=== PATIENT | female | born 1935 | race Caucasian/White ===

== ENCOUNTER 2016-09-01 12:46 | Emergency (ER) | payer MEDICARE, OTHER ==
[2016-09-01 12:54] VITALS: BP 133/75; PULSE 92; RESP 20; TEMP 97
[2016-09-01] MEDS ORDERED: SULFAMETHOX-TMP 800-160MG 1 EACH TAB PO STA (13:30)
[2016-09-01] MEDS ORDERED: DIPH,PERTUS(ACELL)TETVAC-LF 0.5 ML VIAL IM ONE (13:30)
--- NOTE | 2016-09-01 13:37 | ED ---
Skin/Abscess/FB HPI - General Chief complaint: Skin/Abscess/Foreign Body Stated complaint: Abscess Time Seen by Provider: 09/01/16 12:57 Source: patient Mode of arrival: ambulatory Limitations: no limitations - History of Present Illness MD complaint: abscess/boil Onset/Timin -: week(s) Tetanus Up to Date: no Location: R hand (Dorsal aspect of right wrist) Severity: moderate Severity scale (1-10): 4 Quality: aching Consistency: constant Improves with: none Worsens with: palpation Context: none Associated symptoms: denies other symptoms Treatments Prior to Arrival: attempted to drain pus at home, other (Topical antibiotics) - Related Data Previous Rx's Medication Instructions Recorded Sulfamethox-Tmp 800-160Mg [Bactrim 1 tab PO Q12HR #20 tab 09/01/16 DS 800-160 mg] Allergies Allergy/AdvReac Type Severity Reaction Status Date / Time morphine Allergy Unknown Verified 09/01/16 12:55 oxycodone [From OxyContin] Allergy Unknown Verified 09/01/16 12:55 Review of Systems ROS Statement: Those systems with pertinent positive or pertinent negative responses have been documented in the HPI. ROS Other: All systems not noted in ROS Statement are negative. Past Medical History Past Medical History: Hyperlipidemia, Hypertension, Rheumatoid Arthritis (RA) Additional Past Medical History / Comment(s): back pain History of Any Multi-Drug Resistant Organisms: None Reported Past Psychological History: No Psychological Hx Reported Smoking Status: Former smoker Past Alcohol Use History: None Reported Past Drug Use History: None Reported General Exam Limitations: no limitations General appearance: alert, in no apparent distress Head exam: Present: atraumatic, normocephalic, normal inspection Eye exam: Present: normal appearance. Absent: scleral icterus, conjunctival injection, periorbital swelling, periorbital tenderness ENT exam: Present: normal exam, mucous membranes moist, normal external ear exam Neck exam: Present: normal inspection Respiratory exam: Present: normal lung sounds bilaterally. Absent: respiratory distress, wheezes, rales, rhonchi Cardiovascular Exam: Present: regular rate, normal rhythm, normal heart sounds GI/Abdominal exam: Present: soft, normal bowel sounds. Absent: tenderness Right Elbow exam: Present: normal inspection, full ROM, tenderness Forearm Wrist exam: Present: normal inspection, full ROM. Absent: tenderness, swelling Hand Wrist exam: Present: full ROM, tenderness (Tenderness and erythema to radial aspect of right dorsal wrist), erythema Neuro motor exam: Present: wrist extension intact, thumb opposition intact, thumb IP flexion intact, thumb adduction intact, fingers 2-5 abduction intact Neurosensory exam: Present: radial nerve intact, ulnar nerve intact, median nerve intact Vascular: Present: normal capillary refill, radial pulse, brachial pulse, ulnar pulse. Absent: vascular compromise Back exam: Present: normal inspection Neurological exam: Present: alert, oriented X3, normal gait, other (No focal deficits noted). Absent: motor sensory deficit Psychiatric exam: Present: normal affect, normal mood Skin exam: Present: other Expanded Type of lesion: Present: other (1 cm subcutaneous cyst with small central core to radial aspect of dorsal side of right wrist, tender to palpation, erythematous.) Course Vital Signs 09/01/16 12:52 Temperature 97.0 F L Pulse Rate 92 Respiratory 20 Rate Blood Pressure 133/75 O2 Sat by Pulse 98 Oximetry Procedures - Incision & Drainage Consent Obtained: verbal consent Time Out Performed?: No Site: hand (Right wrist) Size (cm): 1 Anesthetic Used: lidocaine 1% I&D Cleaning Method: Chloroprep, Iodine Sterile Field Used?: Yes Scalpel Used: #11 Needle Aspiration Performed?: No Irrigation Performed?: Yes I&D Drainage Obtained: Other (Cream-colored drainage with a cottage cheese-like consistency and foul odor. ) Culture Obtained?: Yes Patient Tolerated Procedure: well, no complications Medical Decision Making - Medical Decision Making Sebaceous cyst to right wrist. Incision and drainage performed at bedside. Patient tolerated well. Patient started on Bactrim. Wound care instructions reviewed with patient. Patient instructed to return with new or worsening symptoms. Disposition Clinical Impression: Sebaceous cyst Disposition: HOME SELF-CARE Condition: Good Instructions: Abscess Incision and Drainage (ED), Cyst (ED) Additional Instructions: Finish antibiotics as prescribed. Monitor for signs and symptoms of infection such as fevers, increased swelling, redness, or increased pain. Please return to the emergency department if he has no symptoms. Change dressing daily. Apply warm compresses to promote drainage 3-4 times daily. Prescriptions: Sulfamethox-Tmp 800-160Mg [Bactrim DS 800-160 mg] 1 tab PO Q12HR #20 tab Referrals: Nonstaff,Physician [Primary Care Provider] - 1-2 days Time of Disposition: 13:36
== END 2016-09-01 13:55 | disposition home or self-care (01) ==
LOC: EC 12:46
DX: L72.3 Sebaceous cyst (principal); Z88.5 Allergy status to narcotic agent; Z23 Encounter for immunization; Z87.891 Personal history of nicotine dependence
CPT/HCPCS: 10060; 87070; 87205; 90471; 90715; 99283

== ENCOUNTER → 2016-09-12 | Outpatient (CLI) | payer MEDICARE, OTHER ==
[2016-09-12 14:22] LABS: CHCM 33.4; HDW 2.62; HGB 12.7 gm/dL (11.4-16.0); MCH 32.1 pg (25.0-35.0); MCHC 33.3 g/dL (31.0-37.0); MCV 96.2 fL (80.0-100.0); Mean Platelet Volume 7.4; RBC 3.95 m/uL (3.80-5.40); RDW 14.9 % (11.5-15.5)
[2016-09-12 14:48] LABS: ALT 30 U/L (9-52); AST 21 U/L (14-36); Alkaline Phosphatase 60 U/L (38-126); Anion Gap 11 mmol/L; Blood Urea Nitrogen 18 mg/dL (7-17); Carbon Dioxide 23 mmol/L (22-30); Chloride 101 mmol/L (98-107); Glucose 103 mg/dL (74-99); Non-African American GFR(MDRD) >60 (>60 ml/min/1.73 sqM); Potassium 4.5 mmol/L (3.5-5.1); Sodium 135 mmol/L (137-145); Total Bilirubin 0.5 mg/dL (0.2-1.3); Total Protein 6.6 g/dL (6.3-8.2)
== END | disposition home or self-care (01) ==
LOC: LABWHC1 13:29
PROVIDERS: ATTEND Internal Medicine Rheumatology
DX: M25.50 Pain in unspecified joint (principal); Z79.899 Other long term (current) drug therapy
CPT/HCPCS: 36415; 80053; 85027

== ENCOUNTER 2016-10-24 12:01 | Emergency (ER) | payer MEDICARE, OTHER ==
[2016-10-24 12:21] VITALS: BP 158/81; PULSE 51; RESP 17; TEMP 97.8
--- NOTE | 2016-10-24 12:54 | ED ---
Lower Extremity Injury HPI - General Chief Complaint: Extremity Injury, Lower Stated Complaint: left knee pain Time Seen by Provider: 10/24/16 12:21 Source: patient, RN notes reviewed Mode of arrival: wheelchair Limitations: no limitations - History of Present Illness Initial Comments: 81-year-old female presents emergency Department with chief complaint of left knee pain. Patient's had nothing pain over the last 2 weeks. Patient states she murmurs twisting and states that she has some discomfort but states that the pain is usually worse the morning better throughout the day. She states that she can barely walk on it when she gets up in the morning. Patient states that she's had no prior knee injuries. Patient states she been taking over-the- counter Tylenol 5 mg states it helped somewhat. Patient states that she is here visiting from [place] and is leaving in 2 weeks. Patient denies any swelling no ecchymosis. - Related Data Home Medications Medication Instructions Recorded Confirmed Calcium Carbonate [Calcium] 1,200 mg PO BID 10/24/16 10/24/16 Cholecalciferol [Vitamin D3] 1,000 unit PO BID 10/24/16 10/24/16 Cyanocobalamin (Vitamin B-12) 1,000 mcg PO DAILY 10/24/16 10/24/16 [Vitamin B-12] Estradiol 0.5 mg PO DAILY 10/24/16 10/24/16 Folic Acid 0.4 mg PO DAILY 10/24/16 10/24/16 Hydrocodone/Acetaminophen [[place] 1 tab PO Q6HR PRN 10/24/16 10/24/16 5-325] Lisinopril [Prinivil] 10 mg PO DAILY 10/24/16 10/24/16 Methotrexate Sodium [Methotrexate] 20 mg PO FR 10/24/16 10/24/16 Oxybutynin Chloride 5 mg PO BID 10/24/16 10/24/16 predniSONE 5 mg PO DAILY 10/24/16 10/24/16 predniSONE 10 mg PO HS 10/24/16 10/24/16 Previous Rx's Medication Instructions Recorded Meloxicam [Mobic] 7.5 mg PO DAILY #30 tab 10/24/16 Allergies Allergy/AdvReac Type Severity Reaction Status Date / Time morphine Allergy Unknown Verified 10/24/16 12:25 oxycodone [From OxyContin] Allergy Unknown Verified 10/24/16 12:25 Review of Systems ROS Statement: Those systems with pertinent positive or pertinent negative responses have been documented in the HPI. ROS Other: All systems not noted in ROS Statement are negative. Past Medical History Past Medical History: Hyperlipidemia, Hypertension, Rheumatoid Arthritis (RA) Additional Past Medical History / Comment(s): back pain History of Any Multi-Drug Resistant Organisms: None Reported Past Surgical History: No Surgical Hx Reported Past Psychological History: No Psychological Hx Reported Smoking Status: Former smoker Past Alcohol Use History: None Reported Past Drug Use History: None Reported General Exam Limitations: no limitations General appearance: alert, in no apparent distress Respiratory exam: Present: normal lung sounds bilaterally. Absent: respiratory distress, wheezes, rales, rhonchi, stridor Cardiovascular Exam: Present: regular rate, normal rhythm, normal heart sounds. Absent: systolic murmur, diastolic murmur, rubs, gallop, clicks Extremities exam: Present: other (Left knee there is no obvious swelling and ecchymosis patient has full range of motion passive and active patient is pain with weightbearing only. Patient's neurovascular intact with pedal pulses equal bilaterally there is equal: Equal warmth of bilateral lower extremities.) Course Vital Signs 10/24/16 12:18 Temperature 97.8 F Pulse Rate 51 L Respiratory 17 Rate Blood Pressure 158/81 O2 Sat by Pulse 98 Oximetry Medical Decision Making - Medical Decision Making 81-year-old female presented emergency from for left knee pain. Patient most likely has this brain of her left knee no we did discuss possible meniscus injury. Patient does have some symptoms are of osteoarthritis. Patient will be follow-up with orthopedics return parameters discussed. Disposition Clinical Impression: Left knee pain, Left knee sprain Disposition: HOME SELF-CARE Condition: Stable Instructions: Knee Pain (ED) Additional Instructions: Please return to the Emergency Department if symptoms worsen or any other concerns. Prescriptions: Meloxicam [Mobic] 7.5 mg PO DAILY #30 tab Referrals: None,Stated [Primary Care Provider] - 1-2 days Time of Disposition: 13:23
--- NOTE | 2016-10-24 13:51 | XR ---
EXAMINATION TYPE: XR knee complete LT DATE OF EXAM: 10/24/2016 COMPARISON: NONE HISTORY: Twisting injury 2 weeks prior, pain TECHNIQUE: Three-view left knee FINDINGS: Joint spaces are preserved. Vascular calcification is noted. No joint effusion is evident. IMPRESSION: 1. No acute osseous abnormality. MRI is available if additional evaluation would be of benefit.
== END 2016-10-24 13:30 | disposition home or self-care (01) ==
LOC: EC 12:01
DX: S83.92XA Sprain of unspecified site of left knee, initial encounter (principal); E78.5 Hyperlipidemia, unspecified; I10 Essential (primary) hypertension; M06.9 Rheumatoid arthritis, unspecified; Z87.891 Personal history of nicotine dependence; Z79.52 Long term (current) use of systemic steroids; Z79.899 Other long term (current) drug therapy; Z88.5 Allergy status to narcotic agent; Z88.8 Allergy status to other drugs, medicaments and biological substances; X50.1XXA Overexertion from prolonged static or awkward postures, initial encounter
CPT/HCPCS: 99283

== ENCOUNTER 2017-08-15 14:02 | Emergency (ER) | payer MEDICARE ==
--- NOTE | 2017-08-15 15:27 | ED ---
General Adult HPI - General Chief complaint: Back Pain/Injury Stated complaint: rt rib pain Time Seen by Provider: 08/15/17 14:54 Source: patient, RN notes reviewed Mode of arrival: wheelchair Limitations: no limitations - History of Present Illness Initial comments: 82-year-old female presents to the emergency department for a chief complaint of right-sided rib pain. Patient states that one week ago she was trying to pull her suitcase when he got stuck on a corner. Patient states she gave it a good pull and felt pain in her right side ribs. Patient denies any new pain in her neck or back. Patient denies any other injuries or head trauma. Patient states it is somewhat painful to take a deep breath down on the right lower side of her ribs. Patient denies cough or difficulty breathing. Patient has had a rib injury before about 6 months ago and it was fractured. Patient states it did heal on its own. Patient has no other complaints at this time including shortness of breath, chest pain, abdominal pain, nausea or vomiting, headache, or visual changes. - Related Data Home Medications Medication Instructions Recorded Confirmed Calcium Carbonate [Calcium] 1,200 mg PO BID 10/24/16 10/24/16 Cholecalciferol [Vitamin D3] 1,000 unit PO BID 10/24/16 10/24/16 Cyanocobalamin (Vitamin B-12) 1,000 mcg PO DAILY 10/24/16 10/24/16 [Vitamin B-12] Estradiol 0.5 mg PO DAILY 10/24/16 10/24/16 Folic Acid 0.4 mg PO DAILY 10/24/16 10/24/16 Lisinopril [Prinivil] 10 mg PO DAILY 10/24/16 10/24/16 Methotrexate Sodium [Methotrexate] 20 mg PO FR 10/24/16 10/24/16 Oxybutynin Chloride 5 mg PO BID 10/24/16 10/24/16 predniSONE 5 mg PO DAILY 10/24/16 10/24/16 predniSONE 10 mg PO HS 10/24/16 10/24/16 Previous Rx's Medication Instructions Recorded Hydrocodone/Acetaminophen [[place] 1 tab PO Q6HR PRN #20 10/24/16 5-325] Meloxicam [Mobic] 7.5 mg PO DAILY #30 tab 10/24/16 predniSONE 15 mg PO DAILY #30 tab 10/24/16 Acetaminophen-Codeine 300-30mg 1 tab PO Q6HR PRN #10 tablet 08/15/17 [Tylenol #3] Allergies Allergy/AdvReac Type Severity Reaction Status Date / Time morphine Allergy Unknown Verified 08/15/17 14:34 oxycodone [From OxyContin] Allergy Unknown Verified 08/15/17 14:34 Review of Systems ROS Statement: Those systems with pertinent positive or pertinent negative responses have been documented in the HPI. ROS Other: All systems not noted in ROS Statement are negative. Past Medical History Past Medical History: GERD/Reflux, Hyperlipidemia, Hypertension, Osteoarthritis (OA), Rheumatoid Arthritis (RA) Additional Past Medical History / Comment(s): neuropathy, back pain History of Any Multi-Drug Resistant Organisms: None Reported Past Surgical History: Appendectomy, Back Surgery, Joint Replacement Additional Past Surgical History / Comment(s): right shoulder, right and left hip replacement, ulcer, L4/L5 fusion Past Psychological History: No Psychological Hx Reported Smoking Status: Former smoker Past Alcohol Use History: None Reported Past Drug Use History: None Reported General Exam - General Exam Comments Initial Comments: Rib exam: Tenderness around lateral right ribs 9 and 10. No contusions or hematomas noted. No step off palpated. No signs of redness or infection. Limitations: no limitations General appearance: alert, in no apparent distress Head exam: Present: atraumatic, normocephalic, normal inspection Eye exam: Present: normal appearance ENT exam: Present: normal exam, mucous membranes moist Neck exam: Present: normal inspection, full ROM. Absent: tenderness, meningismus, lymphadenopathy Respiratory exam: Present: normal lung sounds bilaterally. Absent: respiratory distress, wheezes, rales, rhonchi, stridor Cardiovascular Exam: Present: regular rate, normal rhythm, normal heart sounds. Absent: systolic murmur, diastolic murmur, rubs, gallop, clicks Back exam: Present: normal inspection, full ROM. Absent: tenderness, CVA tenderness (R), CVA tenderness (L) Course Vital Signs 08/15/17 08/15/17 14:30 16:13 Temperature 98.4 F 97.9 F Pulse Rate 95 79 Respiratory 18 17 Rate Blood Pressure 134/69 157/78 O2 Sat by Pulse 97 98 Oximetry Medical Decision Making - Medical Decision Making 82-year-old female presents to the emergency department for a chief complaint of rib injury one week ago. Patient was dislodging her suitcase when he got stuck on a corner. Patient pulled the suitcase hard and felt pain in her right ribs. Patient has had a rib fracture before about 8 months ago. On exam patient does have mild tenderness around ribs 9 and 10 on the right lateral aspect. No contusions or hematomas noted. No step-off palpated. Patient would like an x-ray at this time. X-ray shows a minimally displaced rib fracture at the ninth rib anterolaterally with some associated minimal atelectasis. No pneumothorax or pleural effusion. Patient will be treated for rib fracture. She was given an incentive spirometer. Patient cannot take Motrin or Aleve so pain will be controlled with Tylenol 3. Patient was educated to do deep breathing with incentive spirometer about a few times every hour. She was also educated on pillow splinting. She was educated to return to the emergency Department if she has any worsening symptoms including fever or cough which could be related to developing pneumonia. She was given the number to primary care provider and will follow up with them in 1-2 days. Disposition Clinical Impression: Right rib fracture Disposition: HOME SELF-CARE Condition: Good Instructions: How to Use an Incentive Spirometer (ED), Rib Fracture (ED) Additional Instructions: Please take Tylenol [address] or operate machinery while taking Tylenol 3. Please use pillow to splint against your ribs as discussed. Use incentive spirometer once per hour. If you notice any signs of coughing, fever , or worsening symptoms return to the emergency department. Follow up with primary care in 1-2 days. Prescriptions: Acetaminophen-Codeine 300-30mg [Tylenol #3] 1 tab PO Q6HR PRN #10 tablet PRN Reason: Pain Is patient prescribed a controlled substance at d/c from ED?: Yes When asked, does pt state using other controlled substances?: No If prescribed controlled substance>3 days was MAPS reviewed?: Prescribed <3 Days If opioid is for acute pain is fill amount 7 days or less?: Yes If Rx opioid, was Start Talking consent form obtained?: Yes Referrals: Samson Landers DO [STAFF PHYSICIAN] - 1-2 days Time of Disposition: 16:05
--- NOTE | 2017-08-15 15:40 | XR ---
Right RIBS with chest x-ray HISTORY: Trauma and pain Frontal view of the chest and 4 views of the right ribs submitted. No comparisons Postop changes are noted at the gastroesophageal junction. There is a spinal curvature present. Posto p changes are noted to the lumbar spine and right shoulder. No pneumothorax or pleural effusion. Hear t size is within normal limits. There is a minimally displaced rib fracture at the ninth rib anterolaterally with some associated min imal atelectasis. IMPRESSION: Ninth rib fracture on the right. Additional findings above.
[2017-08-15 16:14] VITALS: BP 157/78; PULSE 79; RESP 17; TEMP 97.9
== END 2017-08-15 16:25 | disposition home or self-care (01) ==
LOC: EC 14:02
DX: S22.31XA Fracture of one rib, right side, initial encounter for closed fracture (principal); I10 Essential (primary) hypertension; M06.9 Rheumatoid arthritis, unspecified; Z96.643 Presence of artificial hip joint, bilateral; Z87.81 Personal history of (healed) traumatic fracture; Z87.891 Personal history of nicotine dependence; Z79.890 Hormone replacement therapy; Z79.52 Long term (current) use of systemic steroids; Z79.899 Other long term (current) drug therapy; Z88.5 Allergy status to narcotic agent; X50.9XXA Other and unspecified overexertion or strenuous movements or postures, initial encounter; Y93.89 Activity, other specified; Y92.009 Unspecified place in unspecified non-institutional (private) residence as the place of occurrence of the external cause
CPT/HCPCS: 99283

== ENCOUNTER 2017-08-22 09:02 | Emergency (ER) | payer MEDICARE ==
[2017-08-22 09:39] VITALS: TEMP 98.7
[2017-08-22] MEDS ORDERED: KETOROLAC 60 MG/2 ML VIAL IM STA (10:23)
[2017-08-22] MEDS ORDERED: traMADol 50 MG TAB PO STA (10:24)
--- NOTE | 2017-08-22 10:26 | ED ---
General Adult HPI - General Chief complaint: Fall Stated complaint: BACK PAIN, FALL Time Seen by Provider: 08/22/17 10:00 Source: patient, RN notes reviewed Mode of arrival: wheelchair Limitations: no limitations - History of Present Illness Initial comments: This is an 82-year-old male who presents emergency Department complaining of back pain. Patient states she fell because her left leg keeps giving out and that is been an ongoing problem. Patient states she hurt her lower back and is all across both sides. Patient denies any numbness or weakness. Patient denies any upper back pain. Patient denies any rib pain patient states she did break a rib recently but there is no more increased pain now than it was. Patient denies any difficulty breathing shortness of breath. Patient denies any leg pain bilaterally. Patient denies any hip pain. Patient denies any injury to the head or neck. - Related Data Home Medications Medication Instructions Recorded Confirmed Calcium Carbonate [Calcium] 1,200 mg PO BID 10/24/16 10/24/16 Cholecalciferol [Vitamin D3] 1,000 unit PO BID 10/24/16 10/24/16 Cyanocobalamin (Vitamin B-12) 1,000 mcg PO DAILY 10/24/16 10/24/16 [Vitamin B-12] Estradiol 0.5 mg PO DAILY 10/24/16 10/24/16 Folic Acid 0.4 mg PO DAILY 10/24/16 10/24/16 Lisinopril [Prinivil] 10 mg PO DAILY 10/24/16 10/24/16 Methotrexate Sodium [Methotrexate] 20 mg PO FR 10/24/16 10/24/16 Oxybutynin Chloride 5 mg PO BID 10/24/16 10/24/16 predniSONE 5 mg PO DAILY 10/24/16 10/24/16 predniSONE 10 mg PO HS 10/24/16 10/24/16 Previous Rx's Medication Instructions Recorded Hydrocodone/Acetaminophen [[place] 1 tab PO Q6HR PRN #20 10/24/16 5-325] Meloxicam [Mobic] 7.5 mg PO DAILY #30 tab 10/24/16 predniSONE 15 mg PO DAILY #30 tab 10/24/16 Acetaminophen-Codeine 300-30mg 1 tab PO Q6HR PRN #10 tablet 08/15/17 [Tylenol #3] traMADol HCL [Ultram] 50 mg PO Q6HR PRN 3 Days #10 tab 08/22/17 Allergies Allergy/AdvReac Type Severity Reaction Status Date / Time morphine Allergy Unknown Verified 08/22/17 09:39 oxycodone [From OxyContin] Allergy Unknown Verified 08/22/17 09:39 Review of Systems ROS Statement: Those systems with pertinent positive or pertinent negative responses have been documented in the HPI. ROS Other: All systems not noted in ROS Statement are negative. Past Medical History Past Medical History: GERD/Reflux, Hyperlipidemia, Hypertension, Osteoarthritis (OA), Rheumatoid Arthritis (RA) Additional Past Medical History / Comment(s): neuropathy, back pain History of Any Multi-Drug Resistant Organisms: None Reported Past Surgical History: Appendectomy, Back Surgery, Joint Replacement Additional Past Surgical History / Comment(s): right shoulder, right and left hip replacement, ulcer, L4/L5 fusion Past Psychological History: No Psychological Hx Reported Smoking Status: Former smoker Past Alcohol Use History: None Reported Past Drug Use History: None Reported General Exam - General Exam Comments Initial Comments: GENERAL: Patient is well-developed and well-nourished. Patient is nontoxic and well- hydrated and is in mild distress. ENT: Neck is soft and supple. No significant lymphadenopathy is noted. Oropharynx is clear. Moist mucous membranes. Neck has full range of motion without eliciting any pain. EYES: The sclera were anicteric and conjunctiva were pink and moist. Extraocular movements were intact and pupils were equal round and reactive to light. Eyelids were unremarkable. PULMONARY: Unlabored respirations. Good breath sounds bilaterally. No audible rales rhonchi or wheezing was noted. CARDIOVASCULAR: There is a regular rate and rhythm without any murmurs gallops or rubs. ABDOMEN: Soft and nontender with normal bowel sounds. No palpable organomegaly was noted. There is no palpable pulsatile mass. SKIN: Skin is clear with no lesions or rashes and otherwise unremarkable. NEUROLOGIC: Patient is alert and oriented x3. Cranial nerves II through XII are grossly intact. Motor and sensory are also intact. Normal speech, volume and content. Symmetrical smile. Patient has a negative straight leg test MUSCULOSKELETAL: Normal extremities with adequate strength and full range of motion. Patient's lower back is tender to palpation in the sacroiliac joint bilaterally LYMPHATICS: No significant lymphadenopathy is noted PSYCHIATRIC: Normal psychiatric evaluation. Normal interpersonal interactions appears functionally intact in deals appropriately with others. No signs of depression. No signs of anxiety. Limitations: no limitations Course Vital Signs 08/22/17 09:35 Temperature 98.7 F Pulse Rate 58 L Respiratory 16 Rate Blood Pressure 141/72 O2 Sat by Pulse 96 Oximetry Medical Decision Making - Medical Decision Making Lumbar spine shows no acute abnormality. There is a L1 compression fracture but she brought paperwork that indicated it was there before. He has no numbness or weakness or neurologic deficit Disposition Clinical Impression: Lumbosacral strain Disposition: HOME SELF-CARE Condition: Good Instructions: Fall Prevention for Older Adults (ED), Low Back Strain (ED) Prescriptions: traMADol HCL [Ultram] 50 mg PO Q6HR PRN 3 Days #10 tab PRN Reason: Pain Is patient prescribed a controlled substance at d/c from ED?: Yes When asked, does pt state using other controlled substances?: No If opioid is for acute pain is fill amount 7 days or less?: Yes Referrals: Nonstaff,Physician [Primary Care Provider] - 1-2 days Time of Disposition: 11:55
--- NOTE | 2017-08-22 11:43 | XR ---
EXAM TYPE: LUMBAR SPINE X RAY SERIES COMPARISON: NONE HISTORY: Pain TECHNIQUE: 4 views are submitted. FINDINGS: Alignment is anatomic. The pedicles are intact. The transverse processes are intact. There is no s pondylolysis or spondylolisthesis. Scoliosis and extensive postsurgical changes are seen. Multilevel degenerative disc disease noted there is a moderate to severe superior endplate compression fracture of L1. No prior exams available. Postsurgical change involving the left hip. Diffuse osteopenia. Vascular calcifications noted. IMPRESSION: 1. Moderate superior endplate compression fracture L1 indeterminate age with no prior exams to compar e. Correlate with point tenderness. 2. Postsurgical change with diffuse osteopenia, scoliosis and multilevel degenerative disc disease.
[2017-08-22 12:31] VITALS: BP 172/74; PULSE 97; RESP 18
== END 2017-08-22 12:31 | disposition home or self-care (01) ==
LOC: EC 09:02
DX: S39.012A Strain of muscle, fascia and tendon of lower back, initial encounter (principal); M48.56XA Collapsed vertebra, not elsewhere classified, lumbar region, initial encounter for fracture; I10 Essential (primary) hypertension; M06.9 Rheumatoid arthritis, unspecified; M19.90 Unspecified osteoarthritis, unspecified site; Z87.891 Personal history of nicotine dependence; Z79.52 Long term (current) use of systemic steroids; Z79.899 Other long term (current) drug therapy; Z88.5 Allergy status to narcotic agent; Z98.1 Arthrodesis status; W01.0XXA Fall on same level from slipping, tripping and stumbling without subsequent striking against object, initial encounter; Y92.009 Unspecified place in unspecified non-institutional (private) residence as the place of occurrence of the external cause
CPT/HCPCS: 72110; 99283; 96372; J1885

== ENCOUNTER 2017-09-29 19:51 | Inpatient (IN) | payer MEDICARE ==
--- NOTE | 2017-09-29 20:24 | ED ---
Weakness HPI - General Source: patient, family, EMS, RN notes reviewed Mode of arrival: EMS Limitations: no limitations - History of Present Illness MD Complaint: generalized weakness <Nikolas Oneal - Last Filed: 09/29/17 21:08> <Steffen Washington - Last Filed: 09/29/17 23:16> - General Chief complaint: Weakness Stated complaint: Possible Sepsis Time Seen by Provider: 09/29/17 19:51 - History of Present Illness Initial comments: This is a 82-year-old female was brought in by EMS with complaints of generalized weakness and started about 8 PM last evening with fever some mild confusion she was acting better today and could not even get out of bed she is found have a temperature 101.5 H2 percent sat on room air up to 92% after 2 L of oxygen per EMS. She has a cough no definite phlegm production no dysuria she has had decreased oral intake she does have a history of COPD but at this time no other modifying factors (Nikolas Oneal) - Related Data Home Medications Medication Instructions Recorded Confirmed Calcium Carbonate [Calcium] 1,200 mg PO BID 10/24/16 10/24/16 Cholecalciferol [Vitamin D3] 1,000 unit PO BID 10/24/16 10/24/16 Cyanocobalamin (Vitamin B-12) 1,000 mcg PO DAILY 10/24/16 10/24/16 [Vitamin B-12] Estradiol 0.5 mg PO DAILY 10/24/16 10/24/16 Folic Acid 0.4 mg PO DAILY 10/24/16 10/24/16 Lisinopril [Prinivil] 10 mg PO DAILY 10/24/16 10/24/16 Methotrexate Sodium [Methotrexate] 20 mg PO FR 10/24/16 10/24/16 Oxybutynin Chloride 5 mg PO BID 10/24/16 10/24/16 predniSONE 5 mg PO DAILY 10/24/16 10/24/16 predniSONE 10 mg PO HS 10/24/16 10/24/16 Previous Rx's Medication Instructions Recorded Hydrocodone/Acetaminophen [[place] 1 tab PO Q6HR PRN #20 10/24/16 5-325] Meloxicam [Mobic] 7.5 mg PO DAILY #30 tab 10/24/16 predniSONE 15 mg PO DAILY #30 tab 10/24/16 Acetaminophen-Codeine 300-30mg 1 tab PO Q6HR PRN #10 tablet 08/15/17 [Tylenol #3] traMADol HCL [Ultram] 50 mg PO Q6HR PRN 3 Days #10 tab 08/22/17 Allergies Allergy/AdvReac Type Severity Reaction Status Date / Time morphine Allergy Unknown Verified 08/22/17 09:39 oxycodone [From OxyContin] Allergy Unknown Verified 08/22/17 09:39 Review of Systems ROS Other: All systems not noted in ROS Statement are negative. <Nikolas Oneal - Last Filed: 09/29/17 21:08> ROS Other: All systems not noted in ROS Statement are negative. <Steffen Washington - Last Filed: 09/29/17 23:16> ROS Statement: Those systems with pertinent positive or pertinent negative responses have been documented in the HPI. Past Medical History Past Medical History: GERD/Reflux, Hyperlipidemia, Hypertension, Osteoarthritis (OA), Rheumatoid Arthritis (RA) Additional Past Medical History / Comment(s): neuropathy, back pain History of Any Multi-Drug Resistant Organisms: None Reported Past Surgical History: Appendectomy, Back Surgery, Joint Replacement Additional Past Surgical History / Comment(s): right shoulder, right and left hip replacement, ulcer, L4/L5 fusion Past Psychological History: No Psychological Hx Reported Smoking Status: Former smoker Past Alcohol Use History: None Reported Past Drug Use History: None Reported <Nikolas Oneal - Last Filed: 09/29/17 21:08> General Exam Limitations: no limitations General appearance: alert Head exam: Present: atraumatic, normocephalic, normal inspection Eye exam: Present: normal appearance, PERRL, EOMI. Absent: scleral icterus, conjunctival injection, periorbital swelling ENT exam: Present: mucous membranes dry Neck exam: Present: normal inspection. Absent: tenderness, meningismus, lymphadenopathy Respiratory exam: Present: rhonchi, decreased breath sounds Cardiovascular Exam: Present: tachycardia, irregular rhythm GI/Abdominal exam: Present: soft, normal bowel sounds. Absent: distended, tenderness, guarding, rebound, rigid Extremities exam: Present: normal inspection, full ROM, normal capillary refill. Absent: tenderness, pedal edema, joint swelling, calf tenderness Back exam: Present: normal inspection Neurological exam: Present: alert, oriented X3, CN II-XII intact Psychiatric exam: Present: normal affect, normal mood Skin exam: Present: warm, dry, intact, normal color. Absent: rash <Nikolas Oneal - Last Filed: 09/29/17 21:08> <PadminiSteffen - Last Filed: 09/29/17 23:16> - General Exam Comments Initial Comments: This is a well-developed asthenic appearing female who is awake alert smiling lethargic (Nikolas Oneal) Course <Nikolas Oneal - Last Filed: 09/29/17 21:08> <Steffen Washington - Last Filed: 09/29/17 23:16> Vital Signs 09/29/17 09/29/17 09/29/17 19:53 21:00 22:00 Temperature 99.4 F Pulse Rate 118 H 133 H 123 H Respiratory 27 H 28 H 28 H Rate Blood Pressure 153/74 168/59 168/74 O2 Sat by Pulse 83 L 93 L 96 Oximetry 09/29/17 09/29/17 22:25 22:55 Temperature Pulse Rate 133 H 144 H Respiratory 28 H 32 H Rate Blood Pressure 106/58 102/56 O2 Sat by Pulse 92 L 90 L Oximetry - Reevaluation(s) Reevaluation #1: 09/29/17 21:08 The case is endorsed to Dr. 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 - EKG Results: EKG: interpreted by ERMD EKG shows: atrial fibrillation (Rate approximately 136 bpm) - Blocks, [place], Hypertrophy, ST Abn: QRS axis and voltage: left axis deviation (-30 to -90) - NV, Pacemaker, Normal: Myocardial infarction: septal NV (old age or indeterminate), anterior NV (old age or indeterminate) <Steffen Washington - Last Filed: 09/29/17 23:16> Medical Decision Making - Lab Data Result diagrams: 09/29/17 20:32 <Nikolas Oneal - Last Filed: 09/29/17 21:08> - Lab Data Result diagrams: 09/29/17 20:32 09/29/17 20:32 <Steffen Washington - Last Filed: 09/29/17 23:16> - Medical Decision Making I receive this patient has a sign out, pending the return of the patient's computed tomography scan to rule out pulmonary embolus. Clinically and by the x -ray and labs the patient does appear to have a degree of congestive heart failure/pulmonary edema. The EKG also does show atrial fibrillation with a rapid ventricular rate. Therapy is started. As the patient does not have a local physician, case is discussed with Dr. Song, medical on-call and will be admitted to the [facility]. (Steffen Washington) - Lab Data Lab Results 09/29/17 09/29/17 09/29/17 Range/Units 20:32 20:32 20:32 WBC 12.7 H (3.8-10.6) k/uL RBC 3.46 L (3.80-5.40) m/uL Hgb 10.7 L (11.4-16.0) gm/dL Hct 34.0 (34.0-46.0) % MCV 98.1 (80.0-100.0) fL MCH 30.8 (25.0-35.0) pg MCHC 31.4 (31.0-37.0) g/dL RDW 18.9 H (11.5-15.5) % Plt Count 289 (150-450) k/uL Neutrophils % 76 % Lymphocytes % 13 % Monocytes % 5 % Eosinophils % 1 % Basophils % 1 % Neutrophils # 9.7 H (1.3-7.7) k/uL Lymphocytes # 1.7 (1.0-4.8) k/uL Monocytes # 0.7 (0-1.0) k/uL Eosinophils # 0.1 (0-0.7) k/uL Basophils # 0.1 (0-0.2) k/uL Hypochromasia Slight Anisocytosis Slight Macrocytosis Slight PT (9.0-12.0) sec INR (<1.2) APTT (22.0-30.0) sec D-Dimer (<0.60) mg/L FEU Sodium 140 (137-145) mmol/L Potassium 3.8 (3.5-5.1) mmol/L Chloride 108 H (98-107) mmol/L Carbon Dioxide 25 (22-30) mmol/L Anion Gap 7 mmol/L BUN 23 H (7-17) mg/dL Creatinine 0.70 (0.52-1.04) mg/dL Est GFR (CKD-EPI)AfAm >90 (>60 ml/min/1.73 sqM) Est GFR (CKD-EPI)NonAf 81 (>60 ml/min/1.73 sqM) Glucose 71 L (74-99) mg/dL Plasma Lactic Acid Alex (0.7-2.0) mmol/L Calcium 8.9 (8.4-10.2) mg/dL Magnesium 1.7 (1.6-2.3) mg/dL Total Bilirubin 0.7 (0.2-1.3) mg/dL AST 30 (14-36) U/L ALT 37 (9-52) U/L Alkaline Phosphatase 62 (38-126) U/L Total Creatine Kinase 117 (30-135) U/L CK-MB (CK-2) 1.5 (0.0-2.4) ng/mL CK-MB (CK-2) Rel Index 1.3 Troponin I 0.459 H* (0.000-0.034) ng/mL NT-Pro-B Natriuret Pep pg/mL Total Protein 4.5 L (6.3-8.2) g/dL Albumin 2.4 L (3.5-5.0) g/dL 09/29/17 09/29/17 09/29/17 Range/Units 20:32 20:32 20:32 WBC (3.8-10.6) k/uL RBC (3.80-5.40) m/uL Hgb (11.4-16.0) gm/dL Hct (34.0-46.0) % MCV (80.0-100.0) fL MCH (25.0-35.0) pg MCHC (31.0-37.0) g/dL RDW (11.5-15.5) % Plt Count (150-450) k/uL Neutrophils % % Lymphocytes % % Monocytes % % Eosinophils % % Basophils % % Neutrophils # (1.3-7.7) k/uL Lymphocytes # (1.0-4.8) k/uL Monocytes # (0-1.0) k/uL Eosinophils # (0-0.7) k/uL Basophils # (0-0.2) k/uL Hypochromasia Anisocytosis Macrocytosis PT 12.2 H (9.0-12.0) sec INR 1.3 H (<1.2) APTT 28.6 (22.0-30.0) sec D-Dimer 1.18 H (<0.60) mg/L FEU Sodium (137-145) mmol/L Potassium (3.5-5.1) mmol/L Chloride (98-107) mmol/L Carbon Dioxide (22-30) mmol/L Anion Gap mmol/L BUN (7-17) mg/dL Creatinine (0.52-1.04) mg/dL Est GFR (CKD-EPI)AfAm (>60 ml/min/1.73 sqM) Est GFR (CKD-EPI)NonAf (>60 ml/min/1.73 sqM) Glucose (74-99) mg/dL Plasma Lactic Acid Alex 1.6 (0.7-2.0) mmol/L Calcium (8.4-10.2) mg/dL Magnesium (1.6-2.3) mg/dL Total Bilirubin (0.2-1.3) mg/dL AST (14-36) U/L ALT (9-52) U/L Alkaline Phosphatase (38-126) U/L Total Creatine Kinase (30-135) U/L CK-MB (CK-2) (0.0-2.4) ng/mL CK-MB (CK-2) Rel Index Troponin I (0.000-0.034) ng/mL NT-Pro-B Natriuret Pep 9870 pg/mL Total Protein (6.3-8.2) g/dL Albumin (3.5-5.0) g/dL Disposition <Nikolas Oneal - Last Filed: 09/29/17 21:08> Is patient prescribed a controlled substance at d/c from ED?: No <Steffen Washington - Last Filed: 09/29/17 23:16> Clinical Impression: Atrial fibrillation with rapid ventricular response, Congestive heart failure, Non-STEMI (non-ST elevated myocardial infarction) Disposition: ADMITTED IP TO THIS HOSP Condition: Serious Referrals: Nonstaff,Physician [Primary Care Provider] - 1-2 days
[2017-09-29 20:52] LABS: Anisocytosis Slight; Basophils # (A) 0.1 k/uL (0-0.2); Basophils % (A) 1 %; Eosinophils # (A) 0.1 k/uL (0-0.7); Eosinophils % (A) 1 %; HGB 10.7 gm/dL (11.4-16.0); Hypochromasia Slight; Lymphocytes # (A) 1.7 k/uL (1.0-4.8); Lymphocytes % (A) 13 %; MCH 30.8 pg (25.0-35.0); MCHC 31.4 g/dL (31.0-37.0); MCV 98.1 fL (80.0-100.0); Macrocytosis Slight; Mean Platelet Volume 7.4; Monocytes # (A) 0.7 k/uL (0-1.0); Monocytes % (A) 5 %; Neutrophils # (A) 9.7 k/uL (1.3-7.7); Neutrophils % (A) 76 %; Platelet Count 289 k/uL (150-450); RBC 3.46 m/uL (3.80-5.40); RDW 18.9 % (11.5-15.5); WBC 12.7 k/uL (3.8-10.6)
[2017-09-29 21:07] LABS: ALT 37 U/L (9-52); AST 30 U/L (14-36); Albumin 2.4 g/dL (3.5-5.0); Alkaline Phosphatase 62 U/L (38-126); Blood Urea Nitrogen 23 mg/dL (7-17); Calcium 8.9 mg/dL (8.4-10.2); Carbon Dioxide 25 mmol/L (22-30); Chloride 108 mmol/L (98-107); Glucose 71 mg/dL (74-99); Magnesium 1.7 mg/dL (1.6-2.3); Total Bilirubin 0.7 mg/dL (0.2-1.3); Total Protein 4.5 g/dL (6.3-8.2)
[2017-09-29 21:14] LABS: INR 1.3 (<1.2); Partial Thromboplastin Time 28.6 sec (22.0-30.0); Prothrombin Time 12.2 sec (9.0-12.0)
[2017-09-29 21:17] LABS: D-Dimer 1.18 mg/L FEU (<0.60)
[2017-09-29 21:20] LABS: Anion Gap 7 mmol/L; Potassium 3.8 mmol/L (3.5-5.1); Sodium 140 mmol/L (137-145)
[2017-09-29 21:35] LABS: Creatine Kinase MB 1.5 ng/mL (0.0-2.4)
[2017-09-29 21:37] LABS: Troponin I 0.459 ng/mL (0.000-0.034)
[2017-09-29] MEDS ORDERED: FUROSEMIDE 10 MG/ML 4 ML VIAL IV STA (21:39)
[2017-09-29] MEDS ORDERED: NITROGLYCERIN SL TABS 0.4 MG TAB SUBLINGUAL STA (21:40)
[2017-09-29] MEDS ORDERED: DILTIAZEM DRIP BOLUS FROM BAG 1 MG SOLN IV ONE ×2 (21:40→23:57)
--- NOTE | 2017-09-29 21:48 | XR ---
EXAMINATION TYPE: XR chest 2V DATE OF EXAM: 09/29/2017 COMPARISON: 08/15/2017 HISTORY: Shortness of breath TECHNIQUE: Frontal and lateral views of the chest are obtained. FINDINGS: There is new interstitial coarsening and prominence throughout the entirety of the lungs, right slightly greater than left, in comparison to the prior. Postsurgical changes of the shoulders, posttraumatic change of the left shoulder, and diffuse osseous demineralization is seen. Surgical cli ps are noted of the gastroesophageal junction. Cardiac silhouette is enlarged as seen on the prior.. IMPRESSION: Marked interstitial prominence new from the prior exam. Findings are most commonly on the basis of interstitial pulmonary edema or atypical pneumonitis. No sizable pleural effusion or pneumo thorax.
[2017-09-29] MEDS ORDERED: NITROGLYCERIN OINT 1 INCH/GM PACKET TOPICAL STA (21:49)
[2017-09-29] MEDS: DILTIAZEM 50 MG in SODIUM CHLORIDE 0.9% 40 ML IV SCH (22:09)
--- NOTE | 2017-09-29 22:34 | CT ---
EXAMINATION TYPE: CT chest angio for PE DATE OF EXAM: 09/29/2017 COMPARISON: None HISTORY: Weakness and shortness of breath. CT DLP: 216.3 mGycm Automated exposure control for dose reduction was used. CONTRAST: CT Chest for pulmonary embolism performed with with IV Contrast, patient injected with 60 mL of Isovu e 370. FINDINGS: There are 3-D post processed images. There is extensive airspace patchy consolidation in both lungs and more severe in the upper lung fiel ds. There are bilateral pleural effusions and larger on the right side. There is no pericardial effus ion. Heart is enlarged. There are paratracheal and bronchial lymph nodes measure up to 1 cm. Thoracic aorta is atheromatous. There is no evidence of aneurysm or dissection. I see no filling defe cts in the pulmonary arteries. There are multiple compression fractures involving T12-L1 T8 T7. IMPRESSION: No evidence of pulmonary embolism. Extensive pulmonary infiltrates could relate to RDS. Heart failure is possible. Mild bilateral pleural effusions.
[2017-09-29] MEDS ORDERED: HEPARIN SODIUM,PORCINE 5,000 UNIT/ML 1 ML VIAL IV ONE (23:11)
[2017-09-29] MEDS ORDERED: HEPARIN SODIUM,PORCINE 5,000 UNIT/ML 1 ML VIAL IV PRN (23:11)
[2017-09-29] MEDS ORDERED: HEPARIN SOD,PORK IN 0.45% NACL 25,000 UNIT in 0.45% NACL 1 500ML.BAG IV SCH (23:15)
[2017-09-30] MEDS ORDERED: ALPRAZolam 0.5 MG TAB PO STA (00:55)
[2017-09-30] MEDS ORDERED: ACETAMINOPHEN TAB 325 MG TAB PO PRN (01:18)
[2017-09-30] MEDS ORDERED: NALOXONE 0.4 MG/ML 1 ML VIAL IV PRN (01:18)
[2017-09-30 02:40] LABS: Glucose,Whole Blood 81 mg/dL (75-99)
[2017-09-30] MEDS: DILTIAZEM 50 MG in SODIUM CHLORIDE 0.9% 40 ML IV SCH ×4 (03:01→22:45)
--- NOTE | 2017-09-30 06:18 | P.HPIM ---
History of Present Illness H&P Date: 09/29/17 Chief Complaint: confusion, weakness 82 year old female with history of afib on xarelto and Rheumatoid arthritis. Patient is visiting for the summer from [place], she has not been feeling well for a while, patient is unable to provide any meaningful history at this time, due to agitation, and using bipap. History was obtained by talking to her sister and . She has been having fevers (feels warm) and feeling weak for the past few days, however, today she seemed to be confused and curled in position, for which family decided to bring her to the hospital. The patient has been thinking of seeking medical care for few weeks now, however, her insurance did not cover care in [place] for which she could not see a doctor. Patient sister also reported weight loss over the past 6 months along with frequent falling . Patient denies any chest pain symptoms. She reports trouble breathing. Could not get further history due to agitation and using bipap. Review of Systems unable to provide meaningful review of systems due to confusion , some agitations and irritability , and being on bipap but patient denies any chest pain Past Medical History Past Medical History: GERD/Reflux, Hyperlipidemia, Hypertension, Osteoarthritis (OA), Rheumatoid Arthritis (RA) Additional Past Medical History / Comment(s): neuropathy, back pain History of Any Multi-Drug Resistant Organisms: None Reported Past Surgical History: Appendectomy, Back Surgery, Joint Replacement Additional Past Surgical History / Comment(s): right shoulder, right and left hip replacement, ulcer, L4/L5 fusion Past Psychological History: No Psychological Hx Reported Smoking Status: Former smoker Past Alcohol Use History: None Reported Past Drug Use History: None Reported Medications and Allergies Home Medications Medication Instructions Recorded Confirmed Type Calcium Carbonate [Calcium] 1,200 mg PO BID 10/24/16 09/29/17 History Cholecalciferol [Vitamin D3] 1,000 unit PO BID 10/24/16 09/29/17 History Cyanocobalamin (Vitamin B-12) 1,000 mcg PO DAILY 10/24/16 09/29/17 History [Vitamin B-12] Estradiol 0.5 mg PO DAILY 10/24/16 09/29/17 History Folic Acid 0.4 mg PO DAILY 10/24/16 09/29/17 History Hydrocodone/Acetaminophen [[place] 1 tab PO Q6HR PRN #20 10/24/16 09/29/17 Rx 5-325] Lisinopril [Prinivil] 10 mg PO DAILY 10/24/16 09/29/17 History Meloxicam [Mobic] 7.5 mg PO DAILY #30 tab 10/24/16 09/29/17 Rx Methotrexate Sodium [Methotrexate] 20 mg PO FR 10/24/16 09/29/17 History Oxybutynin Chloride 5 mg PO BID 10/24/16 09/29/17 History predniSONE 5 mg PO DAILY 10/24/16 09/29/17 History predniSONE 10 mg PO HS 10/24/16 09/29/17 History predniSONE 15 mg PO DAILY #30 tab 10/24/16 09/29/17 Rx Acetaminophen-Codeine 300-30mg 1 tab PO Q6HR PRN #10 tablet 08/15/17 09/29/17 Rx [Tylenol #3] traMADol HCL [Ultram] 50 mg PO Q6HR PRN 3 Days #10 tab 08/22/17 09/29/17 Rx Allergies Allergy/AdvReac Type Severity Reaction Status Date / Time morphine Allergy Unknown Verified 08/22/17 09:39 oxycodone [From OxyContin] Allergy Unknown Verified 08/22/17 09:39 Physical Exam Vitals: Vital Signs Temp Pulse Resp BP Pulse Ox 09/30/17 04:10 137 H 32 H 80/39 99 09/30/17 04:00 116 H 32 H 87/37 97 09/30/17 03:50 128 H 33 H 94 L 09/30/17 03:40 117 H 34 H 94 L 09/30/17 03:30 150 H 31 H 101/56 93 L 09/30/17 03:20 122 H 35 H 101/56 93 L 09/30/17 03:00 130 H 32 H 104/56 96 09/30/17 02:50 141 H 30 H 86/51 95 09/30/17 02:40 100.6 F H 131 H 25 H 85/58 92 L 09/30/17 01:55 117 H 20 117/71 92 L 09/29/17 22:55 144 H 32 H 102/56 90 L 09/29/17 22:25 133 H 28 H 106/58 92 L 09/29/17 22:00 123 H 28 H 168/74 96 09/29/17 21:00 133 H 28 H 168/59 93 L 09/29/17 19:53 99.4 F 118 H 27 H 153/74 83 L Intake and Output 09/29/17 09/29/17 09/30/17 14:59 22:59 06:59 Intake Total 41.083 Output Total 1050 Balance -1008.917 Intake: IV 10 Diltiazem 50 mg In Sodium 10 Chloride 0.9% 40 ml @ 5 MG/HR 5 mls/hr IV .Q10H [facility] Rx#:[id number] Intake, IV Titration 31.083 Amount Diltiazem 50 mg In Sodium 31.083 Chloride 0.9% 40 ml @ 5 MG/HR 5 mls/hr IV .Q10H [facility] Rx#:[id number] Output: Urine 1050 Other: Voiding Method Indwelling Catheter Weight 46.207 kg 44.8 kg Constitutional: Patient is in respiratory distress using BiPAP could not provide any meaningful history she is cooperative with exam Eyes: Anicteric sclerae, moist conjunctiva, Pupils equal round reactive to light ENMT: NC/AT Oropharynx clear, no erythema, exudates Neck: Supple, FROM, no masses, or JVD No carotid bruits No thyromegaly Lungs: Respiratory rales at lung bases Clear to percussion Acute respiratory distress with patient using accessory muscles of respiration Cardiovascular: Heart irregular with tachycardia No murmurs, gallops, or rubs +1 peripheral edema bilateral Abdominal: Soft Nontender, no guarding, rebound or rigidity Abdomen moving with respiration Normoactive bowel sounds No hepatomegaly, No splenomegaly No palpable mass No abdominal wall hernia noted Skin: Normal temperature, tone, texture, turgor No induration No subcutaneous nodules Diffuse ecchymosis over bilateral lower extremities and upper extremities No ulcers Extremities: No digital cyanosis No clubbing Pedal pulses intact and symmetrical Radial pulses intact and symmetrical No calf tenderness Psychiatric: Alert and oriented to person, place Agitated and irritable fair judgement Neuro Muscles Strength 4/5 in all 4 extremities Sensation to light touch grossly present throughout Cranial nerves could not be fully examined at this time patient is on BiPAP No focal sensory deficits Lymphatics: no palpable cervical or supraclavicular , or inguinal lymph nodes Results CBC & Chem 7: 09/29/17 20:32 09/29/17 20:32 Labs: Abnormal Lab Results - Last 24 Hours (Table) 09/29/17 09/29/17 09/29/17 Range/Units 20:32 20:32 20:32 WBC 12.7 H (3.8-10.6) k/uL RBC 3.46 L (3.80-5.40) m/uL Hgb 10.7 L (11.4-16.0) gm/dL RDW 18.9 H (11.5-15.5) % Neutrophils # 9.7 H (1.3-7.7) k/uL PT (9.0-12.0) sec INR (<1.2) D-Dimer (<0.60) mg/L FEU Chloride 108 H (98-107) mmol/L BUN 23 H (7-17) mg/dL Glucose 71 L (74-99) mg/dL Troponin I 0.459 H* (0.000-0.034) ng/mL Total Protein 4.5 L (6.3-8.2) g/dL Albumin 2.4 L (3.5-5.0) g/dL 09/29/17 Range/Units 20:32 WBC (3.8-10.6) k/uL RBC (3.80-5.40) m/uL Hgb (11.4-16.0) gm/dL RDW (11.5-15.5) % Neutrophils # (1.3-7.7) k/uL PT 12.2 H (9.0-12.0) sec INR 1.3 H (<1.2) D-Dimer 1.18 H (<0.60) mg/L FEU Chloride (98-107) mmol/L BUN (7-17) mg/dL Glucose (74-99) mg/dL Troponin I (0.000-0.034) ng/mL Total Protein (6.3-8.2) g/dL Albumin (3.5-5.0) g/dL Assessment and Plan Assessment: 82 year old female , admitted to the inpatient service with anticipated length of stay of more than 48 hours, due to acute hypoxic respiratory failure due to pulmonary edema to r/o CHF, atrial fibrillation with rapid ventricular response , and NSTEMI. patient will be given IV diuresis , and bipap, cardiology to evaluate the patient, ECHO cardiogram, and was started on cardizem drip Plan: # Acute hypoxic respiratory failure # Acute pulmonary edema vs ARDS r/o CHF #Afib wth RVR, patient on xarelto # NSTEMI Patient started on Bipap IV Lasix Cardizem bolus then drip Continue xarelto Trend cardiac enzymes Cardiology consult Patient denies any chest pain Xanax for agitation PRN Check 2D echo Aspirin CTA negative for PE Insert Gomez catheter, due to patient frequent urination, irritability and for accurate I/Os # Rheumatoid arthritis On chronic prednisone Give stress dose of steroid , hydrocortisone # Hypertension Continue Lisinopril # Anemia, unknown baseline Patient denies any bleeding Trend hemoglobin DVT PPx on xarelto for afib Frequent falls PT/OT Surrogate decision-maker: Don patient CODE STATUS:full code Discussed with: Patient, ER, RN Anticipated discharge: 48-[address]: home A total of 60 minutes was spent on the care of this complex patient more than 50 % of the time was spent in counseling and care coordination.
[2017-09-30 06:33] LABS: Creatine Kinase MB 1.6 ng/mL (0.0-2.4)
[2017-09-30 06:44] LABS: Troponin I 0.644 ng/mL (0.000-0.034)
[2017-09-30] MEDS ORDERED: IPRATROPIUM-ALBUTEROL 3 ML NEB INHALATION PRN (07:30)
[2017-09-30] MEDS ORDERED: VANCOMYCIN IV PER PHARMACY 1 EACH MISC MISCELLANE PRN (07:40)
[2017-09-30 07:46] LABS: Anisocytosis Slight; Basophils # (A) 0.1 k/uL (0-0.2); Basophils % (A) 1 %; Eosinophils % (A) 0 %; HCT 30.1 % (34.0-46.0); HGB 9.5 gm/dL (11.4-16.0); Hypochromasia Slight; Lymphocytes # (A) 1.4 k/uL (1.0-4.8); Lymphocytes % (A) 15 %; MCH 30.2 pg (25.0-35.0); MCHC 31.6 g/dL (31.0-37.0); MCV 95.7 fL (80.0-100.0); Macrocytosis Slight; Mean Platelet Volume 7.4; Monocytes # (A) 0.5 k/uL (0-1.0); Monocytes % (A) 5 %; Neutrophils # (A) 7.3 k/uL (1.3-7.7); Neutrophils % (A) 77 %; Platelet Count 266 k/uL (150-450); RBC 3.15 m/uL (3.80-5.40); WBC 9.5 k/uL (3.8-10.6)
[2017-09-30 07:57] LABS: ALT 47 U/L (9-52); AST 46 U/L (14-36); Albumin 2.1 g/dL (3.5-5.0); Alkaline Phosphatase 56 U/L (38-126); Anion Gap 8 mmol/L; Blood Urea Nitrogen 26 mg/dL (7-17); Calcium 9.1 mg/dL (8.4-10.2); Carbon Dioxide 25 mmol/L (22-30); Chloride 107 mmol/L (98-107); Glucose 69 mg/dL (74-99); Potassium 3.2 mmol/L (3.5-5.1); Sodium 140 mmol/L (137-145); Total Bilirubin 0.6 mg/dL (0.2-1.3)
[2017-09-30] MEDS ORDERED: VANCOMYCIN 1,000 MG in SODIUM CHLORIDE 0.9% 250 ML IVPB ONE (08:00)
[2017-09-30] MEDS ORDERED: PANTOPRAZOLE 40 MG TABLET PO SCH (08:00)
[2017-09-30 08:03] LABS: ABG Base Excess 0.6 mmol/L; ABG HCO3 25 mmol/L (21-25); ABG Oxygen Saturation 98.3 % (94-97); ABG PCO2 35 mmHg (35-45); ABG PH 7.46 (7.35-7.45); ABG PO2 116 mmHg (83-108); ABG TCO2 26 mmol/L (19-24)
[2017-09-30] MEDS: LEVOFLOXACIN 750MG-D5W PMX 750 MG in DEXTROSE/WATER 1 150ML.BAG IVPB SCH (08:21)
--- NOTE | 2017-09-30 08:21 | P.CNPUL ---
History of Present Illness Consult date: 09/30/17 Reason for consult: dyspnea, pneumonia, abnormal CXR/CT Chief complaint: Weakness History of present illness: Consult dated 09/30/2017 This is an 82-year-old female who apparently was brought in by EMS for weakness and fever. Her symptoms apparently began the night before. She had confusion and fever temperature of 101.5 and low blood saturation. EMS applied oxygen and transferred the patient in. The patient apparently was coughing but had no phlegm production. The patient was evaluated in the emergency room. The patient was admitted to the ICU as an overflow patient. Currently, she is on BiPAP at 12 and 6 and 90%. She's given Cardizem drip at 10 mg an hour and a saline IV running at 10. Blood pressures low., Given some fluid. She was given some Lasix. Chest x-ray shows diffuse infiltrates but it looks more like pneumonia and does heart failure. On those BiPAP settings, the pO2 was 116 pCO2 was 35 and pH of 7.46. She was given some benzodiazepine for anxiety. Probably the wrong thing to do. I was not called about this patient probably should have been. The patient's very somnolent but does arouse verbal stimuli. FiO2 was reduced on the BiPAP device. She'll be evaluated by myself the primary service and cardiology. Review of Systems ROS unobtainable: due to mental status Past Medical History Past Medical History: GERD/Reflux, Hyperlipidemia, Hypertension, Osteoarthritis (OA), Rheumatoid Arthritis (RA) Additional Past Medical History / Comment(s): neuropathy, back pain History of Any Multi-Drug Resistant Organisms: None Reported Past Surgical History: Appendectomy, Back Surgery, Joint Replacement Additional Past Surgical History / Comment(s): right shoulder, right and left hip replacement, ulcer, L4/L5 fusion Past Psychological History: No Psychological Hx Reported Smoking Status: Former smoker Past Alcohol Use History: None Reported Past Drug Use History: None Reported Medications and Allergies Home Medications Medication Instructions Recorded Confirmed Type Calcium Carbonate [Calcium] 1,200 mg PO BID 10/24/16 09/29/17 History Cholecalciferol [Vitamin D3] 1,000 unit PO BID 10/24/16 09/29/17 History Cyanocobalamin (Vitamin B-12) 1,000 mcg PO DAILY 10/24/16 09/29/17 History [Vitamin B-12] Estradiol 0.5 mg PO DAILY 10/24/16 09/29/17 History Folic Acid 0.4 mg PO DAILY 10/24/16 09/29/17 History Hydrocodone/Acetaminophen [[place] 1 tab PO Q6HR PRN #20 10/24/16 09/29/17 Rx 5-325] Lisinopril [Prinivil] 10 mg PO DAILY 10/24/16 09/29/17 History Meloxicam [Mobic] 7.5 mg PO DAILY #30 tab 10/24/16 09/29/17 Rx Methotrexate Sodium [Methotrexate] 20 mg PO FR 10/24/16 09/29/17 History Oxybutynin Chloride 5 mg PO BID 10/24/16 09/29/17 History predniSONE 5 mg PO DAILY 10/24/16 09/29/17 History predniSONE 10 mg PO HS 10/24/16 09/29/17 History predniSONE 15 mg PO DAILY #30 tab 10/24/16 09/29/17 Rx Acetaminophen-Codeine 300-30mg 1 tab PO Q6HR PRN #10 tablet 08/15/17 09/29/17 Rx [Tylenol #3] traMADol HCL [Ultram] 50 mg PO Q6HR PRN 3 Days #10 tab 08/22/17 09/29/17 Rx Allergies Allergy/AdvReac Type Severity Reaction Status Date / Time morphine Allergy Unknown Verified 08/22/17 09:39 oxycodone [From OxyContin] Allergy Unknown Verified 08/22/17 09:39 Physical Exam Osteopathic Statement: *. No significant issues noted on an osteopathic structural exam other than those noted in the History and Physical/Consult. Vitals: Vital Signs Temp Pulse Resp BP Pulse Ox 09/30/17 07:15 101 H 28 H 87/36 95 09/30/17 07:00 126 H 19 97/37 98 09/30/17 06:45 113 H 27 H 91/51 99 09/30/17 06:30 100 28 H 90/38 98 09/30/17 06:15 110 H 36 H 77/40 98 09/30/17 06:00 104 H 30 H 83/41 98 09/30/17 05:45 125 H 30 H 78/43 97 09/30/17 05:30 114 H 42 H 93/45 94 L 09/30/17 05:15 100 32 H 81/42 98 09/30/17 05:00 108 H 29 H 76/50 97 09/30/17 04:45 132 H 35 H 82/43 97 09/30/17 04:30 140 H 34 H 104/56 92 L 09/30/17 04:15 133 H 34 H 80/39 97 09/30/17 04:10 137 H 32 H 80/39 99 09/30/17 04:00 116 H 32 H 87/37 97 09/30/17 03:50 128 H 33 H 94 L 09/30/17 03:40 117 H 34 H 94 L 09/30/17 03:30 150 H 31 H 101/56 93 L 09/30/17 03:20 122 H 35 H 101/56 93 L 09/30/17 03:00 130 H 32 H 104/56 96 09/30/17 02:50 141 H 30 H 86/51 95 09/30/17 02:40 100.6 F H 131 H 25 H 85/58 92 L 09/30/17 01:55 117 H 20 117/71 92 L 09/29/17 22:55 144 H 32 H 102/56 90 L 09/29/17 22:25 133 H 28 H 106/58 92 L 09/29/17 22:00 123 H 28 H 168/74 96 09/29/17 21:00 133 H 28 H 168/59 93 L 09/29/17 19:53 99.4 F 118 H 27 H 153/74 83 L Intake and Output 09/29/17 09/30/17 09/30/17 22:59 06:59 14:59 Intake Total 116.083 20 Output Total 1125 60 Balance -1008.917 -40 Intake: IV 85 20 0.9 NaCl 55 10 Diltiazem 50 mg In Sodium 10 Chloride 0.9% 40 ml @ 10 MG/HR 10 mls/hr IV .Q5H [facility] Rx#:[id number] Diltiazem 50 mg In Sodium 30 Chloride 0.9% 40 ml @ 5 MG/HR 5 mls/hr IV .Q10H [facility] Rx#:[id number] Intake, IV Titration 31.083 Amount Diltiazem 50 mg In Sodium 31.083 Chloride 0.9% 40 ml @ 5 MG/HR 5 mls/hr IV .Q10H [facility] Rx#:[id number] Output: Urine 1125 60 Other: Voiding Method Indwelling Catheter Weight 46.207 kg 44.8 kg Somnolent, BiPAP mask in place, she does arouse on verbal stimuli. Respiratory rate about 25 breaths per minute.. HEENT examination is grossly unremarkable. Mucous membranes are moist. Neck supple. Full range of motion. No adenopathy thyromegaly or neck vein distention. Cardiovascular examination reveals some irregularity to her heart rhythm. Heart rates about 100 bpm. There are some premature atrial contractions. No murmur. S1-S2 normal. Heart sounds distant. Lungs reveal coarse bilateral breath sounds. Crackles noted bilaterally. No wheezes. Breath sounds equal bilaterally. Abdomen soft bowel sounds are heard. No masses or tenderness. Extremities are intact. No cyanosis or clubbing or edema. Skin is without rash or lesion. Neurologic examination could not be adequately assessed. Results - Laboratory Findings CBC and BMP: 09/30/17 07:23 09/30/17 07:23 ABG ABG pH 7.46 (7.35-7.45) H 09/30/17 07:54 ABG pCO2 35 mmHg (35-45) 09/30/17 07:54 ABG pO2 116 mmHg (83-108) H 09/30/17 07:54 ABG O2 Saturation 98.3 % (94-97) H 09/30/17 07:54 PT/INR, D-dimer PT 12.2 sec (9.0-12.0) H 09/29/17 20:32 INR 1.3 (<1.2) H 09/29/17 20:32 D-Dimer 1.18 mg/L FEU (<0.60) H 09/29/17 20:32 Abnormal lab findings: Abnormal Labs 09/29/17 09/29/17 09/29/17 20:32 20:32 20:32 WBC 12.7 H RBC 3.46 L Hgb 10.7 L Hct RDW 18.9 H Neutrophils # 9.7 H PT INR D-Dimer ABG pH ABG pO2 ABG Total CO2 ABG O2 Saturation Potassium Chloride 108 H BUN 23 H Glucose 71 L AST Total Creatine Kinase Troponin I 0.459 H* Total Protein 4.5 L Albumin 2.4 L 09/29/17 09/30/1718 20:32 05:42 07:23 WBC RBC 3.15 L Hgb 9.5 L Hct 30.1 L RDW 18.0 H Neutrophils # PT 12.2 H INR 1.3 H D-Dimer 1.18 H ABG pH ABG pO2 ABG Total CO2 ABG O2 Saturation Potassium Chloride BUN Glucose AST Total Creatine Kinase 154 H Troponin I 0.644 H* Total Protein Albumin 09/30/17 09/30/17 07:23 07:54 WBC RBC Hgb Hct RDW Neutrophils # PT INR D-Dimer ABG pH 7.46 H ABG pO2 116 H ABG Total CO2 26 H ABG O2 Saturation 98.3 H Potassium 3.2 L Chloride BUN 26 H Glucose 69 L AST 46 H Total Creatine Kinase Troponin I Total Protein 4.0 L Albumin 2.1 L - Diagnostic Findings Chest x-ray: report reviewed, image reviewed CT scan - chest: report reviewed, image reviewed (Labs x-rays and medications are reviewed.) Assessment and Plan Assessment: Assessment Hypoxemic respiratory failure secondary to diffuse bilateral infiltrates which may represent pneumonia or acute lung injury or heart failure Rule out sepsis Hypotension Elevated troponins, which may represent ischemic heart disease versus supply demand mismatch History of GERD History of hyperlipidemia Hypertension by history History of rheumatoid arthritis Anemia Rule out adrenal insufficiency Plan: Plan dated 09/30/2017 The patient's blood gas was analyzed. Her blood gases are reasonable. We'll turn down the FiO2. I gave the patient a liter of fluid for the hypotension. In addition, because she is chronically on steroids for rheumatoid arthritis, we 'll start her on stress doses of hydrocortisone 100 mg every 8. The patient will be placed on breathing treatments and antibiotics. We'll replace her electrolytes. Cardiology has been consulted. Additional recommendations and suggestions are forthcoming. Prognosis is guarded. I review the chest x-ray CAT scan labs and medications. Time with Patient: Greater than 30
[2017-09-30] MEDS: IPRATROPIUM-ALBUTEROL 3 ML NEB INHALATION SCH ×5 (08:27→23:18)
[2017-09-30] MEDS: PIPERACILLIN-TAZOBACTAM 3.375 GM in DEXTROSE/WATER 1 50ML.BAG IVPB SCH ×2 (08:27→15:37)
[2017-09-30] MEDS: PANTOPRAZOLE 40 MG/10 ML VIAL IVP SCH (08:34)
[2017-09-30] MEDS ORDERED: FUROSEMIDE 10 MG/ML 4 ML VIAL IV SCH (09:00)
[2017-09-30] MEDS ORDERED: ASPIRIN 325 MG TAB PO SCH (09:00)
[2017-09-30] MEDS ORDERED: SODIUM CHLORIDE 0.9% 1,000 ML IV ONE (09:00)
[2017-09-30] MEDS ORDERED: LISINOPRIL 10 MG TAB PO SCH (09:00)
[2017-09-30] MEDS: ENOXAPARIN 30 MG/0.3 ML SYRINGE SQ SCH (09:01)
[2017-09-30] MEDS: HYDROCORTISONE SUCCINATE 100 MG/2 ML VIAL IV SCH ×2 (09:01→15:38)
--- NOTE | 2017-09-30 09:24 | CONS ---
CONSULTATION Mrs. Lenz is an 82-year-old female who presented with symptoms of progressive dyspnea and change in mental status. The patient is sedated on the BiPAP, unable to answer questions. She was febrile. Apparently has a history of COPD and presented with atrial arrhythmia. She was started on IV Cardizem, but her blood pressure is on the low side. I am not able to obtain a history from the patient. Reviewing the chart, the patient was seen in the emergency room recently with a fall. She had back pain at that time. According to the records, she has a history of hypertension, history of rheumatoid arthritis. Hyperlipidemia and hypertension. MEDICATION: At home included prednisone, tramadol, methotrexate, Mobic, Prinivil 10 mg daily, Estradiol, calcium. REVIEW OF SYSTEMS: No review of systems could be obtained at this time. PHYSICAL EXAMINATION: She is an 82-year-old female, sedated. Blood pressure running in the 90s with a heart rate in the low 100s. HEAD: Normocephalic. Eyes sclerae anicteric. Neck: No bruit appreciated. Lungs with decreased air exchange bilaterally anteriorly. HEART: Regular rhythm with extra systole and a systolic murmur. No diastolic murmur. ABDOMEN: Soft, nontender. Positive bowel sounds. No organomegaly. Extremities no edema. The patient has a small body habitus. LAB DATA: Revealed hemoglobin of 9.5, BUN and creatinine of 26 and 0.7, potassium 3.2. Her troponin are 0.459 and 0.644. Her EKG revealed sinus mechanism, highly suggestive of multifocal atrial tachycardia. On the monitor, she looks in sinus rhythm with episodes of multifocal atrial tachycardia as well. Her chest x-ray shows bilateral infiltrates suggestive of atypical pneumonitis atypical for edema. IMPRESSION: 1. Respiratory failure, probable pneumonia with an element of congestive heart failure. The baseline systolic function is not available to me. 2. Atrial arrhythmia suggestive of multifocal atrial tachycardia. 3. Hypotension. 4. History of arthritis. 5. Troponin elevation most likely representing a type 2 event. 6. History of hyperlipidemia. 7. History of gastroesophageal reflux disease. RECOMMENDATION: At this time, I will stop her IV Cardizem. Patient will receive IV fluid. We will obtain an echocardiogram with Doppler tomorrow and depending on her progress, further recommendations will be made. The prognosis is guarded. The case was discussed with Dr. Elizondo. Thank you for this consult. We will follow with you. MMODL / IJN: [id number] /
[2017-09-30] MEDS ORDERED: Potassium Replacement Protocol 1 EACH MISC MISCELLANE PRN (09:28)
[2017-09-30] MEDS: ASPIRIN 81 MG PO SCH (09:39)
--- NOTE | 2017-09-30 09:40 | P.PN ---
Subjective Progress Note Date: 09/30/17 The patient is pretty lethargic, somnolent and difficult to arouse apparently she was given Ativan in the ER. Currently on BiPAP with FiO2 at 100%. Currently in sinus with PACs with possible MAT. Unable to discern significant medical history from records. Objective - Vital Signs Vital signs: Vital Signs Temp 97.7 F 09/30/17 08:00 Pulse 88 09/30/17 08:43 Resp 25 H 09/30/17 08:30 BP 116/61 09/30/17 08:30 Pulse Ox 96 09/30/17 08:30 Intake & Output 09/29/17 09/30/17 09/30/17 18:59 06:59 18:59 Intake Total 116.083 20 Output Total 1125 85 Balance -1008.917 -65 Weight 44.8 kg Intake: IV 85 20 0.9 NaCl 55 10 Diltiazem 50 mg In Sodium 10 Chloride 0.9% 40 ml @ 10 MG/HR 10 mls/hr IV .Q5H [facility] Rx#:[id number] Diltiazem 50 mg In Sodium 30 Chloride 0.9% 40 ml @ 5 MG/HR 5 mls/hr IV .Q10H [facility] Rx#:[id number] Intake, IV Titration 31.083 Amount Diltiazem 50 mg In Sodium 31.083 Chloride 0.9% 40 ml @ 5 MG/HR 5 mls/hr IV .Q10H [facility] Rx#:[id number] Output: Urine 1125 85 Other: Voiding Method Indwelling Catheter - Exam Constitutional: In respiratory distress on BiPAP conversant, pleasant Eyes: Anicteric sclerae, moist conjunctiva, no lid-lag, PERRLA ENMT: NC/AT,Oropharynx clear, no erythema, exudates Neck:Supple, FROM, no masses, or JVD, No carotid bruits; No thyromegaly Lungs: Coarse breath sounds, Clear to percussion, Normal respiratory effort, on BiPAP Cardiovascular: Tachycardic, No murmurs, gallops, or rubs no peripheral edema Abdominal: Soft Nontender, nom distended, no guarding, no rebound or rigidity, Normoactive bowel sounds No hepatomegaly, No splenomegaly, No palpable mass No abdominal wall hernia noted Skin: Normal temperature, tone, texture, turgor, No induration No subcutaneous nodules, No rash, lesions, No ulcers Extremities:No digital cyanosis No clubbing, Pedal pulses intact and symmetrical Radial pulses intact and symmetrical Normal gait and station, No calf tenderness Psychiatric: Unable to evaluate Neuro: Sedated from Ativan, unable to adequately assess - Labs CBC & Chem 7: 09/30/17 07:23 09/30/17 07:23 Labs: Abnormal Lab Results - Last 24 Hours (Table) 09/29/17 09/29/17 09/29/17 Range/Units 20:32 20:32 20:32 WBC 12.7 H (3.8-10.6) k/uL RBC 3.46 L (3.80-5.40) m/uL Hgb 10.7 L (11.4-16.0) gm/dL Hct (34.0-46.0) % RDW 18.9 H (11.5-15.5) % Neutrophils # 9.7 H (1.3-7.7) k/uL PT (9.0-12.0) sec INR (<1.2) D-Dimer (<0.60) mg/L FEU ABG pH (7.35-7.45) ABG pO2 (83-108) mmHg ABG Total CO2 (19-24) mmol/L ABG O2 Saturation (94-97) % Potassium (3.5-5.1) mmol/L Chloride 108 H (98-107) mmol/L BUN 23 H (7-17) mg/dL Glucose 71 L (74-99) mg/dL AST (14-36) U/L Total Creatine Kinase (30-135) U/L Troponin I 0.459 H* (0.000-0.034) ng/mL Total Protein 4.5 L (6.3-8.2) g/dL Albumin 2.4 L (3.5-5.0) g/dL 09/29/17 09/30/17 09/30/17 Range/Units 20:32 05:42 07:23 WBC (3.8-10.6) k/uL RBC 3.15 L (3.80-5.40) m/uL Hgb 9.5 L (11.4-16.0) gm/dL Hct 30.1 L (34.0-46.0) % RDW 18.0 H (11.5-15.5) % Neutrophils # (1.3-7.7) k/uL PT 12.2 H (9.0-12.0) sec INR 1.3 H (<1.2) D-Dimer 1.18 H (<0.60) mg/L FEU ABG pH (7.35-7.45) ABG pO2 (83-108) mmHg ABG Total CO2 (19-24) mmol/L ABG O2 Saturation (94-97) % Potassium (3.5-5.1) mmol/L Chloride (98-107) mmol/L BUN (7-17) mg/dL Glucose (74-99) mg/dL AST (14-36) U/L Total Creatine Kinase 154 H (30-135) U/L Troponin I 0.644 H* (0.000-0.034) ng/mL Total Protein (6.3-8.2) g/dL Albumin (3.5-5.0) g/dL 09/30/17 09/30/17 Range/Units 07:23 07:54 WBC (3.8-10.6) k/uL RBC (3.80-5.40) m/uL Hgb (11.4-16.0) gm/dL Hct (34.0-46.0) % RDW (11.5-15.5) % Neutrophils # (1.3-7.7) k/uL PT (9.0-12.0) sec INR (<1.2) D-Dimer (<0.60) mg/L FEU ABG pH 7.46 H (7.35-7.45) ABG pO2 116 H (83-108) mmHg ABG Total CO2 26 H (19-24) mmol/L ABG O2 Saturation 98.3 H (94-97) % Potassium 3.2 L (3.5-5.1) mmol/L Chloride (98-107) mmol/L BUN 26 H (7-17) mg/dL Glucose 69 L (74-99) mg/dL AST 46 H (14-36) U/L Total Creatine Kinase (30-135) U/L Troponin I (0.000-0.034) ng/mL Total Protein 4.0 L (6.3-8.2) g/dL Albumin 2.1 L (3.5-5.0) g/dL Assessment and Plan (1) Acute hypoxemic respiratory failure Narrative/Plan: * Multifactorial secondary to sepsis due pneumonia versus ARDS versus CHF * Continue supportive therapy patient on BiPAP with FiO2 at 100% we'll order ABG stat * Echocardiogram pending * Initiated breathing treatments scheduled and when necessary * CT of the chest suggesting extensive infiltrates with possible RDS, with mild pleural effusions * Pulmonary Dr. King consulted for further recommendations Current Visit: Yes Status: Acute Code(s): J96.01 - ACUTE RESPIRATORY FAILURE WITH HYPOXIA SNOMED Code(s): 968289916 (2) Sepsis Narrative/Plan: * Likely secondary to pneumonia * Patient febrile with leukocytosis of 12.7 on presentation, patient hypotensive we'll give a liter bolus and recheck her blood pressure continue monitor closely * Initiate antibiotics vancomycin and Zosyn and Levaquin * Blood cultures pending, will order urinalysis with reflex culture and sputum culture * History of chronic steroid use possible adrenal insufficiency continue on hydrocortisone 100 mg IV every 8 Current Visit: Yes Status: Acute Code(s): A41.9 - SEPSIS, UNSPECIFIED ORGANISM SNOMED Code(s): 62626196 (3) Pneumonia Narrative/Plan: * Treatment as above Current Visit: Yes Status: Acute Code(s): J18.9 - PNEUMONIA, UNSPECIFIED ORGANISM SNOMED Code(s): 805903447 (4) Atrial fibrillation with rapid ventricular response Narrative/Plan: * Patient is started on Cardizem drip * Cardiology consulted echocardiogram pending Current Visit: Yes Status: Acute Code(s): I48.91 - UNSPECIFIED ATRIAL FIBRILLATION SNOMED Code(s): 927419683504941 (5) Non-STEMI (non-ST elevated myocardial infarction) Narrative/Plan: * Type I (ischemic heart disease versus type II demand ischemia * Cardiology consulted, patient started on heparin and aspirin * We'll follow further recommendations Current Visit: Yes Status: Acute Code(s): I21.4 - NON-ST ELEVATION (NSTEMI) MYOCARDIAL INFARCTION SNOMED Code(s): 082190564 Plan: Prophylaxis patient on Lovenox for DVT prophylaxis and started on Protonix for GI prophylaxis Disposition CODE STATUS full Critical patient Continue current management
[2017-09-30] MEDS: POTASSIUM CHLORIDE 10 MEQ in WATER FOR INJECTION 1 100ML.BAG IVPB SCH ×4 (09:44→13:07)
[2017-09-30 10:03] LABS: Appearance,Urine Clear (Clear); Bacteria,Urine Rare /hpf; Bilirubin,Urine Negative (Negative); Blood,Urine Small (Negative); Color,Urine Yellow; Glucose,Urine (UA) Negative (Negative); Hyaline Casts,Urine 13 /lpf (0-2); Ketones,Urine 2+ (Negative); Leukocyte Esterase,Urine Small (Negative); Mucus,Urine Rare /hpf; Nitrite,Urine Negative (Negative); Protein,Urine Trace (Negative); RBC,Urine 4 /hpf (0-5); Specific Gravity,Urine 1.029 (1.001-1.035); Urobilinogen,Urine <2.0 mg/dL (<2.0)
[2017-09-30] MEDS ORDERED: Magnesium Replacement Protocol 1 EACH MISC MISCELLANE PRN (10:19)
[2017-09-30] MEDS: MAGNESIUM SULFATE-D5W PMX 1 GM in DEXTROSE/WATER 1 100ML.BAG IVPB SCH ×2 (11:38→13:07)
[2017-09-30 13:30] LABS: Creatine Kinase MB 2.5 ng/mL (0.0-2.4); Troponin I 0.43 ng/mL (0.000-0.034)
[2017-09-30 15:25] LABS: Magnesium 2.5 mg/dL (1.6-2.3); Potassium 4.7 mmol/L (3.5-5.1)
[2017-09-30 15:30] LABS: Glucose,Whole Blood 94 mg/dL (75-99)
[2017-09-30] MEDS ORDERED: RIVAROXABAN 20 MG TAB PO SCH (17:30)
[2017-09-30] MEDS ORDERED: DILTIAZEM DRIP BOLUS FROM BAG 1 MG SOLN IV ONE (22:38)
[2017-09-30] MEDS ORDERED: SODIUM CHLORIDE 0.9% 500 ML IV ONE (22:59)
[2017-10-01] MEDS ORDERED: METOPROLOL TARTRATE 5 MG/5 ML VIAL IVP ONE ×2 (00:10→00:46)
[2017-10-01 00:12] LABS: Glucose,Whole Blood 116 mg/dL (75-99)
[2017-10-01] MEDS: INSULIN ASPART 100 UNIT/ML 1 ML 10 ML VIAL SQ SCH ×4 (00:20→18:45)
[2017-10-01] MEDS: HYDROCORTISONE SUCCINATE 100 MG/2 ML VIAL IV SCH ×2 (00:22→07:30)
[2017-10-01] MEDS: PIPERACILLIN-TAZOBACTAM 3.375 GM in DEXTROSE/WATER 1 50ML.BAG IVPB SCH ×3 (00:22→16:47)
[2017-10-01] MEDS: IPRATROPIUM-ALBUTEROL 3 ML NEB INHALATION SCH ×6 (03:30→23:41)
[2017-10-01 04:23] LABS: Anisocytosis Slight; Basophils % (A) 0 %; Eosinophils % (A) 0 %; HCT 30.9 % (34.0-46.0); HGB 9.7 gm/dL (11.4-16.0); Hypochromasia Marked; Lymphocytes # (A) 1.1 k/uL (1.0-4.8); Lymphocytes % (A) 11 %; MCH 31.5 pg (25.0-35.0); MCHC 31.3 g/dL (31.0-37.0); Macrocytosis Slight; Mean Platelet Volume 7.7; Monocytes # (A) 0.5 k/uL (0-1.0); Monocytes % (A) 5 %; Neutrophils # (A) 7.9 k/uL (1.3-7.7); Neutrophils % (A) 80 %; Platelet Count 276 k/uL (150-450); RBC 3.07 m/uL (3.80-5.40); RDW 18.3 % (11.5-15.5); WBC 9.8 k/uL (3.8-10.6)
[2017-10-01 04:28] LABS: MCV 100.7 fL (80.0-100.0)
[2017-10-01 04:55] LABS: Anion Gap 11 mmol/L; Blood Urea Nitrogen 30 mg/dL (7-17); Calcium 8.9 mg/dL (8.4-10.2); Carbon Dioxide 16 mmol/L (22-30); Chloride 114 mmol/L (98-107); Glucose 106 mg/dL (74-99); Magnesium 2.2 mg/dL (1.6-2.3); Potassium 4.5 mmol/L (3.5-5.1); Sodium 141 mmol/L (137-145)
[2017-10-01] MEDS: DILTIAZEM 50 MG in SODIUM CHLORIDE 0.9% 40 ML IV SCH ×2 (05:17→07:30)
[2017-10-01 05:46] LABS: Glucose,Whole Blood 123 mg/dL (75-99)
[2017-10-01] MEDS: LEVOFLOXACIN 750MG-D5W PMX 750 MG in DEXTROSE/WATER 1 150ML.BAG IVPB SCH (07:44)
[2017-10-01] MEDS: ENOXAPARIN 30 MG/0.3 ML SYRINGE SQ SCH (07:49)
[2017-10-01] MEDS: PANTOPRAZOLE 40 MG/10 ML VIAL IVP SCH (07:50)
[2017-10-01] MEDS ORDERED: VANCOMYCIN 750 MG in SODIUM CHLORIDE 0.9% 250 ML IVPB SCH (08:00)
[2017-10-01] MEDS: ASPIRIN 81 MG PO SCH (08:28)
--- NOTE | 2017-10-01 08:33 | XR ---
EXAMINATION TYPE: XR chest 1V portable DATE OF EXAM: 10/01/2017 COMPARISON: 09/29/2017 HISTORY: Difficulty breathing TECHNIQUE: Single frontal view of the chest is obtained. FINDINGS: Diffuse interstitial pattern with confluent attenuation in the perihilar regions. Postsurg ical change right shoulder, diffuse osteopenia, and arthropathy left shoulder. Surgical clips in the epigastrium. Heart size stable. Curvature of the spine. IMPRESSION: 1. Increased predominantly interstitial changes associated with venous congestion or pneumonitis. Aty pical pneumonia also a consideration
[2017-10-01] MEDS ORDERED: DEXTROSE 5% IN WATER 1,000 ML with SODIUM BICARB (1 MEQ/ML) 150 ML IV SCH (09:00)
--- NOTE | 2017-10-01 09:07 | P.PN ---
Subjective Progress Note Date: 10/01/17 On today's evaluation of 10/01/2017 the patient is being seen for a follow-up. The patient came in with acute hypoxic respiratory failure with beta pulmonary filtrating consolidations and currently the patient is on a BiPAP at a pressure of 16/8 cm of water and FiO2 of 80%. Note that the exact nature of the bilateral pulmonary infiltrate is not established. The patient is suspected to have pneumonia in addition to a component of CHF knowing that on admission her proBNP level was significantly elevated. She also had some limited troponin leak. She has no chest pain. She has no clinical signs of congestion heart failure such as neck veins or lower extremity edema. The patient may have a combination of both CHF and pneumonia. Currently the patient is a combined antibiotics of Zosyn, vancomycin and Levaquin. The patient overnight became hypotensive. The diuretics were stopped and the patient was given a total of 2 L of IV fluids bolus and currently she is normotensive and blood pressure regulated. Urine output is somewhat between 20-30 mL an hour. Blood work from today shows a component of metabolic acidosis with a bicarb level of 16 and she is afebrile. She her white cell count is not elevated. Lactic acid level was nonelevated. Echocardiogram is pending for now. She is on Cardizem drip regarding her atrial fibrillation. She was taken long-term articulation with Xarelto on outpatient basis. Objective - Vital Signs Vital signs: Vital Signs Temp 97.3 F L 10/01/17 08:00 Pulse 102 H 10/01/17 08:00 Resp 35 H 10/01/17 08:00 BP 102/50 10/01/17 08:00 Pulse Ox 99 10/01/17 08:00 Intake & Output 09/30/17 10/01/17 10/01/17 18:59 06:59 18:59 Intake Total 2070 480 68.25 Output Total 400 335 65 Balance 1670 145 3.25 Weight 44.8 kg 46.6 kg Intake: IV 20 430 35 0.9 NaCl 10 280 20 Diltiazem 50 mg In Sodium 10 10 Chloride 0.9% 40 ml @ 10 MG/HR 10 mls/hr IV .Q5H [facility] Rx#:[id number] Diltiazem 50 mg In Sodium 90 15 Chloride 0.9% 40 ml @ 15 MG/HR 15 mls/hr IV . Q3H20M [facility] Rx#:[id number] Piperacillin-Tazobactam 3 50 .375 gm In Dextrose/Water 1 50ml.bag @ 12.5 mls/hr IVPB Q8HR [facility] Rx#: [id number] Intake, IV Titration 2050 50 33.25 Amount Diltiazem 50 mg In Sodium 50 33.25 Chloride 0.9% 40 ml @ 15 MG/HR 15 mls/hr IV . Q3H20M [facility] Rx#:[id number] Levofloxacin 750Mg-D5w 150 Pmx 750 mg In Dextrose/ Water 1 150ml.bag @ 100 mls/hr IVPB Q24H [facility] Rx#: [id number] Magnesium Sulfate-D5w Pmx 100 1 gm In Dextrose/Water 1 100ml.bag @ 100 mls/hr IVPB Q1H [facility] Rx#: [id number] Piperacillin-Tazobactam 3 50 .375 gm In Dextrose/Water 1 50ml.bag @ 12.5 mls/hr IVPB Q8HR [facility] Rx#: [id number] Potassium Chloride 10 meq 500 In Water For Injection 1 100ml.bag @ 100 mls/hr IVPB Q1HR [facility] Rx#: [id number] Sodium Chloride 0.9% 1, 1000 000 ml @ 999 mls/hr IV . Q1H1M [facility] Rx#:[id number] Vancomycin 1,000 mg In 250 Sodium Chloride 0.9% 250 ml @ 125 mls/hr IVPB [facility] Rx#:[id number] Output: Urine 400 335 65 Other: Voiding Method Indwelling Catheter Diaper Indwelling Catheter - Exam Awake, communicative. BiPAP mask in place, she does arouse on verbal stimuli. She is awake and conscious and following commands and answer questions appropriately. She is able to tolerate a full face BiPAP mask which is set at pressure of 16/8 cm of water. She is not using accessory muscles of breathing. HEENT examination is grossly unremarkable. Mucous membranes are moist. Neck supple. Full range of motion. No adenopathy thyromegaly or neck vein distention. Cardiovascular examination reveals some irregularity to her heart rhythm. Heart rates about 100 bpm. There are some premature atrial contractions. There is a grade 2-3 systolic ejection murmur heard over the left apex. The patient also has an irregular S1-S2 consistent with atrial fibrillation. Heart sounds distant. Lungs reveal coarse bilateral breath sounds. Crackles noted bilaterally. No wheezes. Breath sounds equal bilaterally. Abdomen soft bowel sounds are heard. No masses or tenderness. Extremities are intact. No cyanosis or clubbing or edema.Examination of the extremities revealed easily palpable radial, femoral and pedal pulses. There was no cyanosis, clubbing or edema. Skin is without rash or lesion.Examination of the skin revealed no evidence of significant rashes, suspicious appearing nevi or other concerning lesions. Neurologic examination is within normal limits and the patient is moving all 4 extremities without any limitation and the patient is awake and alert 3. - Labs CBC & Chem 7: 10/01/17 03:49 10/01/17 03:49 Labs: Abnormal Lab Results - Last 24 Hours (Table) 09/30/17 09/30/17 09/30/17 Range/Units 09:45 12:44 14:59 RBC (3.80-5.40) m/uL Hgb (11.4-16.0) gm/dL Hct (34.0-46.0) % MCV (80.0-100.0) fL RDW (11.5-15.5) % Neutrophils # (1.3-7.7) k/uL Chloride (98-107) mmol/L Carbon Dioxide (22-30) mmol/L BUN (7-17) mg/dL Glucose (74-99) mg/dL POC Glucose (mg/dL) (75-99) mg/dL Magnesium 2.5 H (1.6-2.3) mg/dL Total Creatine Kinase 174 H (30-135) U/L CK-MB (CK-2) 2.5 H* (0.0-2.4) ng/mL Troponin I 0.430 H* (0.000-0.034) ng/mL Urine Protein Trace H (Negative) Urine Ketones 2+ H (Negative) Urine Blood Small H (Negative) Ur Leukocyte Esterase Small H (Negative) Urine WBC 16 H (0-5) /hpf Urine Bacteria Rare H (None) /hpf Hyaline Casts 13 H (0-2) /lpf Urine Mucus Rare H (None) /hpf 10/01/17 10/01/17 10/01/17 Range/Units 00:10 03:49 03:49 RBC 3.07 L (3.80-5.40) m/uL Hgb 9.7 L (11.4-16.0) gm/dL Hct 30.9 L (34.0-46.0) % MCV 100.7 H D (80.0-100.0) fL RDW 18.3 H (11.5-15.5) % Neutrophils # 7.9 H (1.3-7.7) k/uL Chloride 114 H (98-107) mmol/L Carbon Dioxide 16 L (22-30) mmol/L BUN 30 H (7-17) mg/dL Glucose 106 H (74-99) mg/dL POC Glucose (mg/dL) 116 H (75-99) mg/dL Magnesium (1.6-2.3) mg/dL Total Creatine Kinase (30-135) U/L CK-MB (CK-2) (0.0-2.4) ng/mL Troponin I (0.000-0.034) ng/mL Urine Protein (Negative) Urine Ketones (Negative) Urine Blood (Negative) Ur Leukocyte Esterase (Negative) Urine WBC (0-5) /hpf Urine Bacteria (None) /hpf Hyaline Casts (0-2) /lpf Urine Mucus (None) /hpf 10/01/17 Range/Units 05:45 RBC (3.80-5.40) m/uL Hgb (11.4-16.0) gm/dL Hct (34.0-46.0) % MCV (80.0-100.0) fL RDW (11.5-15.5) % Neutrophils # (1.3-7.7) k/uL Chloride (98-107) mmol/L Carbon Dioxide (22-30) mmol/L BUN (7-17) mg/dL Glucose (74-99) mg/dL POC Glucose (mg/dL) 123 H (75-99) mg/dL Magnesium (1.6-2.3) mg/dL Total Creatine Kinase (30-135) U/L CK-MB (CK-2) (0.0-2.4) ng/mL Troponin I (0.000-0.034) ng/mL Urine Protein (Negative) Urine Ketones (Negative) Urine Blood (Negative) Ur Leukocyte Esterase (Negative) Urine WBC (0-5) /hpf Urine Bacteria (None) /hpf Hyaline Casts (0-2) /lpf Urine Mucus (None) /hpf Microbiology - Last 24 Hours (Table) 09/29/17 22:04 Blood Culture - Preliminary Blood No Growth after 24 hours 09/29/17 20:32 Blood Culture - Preliminary Blood No Growth after 24 hours 09/30/17 09:45 Urine Culture - Preliminary Urine,Voided Assessment and Plan Plan: Assessment 1 acute hypoxic respiratory failure with development of diffuse bilateral pulmonary infiltrates. Suspect bilateral pneumonia with possibly component of acute CHF/systolic heart failure. Awaiting an echocardiogram. The patient is BiPAP dependent for now at a pressure of 16/8 cm of water with an FiO2 of 80 percent 2 hypotension probably due to pneumonia and diuresis. The patient was given a total of 2 L of IV fluids and the patient is currently off pressors urine output is still low. 3 chronic atrial fibrillation 4 A. fib with RVR currently on a Cardizem drip for rate control 5 mild troponin leak, secondary to above 6 hypertension, history of 8 hyperlipidemia 9 acid reflux 10 rheumatoid arthritis 11 chronic anemia Plan The patient will need to have an echocardiogram as soon as possible to assess her LV function and look for any underlying systolic or diastolic heart failure. Meanwhile the patient will placed on a low rate bicarb drip and the patient was given 3 ampules of sodium bicarbonate with D5 water at the rate of 50 mL an hour and the fluid infusion rate will be decided after the completion of the echocardiogram. I do not see any signs of fluid overload. The patient doesn't have any neck veins no she has any edema in lower extremities. She does have bilateral crackles and she is an acute hypoxic respiratory failure which could be potentially pneumonia in addition to a component of CHF. Acute lung injury/ARDS cannot be completely excluded. Meanwhile, the patient is on broad-spectrum antibiotics which were continued. Continue Cardizem drip for rate control. Down the FiO2 down to 60% and obtain a blood gas. Continue the BiPAP for respiratory support at a pressure of 16/8 cm of water. Restart Xarelto stop the Lovenox for now. We'll continue to follow. Cardiology is on the case. She'll be kept in ICU for now. Condition remains critical.
[2017-10-01] MEDS: VANCOMYCIN 750 MG in SODIUM CHLORIDE 0.9% 250 ML IVPB SCH (09:41)
--- NOTE | 2017-10-01 10:07 | PN ---
PROGRESS NOTE Mrs. Lenz is an 82-year-old female who presented with respiratory distress requiring a BiPAP. She had episode of tachycardia yesterday. She is back in sinus mechanism at this time with frequent PACs. She denies any symptoms of chest pain. She denies any dizziness or palpitation. She is feeling better. She is more awake and alert. Her urine output remains low. She continues to be at this time on aspirin 81 mg daily, diltiazem IV 50 mg , insulin, Xarelto 20 mg daily in addition to vancomycin. PHYSICAL EXAMINATION: Blood pressure 102/50 with the heart rate in the 80s. Afebrile. LUNGS: With scattered rhonchi. HEART: Regular rate and rhythm, S1, S2. No S3 with a holosystolic murmur at the apex. No diastolic murmur. No rub. ABDOMEN: Soft, nontender. EXTREMITIES: No edema. LAB DATA: Lab data revealed BUN and creatinine 30 and 0.7. Her bicarb is 16. Hemoglobin of 9.7. Magnesium of 2.2. Her chest x-ray this morning shows bilateral infiltrate, possible pneumonia. IMPRESSION: 1. Respiratory failure with possible pneumonia with superimposed congestive heart failure. 2. Atrial arrhythmia, now in sinus mechanism. 3. Troponin elevation secondary to the infectious process. 4. History of hypertension. 5. Hyperlipidemia. 6. Chronic anemia. RECOMMENDATION: From the cardiac standpoint, I will switch her to oral Cardizem. Continue rest of her medical regimen. I will review the results of her echocardiogram and depending on her progress, further recommendation will be made. MMODL / IJN: [id number] /
[2017-10-01 10:13] LABS: ABG Base Excess -5.8 mmol/L; ABG HCO3 19 mmol/L (21-25); ABG Oxygen Saturation 95.4 % (94-97); ABG PCO2 28 mmHg (35-45); ABG PH 7.43 (7.35-7.45); ABG PO2 74 mmHg (83-108); ABG TCO2 19 mmol/L (19-24)
--- NOTE | 2017-10-01 11:18 | ECHOF ---
Referral Reason:dyspnea MEASUREMENTS -------- HEIGHT: 160.0 cm WEIGHT: 46.3 kg BP: 102/50 IVSd: 1.1 cm (0.6 - 1.1) LVIDd: 3.1 cm (3.9 - 5.3) LVPWd: 1.5 cm (0.6 - 1.1) IVSs: 2.1 cm LVIDs: 1.8 cm LVPWs: 1.7 cm LAESV Index (A-L): 31.33 ml/m Ao Diam: 3.1 cm (2.0 - 3.7) AV Cusp: 1.2 cm (1.5 - 2.6) LA Diam: 3.5 cm (2.7 - 3.8) MV EXCURSION: 12.451 mm (> 18.000) MV EF SLOPE: 46 mm/s (70 - 150) EPSS: 1.0 cm MV E John: 1.13 m/s MV DecT: 262 ms MV A John: 1.16 m/s MV E/A Ratio: 0.98 AV maxP.75 mmHg AV meanP.74 mmHg RAP: 5.00 mmHg RVSP: 29.25 mmHg FINDINGS -------- Atrial fibrillation. This was a technically good study. The left ventricular size is normal. There is mild concentric left ventricular hypertrophy. Overa ll left ventricular systolic function is normal with, an EF between 55 - 60 %. The right ventricle is normal in size and function. LA is midly dilated 29-33ml/m2. The right atrium is normal in size. Aortic valve is trileaflet and is mildly thickened. There is mild aortic stenosis present. Peak/m uma gradient across the Aortic Valve is 15.75mmHg / 8.74mmHg. The mitral valve leaflets are moderately thickened. Moderate mitral annular calcification present. Moderate mitral regurgitation is present. Small, mobile vegetation attached to the anterior myron l valve leaflet. Moderate to severe tricuspid regurgitation present. The right ventricular systolic pressure, as katie sured by Doppler, is 29.25mmHg. Pulmonic valve appears structurally normal. The aortic root size is normal. The pericardium is normal. CONCLUSIONS -------- 1. Atrial fibrillation. 2. This was a technically good study. 3. The left ventricular size is normal. 4. There is mild concentric left ventricular hypertrophy. 5. Overall left ventricular systolic function is normal with, an EF between 55 - 60 %. 6. The right ventricle is normal in size and function. 7. LA is midly dilated 29-33ml/m2. 8. The right atrium is normal in size. 9. Aortic valve is trileaflet and is mildly thickened. 10. There is mild aortic stenosis present. 11. Peak/mean gradient across the Aortic Valve is 15.75mmHg / 8.74mmHg. 12. The mitral valve leaflets are moderately thickened. 13. Moderate mitral annular calcification present. 14. Moderate mitral regurgitation is present. 15. Small, mobile vegetation attached to the anterior mitral valve leaflet. 16. Moderate to severe tricuspid regurgitation present. 17. The right ventricular systolic pressure, as measured by Doppler, is 29.25mmHg. 18. Pulmonic valve appears structurally normal. 19. The aortic root size is normal. 20. Consider YOAN for optimsal evaluation of mitral valve. [employer]: Darline Simpson RDCS
[2017-10-01] MEDS: METOPROLOL TARTRATE 25 MG TAB PO SCH ×3 (11:30→23:42)
--- NOTE | 2017-10-01 11:49 | P.PN ---
Subjective Progress Note Date: 10/01/17 Principal diagnosis: pneumonia Patient is an 82-year-old female with history of A. fib on Xarelto, rheumatoid arthritis, hypertension, and dyslipidemia who presented to the hospital with complaints of confusion and weakness. On arrival to the ER she underwent an extensive evaluation. On arrival to the ER she was tachycardic with a pulse rate of 118, tachypnea with a respiratory rate of 27, and hypoxic with an O2 sat of 83% on a nonrebreather. Initial laboratory analysis showed an elevated troponin, elevated white blood cell count, and slight anemia with hemoglobin 10.7. CTA of the chest showed respiratory distress syndrome versus pulmonary edema. Initially the concern was for acute hypoxic respiratory failure, acute pulmonary edema versus R, A. fib with RVR, and nondistended. She was started on BiPAP given a dose of Lasix and started on a Cardizem drip. She was subsequently ordered for admission to the selective care unit. She was also ordered for stress dose steroids secondary to being on prednisone at baseline for rheumatoid arthritis. She went to the ICU and stepdown overflow and was requiring 100% on BiPAP. There was concern for possible pneumonia and she was started on Vanco, Zosyn, and Levaquin. Pulmonary was consulted. She developed hypotension and received 1 L of IV fluids. Cardiology was consulted. They initially saw miky and her heart rate had been controlled so they stopped her Cardizem drip. Overnight on 10/01 her heart rate again went up and she was found to have A. fib with RVR and Cardizem was restarted. They felt that her troponin elevation most likely secondary to a non-STEMI. Echocardiogram was ordered. Patient seen and examined at bedside. She is still in the ICU and requiring BiPAP support. She is having some shortness of breath. She denies any nausea or vomiting. She feels though she is having urinary retention despite a Gomez catheter being in place. She denies any overt chest pain. She is feeling tired. Her and her typically reside in [place]. They have tried to find a family physician up here but were unable to do so secondary to their [place] insurance. Their plan is to stay here through November. They come every year in the summer for 3-4 months. Per patient she is on Prednisone 10mg in the morning and 10 mg at night. She also started an injectable in August and takes methotrexate once weekly for her RA. She tried to wean prednisone but has been unsuccessful in the past. Objective - Vital Signs Vital signs: Vital Signs Temp 97.3 F L 10/01/17 08:00 Pulse 80 10/01/17 09:00 Resp 29 H 10/01/17 09:00 BP 102/50 10/01/17 09:00 Pulse Ox 97 10/01/17 09:00 Intake & Output 09/30/17 10/01/17 10/01/17 18:59 06:59 18:59 Intake Total 2070 480 78.25 Output Total 400 335 95 Balance 1670 145 -16.75 Weight 44.8 kg 46.6 kg 46.6 kg Intake: IV 20 430 45 0.9 NaCl 10 280 30 Diltiazem 50 mg In Sodium 10 10 Chloride 0.9% 40 ml @ 10 MG/HR 10 mls/hr IV .Q5H [facility] Rx#:[id number] Diltiazem 50 mg In Sodium 90 15 Chloride 0.9% 40 ml @ 15 MG/HR 15 mls/hr IV . Q3H20M [facility] Rx#:[id number] Piperacillin-Tazobactam 3 50 .375 gm In Dextrose/Water 1 50ml.bag @ 12.5 mls/hr IVPB Q8HR [facility] Rx#: [id number] Intake, IV Titration 2050 50 33.25 Amount Diltiazem 50 mg In Sodium 50 33.25 Chloride 0.9% 40 ml @ 15 MG/HR 15 mls/hr IV . Q3H20M [facility] Rx#:[id number] Levofloxacin 750Mg-D5w 150 Pmx 750 mg In Dextrose/ Water 1 150ml.bag @ 100 mls/hr IVPB Q24H [facility] Rx#: [id number] Magnesium Sulfate-D5w Pmx 100 1 gm In Dextrose/Water 1 100ml.bag @ 100 mls/hr IVPB Q1H [facility] Rx#: [id number] Piperacillin-Tazobactam 3 50 .375 gm In Dextrose/Water 1 50ml.bag @ 12.5 mls/hr IVPB Q8HR [facility] Rx#: [id number] Potassium Chloride 10 meq 500 In Water For Injection 1 100ml.bag @ 100 mls/hr IVPB Q1HR [facility] Rx#: [id number] Sodium Chloride 0.9% 1, 1000 000 ml @ 999 mls/hr IV . Q1H1M [facility] Rx#:[id number] Vancomycin 1,000 mg In 250 Sodium Chloride 0.9% 250 ml @ 125 mls/hr IVPB ONCE [facility] Rx#:[id number] Output: Urine 400 335 95 Other: Voiding Method Indwelling Catheter Diaper Diaper Indwelling Catheter Indwelling Catheter - Exam General: ill appearing, moderate distress, appears at stated age Derm: warm, dry, multiple areas of ecchymosis Head: atraumatic, normocephalic, symmetric Eyes: EOMI, no lid lag, anicteric sclera Mouth: no lip lesion,BiPap mask inplace Cardiovascular: S1S2 irreg, no murmur, positive posterior tibial pulse bilateral , Lungs: Course bs b/l , no accessory muscle use Abdominal: soft, nontender to palpation, no guarding, no appreciable organomegaly Ext: no gross muscle atrophy, no edema, no contractures Neuro: CN II-XI grossly intact, no focal neuro deficits Psych: Alert, oriented, appropriate affect - Labs CBC & Chem 7: 10/01/17 03:49 10/01/17 03:49 Labs: Abnormal Lab Results - Last 24 Hours (Table) 09/30/17 09/30/17 10/01/17 Range/Units 12:44 14:59 00:10 RBC (3.80-5.40) m/uL Hgb (11.4-16.0) gm/dL Hct (34.0-46.0) % MCV (80.0-100.0) fL RDW (11.5-15.5) % Neutrophils # (1.3-7.7) k/uL ABG pCO2 (35-45) mmHg ABG pO2 (83-108) mmHg ABG HCO3 (21-25) mmol/L Chloride (98-107) mmol/L Carbon Dioxide (22-30) mmol/L BUN (7-17) mg/dL Glucose (74-99) mg/dL POC Glucose (mg/dL) 116 H (75-99) mg/dL Magnesium 2.5 H (1.6-2.3) mg/dL Total Creatine Kinase 174 H (30-135) U/L CK-MB (CK-2) 2.5 H* (0.0-2.4) ng/mL Troponin I 0.430 H* (0.000-0.034) ng/mL 10/01/17 10/01/17 10/01/17 Range/Units 03:49 03:49 05:45 RBC 3.07 L (3.80-5.40) m/uL Hgb 9.7 L (11.4-16.0) gm/dL Hct 30.9 L (34.0-46.0) % MCV 100.7 H D (80.0-100.0) fL RDW 18.3 H (11.5-15.5) % Neutrophils # 7.9 H (1.3-7.7) k/uL ABG pCO2 (35-45) mmHg ABG pO2 (83-108) mmHg ABG HCO3 (21-25) mmol/L Chloride 114 H (98-107) mmol/L Carbon Dioxide 16 L (22-30) mmol/L BUN 30 H (7-17) mg/dL Glucose 106 H (74-99) mg/dL POC Glucose (mg/dL) 123 H (75-99) mg/dL Magnesium (1.6-2.3) mg/dL Total Creatine Kinase (30-135) U/L CK-MB (CK-2) (0.0-2.4) ng/mL Troponin I (0.000-0.034) ng/mL 10/01/17 Range/Units 10:11 RBC (3.80-5.40) m/uL Hgb (11.4-16.0) gm/dL Hct (34.0-46.0) % MCV (80.0-100.0) fL RDW (11.5-15.5) % Neutrophils # (1.3-7.7) k/uL ABG pCO2 28 L (35-45) mmHg ABG pO2 74 L (83-108) mmHg ABG HCO3 19 L (21-25) mmol/L Chloride (98-107) mmol/L Carbon Dioxide (22-30) mmol/L BUN (7-17) mg/dL Glucose (74-99) mg/dL POC Glucose (mg/dL) (75-99) mg/dL Magnesium (1.6-2.3) mg/dL Total Creatine Kinase (30-135) U/L CK-MB (CK-2) (0.0-2.4) ng/mL Troponin I (0.000-0.034) ng/mL Microbiology - Last 24 Hours (Table) 09/29/17 22:04 Blood Culture - Preliminary Blood No Growth after 24 hours 09/29/17 20:32 Blood Culture - Preliminary Blood No Growth after 24 hours 09/30/17 09:45 Urine Culture - Preliminary Urine,Voided Assessment and Plan Assessment: Acute hypoxic respiratory failure - Continue with Bipap therapy - Pulmonary recommendations - Fluids needed for BP - Pulmonary hygeine Bilateral Pulmonary infiltrates - probable bacterial PNA possible Gram negative vs CHF - Zosyn, levaquin, and vanco - Pulmonary hygeine - sputum culture - blood cultures negative to date - Await echo - Bronchdilators Hyperchloremic metabolic acidosis - changed to D5 with bicarb should correct - repeat BMP in AM Sepsis - IVF - Treatment as above A fib wtih RVR - cardio recs - cardizem gtt - xarelto - lopressor - echo - tele Hypotension - likely due to PNA and diuresis - follow BP NSTEMIA, Type II - tele, echo, cardio recs - lopressor - ASA HTN - was hypotensive - follow closely on Lopressor and Cardizem GERD - IV PPI Rheumatoid arthritis, on chronic steroids -stress dose steroids - will bring in med list and name of biologic so we can update records accordingly. Anemia, suspect of chronic disease with RA - follow CBC - Further eval as outpatient if it is stable. DVT prophylaxis: Traceyrelto Discussed with: Patient, , RN Dr. Watt Anticipated discharge: 3-[address]: Home with home health A total of 35 minutes was spent on the care of this complex patient more than 50 % of the time was spent in counseling and care coordination.
[2017-10-01 12:23] LABS: Glucose,Whole Blood 119 mg/dL (75-99)
[2017-10-01] MEDS ORDERED: DILTIAZEM 50 MG in SODIUM CHLORIDE 0.9% 40 ML IV SCH (13:45)
[2017-10-01] MEDS: methylPREDNISolone SOD SUCCI 40 MG/ML 1 ML VIAL IV SCH (16:00)
[2017-10-01] MEDS: DILTIAZEM ORAL 60 MG TAB PO SCH ×2 (16:49→23:42)
[2017-10-01] MEDS: RIVAROXABAN 20 MG TAB PO SCH (16:50)
[2017-10-02 00:36] LABS: Glucose,Whole Blood 175 mg/dL (75-99)
[2017-10-02] MEDS: PIPERACILLIN-TAZOBACTAM 3.375 GM in DEXTROSE/WATER 1 50ML.BAG IVPB SCH ×3 (00:38→16:49)
[2017-10-02] MEDS: INSULIN ASPART 100 UNIT/ML 1 ML 10 ML VIAL SQ SCH ×4 (00:38→18:33)
[2017-10-02] MEDS ORDERED: FUROSEMIDE 10 MG/ML 2 ML VIAL IV STA (01:32)
[2017-10-02] MEDS: methylPREDNISolone SOD SUCCI 40 MG/ML 1 ML VIAL IV SCH ×3 (01:43→16:44)
[2017-10-02] MEDS ORDERED: DEXTROSE 5% IN WATER 1,000 ML IV SCH (01:45)
[2017-10-02] MEDS: IPRATROPIUM-ALBUTEROL 3 ML NEB INHALATION SCH ×6 (03:54→23:12)
[2017-10-02 05:42] LABS: Anisocytosis Slight; Basophils % (A) 0 %; Eosinophils % (A) 0 %; HCT 27.8 % (34.0-46.0); HGB 9.4 gm/dL (11.4-16.0); Lymphocytes # (A) 0.8 k/uL (1.0-4.8); Lymphocytes % (A) 7 %; MCH 31.8 pg (25.0-35.0); MCHC 33.7 g/dL (31.0-37.0); Macrocytosis Slight; Mean Platelet Volume 8.5; Monocytes # (A) 0.6 k/uL (0-1.0); Monocytes % (A) 5 %; Neutrophils # (A) 9.7 k/uL (1.3-7.7); Neutrophils % (A) 84 %; Platelet Count 276 k/uL (150-450); RBC 2.95 m/uL (3.80-5.40); RDW 19.1 % (11.5-15.5); WBC 11.5 k/uL (3.8-10.6)
[2017-10-02 05:55] LABS: MCV 94.2 fL (80.0-100.0)
[2017-10-02 06:42] LABS: Calcium 8.7 mg/dL (8.4-10.2); Magnesium 1.9 mg/dL (1.6-2.3); Phosphorus 3.6 mg/dL (2.5-4.5)
[2017-10-02 06:46] LABS: Potassium 2.9 mmol/L (3.5-5.1)
[2017-10-02] MEDS: MAGNESIUM SULFATE-D5W PMX 1 GM in DEXTROSE/WATER 1 100ML.BAG IVPB SCH ×2 (07:11→10:08)
[2017-10-02] MEDS: DEXTROSE 5% IN WATER 1,000 ML with SODIUM BICARB (1 MEQ/ML) 150 ML IV SCH (07:12)
[2017-10-02] MEDS: POTASSIUM CHLORIDE ER 20 MEQ TAB.ER PO SCH ×3 (07:54→10:08)
--- NOTE | 2017-10-02 08:17 | PN ---
PROGRESS NOTE Mrs. Lenz is an 82-year-old female who presented with respiratory failure and probable pneumonia. She had episode of atrial arrhythmia that is improved. She denies any symptoms of chest discomfort. She continued to be on BiPAP. She is feeling better overall. She denies any dizziness or palpitation. She had an echocardiogram done yesterday that revealed a possible vegetation on the mitral valve with a preserved systolic function and moderate mitral regurgitation with moderate severe tricuspid regurgitation. Her PA pressure was 29 mmHg. She continues to be on Cardizem 60 mg p.o. t.i.d., metoprolol tartrate 25 mg 3 times a day, and she is on Xarelto which she has been on before. She is in sinus mechanism with PACs at this point. PHYSICAL EXAMINATION: Blood pressure 115/50 with the heart rate in the 70s. LUNGS: With mild decreased breath sounds. No wheezes or rales appreciated. HEART: Regular rate and rhythm S1, S2. No S3 with a holosystolic murmur in the apex. No diastolic murmur. ABDOMEN: Soft, nontender. Positive bowel sounds. EXTREMITIES: No edema. LAB DATA: Lab data revealed potassium 2.9, BUN and creatinine 30 and 0.8. Her hemoglobin is 9.4, white blood cell of 11.5. Her chest x-ray shows bilateral infiltrate, probable atypical pneumonitis. IMPRESSION: 1. Respiratory failure with suggestion of atypical pneumonitis doubt heart failure. 2. Questionable vegetation on the mitral valve. 3. Atrial arrhythmia. The patient is in sinus mechanism. 4. Hyperlipidemia. 5. History of rheumatoid arthritis and immunocompromise. RECOMMENDATION: At this time, we will continue present therapy. The patient may require transesophageal echocardiogram, but I would favor to hold because of her respiratory status and that if YOAN is performed, she may end up being intubated. I discussed those finding with Dr. Watt. Depending on her progress, further recommendation will be made. MMODL / IJN: [id number] /
[2017-10-02] MEDS: LEVOFLOXACIN 750MG-D5W PMX 750 MG in DEXTROSE/WATER 1 150ML.BAG IVPB SCH (08:31)
[2017-10-02] MEDS: DILTIAZEM ORAL 60 MG TAB PO SCH ×3 (08:32→22:07)
[2017-10-02] MEDS: METOPROLOL TARTRATE 25 MG TAB PO SCH ×3 (08:32→22:07)
[2017-10-02] MEDS: ASPIRIN 81 MG PO SCH (08:32)
[2017-10-02] MEDS: PANTOPRAZOLE 40 MG/10 ML VIAL IVP SCH (08:32)
--- NOTE | 2017-10-02 08:33 | P.PN ---
Subjective Progress Note Date: 10/02/17 On today's evaluation of 10/01/2017 the patient is being seen for a follow-up. The patient came in with acute hypoxic respiratory failure with beta pulmonary filtrating consolidations and currently the patient is on a BiPAP at a pressure of 16/8 cm of water and FiO2 of 80%. Note that the exact nature of the bilateral pulmonary infiltrate is not established. The patient is suspected to have pneumonia in addition to a component of CHF knowing that on admission her proBNP level was significantly elevated. She also had some limited troponin leak. She has no chest pain. She has no clinical signs of congestion heart failure such as neck veins or lower extremity edema. The patient may have a combination of both CHF and pneumonia. Currently the patient is a combined antibiotics of Zosyn, vancomycin and Levaquin. The patient overnight became hypotensive. The diuretics were stopped and the patient was given a total of 2 L of IV fluids bolus and currently she is normotensive and blood pressure regulated. Urine output is somewhat between 20-30 mL an hour. Blood work from today shows a component of metabolic acidosis with a bicarb level of 16 and she is afebrile. She her white cell count is not elevated. Lactic acid level was nonelevated. Echocardiogram is pending for now. She is on Cardizem drip regarding her atrial fibrillation. She was taken long-term articulation with Xarelto on outpatient basis. On today's evaluation of 10/02/2017 the patient is feeling slightly better. She still BiPAP dependent for her acute hypoxic respiratory failure and bilateral pneumonia. On a BiPAP at a pressure of 16/8 cm of water and I was able to wean down the FiO2 down to 40% maintaining his saturation above 90%. Nevertheless, while off the BiPAP, the patient desaturates and she doesn't tolerate the high flow oxygen yet. The patient was given bicarb drip yesterday. I kept on the IV fluids to KVO yesterday and gave her a dose of Lasix. Her fluid balance is positive knowing that the patient had to be given fluids for hypotension yesterday. Her blood pressure stabilized. She remains in atrial fibrillation. She is currently off the Cardizem drip and she is taking oral Cardizem 60 mg by mouth 3 times a day. The patient is also on metoprolol 25 mg by mouth 3 times a day. She is on bronchodilators and systemic steroids pH is also covered with broad-spectrum antibiotics with a combination of Zosyn Levaquin and vancomycin. She is afebrile. White cell count is not elevated. She is not having any positive cultures. Echocardiogram was noted. The patient is a preserved LV function with an ejection fraction of 55-60%. The right ventricular size and function was within normal limits. There was moderate degree of mitral regurgitation and questionable small mobile vegetation attached to the anterior mitral valve leaflet that needs to be investigated later stage with a YOAN. Nevertheless, my overall suspicion for infective endocarditis is low knowing that the patient's cultures of been negative and the patient does not present with atypical infective endocarditis picture. Upon further investigation we can't understand that the patient is on subcutaneous methotrexate 20 mg every week. No other new suppressive agents and utilized for her rheumatoid arthritis. Objective - Vital Signs Vital signs: Vital Signs Temp 97.8 F 10/02/17 04:00 Pulse 94 10/02/17 07:15 Resp 20 10/02/17 07:00 BP 115/47 10/02/17 07:00 Pulse Ox 98 10/02/17 07:00 Intake & Output 10/01/17 10/02/17 10/02/17 18:59 06:59 18:59 Intake Total 998.25 710 20 Output Total 375 1080 75 Balance 623.25 -370 -55 Weight 46.6 kg 49.5 kg Intake: IV 965 710 20 0.9 NaCl 50 70 10 Dextrose 5% in Water 1, 400 640 10 000 ml @ 75 mls/hr IV . [id number] [facility] with Sodium Bicarb (1 Meq/ml) 150 ml Rx#:[id number] Diltiazem 50 mg In Sodium 15 Chloride 0.9% 40 ml @ 15 MG/HR 15 mls/hr IV . Q3H20M [facility] Rx#:[id number] Levofloxacin 750Mg-D5w 150 Pmx 750 mg In Dextrose/ Water 1 150ml.bag @ 100 mls/hr IVPB Q24H [facility] Rx#: [id number] Piperacillin-Tazobactam 3 100 .375 gm In Dextrose/Water 1 50ml.bag @ 12.5 mls/hr IVPB Q8HR [facility] Rx#: [id number] Vancomycin 750 mg In 250 Sodium Chloride 0.9% 250 ml @ 125 mls/hr IVPB Q24H [facility] Rx#:[id number] Intake, IV Titration 33.25 Amount Diltiazem 50 mg In Sodium 33.25 Chloride 0.9% 40 ml @ 15 MG/HR 15 mls/hr IV . Q3H20M [facility] Rx#:[id number] Output: Urine 375 1080 75 Other: Voiding Method Indwelling Catheter Diaper Indwelling Catheter - Exam Awake, communicative. BiPAP mask in place, she does arouse on verbal stimuli. She is awake and conscious and following commands and answer questions appropriately. She is able to tolerate a full face BiPAP mask which is set at pressure of 16/8 cm of water. She is not using accessory muscles of breathing. HEENT examination is grossly unremarkable. Mucous membranes are moist. Neck supple. Full range of motion. No adenopathy thyromegaly or neck vein distention. Cardiovascular examination reveals some irregularity to her heart rhythm. Heart rates about 100 bpm. There are some premature atrial contractions. There is a grade 2-3 systolic ejection murmur heard over the left apex. The patient also has an irregular S1-S2 consistent with atrial fibrillation. Heart sounds distant. Lungs reveal coarse bilateral breath sounds. Crackles noted bilaterally. No wheezes. Breath sounds equal bilaterally. Abdomen soft bowel sounds are heard. No masses or tenderness. Extremities are intact. No cyanosis or clubbing or edema.Examination of the extremities revealed easily palpable radial, femoral and pedal pulses. There was no cyanosis, clubbing or edema. Skin is without rash or lesion.Examination of the skin revealed no evidence of significant rashes, suspicious appearing nevi or other concerning lesions. Neurologic examination is within normal limits and the patient is moving all 4 extremities without any limitation and the patient is awake and alert 3. - Labs CBC & Chem 7: 10/02/17 03:55 10/02/17 05:40 Labs: Abnormal Lab Results - Last 24 Hours (Table) 09/30/17 10/01/17 10/01/17 Range/Units 19:30 10:11 12:22 WBC (3.8-10.6) k/uL RBC (3.80-5.40) m/uL Hgb (11.4-16.0) gm/dL Hct (34.0-46.0) % RDW (11.5-15.5) % Neutrophils # (1.3-7.7) k/uL Lymphocytes # (1.0-4.8) k/uL ABG pCO2 28 L (35-45) mmHg ABG pO2 74 L (83-108) mmHg ABG HCO3 19 L (21-25) mmol/L Potassium (3.5-5.1) mmol/L BUN (7-17) mg/dL Glucose (74-99) mg/dL POC Glucose (mg/dL) 119 H (75-99) mg/dL Procalcitonin 2.22 H (0.02-0.09) ng/mL 10/02/17 10/02/17 10/02/17 Range/Units 00:34 03:55 05:40 WBC 11.5 H (3.8-10.6) k/uL RBC 2.95 L (3.80-5.40) m/uL Hgb 9.4 L (11.4-16.0) gm/dL Hct 27.8 L (34.0-46.0) % RDW 19.1 H (11.5-15.5) % Neutrophils # 9.7 H (1.3-7.7) k/uL Lymphocytes # 0.8 L (1.0-4.8) k/uL ABG pCO2 (35-45) mmHg ABG pO2 (83-108) mmHg ABG HCO3 (21-25) mmol/L Potassium 2.9 L* (3.5-5.1) mmol/L BUN 30 H (7-17) mg/dL Glucose 104 H (74-99) mg/dL POC Glucose (mg/dL) 175 H (75-99) mg/dL Procalcitonin (0.02-0.09) ng/mL Microbiology - Last 24 Hours (Table) 09/29/17 22:04 Blood Culture - Preliminary Blood No Growth after 48 hours 09/29/17 20:32 Blood Culture - Preliminary Blood No Growth after 48 hours 10/01/17 12:20 Gram Stain - Final Sputum Sputum Culture - Final 09/30/17 09:45 Urine Culture - Final Urine,Voided Assessment and Plan Plan: Assessment 1 acute hypoxic respiratory failure with development of diffuse bilateral pulmonary infiltrates. Strongly suspect bilateral pneumonia over pulmonary edema or CHF. Echocardiogram was noted. The patient's cultures of been negative. No significant psychosocial fever. The patient is covered with broad -spectrum antibiotics. Clinically improved and the patient's FiO2 has been cut down to 40%, while her still being on BiPAP pressure of 16/8 cm of water. 2 hypotension probably due to pneumonia and diuresis. The patient is currently normotensive. 3 chronic atrial fibrillation 4 A. fib with RVR , currently off the Cardizem drip and she is maintained on accommodation of oral Cardizem and metoprolol and she is also on anticoagulants regarding her atrial fibrillation. 5 mild troponin leak, secondary to above 6 hypertension, history of 8 hyperlipidemia 9 acid reflux 10 rheumatoid arthritis, maintained on methotrexate on outpatient basis subcu injections every 1 week. 11 chronic anemia 12 questionable mitral valve vegetation along with moderate degree of mitral regurgitation and preserved LV function with an ejection fraction of 55-60% Plan The IV Fluids to KVO. Wean down the FiO2 down to 40%. May try to go to high flow oxygen at a later stage. The patient is able to tolerate and maintain a saturation above 90%. Continue same antibiotic coverage. Continue the steroids. Continued anticoagulants. Continue oral Cardizem and oral metoprolol. Awaiting results of the cultures. No major concern for infective endocarditis although a YOAN at a later stage may not be completely unreasonable idea and this needs to be done once the patient is fully recovered from her respiratory failure. Otherwise on today's chest x-ray her pulmonary infiltrations improved. We'll continue to follow should be kept in ICU. Condition remains critical. Atelectatic discussion with the family and explained to them the ongoing events. Critically care evaluation, 33 minutes. Time with Patient: Greater than 30
--- NOTE | 2017-10-02 08:36 | XR ---
EXAMINATION TYPE: XR chest 1V portable DATE OF EXAM: 10/02/2017 COMPARISON: 10/01/2017 HISTORY: Shortness of breath TECHNIQUE: Single frontal view of the chest is obtained. FINDINGS: Diffuse interstitial pattern with confluent attenuation in the perihilar regions. Postsurg ical change right shoulder, diffuse osteopenia, and arthropathy left shoulder. Surgical clips in the epigastrium. Heart size stable. Curvature of the spine. IMPRESSION: Increased predominantly interstitial changes associated with venous congestion or pneumonitis. Atypic al pneumonia also a consideration.
[2017-10-02] MEDS: VANCOMYCIN 750 MG in SODIUM CHLORIDE 0.9% 250 ML IVPB SCH (10:08)
[2017-10-02 12:40] LABS: Glucose,Whole Blood 156 mg/dL (75-99)
--- NOTE | 2017-10-02 12:45 | P.PN ---
Subjective Progress Note Date: 10/02/17 (delayed charting seen at 0900) Principal diagnosis: pneumonia Patient is an 82-year-old female with history of A. fib on Xarelto, rheumatoid arthritis, hypertension, and dyslipidemia who presented to the hospital with complaints of confusion and weakness. On arrival to the ER she underwent an extensive evaluation. On arrival to the ER she was tachycardic with a pulse rate of 118, tachypnea with a respiratory rate of 27, and hypoxic with an O2 sat of 83% on a nonrebreather. Initial laboratory analysis showed an elevated troponin, elevated white blood cell count, and slight anemia with hemoglobin 10.7. CTA of the chest showed respiratory distress syndrome versus pulmonary edema. Initially the concern was for acute hypoxic respiratory failure, acute pulmonary edema versus R, A. fib with RVR, and nondistended. She was started on BiPAP given a dose of Lasix and started on a Cardizem drip. She was subsequently ordered for admission to the selective care unit. She was also ordered for stress dose steroids secondary to being on prednisone at baseline for rheumatoid arthritis. She went to the ICU and stepdown overflow and was requiring 100% on BiPAP. There was concern for possible pneumonia and she was started on Vanco, Zosyn, and Levaquin. Pulmonary was consulted. She developed hypotension and received 1 L of IV fluids. Cardiology was consulted. They initially saw miky and her heart rate had been controlled so they stopped her Cardizem drip. Overnight on 10/01 her heart rate again went up and she was found to have A. fib with RVR and Cardizem was restarted, this was transitioned to oral cardizem on the afternoon of 10/01. They felt that her troponin elevation most likely secondary to a non-STEMI. Echocardiogram showed preserved EF of 55-60%. She was trailed off bipap on 10/01 but was unable to tolerate. Patient seen and examined at bedside. She is still in the ICU and requiring BiPAP support. Shortness of breath is improved. No chest pain, Tired. Feeling hungry. has a small BM yesterday. No nausea. Objective - Vital Signs Vital signs: Vital Signs Temp 97.6 F 10/02/17 08:00 Pulse 78 10/02/17 11:39 Resp 26 H 10/02/17 11:00 BP 115/65 10/02/17 11:00 Pulse Ox 98 10/02/17 11:00 Intake & Output 10/01/17 10/02/17 10/02/17 18:59 06:59 18:59 Intake Total 998.25 710 680 Output Total 375 1080 375 Balance 623.25 -370 305 Weight 46.6 kg 49.5 kg Intake: IV 965 710 520 0.9 NaCl 50 70 20 Dextrose 5% in Water 1, 400 640 50 000 ml @ 75 mls/hr IV . [id number] [facility] with Sodium Bicarb (1 Meq/ml) 150 ml Rx#:[id number] Diltiazem 50 mg In Sodium 15 Chloride 0.9% 40 ml @ 15 MG/HR 15 mls/hr IV . Q3H20M [facility] Rx#:[id number] Levofloxacin 750Mg-D5w 150 150 Pmx 750 mg In Dextrose/ Water 1 150ml.bag @ 100 mls/hr IVPB Q24H [facility] Rx#: [id number] Piperacillin-Tazobactam 3 100 50 .375 gm In Dextrose/Water 1 50ml.bag @ 12.5 mls/hr IVPB Q8HR [facility] Rx#: [id number] Vancomycin 750 mg In 250 250 Sodium Chloride 0.9% 250 ml @ 125 mls/hr IVPB Q24H [facility] Rx#:[id number] Intake, IV Titration 33.25 100 Amount Diltiazem 50 mg In Sodium 33.25 Chloride 0.9% 40 ml @ 15 MG/HR 15 mls/hr IV . Q3H20M [facility] Rx#:[id number] Magnesium Sulfate-D5w Pmx 100 1 gm In Dextrose/Water 1 100ml.bag @ 100 mls/hr IVPB Q1H [facility] Rx#: [id number] Oral 60 Output: Urine 375 1080 375 Other: Voiding Method Indwelling Catheter Diaper Indwelling Catheter - Exam General: ill appearing, moderate distress, appears at stated age Derm: warm, dry, multiple areas of ecchymosis Head: atraumatic, normocephalic, symmetric Eyes: EOMI, no lid lag, anicteric sclera Mouth: no lip lesion,BiPap mask inplace Cardiovascular: S1S2 irreg, no murmur, positive posterior tibial pulse bilateral , Lungs: Course bs b/l , no accessory muscle use + Bipap Abdominal: soft, nontender to palpation, no guarding, no appreciable organomegaly Ext: no gross muscle atrophy, no edema, no contractures Neuro: CN II-XI grossly intact, no focal neuro deficits Psych: Alert, oriented, appropriate affect - Labs CBC & Chem 7: 10/02/17 03:55 10/02/17 05:40 Labs: Abnormal Lab Results - Last 24 Hours (Table) 09/30/17 10/02/17 10/02/17 Range/Units 19:30 00:34 03:55 WBC 11.5 H (3.8-10.6) k/uL RBC 2.95 L (3.80-5.40) m/uL Hgb 9.4 L (11.4-16.0) gm/dL Hct 27.8 L (34.0-46.0) % RDW 19.1 H (11.5-15.5) % Neutrophils # 9.7 H (1.3-7.7) k/uL Lymphocytes # 0.8 L (1.0-4.8) k/uL Potassium (3.5-5.1) mmol/L BUN (7-17) mg/dL Glucose (74-99) mg/dL POC Glucose (mg/dL) 175 H (75-99) mg/dL Procalcitonin 2.22 H (0.02-0.09) ng/mL 10/02/17 Range/Units 05:40 WBC (3.8-10.6) k/uL RBC (3.80-5.40) m/uL Hgb (11.4-16.0) gm/dL Hct (34.0-46.0) % RDW (11.5-15.5) % Neutrophils # (1.3-7.7) k/uL Lymphocytes # (1.0-4.8) k/uL Potassium 2.9 L* (3.5-5.1) mmol/L BUN 30 H (7-17) mg/dL Glucose 104 H (74-99) mg/dL POC Glucose (mg/dL) (75-99) mg/dL Procalcitonin (0.02-0.09) ng/mL Microbiology - Last 24 Hours (Table) 09/29/17 22:04 Blood Culture - Preliminary Blood No Growth after 48 hours 09/29/17 20:32 Blood Culture - Preliminary Blood No Growth after 48 hours 10/01/17 12:20 Gram Stain - Final Sputum Sputum Culture - Final 09/30/17 09:45 Urine Culture - Final Urine,Voided Assessment and Plan Assessment: Acute hypoxic respiratory failure - Continue with Bipap therapy, trial off on high flow today. If able to tolerate 1 hours off bipap could have diet. 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 Hypokalemia - replace and recheck in AM Sepsis - IVF - Treatment as above A fib wtih RVR - cardio recs - cardizem oral - xarelto - lopressor - tele NSTEMI, Type II - tele, echo, cardio recs - lopressor - ASA HTN - was hypotensive - follow closely on Lopressor and Cardizem GERD - IV PPI Rheumatoid arthritis, on chronic steroids - stress dose steroids - Patient is not on biologic but is on injectable methotrexate Anemia, suspect of chronic disease with RA - follow CBC - Further eval as outpatient if it is stable. Hyperchloremic metabolic acidosis, resolved Hypotension, resolved DVT prophylaxis: Lambert Discussed with: Patient, RN Anticipated discharge: [address]: Home with home health A total of 35 minutes was spent on the care of this complex patient more than 50 % of the time was spent in counseling and care coordination.
[2017-10-02] MEDS: RIVAROXABAN 20 MG TAB PO SCH (16:44)
[2017-10-02 17:36] LABS: Glucose,Whole Blood 150 mg/dL (75-99)
[2017-10-02 17:44] LABS: Magnesium 2.5 mg/dL (1.6-2.3); Potassium 3.6 mmol/L (3.5-5.1)
[2017-10-02] MEDS ORDERED: POTASSIUM CHLORIDE ER 20 MEQ TAB.ER PO ONE (19:00)
[2017-10-02 23:58] LABS: Glucose,Whole Blood 197 mg/dL (75-99)
[2017-10-03] MEDS: methylPREDNISolone SOD SUCCI 40 MG/ML 1 ML VIAL IV SCH ×2 (00:35→08:47)
[2017-10-03] MEDS: PIPERACILLIN-TAZOBACTAM 3.375 GM in DEXTROSE/WATER 1 50ML.BAG IVPB SCH ×3 (00:36→16:11)
[2017-10-03] MEDS: INSULIN ASPART 100 UNIT/ML 1 ML 10 ML VIAL SQ SCH ×4 (00:36→20:21)
[2017-10-03] MEDS: IPRATROPIUM-ALBUTEROL 3 ML NEB INHALATION SCH ×6 (03:17→23:58)
[2017-10-03 04:39] LABS: Anion Gap 6 mmol/L; Blood Urea Nitrogen 25 mg/dL (7-17); Calcium 8.5 mg/dL (8.4-10.2); Carbon Dioxide 30 mmol/L (22-30); Chloride 105 mmol/L (98-107); Glucose 129 mg/dL (74-99); Magnesium 2.3 mg/dL (1.6-2.3); Phosphorus 2.6 mg/dL (2.5-4.5); Potassium 3.8 mmol/L (3.5-5.1); Sodium 141 mmol/L (137-145)
[2017-10-03] MEDS: DEXTROSE 5% IN WATER 1,000 ML with SODIUM BICARB (1 MEQ/ML) 150 ML IV SCH (05:16)
[2017-10-03] MEDS ORDERED: POTASSIUM CHLORIDE ER 20 MEQ TAB.ER PO SCH (06:00)
[2017-10-03 07:41] LABS: Glucose,Whole Blood 115 mg/dL (75-99)
--- NOTE | 2017-10-03 08:00 | XR ---
EXAMINATION TYPE: XR chest 1V portable DATE OF EXAM: 10/03/2017 COMPARISON: 10/02/2017 HISTORY: Shortness of breath TECHNIQUE: Single frontal view of the chest is obtained. FINDINGS: Diffuse interstitial pattern with confluent attenuation in the perihilar regions. Postsurg ical change right shoulder, diffuse osteopenia, and arthropathy left shoulder. Surgical clips in the epigastrium. Heart size stable. Curvature of the spine. IMPRESSION: Increased predominantly interstitial changes associated with venous congestion or pneumo nitis. Atypical pneumonia also a consideration. No significant change.
[2017-10-03] MEDS: PANTOPRAZOLE 40 MG/10 ML VIAL IVP SCH (08:47)
[2017-10-03] MEDS: ASPIRIN 81 MG PO SCH (08:48)
[2017-10-03] MEDS: DILTIAZEM ORAL 60 MG TAB PO SCH (08:48)
--- NOTE | 2017-10-03 08:50 | P.PN ---
Subjective Progress Note Date: 10/03/17 Principal diagnosis: pneumonia Patient is an 82-year-old female with history of A. fib on Xarelto, rheumatoid arthritis, hypertension, and dyslipidemia who presented to the hospital with complaints of confusion and weakness. On arrival to the ER she underwent an extensive evaluation. On arrival to the ER she was tachycardic with a pulse rate of 118, tachypnea with a respiratory rate of 27, and hypoxic with an O2 sat of 83% on a nonrebreather. Initial laboratory analysis showed an elevated troponin, elevated white blood cell count, and slight anemia with hemoglobin 10.7. CTA of the chest showed respiratory distress syndrome versus pulmonary edema. Initially the concern was for acute hypoxic respiratory failure, acute pulmonary edema versus R, A. fib with RVR, and nondistended. She was started on BiPAP given a dose of Lasix and started on a Cardizem drip. She was subsequently ordered for admission to the selective care unit. She was also ordered for stress dose steroids secondary to being on prednisone at baseline for rheumatoid arthritis. She went to the ICU and stepdown overflow and was requiring 100% on BiPAP. There was concern for possible pneumonia and she was started on Vanco, Zosyn, and Levaquin. Pulmonary was consulted. She developed hypotension and received 1 L of IV fluids. Cardiology was consulted. They initially saw miky and her heart rate had been controlled so they stopped her Cardizem drip. Overnight on 10/01 her heart rate again went up and she was found to have A. fib with RVR and Cardizem was restarted, this was transitioned to oral cardizem on the afternoon of 10/01. They felt that her troponin elevation most likely secondary to a non-STEMI. Echocardiogram showed preserved EF of 55-60%. She was trailed off bipap on 10/01 but was unable to tolerate. She was sucessfullt maintained off bipap on 10/02 and her xray was improving. She was given 1 dose of lasix. On the morning of 10/03 her xray was much improved and she was feeling much better. Patient seen and examined at bedside. She states that she is feeling much better than yesterday but she did not sleep last night and she believes it is due to medications. No chest pain, SOB is greatly improved. She notes more bruising today.Had 3 bowel movements yesterday. Objective - Vital Signs Vital signs: Vital Signs Temp 97.2 F L 10/03/17 04:00 Pulse 72 10/03/17 07:36 Resp 35 H 10/03/17 07:00 BP 92/53 10/03/17 07:00 Pulse Ox 94 L 10/03/17 07:00 Intake & Output 10/02/17 10/03/17 10/03/17 18:59 06:59 18:59 Intake Total 1150 650 30 Output Total 645 200 0 Balance 505 450 30 Weight 48.9 kg Intake: IV 750 410 30 0.9 NaCl 80 120 10 Dextrose 5% in Water 1, 100 240 20 000 ml @ 20 mls/hr IV . Q24H [facility] with Sodium Bicarb (1 Meq/ml) 150 ml Rx#:[id number] Dextrose 5% in Water 1, 70 000 ml @ 75 mls/hr IV . [id number] [facility] with Sodium Bicarb (1 Meq/ml) 150 ml Rx#:[id number] Levofloxacin 750Mg-D5w 150 Pmx 750 mg In Dextrose/ Water 1 150ml.bag @ 100 mls/hr IVPB Q24H [facility] Rx#: [id number] Piperacillin-Tazobactam 3 100 50 .375 gm In Dextrose/Water 1 50ml.bag @ 12.5 mls/hr IVPB Q8HR [facility] Rx#: [id number] Vancomycin 750 mg In 250 Sodium Chloride 0.9% 250 ml @ 125 mls/hr IVPB Q24H [facility] Rx#:[id number] Intake, IV Titration 100 Amount Magnesium Sulfate-D5w Pmx 100 1 gm In Dextrose/Water 1 100ml.bag @ 100 mls/hr IVPB Q1H [facility] Rx#: [id number] Oral 300 240 Output: Urine 645 0 0 Urine/Stool Mix 200 Other: Voiding Method Indwelling Catheter # Voids 1 0 - Exam General: ill appearing, no distress, appears at stated age Derm: warm, dry, multiple areas of ecchymosis, skin tear nasal bridge with dressing in place Head: atraumatic, normocephalic, symmetric Eyes: EOMI, no lid lag, anicteric sclera Mouth: no lip lesion, mucus membranes moist Cardiovascular: S1S2 irreg, no murmur, positive posterior tibial pulse bilateral , Lungs: Course rhonchi b/l bases, no accessory muscle use Abdominal: soft, nontender to palpation, no guarding, no appreciable organomegaly Ext: no gross muscle atrophy, no edema, no contractures Neuro: CN II-XI grossly intact, no focal neuro deficits Psych: Alert, oriented, appropriate affect - Labs CBC & Chem 7: 10/02/17 03:55 10/03/17 03:31 Labs: Abnormal Lab Results - Last 24 Hours (Table) 10/02/17 10/02/17 10/02/17 Range/Units 12:39 17:10 17:35 BUN (7-17) mg/dL Glucose (74-99) mg/dL POC Glucose (mg/dL) 156 H 150 H (75-99) mg/dL Magnesium 2.5 H (1.6-2.3) mg/dL 10/02/17 10/03/17 10/03/17 Range/Units 23:56 03:31 07:36 BUN 25 H (7-17) mg/dL Glucose 129 H (74-99) mg/dL POC Glucose (mg/dL) 197 H 115 H (75-99) mg/dL Magnesium (1.6-2.3) mg/dL Microbiology - Last 24 Hours (Table) 09/29/17 22:04 Blood Culture - Preliminary Blood No Growth after 72 hours 09/29/17 20:32 Blood Culture - Preliminary Blood No Growth after 72 hours Assessment and Plan Assessment: Acute hypoxic respiratory failure - Off bipap 10/02. - Pulmonary recommendations - Fluids needed for BP - Pulmonary hygeine Bacterial Pneumonia, possible Gram negative or MRSA with immunocompromised - Zosyn, levaquin PO, and vanco- will d/c in AM - Pulmonary hygeine - sputum culture - blood cultures negative to date - Bronchdilators Possible mitral valve vegetation - cardio recs appreciated - may need YOAN when resp stable - await records form physician's aide, asked to re-fax today Severe Protein Calorie Malnutrition - Consult dietitian for supplementation Paroxysmal A fib - cardio recs - cardizem oral - xarelto - lopressor - tele NSTEMI, Type II - tele, echo, cardio recs - lopressor - ASA HTN - was hypotensive - follow closely on Lopressor and Cardizem GERD - IV PPI Rheumatoid arthritis, on chronic steroids - stress dose steroids - Patient is not on biologic but is on injectable methotrexate Anemia, suspect of chronic disease with RA - follow CBC - Further eval as outpatient if it is stable. Hyperchloremic metabolic acidosis, resolved Hypotension, resolved Hypokalemia, resolved Sepsis, resolved A fib wtih RVR, resolved DVT prophylaxis: Traceyrelharry Discussed with: Patient, RN Anticipated discharge: 2-[address]: Home vs SNF A total of 35 minutes was spent on the care of this complex patient more than 50 % of the time was spent in counseling and care coordination.
[2017-10-03] MEDS ORDERED: VANCOMYCIN TROUGH DUE 1 EACH MISC MISCELLANE ONE (09:00)
--- NOTE | 2017-10-03 09:10 | P.PN ---
Subjective Progress Note Date: 10/03/17 On today's evaluation of 10/01/2017 the patient is being seen for a follow-up. The patient came in with acute hypoxic respiratory failure with beta pulmonary filtrating consolidations and currently the patient is on a BiPAP at a pressure of 16/8 cm of water and FiO2 of 80%. Note that the exact nature of the bilateral pulmonary infiltrate is not established. The patient is suspected to have pneumonia in addition to a component of CHF knowing that on admission her proBNP level was significantly elevated. She also had some limited troponin leak. She has no chest pain. She has no clinical signs of congestion heart failure such as neck veins or lower extremity edema. The patient may have a combination of both CHF and pneumonia. Currently the patient is a combined antibiotics of Zosyn, vancomycin and Levaquin. The patient overnight became hypotensive. The diuretics were stopped and the patient was given a total of 2 L of IV fluids bolus and currently she is normotensive and blood pressure regulated. Urine output is somewhat between 20-30 mL an hour. Blood work from today shows a component of metabolic acidosis with a bicarb level of 16 and she is afebrile. She her white cell count is not elevated. Lactic acid level was nonelevated. Echocardiogram is pending for now. She is on Cardizem drip regarding her atrial fibrillation. She was taken long-term articulation with Xarelto on outpatient basis. On today's evaluation of 10/02/2017 the patient is feeling slightly better. She still BiPAP dependent for her acute hypoxic respiratory failure and bilateral pneumonia. On a BiPAP at a pressure of 16/8 cm of water and I was able to wean down the FiO2 down to 40% maintaining his saturation above 90%. Nevertheless, while off the BiPAP, the patient desaturates and she doesn't tolerate the high flow oxygen yet. The patient was given bicarb drip yesterday. I kept on the IV fluids to KVO yesterday and gave her a dose of Lasix. Her fluid balance is positive knowing that the patient had to be given fluids for hypotension yesterday. Her blood pressure stabilized. She remains in atrial fibrillation. She is currently off the Cardizem drip and she is taking oral Cardizem 60 mg by mouth 3 times a day. The patient is also on metoprolol 25 mg by mouth 3 times a day. She is on bronchodilators and systemic steroids pH is also covered with broad-spectrum antibiotics with a combination of Zosyn Levaquin and vancomycin. She is afebrile. White cell count is not elevated. She is not having any positive cultures. Echocardiogram was noted. The patient is a preserved LV function with an ejection fraction of 55-60%. The right ventricular size and function was within normal limits. There was moderate degree of mitral regurgitation and questionable small mobile vegetation attached to the anterior mitral valve leaflet that needs to be investigated later stage with a YOAN. Nevertheless, my overall suspicion for infective endocarditis is low knowing that the patient's cultures of been negative and the patient does not present with atypical infective endocarditis picture. Upon further investigation we can't understand that the patient is on subcutaneous methotrexate 20 mg every week. No other new suppressive agents and utilized for her rheumatoid arthritis. On 10/03/2017, the patient is improved further compared to yesterday. There has been marked improvement in the oxygenation and the patient is currently on 8 L of oxygen by nasal cannula and she is maintaining a saturation above 90%. Note that she was on BiPAP overnight and this morning it was completely discontinued. She did develop some skin excoriation over the nose limited to the BiPAP mask. Appropriate dressing is then applied. She is afebrile. She is on broad-spectrum antibiotics on a combination of Zosyn and Levaquin and vancomycin. Chest x-ray shows improvement in the interstitial infiltrates seen earlier compared to her admission. This is coupled with improvement in her oxygenation. She is less short of breath. She is able to speak full sentences. No fever. No chills. She is on IV Solu-Medrol which will be transitioned to oral prednisone. A YOAN will be needed also at a later stage regarding the possibility of infective endocarditis. Patient is tolerating oral diet. No change in mental status. No other significant events overnight. Objective - Vital Signs Vital signs: Vital Signs Temp 97.2 F L 10/03/17 04:00 Pulse 72 10/03/17 07:36 Resp 35 H 10/03/17 07:00 BP 92/53 10/03/17 07:00 Pulse Ox 94 L 10/03/17 07:00 Intake & Output 10/02/17 10/03/17 10/03/17 18:59 06:59 18:59 Intake Total 1150 650 30 Output Total 645 200 0 Balance 505 450 30 Weight 48.9 kg Intake: IV 750 410 30 0.9 NaCl 80 120 10 Dextrose 5% in Water 1, 100 240 20 000 ml @ 20 mls/hr IV . Q24H [facility] with Sodium Bicarb (1 Meq/ml) 150 ml Rx#:[id number] Dextrose 5% in Water 1, 70 000 ml @ 75 mls/hr IV . [id number] [facility] with Sodium Bicarb (1 Meq/ml) 150 ml Rx#:[id number] Levofloxacin 750Mg-D5w 150 Pmx 750 mg In Dextrose/ Water 1 150ml.bag @ 100 mls/hr IVPB Q24H [facility] Rx#: [id number] Piperacillin-Tazobactam 3 100 50 .375 gm In Dextrose/Water 1 50ml.bag @ 12.5 mls/hr IVPB Q8HR [facility] Rx#: [id number] Vancomycin 750 mg In 250 Sodium Chloride 0.9% 250 ml @ 125 mls/hr IVPB Q24H [facility] Rx#:[id number] Intake, IV Titration 100 Amount Magnesium Sulfate-D5w Pmx 100 1 gm In Dextrose/Water 1 100ml.bag @ 100 mls/hr IVPB Q1H [facility] Rx#: [id number] Oral 300 240 Output: Urine 645 0 0 Urine/Stool Mix 200 Other: Voiding Method Indwelling Catheter # Voids 1 0 - Exam Awake, communicative. Currently on 8 L of oxygen by nasal cannula. No use of accessory muscles of breathing and she is calm and comfortable. HEENT examination is grossly unremarkable. Mucous membranes are moist. Neck supple. Full range of motion. No adenopathy thyromegaly or neck vein distention. Cardiovascular examination reveals some irregularity to her heart rhythm. Heart rates about 100 bpm. There are some premature atrial contractions. There is a grade 2-3 systolic ejection murmur heard over the left apex. The patient also has an irregular S1-S2 consistent with atrial fibrillation. Heart sounds distant. Lungs reveal coarse bilateral breath sounds. Crackles noted bilaterally. No wheezes. Breath sounds equal bilaterally. Abdomen soft bowel sounds are heard. No masses or tenderness. Extremities are intact. No cyanosis or clubbing or edema.Examination of the extremities revealed easily palpable radial, femoral and pedal pulses. There was no cyanosis, clubbing or edema. Skin is without rash or lesion.Examination of the skin revealed no evidence of significant rashes, suspicious appearing nevi or other concerning lesions. Neurologic examination is within normal limits and the patient is moving all 4 extremities without any limitation and the patient is awake and alert 3. - Labs CBC & Chem 7: 10/02/17 03:55 10/03/17 03:31 Labs: Abnormal Lab Results - Last 24 Hours (Table) 10/02/17 10/02/17 10/02/17 Range/Units 12:39 17:10 17:35 BUN (7-17) mg/dL Glucose (74-99) mg/dL POC Glucose (mg/dL) 156 H 150 H (75-99) mg/dL Magnesium 2.5 H (1.6-2.3) mg/dL 10/02/17 10/03/17 10/03/17 Range/Units 23:56 03:31 07:36 BUN 25 H (7-17) mg/dL Glucose 129 H (74-99) mg/dL POC Glucose (mg/dL) 197 H 115 H (75-99) mg/dL Magnesium (1.6-2.3) mg/dL Microbiology - Last 24 Hours (Table) 09/29/17 22:04 Blood Culture - Preliminary Blood No Growth after 72 hours 09/29/17 20:32 Blood Culture - Preliminary Blood No Growth after 72 hours Assessment and Plan Plan: Assessment 1 acute hypoxic respiratory failure with development of diffuse bilateral pulmonary infiltrates. Strongly suspect bilateral pneumonia over pulmonary edema or CHF. Echocardiogram was noted. The patient is improving. Her oxidation is improved significantly and the patient is currently off the BiPAP and she is on 8 L of oxygen by nasal cannula. I suspect we are able to wean it down further in terms of her FiO2. Chest x-ray shows improvement in the bilateral pulmonary infiltrates. 2 hypotension probably due to pneumonia and diuresis. The patient is currently normotensive. 3 sinus mechanism with occasional PACs 4 A. fib with RVR , currently off the Cardizem drip and she is maintained on accommodation of oral Cardizem and metoprolol and she is also on anticoagulants regarding her atrial fibrillation. 5 mild troponin leak, secondary to above 6 hypertension, history of 8 hyperlipidemia 9 acid reflux 10 rheumatoid arthritis, maintained on methotrexate on outpatient basis subcu injections every 1 week. 11 chronic anemia 12 questionable mitral valve vegetation along with moderate degree of mitral regurgitation and preserved LV function with an ejection fraction of 55-60% Plan Change Levaquin to oral. Give vancomycin for another 24 hours and discontinue knowing that the cultures of been all negative. Continued IV Zosyn. Stop the IV Solu Medrol and switch the patient to oral prednisone. Wean down FiO2 as tolerated. Consult physical therapy. Advance diet as tolerated. She may be needing ICU today to a medical floor with telemetry.
[2017-10-03] MEDS: predniSONE 20 MG TAB PO SCH (09:19)
--- NOTE | 2017-10-03 10:12 | PN ---
PROGRESS NOTE Mrs. Lenz is an 82-year-old female who presented with symptoms of progressive dyspnea and was diagnosed with pneumonia. She feels better and looks better today. She has continued on the BiPAP at times, but at times she is using the nasal oxygen with a stable oxygen saturation. Her echocardiogram showed evidence of possible vegetation on the mitral valve with significant mitral and tricuspid regurgitation. The patient does not recall any history of valvular disease. She was told she had an irregular heartbeat in the past. She continues to be at this time on aspirin once a day, diltiazem 60 mg 3 times a day, insulin, metoprolol tartrate 25 mg 3 times a day, prednisone Xarelto 20 mg daily. PHYSICAL EXAMINATION: Blood pressure running in the low 100 with the heart rate in the 60s LUNGS: Decreased air exchange, no wheezes. HEART: Regular rate and rhythm, S1, S2. No S3 with a holosystolic murmur. No diastolic murmur. ABDOMEN: Soft, nontender. EXTREMITIES: No edema. LAB DATA: Lab data revealed BUN and creatinine 25 and 0.72. Potassium 3.8. IMPRESSION: 1. Pneumonia, clinically improving. 2. Atrial arrhythmia with no evidence of atrial fibrillation documented so far. 3. Possible mitral valve vegetation. RECOMMENDATION: From the cardiac standpoint, I will stop the Cardizem at this time and continue on the beta elysia. Her blood pressure is on the lower side. Will tentatively schedule to undergo a transesophageal echocardiogram on Sunday and depending on her progress further recommendation will be made. MMOPAL / KALIN: [id number] /
[2017-10-03] MEDS: VANCOMYCIN 750 MG in SODIUM CHLORIDE 0.9% 250 ML IVPB SCH (10:35)
[2017-10-03 11:57] LABS: Glucose,Whole Blood 193 mg/dL (75-99)
[2017-10-03] MEDS: LACTOBACILLUS ACIDOPH & BULGAR 1 EACH PACKET PO SCH ×2 (13:16→20:21)
[2017-10-03 17:33] LABS: Glucose,Whole Blood 125 mg/dL (75-99)
[2017-10-03 19:53] LABS: Glucose,Whole Blood 220 mg/dL (75-99)
[2017-10-03] MEDS: METOPROLOL TARTRATE 50 MG TAB PO SCH (20:21)
[2017-10-03] MEDS: RIVAROXABAN 20 MG TAB PO SCH (20:21)
[2017-10-03] MEDS: METOPROLOL TARTRATE 25 MG TAB PO SCH (20:43)
[2017-10-03] MEDS ORDERED: methylPREDNISolone SOD SUCCI 40 MG/ML 1 ML VIAL IV SCH (21:00)
[2017-10-04] MEDS ORDERED: VANCOMYCIN 1,000 MG in SODIUM CHLORIDE 0.9% 250 ML IVPB SCH ×2
[2017-10-04 00:08] LABS: Glucose,Whole Blood 175 mg/dL (75-99)
[2017-10-04] MEDS: PIPERACILLIN-TAZOBACTAM 3.375 GM in DEXTROSE/WATER 1 50ML.BAG IVPB SCH ×3 (00:15→17:57)
[2017-10-04] MEDS: INSULIN ASPART 100 UNIT/ML 1 ML 10 ML VIAL SQ SCH ×2 (00:17→06:12)
[2017-10-04] MEDS: IPRATROPIUM-ALBUTEROL 3 ML NEB INHALATION SCH ×5 (04:20→20:06)
[2017-10-04 06:00] LABS: Glucose,Whole Blood 110 mg/dL (75-99)
[2017-10-04 07:22] LABS: Calcium 8.6 mg/dL (8.4-10.2); Magnesium 2.1 mg/dL (1.6-2.3); Phosphorus 3.1 mg/dL (2.5-4.5)
[2017-10-04 07:26] LABS: Anisocytosis Slight; HCT 27.1 % (34.0-46.0); HGB 8.4 gm/dL (11.4-16.0); Hypochromasia Moderate; MCH 29.9 pg (25.0-35.0); MCHC 30.9 g/dL (31.0-37.0); MCV 96.7 fL (80.0-100.0); Macrocytosis Slight; Mean Platelet Volume 7.6; Platelet Count 296 k/uL (150-450); RDW 17.7 % (11.5-15.5); WBC 11.4 k/uL (3.8-10.6)
[2017-10-04] MEDS ORDERED: LEVOFLOXACIN 750MG-D5W PMX 750 MG in DEXTROSE/WATER 1 150ML.BAG IVPB SCH (08:00)
[2017-10-04] MEDS: LACTOBACILLUS ACIDOPH & BULGAR 1 EACH PACKET PO SCH ×2 (08:19→21:35)
[2017-10-04] MEDS: LEVOFLOXACIN 750 MG TAB PO SCH (08:20)
[2017-10-04] MEDS: METOPROLOL TARTRATE 50 MG TAB PO SCH ×2 (08:20→21:35)
[2017-10-04] MEDS: ASPIRIN 81 MG PO SCH (08:20)
[2017-10-04] MEDS: PANTOPRAZOLE 40 MG/10 ML VIAL IVP SCH (08:20)
[2017-10-04] MEDS: predniSONE 20 MG TAB PO SCH (08:20)
--- NOTE | 2017-10-04 08:20 | P.PN ---
Subjective Progress Note Date: 10/04/17 Principal diagnosis: pneumonia Patient is an 82-year-old female with history of A. fib on Xarelto, rheumatoid arthritis, hypertension, and dyslipidemia who presented to the hospital with complaints of confusion and weakness. On arrival to the ER she underwent an extensive evaluation. On arrival to the ER she was tachycardic with a pulse rate of 118, tachypnea with a respiratory rate of 27, and hypoxic with an O2 sat of 83% on a nonrebreather. Initial laboratory analysis showed an elevated troponin, elevated white blood cell count, and slight anemia with hemoglobin 10.7. CTA of the chest showed respiratory distress syndrome versus pulmonary edema. Initially the concern was for acute hypoxic respiratory failure, acute pulmonary edema versus R, A. fib with RVR, and nondistended. She was started on BiPAP given a dose of Lasix and started on a Cardizem drip. She was subsequently ordered for admission to the selective care unit. She was also ordered for stress dose steroids secondary to being on prednisone at baseline for rheumatoid arthritis. She went to the ICU and stepdown overflow and was requiring 100% on BiPAP. There was concern for possible pneumonia and she was started on Vanco, Zosyn, and Levaquin. Pulmonary was consulted. She developed hypotension and received 1 L of IV fluids. Cardiology was consulted. They initially saw miky and her heart rate had been controlled so they stopped her Cardizem drip. Overnight on 10/01 her heart rate again went up and she was found to have A. fib with RVR and Cardizem was restarted, this was transitioned to oral cardizem on the afternoon of 10/01. They felt that her troponin elevation most likely secondary to a non-STEMI. Echocardiogram showed preserved EF of 55-60%. She was trailed off bipap on 10/01 but was unable to tolerate. She was sucessfullt maintained off bipap on 10/02 and her xray was improving. She was given 1 dose of lasix. On the morning of 10/03 her xray was much improved and she was feeling much better. Her levaquin and steroids were transitioned to oral. Patient seen and examined at bedside. Breathing is a little heavy today but not short, no chest pain pain, + cough, + bloody nose intermittently. No nausea and diarrhea improved. WE discussed rehab and she does not want to go, we discussed the risk of falls and worsening of her condition if she were to return home. Objective - Vital Signs Vital signs: Vital Signs Temp 97 F L 10/04/17 07:23 Pulse 68 10/04/17 07:23 Resp 17 10/04/17 07:23 BP 118/60 10/04/17 07:23 Pulse Ox 92 L 10/04/17 07:23 Intake & Output 10/03/17 10/04/17 10/04/17 18:59 06:59 18:59 Intake Total 580 Output Total 0 Balance 580 Weight 50.5 kg Intake: IV 480 0.9 NaCl 210 Dextrose 5% in Water 1, 20 000 ml @ 20 mls/hr IV . Q24H [facility] with Sodium Bicarb (1 Meq/ml) 150 ml Rx#:[id number] Vancomycin 750 mg In 250 Sodium Chloride 0.9% 250 ml @ 125 mls/hr IVPB Q24H [facility] Rx#:[id number] Oral 100 Output: Urine 0 Other: # Voids 1 1 # Bowel Movements 1 - Exam General: ill appearing, no distress, appears at stated age Derm: warm, dry, multiple areas of ecchymosis, skin tear nasal bridge with dressing in place, scabbing over left nare, Head: atraumatic, normocephalic, symmetric Eyes: EOMI, no lid lag, anicteric sclera Mouth: no lip lesion, mucus membranes moist, + epistasix Cardiovascular: S1S2 irreg, no murmur, positive posterior tibial pulse bilateral , Lungs: crackels left base, no accessory muscle use Abdominal: soft, nontender to palpation, no guarding, no appreciable organomegaly Ext: no gross muscle atrophy, no edema, no contractures Neuro: CN II-XI grossly intact, no focal neuro deficits Psych: Alert, oriented, appropriate affect - Labs CBC & Chem 7: 10/04/17 06:51 10/04/17 06:51 Labs: Abnormal Lab Results - Last 24 Hours (Table) 10/03/17 10/03/17 10/03/17 Range/Units 11:56 17:29 19:51 WBC (3.8-10.6) k/uL RBC (3.80-5.40) m/uL Hgb (11.4-16.0) gm/dL Hct (34.0-46.0) % MCHC (31.0-37.0) g/dL RDW (11.5-15.5) % Chloride (98-107) mmol/L BUN (7-17) mg/dL Glucose (74-99) mg/dL POC Glucose (mg/dL) 193 H 125 H 220 H (75-99) mg/dL 10/04/17 10/04/17 10/04/17 Range/Units 00:06 05:39 06:51 WBC (3.8-10.6) k/uL RBC (3.80-5.40) m/uL Hgb (11.4-16.0) gm/dL Hct (34.0-46.0) % MCHC (31.0-37.0) g/dL RDW (11.5-15.5) % Chloride 109 H (98-107) mmol/L BUN 24 H (7-17) mg/dL Glucose 104 H (74-99) mg/dL POC Glucose (mg/dL) 175 H 110 H (75-99) mg/dL 10/04/17 Range/Units 06:51 WBC 11.4 H (3.8-10.6) k/uL RBC 2.80 L (3.80-5.40) m/uL Hgb 8.4 L (11.4-16.0) gm/dL Hct 27.1 L (34.0-46.0) % MCHC 30.9 L (31.0-37.0) g/dL RDW 17.7 H (11.5-15.5) % Chloride (98-107) mmol/L BUN (7-17) mg/dL Glucose (74-99) mg/dL POC Glucose (mg/dL) (75-99) mg/dL Microbiology - Last 24 Hours (Table) 09/29/17 22:04 Blood Culture - Preliminary Blood No Growth after 96 hours 09/29/17 20:32 Blood Culture - Preliminary Blood No Growth after 96 hours Assessment and Plan Assessment: Bacterial Pneumonia, possible Gram negative or MRSA with immunocompromised - Zosyn, levaquin PO, stopped vanco 10/04 completed 5 days of therapy - Pulmonary hygeine - sputum culture - blood cultures negative to date - Bronchdilators Epistasix - O2 humidified - Ointment in nares Acute hypoxic respiratory failure, improving - Off bipap 10/02. - Pulmonary recommendations - Pulmonary hygeine Possible mitral valve vegetation - cardio recs appreciated - may need YOAN when resp stable - Echo reviewed does not appear to have hx of vegetation Severe Protein Calorie Malnutrition - Consult dietitian for supplementation Paroxysmal A fib - cardio recs - xarelto - lopressor - tele NSTEMI, Type II - cardio recs - lopressor - ASA HTN - Lopressor - follow BP GERD - IV PPI Rheumatoid arthritis, on chronic steroids - stress dose steroids - Patient is not on biologic but is on injectable methotrexate Anemia, suspect of chronic disease with RA - follow CBC - Further eval as outpatient if it is stable. Hyperchloremic metabolic acidosis, resolved Hypotension, resolved Hypokalemia, resolved Sepsis, resolved A fib wtih RVR, resolved DVT prophylaxis: [place] Discussed with: Patient, RN Anticipated discharge: 2-[address]: Home vs SNF A total of 35 minutes was spent on the care of this complex patient more than 50 % of the time was spent in counseling and care coordination.
[2017-10-04 12:00] LABS: Glucose,Whole Blood 120 mg/dL (75-99)
--- NOTE | 2017-10-04 12:11 | P.PN ---
Subjective Progress Note Date: 10/04/17 On today's evaluation of 10/01/2017 the patient is being seen for a follow-up. The patient came in with acute hypoxic respiratory failure with beta pulmonary filtrating consolidations and currently the patient is on a BiPAP at a pressure of 16/8 cm of water and FiO2 of 80%. Note that the exact nature of the bilateral pulmonary infiltrate is not established. The patient is suspected to have pneumonia in addition to a component of CHF knowing that on admission her proBNP level was significantly elevated. She also had some limited troponin leak. She has no chest pain. She has no clinical signs of congestion heart failure such as neck veins or lower extremity edema. The patient may have a combination of both CHF and pneumonia. Currently the patient is a combined antibiotics of Zosyn, vancomycin and Levaquin. The patient overnight became hypotensive. The diuretics were stopped and the patient was given a total of 2 L of IV fluids bolus and currently she is normotensive and blood pressure regulated. Urine output is somewhat between 20-30 mL an hour. Blood work from today shows a component of metabolic acidosis with a bicarb level of 16 and she is afebrile. She her white cell count is not elevated. Lactic acid level was nonelevated. Echocardiogram is pending for now. She is on Cardizem drip regarding her atrial fibrillation. She was taken long-term articulation with Xarelto on outpatient basis. On today's evaluation of 10/02/2017 the patient is feeling slightly better. She still BiPAP dependent for her acute hypoxic respiratory failure and bilateral pneumonia. On a BiPAP at a pressure of 16/8 cm of water and I was able to wean down the FiO2 down to 40% maintaining his saturation above 90%. Nevertheless, while off the BiPAP, the patient desaturates and she doesn't tolerate the high flow oxygen yet. The patient was given bicarb drip yesterday. I kept on the IV fluids to KVO yesterday and gave her a dose of Lasix. Her fluid balance is positive knowing that the patient had to be given fluids for hypotension yesterday. Her blood pressure stabilized. She remains in atrial fibrillation. She is currently off the Cardizem drip and she is taking oral Cardizem 60 mg by mouth 3 times a day. The patient is also on metoprolol 25 mg by mouth 3 times a day. She is on bronchodilators and systemic steroids pH is also covered with broad-spectrum antibiotics with a combination of Zosyn Levaquin and vancomycin. She is afebrile. White cell count is not elevated. She is not having any positive cultures. Echocardiogram was noted. The patient is a preserved LV function with an ejection fraction of 55-60%. The right ventricular size and function was within normal limits. There was moderate degree of mitral regurgitation and questionable small mobile vegetation attached to the anterior mitral valve leaflet that needs to be investigated later stage with a YOAN. Nevertheless, my overall suspicion for infective endocarditis is low knowing that the patient's cultures of been negative and the patient does not present with atypical infective endocarditis picture. Upon further investigation we can't understand that the patient is on subcutaneous methotrexate 20 mg every week. No other new suppressive agents and utilized for her rheumatoid arthritis. On 10/03/2017, the patient is improved further compared to yesterday. There has been marked improvement in the oxygenation and the patient is currently on 8 L of oxygen by nasal cannula and she is maintaining a saturation above 90%. Note that she was on BiPAP overnight and this morning it was completely discontinued. She did develop some skin excoriation over the nose limited to the BiPAP mask. Appropriate dressing is then applied. She is afebrile. She is on broad-spectrum antibiotics on a combination of Zosyn and Levaquin and vancomycin. Chest x-ray shows improvement in the interstitial infiltrates seen earlier compared to her admission. This is coupled with improvement in her oxygenation. She is less short of breath. She is able to speak full sentences. No fever. No chills. She is on IV Solu-Medrol which will be transitioned to oral prednisone. A YOAN will be needed also at a later stage regarding the possibility of infective endocarditis. Patient is tolerating oral diet. No change in mental status. No other significant events overnight. On 10/04/2017, I'm seeing this patient for a follow-up. The patient got moved out of the intensive care unit yesterday. She was in the ICU for with acute hypoxic history failure, and she gradually improved. This morning she started on high flow oxygen 8 L/m nasal cannula with a pulse oximetry of 92%. She did have nasal irritation and epistaxis probably related to dryness, oxygen therapy and BiPAP use. She is unable to completely fit and the nasal cannula and her left nostril due to a recurrent epistaxis. I think it's reasonable for this patient to be evaluated by ENT. She is on a combination of aspirin and Xarelto. I think Xarelto can be placed on hold for 24 hours. The patient is also on accommodation of Zosyn and Levaquin regarding her bilateral pneumonia. As mentioned, she is gradually improving and she is less short of breath. No significant cough or sputum production. No hemoptysis. Heart rate is controlled and the renal function is stable for now. There has been some drop in hemoglobin from a baseline of 10.7 down to 8.4. Specifically there is a gram of hemoglobin drop since yesterday without any other source of external bleeding. Objective - Vital Signs Vital signs: Vital Signs Temp 97 F L 10/04/17 07:23 Pulse 80 10/04/17 08:56 Resp 17 10/04/17 07:23 BP 118/60 10/04/17 07:23 Pulse Ox 92 L 10/04/17 07:23 Intake & Output 10/03/17 10/04/17 10/04/17 18:59 06:59 18:59 Intake Total 580 Output Total 0 Balance 580 Weight 50.5 kg 50.5 kg Intake: IV 480 0.9 NaCl 210 Dextrose 5% in Water 1, 20 000 ml @ 20 mls/hr IV . Q24H PAR[facility] with Sodium Bicarb (1 Meq/ml) 150 ml Rx#:[id number] Vancomycin 750 mg In 250 Sodium Chloride 0.9% 250 ml @ 125 mls/hr IVPB Q24H PARISH Rx#:[id number] Oral 100 Output: Urine 0 Other: # Voids 1 1 # Bowel Movements 1 - Exam Awake, communicative. Currently on 8 L of oxygen by nasal cannula. No use of accessory muscles of breathing and she is calm and comfortable. HEENT examination is grossly unremarkable. Mucous membranes are moist. The patient is trying to pack her nose with tissue. She has some packing within her left nostril. No active epistaxis although there is some oozing which is a lower rate oozing from her left nostril. Neck supple. Full range of motion. No adenopathy thyromegaly or neck vein distention. Cardiovascular examination reveals some irregularity to her heart rhythm. Heart rates about 100 bpm. There are some premature atrial contractions. There is a grade 2-3 systolic ejection murmur heard over the left apex. The patient also has an irregular S1-S2 consistent with atrial fibrillation. Heart sounds distant. Lungs reveal coarse bilateral breath sounds. Crackles noted bilaterally. No wheezes. Breath sounds equal bilaterally. Abdomen soft bowel sounds are heard. No masses or tenderness. Extremities are intact. No cyanosis or clubbing or edema.Examination of the extremities revealed easily palpable radial, femoral and pedal pulses. There was no cyanosis, clubbing or edema. Skin is without rash or lesion.Examination of the skin revealed no evidence of significant rashes, suspicious appearing nevi or other concerning lesions. Neurologic examination is within normal limits and the patient is moving all 4 extremities without any limitation and the patient is awake and alert 3. - Labs CBC & Chem 7: 10/04/17 06:51 10/04/17 06:51 Labs: Abnormal Lab Results - Last 24 Hours (Table) 10/03/17 10/03/17 10/04/17 Range/Units 17:29 19:51 00:06 WBC (3.8-10.6) k/uL RBC (3.80-5.40) m/uL Hgb (11.4-16.0) gm/dL Hct (34.0-46.0) % MCHC (31.0-37.0) g/dL RDW (11.5-15.5) % Chloride (98-107) mmol/L BUN (7-17) mg/dL Glucose (74-99) mg/dL POC Glucose (mg/dL) 125 H 220 H 175 H (75-99) mg/dL 10/04/17 10/04/17 10/04/17 Range/Units 05:39 06:51 06:51 WBC 11.4 H (3.8-10.6) k/uL RBC 2.80 L (3.80-5.40) m/uL Hgb 8.4 L (11.4-16.0) gm/dL Hct 27.1 L (34.0-46.0) % MCHC 30.9 L (31.0-37.0) g/dL RDW 17.7 H (11.5-15.5) % Chloride 109 H (98-107) mmol/L BUN 24 H (7-17) mg/dL Glucose 104 H (74-99) mg/dL POC Glucose (mg/dL) 110 H (75-99) mg/dL 10/04/17 Range/Units 12:00 WBC (3.8-10.6) k/uL RBC (3.80-5.40) m/uL Hgb (11.4-16.0) gm/dL Hct (34.0-46.0) % MCHC (31.0-37.0) g/dL RDW (11.5-15.5) % Chloride (98-107) mmol/L BUN (7-17) mg/dL Glucose (74-99) mg/dL POC Glucose (mg/dL) 120 H (75-99) mg/dL Microbiology - Last 24 Hours (Table) 09/29/17 22:04 Blood Culture - Preliminary Blood No Growth after 96 hours 09/29/17 20:32 Blood Culture - Preliminary Blood No Growth after 96 hours Assessment and Plan Plan: Assessment 1 acute hypoxic respiratory failure with development of diffuse bilateral pulmonary infiltrates. Strongly suspect bilateral pneumonia over pulmonary edema or CHF. After being supported in intensive care unit with noninvasive positive pressure ventilation and high flow oxygen, the patient was weaned down to 8l by nasal cannula and she is currently on a medical floor. She is on a combination of Zosyn and Levaquin. Vancomycin was discontinued. Cultures of been all negative. Echocardiogram is within normal limits. 2 hypotension probably due to pneumonia and diuresis. The patient is currently normotensive. 3 sinus mechanism with occasional PACs 4 A. fib with RVR , current rate is controlled. The patient was started on Xarelto for long-term anticoagulation although this has to be placed on hold especially with her ongoing epistaxis. 5 mild troponin leak, secondary to above 6 hypertension, history of 8 hyperlipidemia 9 acid reflux 10 rheumatoid arthritis, maintained on methotrexate on outpatient basis subcu injections every 1 week. 11 chronic anemia 12 questionable mitral valve vegetation along with moderate degree of mitral regurgitation and preserved LV function with an ejection fraction of 55-60%. The patient will be having a YOAN tomorrow to complete this workup for endocarditis. 13 epistaxis on a combination of aspirin and Xarelto. The patient's oxygen source is currently humidified. Plan Continue same antibiotic coverage. Repeat chest x-ray in the morning. Wean down the FiO2 as tolerated. Use a a ventrally mask instead of a nasal cannula to prevent any irritation on her left nostril. Hold Xarelto for now. Consult ENT. YOAN tomorrow if things remain stable. Monitor hemoglobin. Repeat chest x -ray in the morning. We'll continue to follow and will make further recommendations based on her overall progress. Her methotrexate will be kept on hold for now.
--- NOTE | 2017-10-04 13:34 | P.PN ---
Subjective Mrs. Lenz is seen and examined sitting up in bed with family at the bedside. She had a nosebleed earlier this morning that has resolved. She initially presented to the hospital with symptoms of progressive dyspnea and was diagnosed with pneumonia. She was initially managed in the ICU and has been using BiPAP for respiratory support. She is now tolerating oxygen via nasal cannula. Echocardiogram reveals preserved left ventricular systolic function with ejection fraction 55-60%, mild dilated left atrium, mild aortic stenosis with a mean gradient across the valve of 8.74 mmHg, the mitral valve leaflets are moderately thickened with moderate regurgitation and a small mobile vegetation attached to the anterior mitral leaflet was noted. She also has severe tricuspid regurgitation. She denies symptoms of chest pain, palpitations or dizziness. She states her breathing still seems to labored but has greatly improved. Telemetry tracings thus far indicated sinus mechanism with frequent PAC's causing irregular rhythm. No a-fib noted. Records reviewed from [place] digital program manager indicate she was noted to have a-fib while in the hospital and started on xarelto. He did a holter monitor that showed sinus rhythm with episodes of SVT, no a-fib. She also underwent a Lexiscan stress test that was normal in March of 2017. Most recent echo noted normal LV function with no vegetation noted on the valves 05/2017. Objective - Vital Signs Vital signs: Vital Signs Temp 97 F L 10/04/17 07:23 Pulse 84 10/04/17 12:24 Resp 17 10/04/17 07:23 BP 118/60 10/04/17 07:23 Pulse Ox 92 L 10/04/17 07:23 Intake & Output 10/03/17 10/04/17 10/04/17 18:59 06:59 18:59 Intake Total 580 Output Total 0 Balance 580 Weight 50.5 kg 50.5 kg Intake: IV 480 0.9 NaCl 210 Dextrose 5% in Water 1, 20 000 ml @ 20 mls/hr IV . Q24H [facility] with Sodium Bicarb (1 Meq/ml) 150 ml Rx#:[id number] Vancomycin 750 mg In 250 Sodium Chloride 0.9% 250 ml @ 125 mls/hr IVPB Q24H [facility] Rx#:[id number] Oral 100 Output: Urine 0 Other: # Voids 1 1 # Bowel Movements 1 - Exam GENERAL: Well-appearing, well-nourished and in no acute distress. NECK: Supple without JVD or thyromegaly. LUNGS: Breath sounds clear to auscultation bilaterally. Respiration equal and unlabored. No wheezes, rales or rhonchi. HEART: Irregular rate and rhythm with holosystolic murmur, no rubs or gallops. S1 and S2 heard. EXTREMITIES: Normal range of motion, no edema. No clubbing or cyanosis. Peripheral pulses intact. - Labs CBC & Chem 7: 10/04/17 06:51 10/04/17 06:51 Labs: Abnormal Lab Results - Last 24 Hours (Table) 10/03/17 10/03/17 10/04/17 Range/Units 17:29 19:51 00:06 WBC (3.8-10.6) k/uL RBC (3.80-5.40) m/uL Hgb (11.4-16.0) gm/dL Hct (34.0-46.0) % MCHC (31.0-37.0) g/dL RDW (11.5-15.5) % Chloride (98-107) mmol/L BUN (7-17) mg/dL Glucose (74-99) mg/dL POC Glucose (mg/dL) 125 H 220 H 175 H (75-99) mg/dL 10/04/17 10/04/17 10/04/17 Range/Units 05:39 06:51 06:51 WBC 11.4 H (3.8-10.6) k/uL RBC 2.80 L (3.80-5.40) m/uL Hgb 8.4 L (11.4-16.0) gm/dL Hct 27.1 L (34.0-46.0) % MCHC 30.9 L (31.0-37.0) g/dL RDW 17.7 H (11.5-15.5) % Chloride 109 H (98-107) mmol/L BUN 24 H (7-17) mg/dL Glucose 104 H (74-99) mg/dL POC Glucose (mg/dL) 110 H (75-99) mg/dL 10/04/17 Range/Units 12:00 WBC (3.8-10.6) k/uL RBC (3.80-5.40) m/uL Hgb (11.4-16.0) gm/dL Hct (34.0-46.0) % MCHC (31.0-37.0) g/dL RDW (11.5-15.5) % Chloride (98-107) mmol/L BUN (7-17) mg/dL Glucose (74-99) mg/dL POC Glucose (mg/dL) 120 H (75-99) mg/dL Microbiology - Last 24 Hours (Table) 09/29/17 22:04 Blood Culture - Preliminary Blood No Growth after 96 hours 09/29/17 20:32 Blood Culture - Preliminary Blood No Growth after 96 hours Assessment and Plan Assessment: ASSESSMENT Pneumonia Atrial arrhythmia with frequent PACs. There is no documentation of atrial fibrillation thus far on this admission. Patient states she was diagnosed with A. fib while in the hospital in [place] a few months ago. Awaiting those records for evaluation. Possible mitral valve vegetation Mitral regurgitation Tricuspid regurgitation Aortic stenosis PLAN She is currently maintained on Lopressor 50 mg twice a day and aspirin 81 mg daily. Continue current medical regimen. Xarelto is held for nose bleed and drop in hgb. Plan for YOAN tomorrow with Dr. Abraham. She will be nothing by mouth after midnight tonight. Follow CBC. Further recommendations to follow based on clinical course. Nurse Practitioner note has been reviewed, I agree with a documented findings and plan of care. Patient was seen and examined.
[2017-10-04] MEDS ORDERED: OXYMETAZOLINE 0.05% NASL SPRAY 1 SPRAY BOTTLE NASAL PRN (13:52)
--- NOTE | 2017-10-04 18:13 | CONS ---
CONSULTATION REASON FOR CONSULTATION: Epistaxis. HISTORY: This is an 82-year-old white female who last week was admitted for atrial fibrillation. She also had congestive heart failure and appears to have had pneumonia. She was in the ICU, but now is on the regular medical floor. She states that she has had some epistaxis intermittently on either side of the nose at home in the past, but generally very mild where she would treat this with tissue in her nose and some pressure. Yesterday was placed on high-flow nasal cannula oxygen and this morning developed epistaxis from the left side of the nose. She has been on Xarelto and aspirin. The Xarelto was held. The bleeding stopped within 2 hours today. I had ordered Afrin to be used for the bleeding. However, this was not necessary and her bleeding has stopped. She is still on nasal cannula oxygen with her Xarelto held. PAST MEDICAL HISTORY: Positive for atrial fibrillation, rheumatoid arthritis, reflux, hypertension, neuropathy, back pain. PAST SURGICAL HISTORY: Appendectomy, back surgery, joint replacement, hips, right shoulder, lower back fusion. ALLERGIES: TO MORPHINE AND OXYCODONE. MEDICATIONS: At home, calcium, vitamin D, vitamin B, estradiol, folic acid, [place], lisinopril, Mobic, methotrexate, oxybutynin, prednisone, tramadol, Xarelto. SOCIAL HISTORY: Did smoke, does not now. Alcohol history none. FAMILY HISTORY: Noncontributory. REVIEW OF SYMPTOMS: Review of systems is noncontributory other than as above. She denies any facial pain or pressure or sinus history. PHYSICAL EXAM: Thin adult white female in no acute distress. She is conversant. She is awake and alert, oriented x3. HEENT: Head normocephalic and atraumatic. Ears bilaterally canals clear. Tympanics membranes unremarkable. Mobile. Nose has nasal cannula oxygen in place. She does have some mild old blood in both nasal cavities, which was cleaned. There was an excoriated area on the left nasal septum and I discussed this with her and elected to cauterize with silver nitrate. She tolerated this well. There was no active bleeding or purulence on either side. Mouth and throat shows no abnormal masses or lesions with no posterior epistaxis noted. NECK: Supple without adenopathy or tenderness. ASSESSMENT: 1. Left anterior epistaxis. 2. Anticoagulated status. 3. Nasal dryness secondary to nasal cannula oxygen. PLAN: The patient did have cauterization today, although she has improved already spontaneously. She does have Afrin ordered for as needed use for recurrent epistaxis. As well as pressure over the nasal, lower nose, if she develops epistaxis. Continue humidification of oxygen, although ideally she would not be on any nasal cannula oxygen as this will dry her nose out even with the humidification. Understood that she will necessitate anticoagulation again, but certainly there is a risk that any recurrent epistaxis would be more difficult to stop on anticoagulants. Otherwise we will sign off at this point, but if there are any other questions or concerns, please feel free to re-contact me. MMODL / IJN: [id number] /
--- NOTE | 2017-10-04 18:19 | PCN ---
PROCEDURE NOTE PREOPERATIVE DIAGNOSIS: Left anterior epistaxis. POSTOP DIAGNOSIS: Left anterior epistaxis. PROCEDURE PERFORMED: Silver nitrate cauterization, left nasal septum. ANESTHESIA: None. COMPLICATIONS: None. FINDINGS: Excoriation left anterior nasal septum with old blood, both nasal cavities. DESCRIPTION OF PROCEDURE: The patient is in her hospital bed. Informed consent was obtained. Silver nitrate cauterization was performed on the left anterior septum. The patient tolerated this well. No complications. No bleeding was incited. ASSESSMENT: Left anterior epistaxis. PLAN: Cauterization of left nasal septum was performed. Nasal voice restorations moisturization strategies were reviewed. No nose blowing for 1 week. MMODL / IJN: [id number] /
[2017-10-04] MEDS ORDERED: IPRATROPIUM-ALBUTEROL 3 ML NEB INHALATION PRN (20:16)
[2017-10-05] MEDS: PIPERACILLIN-TAZOBACTAM 3.375 GM in DEXTROSE/WATER 1 50ML.BAG IVPB SCH ×3 (00:23→16:42)
[2017-10-05] MEDS: IPRATROPIUM-ALBUTEROL 3 ML NEB INHALATION SCH ×4 (07:14→19:51)
[2017-10-05 07:25] LABS: Anisocytosis Slight; HCT 28.7 % (34.0-46.0); HGB 8.9 gm/dL (11.4-16.0); Hypochromasia Moderate; MCH 30.7 pg (25.0-35.0); MCV 98.9 fL (80.0-100.0); Macrocytosis Slight; Mean Platelet Volume 7.6; Platelet Count 331 k/uL (150-450); RDW 18.4 % (11.5-15.5); WBC 11.9 k/uL (3.8-10.6)
[2017-10-05] MEDS ORDERED: MIDAZOLAM 2 MG/2 ML VIAL ONE ×2 (07:50)
[2017-10-05] MEDS ORDERED: fentaNYL (PF) 50 MCG/ML 2 ML AMP ONE (07:51)
[2017-10-05 07:52] LABS: Calcium 8.9 mg/dL (8.4-10.2); Potassium 3.8 mmol/L (3.5-5.1)
[2017-10-05] MEDS ORDERED: SODIUM CHLORIDE 0.9% 500 ML IV ONE (08:15)
[2017-10-05] MEDS: BENZOCAINE SPRAY 1 CAN MUCOUS MEM ONE ×3 (08:26→08:46)
[2017-10-05] MEDS: MIDAZOLAM 2 MG/2 ML VIAL IVP ONE ×2 (08:46→09:03)
[2017-10-05] MEDS ORDERED: fentaNYL (PF) 50 MCG/ML 2 ML AMP IVP ONE (08:46)
[2017-10-05] MEDS: predniSONE 20 MG TAB PO SCH (09:15)
--- NOTE | 2017-10-05 09:23 | ECHOT ---
TRANSESOPHAGEAL ECHOCARDIOGRAM INDICATION: Evaluation of mitral valve. PROCEDURE: After explaining the procedure to the patient, as well as its risks and the complications, her blood pressure, heart rate, O2 saturation was monitored. The throat was sprayed with Cetacaine. She received 2 mg intravenous Versed and 25 mcg intravenous fentanyl. The probe was introduced into the esophagus without difficulty. Images were obtained. Following that, the probe was removed. There was no immediate complication. FINDINGS: Left atrial size is mildly dilated. Left atrial appendage is normal. The left ventricular size and systolic function appears to be normal. The aortic valve is a tricuspid valve with thickening leaflet and mild decrease in the opening. 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 The tricuspid valve is normal. The descending thoracic aorta revealed mild atherosclerotic changes. No pericardial effusion was noted. Contrast bubble study revealed no shunting across the interatrial septum. Doppler pulse wave obtained and revealed moderate to severe mitral and tricuspid regurgitation. There was mild aortic and pulmonic regurgitation. No shunting was noted by color Doppler study. CONCLUSION: 1. Dilated left atrium. 2. Normal appearance left atrial appendage. 3. Normal left ventricular size and systolic function. 4. Fibrocalcific change of the aortic cusp with mild reduction in the opening. 5. 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 6. Moderate to severe mitral regurgitation, moderate to severe tricuspid regurgitation. 7. Mild atherosclerotic change of the descending thoracic aorta. 8. No pericardial effusion was noted. 9. No shunting across the interatrial septum. MMODL / IJN: [id number] /
--- NOTE | 2017-10-05 10:03 | XR ---
EXAMINATION TYPE: XR chest 1V DATE OF EXAM: 10/05/2017 COMPARISON: 10/03/2017 HISTORY: Fever TECHNIQUE: Single frontal view of the chest is obtained. FINDINGS: Bilateral infiltrate and pleural effusion with diffuse interstitial pattern. Postsurgical change involving the shoulders. Diffuse osteopenia. Postoperative change in the epigastrium. More loc alized area of consolidation in the lingular segment left upper lobe laterally. This should be follow ed to resolution as underlying neoplasm. IMPRESSION: 1. Persistent bilateral consolidation and pleural effusion. Correlate for CHF superimposed on a backg round COPD. Interstitial pneumonitis also a consideration.
--- NOTE | 2017-10-05 10:38 | P.PN ---
Subjective Progress Note Date: 10/05/17 Principal diagnosis: pneumonia Patient is an 82-year-old female with history of A. fib on Xarelto, rheumatoid arthritis, hypertension, and dyslipidemia who presented to the hospital with complaints of confusion and weakness. On arrival to the ER she underwent an extensive evaluation. On arrival to the ER she was tachycardic with a pulse rate of 118, tachypnea with a respiratory rate of 27, and hypoxic with an O2 sat of 83% on a nonrebreather. Initial laboratory analysis showed an elevated troponin, elevated white blood cell count, and slight anemia with hemoglobin 10.7. CTA of the chest showed respiratory distress syndrome versus pulmonary edema. Initially the concern was for acute hypoxic respiratory failure, acute pulmonary edema versus R, A. fib with RVR, and nondistended. She was started on BiPAP given a dose of Lasix and started on a Cardizem drip. She was subsequently ordered for admission to the selective care unit. She was also ordered for stress dose steroids secondary to being on prednisone at baseline for rheumatoid arthritis. She went to the ICU and stepdown overflow and was requiring 100% on BiPAP. There was concern for possible pneumonia and she was started on Vanco, Zosyn, and Levaquin. Pulmonary was consulted. She developed hypotension and received 1 L of IV fluids. Cardiology was consulted. They initially saw miky and her heart rate had been controlled so they stopped her Cardizem drip. Overnight on 10/01 her heart rate again went up and she was found to have A. fib with RVR and Cardizem was restarted, this was transitioned to oral cardizem on the afternoon of 10/01. They felt that her troponin elevation most likely secondary to a non-STEMI. Echocardiogram showed preserved EF of 55-60%. She was trailed off bipap on 10/01 but was unable to tolerate. She was sucessfully maintained off bipap on 10/02 and her xray was improving. She was given 1 dose of lasix. On the morning of 10/03 her xray was much improved and she was feeling much better. Her levaquin and steroids were transitioned to oral. Her vancomycin was transitioned to oral on 10/04. She had a slight nose bleed on the left on 10/04 and was seen by ENT and it was cauterized. YOAN was preformed on 10/05 and showed a calcific mitral valve but not vegetations. Patient seen and examined at bedside. No shortness of breath, no chest pain, no throat discomfort, no nausea, vomiting. Feeling hungry. She is willing to go to [facility] currently awaiting insurance approval Objective - Vital Signs Vital signs: Vital Signs Temp 97.7 F 10/05/17 07:00 Pulse 72 10/05/17 07:29 Resp 18 10/05/17 07:00 BP 139/68 10/05/17 07:00 Pulse Ox 95 10/05/17 07:00 Intake & Output 10/04/17 10/05/17 10/05/17 18:59 06:59 18:59 Intake Total 1440 590 150 Output Total 0 Balance 1440 590 150 Weight 50.5 kg 51 kg Intake: IV 150 Oral 1440 590 Output: Urine 0 Other: Voiding Method Bedside Commode Bedside Commode # Voids 2 1 # Bowel Movements 1 1 - Exam General: ill appearing, no distress, appears at stated age Derm: warm, dry, multiple areas of ecchymosis, skin tear nasal bridge with dressing in place, scabbing over left nare, Head: atraumatic, normocephalic, symmetric Eyes: EOMI, no lid lag, anicteric sclera Mouth: no lip lesion, mucus membranes moist, Cardiovascular: S1S2 irreg, no murmur, positive posterior tibial pulse bilateral , Lungs: crackels left base, no accessory muscle use Abdominal: soft, nontender to palpation, no guarding, no appreciable organomegaly Ext: no gross muscle atrophy, no edema, no contractures Neuro: CN II-XI grossly intact, no focal neuro deficits Psych: Alert, oriented, appropriate affect - Labs CBC & Chem 7: 10/05/17 06:50 10/05/17 06:50 Labs: Abnormal Lab Results - Last 24 Hours (Table) 10/04/17 10/05/17 10/05/17 Range/Units 12:00 06:50 06:50 WBC 11.9 H (3.8-10.6) k/uL RBC 2.90 L (3.80-5.40) m/uL Hgb 8.9 L (11.4-16.0) gm/dL Hct 28.7 L (34.0-46.0) % RDW 18.4 H (11.5-15.5) % BUN 19 H (7-17) mg/dL Glucose 105 H (74-99) mg/dL POC Glucose (mg/dL) 120 H (75-99) mg/dL Microbiology - Last 24 Hours (Table) 09/29/17 22:04 Blood Culture - Preliminary Blood No Growth after 120 hours 09/29/17 20:32 Blood Culture - Preliminary Blood No Growth after 120 hours Assessment and Plan Assessment: Bacterial Pneumonia, possible Gram negative or MRSA with immunocompromised - Zosyn, levaquin PO, stopped vanco 10/04 completed 5 days of therapy - Pulmonary hygeine - sputum culture not acceptable sample - blood cultures negative to date - Bronchdilators Acute hypoxic respiratory failure, improving - Off bipap 10/02. - Pulmonary recommendations - Pulmonary hygeine Severe Protein Calorie Malnutrition - Consult dietitian for supplementation Paroxysmal A fib - cardio recs - xarelto - lopressor - tele NSTEMI, Type II - cardio recs - lopressor - ASA HTN - Lopressor - follow BP GERD -PPI Rheumatoid arthritis, on chronic steroids - Prednisone changed to 40 mg on 10/03 will decreased again on 10/06. - Patient is not on biologic but is on injectable methotrexate Anemia, suspect of chronic disease with RA - follow CBC - Further eval as outpatient if it is stable. Epistasix, resolved Hyperchloremic metabolic acidosis, resolved Hypotension, resolved Hypokalemia, resolved Sepsis, resolved A fib wtih RVR, resolved Plan is discharged to [facility] once able to wean oxygen. DVT prophylaxis: Xarelto Discussed with: Patient, RN Anticipated discharge: 1-[address]: Home vs SNF A total of 35 minutes was spent on the care of this complex patient more than 50 % of the time was spent in counseling and care coordination.
[2017-10-05] MEDS: LACTOBACILLUS ACIDOPH & BULGAR 1 EACH PACKET PO SCH ×2 (10:42→21:03)
[2017-10-05] MEDS: ASPIRIN 81 MG PO SCH (10:42)
[2017-10-05] MEDS: METOPROLOL TARTRATE 50 MG TAB PO SCH ×2 (10:42→21:05)
[2017-10-05] MEDS: PANTOPRAZOLE 40 MG TABLET PO SCH (10:43)
[2017-10-05] MEDS: SODIUM CHLORIDE 0.9% 1,000 ML IV SCH (10:46)
--- NOTE | 2017-10-05 12:37 | P.PN ---
Subjective Progress Note Date: 10/05/17 On today's evaluation of 10/01/2017 the patient is being seen for a follow-up. The patient came in with acute hypoxic respiratory failure with beta pulmonary filtrating consolidations and currently the patient is on a BiPAP at a pressure of 16/8 cm of water and FiO2 of 80%. Note that the exact nature of the bilateral pulmonary infiltrate is not established. The patient is suspected to have pneumonia in addition to a component of CHF knowing that on admission her proBNP level was significantly elevated. She also had some limited troponin leak. She has no chest pain. She has no clinical signs of congestion heart failure such as neck veins or lower extremity edema. The patient may have a combination of both CHF and pneumonia. Currently the patient is a combined antibiotics of Zosyn, vancomycin and Levaquin. The patient overnight became hypotensive. The diuretics were stopped and the patient was given a total of 2 L of IV fluids bolus and currently she is normotensive and blood pressure regulated. Urine output is somewhat between 20-30 mL an hour. Blood work from today shows a component of metabolic acidosis with a bicarb level of 16 and she is afebrile. She her white cell count is not elevated. Lactic acid level was nonelevated. Echocardiogram is pending for now. She is on Cardizem drip regarding her atrial fibrillation. She was taken long-term articulation with Xarelto on outpatient basis. On today's evaluation of 10/02/2017 the patient is feeling slightly better. She still BiPAP dependent for her acute hypoxic respiratory failure and bilateral pneumonia. On a BiPAP at a pressure of 16/8 cm of water and I was able to wean down the FiO2 down to 40% maintaining his saturation above 90%. Nevertheless, while off the BiPAP, the patient desaturates and she doesn't tolerate the high flow oxygen yet. The patient was given bicarb drip yesterday. I kept on the IV fluids to KVO yesterday and gave her a dose of Lasix. Her fluid balance is positive knowing that the patient had to be given fluids for hypotension yesterday. Her blood pressure stabilized. She remains in atrial fibrillation. She is currently off the Cardizem drip and she is taking oral Cardizem 60 mg by mouth 3 times a day. The patient is also on metoprolol 25 mg by mouth 3 times a day. She is on bronchodilators and systemic steroids pH is also covered with broad-spectrum antibiotics with a combination of Zosyn Levaquin and vancomycin. She is afebrile. White cell count is not elevated. She is not having any positive cultures. Echocardiogram was noted. The patient is a preserved LV function with an ejection fraction of 55-60%. The right ventricular size and function was within normal limits. There was moderate degree of mitral regurgitation and questionable small mobile vegetation attached to the anterior mitral valve leaflet that needs to be investigated later stage with a YOAN. Nevertheless, my overall suspicion for infective endocarditis is low knowing that the patient's cultures of been negative and the patient does not present with atypical infective endocarditis picture. Upon further investigation we can't understand that the patient is on subcutaneous methotrexate 20 mg every week. No other new suppressive agents and utilized for her rheumatoid arthritis. On 10/03/2017, the patient is improved further compared to yesterday. There has been marked improvement in the oxygenation and the patient is currently on 8 L of oxygen by nasal cannula and she is maintaining a saturation above 90%. Note that she was on BiPAP overnight and this morning it was completely discontinued. She did develop some skin excoriation over the nose limited to the BiPAP mask. Appropriate dressing is then applied. She is afebrile. She is on broad-spectrum antibiotics on a combination of Zosyn and Levaquin and vancomycin. Chest x-ray shows improvement in the interstitial infiltrates seen earlier compared to her admission. This is coupled with improvement in her oxygenation. She is less short of breath. She is able to speak full sentences. No fever. No chills. She is on IV Solu-Medrol which will be transitioned to oral prednisone. A YOAN will be needed also at a later stage regarding the possibility of infective endocarditis. Patient is tolerating oral diet. No change in mental status. No other significant events overnight. On 10/04/2017, I'm seeing this patient for a follow-up. The patient got moved out of the intensive care unit yesterday. She was in the ICU for with acute hypoxic history failure, and she gradually improved. This morning she started on high flow oxygen 8 L/m nasal cannula with a pulse oximetry of 92%. She did have nasal irritation and epistaxis probably related to dryness, oxygen therapy and BiPAP use. She is unable to completely fit and the nasal cannula and her left nostril due to a recurrent epistaxis. I think it's reasonable for this patient to be evaluated by ENT. She is on a combination of aspirin and Xarelto. I think Xarelto can be placed on hold for 24 hours. The patient is also on accommodation of Zosyn and Levaquin regarding her bilateral pneumonia. As mentioned, she is gradually improving and she is less short of breath. No significant cough or sputum production. No hemoptysis. Heart rate is controlled and the renal function is stable for now. There has been some drop in hemoglobin from a baseline of 10.7 down to 8.4. Specifically there is a gram of hemoglobin drop since yesterday without any other source of external bleeding. On 10/05/2017, the patient is feeling well and she is sitting up in a chair and she is calm and comfortable. She remains on oxygen 8 L/m nasal cannula. No BiPAP use. She underwent a YOAN today and the report was noted and there is no evidence of any infective endocarditis or valvular vegetation. The patient has moderate to severe mitral regurgitation, moderate to severe tricuspid regurgitation and overall LV function was within normal limits. The mitral valve shows calcification that was quite extensive. No epistaxis for now. The patient was seen by ENT yesterday for epistaxis of the left nostril which ultimately subsided as the patient had cauterization of the left nasal septum.. The patient is on DuoNeb the last treatment [id number]. The patient on Levaquin and Zosyn. The hemoglobin is at 8.9. Renal function is also stable at creatinine of 0.7. Xarelto has been resumed. The follow-up chest x-ray showed persistent bilateral consolidation pleural effusion essentially unchanged compared to the chest x-ray that was done on 10/03/2017 Objective - Vital Signs Vital signs: Vital Signs Temp 97.7 F 10/05/17 07:00 Pulse 72 10/05/17 07:29 Resp 18 10/05/17 07:00 BP 139/68 10/05/17 07:00 Pulse Ox 95 10/05/17 07:00 Intake & Output 10/04/17 10/05/17 10/05/17 18:59 06:59 18:59 Intake Total 1440 590 150 Output Total 0 Balance 1440 590 150 Weight 50.5 kg 51 kg Intake: IV 150 Oral 1440 590 Output: Urine 0 Other: Voiding Method Bedside Commode Bedside Commode # Voids 2 1 # Bowel Movements 1 1 - Exam Awake, communicative. Currently on 8 L of oxygen by nasal cannula. No use of accessory muscles of breathing and she is calm and comfortable. HEENT examination is grossly unremarkable. Mucous membranes are moist. The patient is trying to pack her nose with tissue. She has some packing within her left nostril. No active epistaxis although there is some oozing which is a lower rate oozing from her left nostril. Neck supple. Full range of motion. No adenopathy thyromegaly or neck vein distention. Cardiovascular examination reveals some irregularity to her heart rhythm. Heart rates about 100 bpm. There are some premature atrial contractions. There is a grade 2-3 systolic ejection murmur heard over the left apex. The patient also has an irregular S1-S2 consistent with atrial fibrillation. Heart sounds distant. Lungs reveal coarse bilateral breath sounds. Crackles noted bilaterally. No wheezes. Breath sounds equal bilaterally. Abdomen soft bowel sounds are heard. No masses or tenderness. Extremities are intact. No cyanosis or clubbing or edema.Examination of the extremities revealed easily palpable radial, femoral and pedal pulses. There was no cyanosis, clubbing or edema. Skin is without rash or lesion.Examination of the skin revealed no evidence of significant rashes, suspicious appearing nevi or other concerning lesions. Neurologic examination is within normal limits and the patient is moving all 4 extremities without any limitation and the patient is awake and alert 3. - Labs CBC & Chem 7: 10/05/17 06:50 10/05/17 06:50 Labs: Abnormal Lab Results - Last 24 Hours (Table) 10/05/17 10/05/17 Range/Units 06:50 06:50 WBC 11.9 H (3.8-10.6) k/uL RBC 2.90 L (3.80-5.40) m/uL Hgb 8.9 L (11.4-16.0) gm/dL Hct 28.7 L (34.0-46.0) % RDW 18.4 H (11.5-15.5) % BUN 19 H (7-17) mg/dL Glucose 105 H (74-99) mg/dL Microbiology - Last 24 Hours (Table) 09/29/17 22:04 Blood Culture - Preliminary Blood No Growth after 120 hours 09/29/17 20:32 Blood Culture - Preliminary Blood No Growth after 120 hours Assessment and Plan Plan: Assessment 1 acute hypoxic respiratory failure with development of diffuse bilateral pulmonary infiltrates. Strongly suspect bilateral pneumonia over pulmonary edema or CHF. The patient improved yet things have plateaued right done and the patient is still on 80 to about 2 by nasal cannula. The chest x-ray today remains unchanged compared to the one that was done on 10/03/2017. Patient is on Levaquin and Zosyn. The patient is a prednisone burst taper. 2 epistaxis on a combination of aspirin and Xarelto. The patient's oxygen source is currently humidified. The patient was seen by ENT and cauterization of the nasal septum was done and the bleeding was controlled. 3 sinus mechanism with occasional PACs 4 A. fib with RVR , current rate is controlled. The patient was started on Xarelto for long-term anticoagulation although this has to be placed on hold especially with her ongoing epistaxis. 5 mild troponin leak, secondary to above 6 hypertension, history of 8 hyperlipidemia 9 acid reflux 10 rheumatoid arthritis, maintained on methotrexate on outpatient basis subcu injections every 1 week. 11 chronic anemia 12 valvular heart disease with moderate to severe mitral regurgitation and tricuspid regurgitation. Preserved LV function. No evidence of any vegetation. Plan Continue same antibiotic coverage. Wean down the FiO2 as tolerated. Give the patient dose of Lasix 40 mg IV push. Embolus in the hallway. Consider rehabilitation/ECF at a later stage. YOAN results were noted. We'll continue to follow.
[2017-10-05] MEDS ORDERED: FUROSEMIDE 10 MG/ML 4 ML VIAL IV STA (12:40)
[2017-10-05 14:06] VITALS: BMI 19.9
[2017-10-05] MEDS ORDERED: RIVAROXABAN 20 MG TAB PO SCH (17:30)
[2017-10-06] MEDS: PIPERACILLIN-TAZOBACTAM 3.375 GM in DEXTROSE/WATER 1 50ML.BAG IVPB SCH ×3 (01:31→17:36)
[2017-10-06 07:27] LABS: Anisocytosis Slight; HGB 8.9 gm/dL (11.4-16.0); Hypochromasia Slight; MCHC 31.6 g/dL (31.0-37.0); MCV 94.9 fL (80.0-100.0); Macrocytosis Slight; Mean Platelet Volume 7.6; Platelet Count 357 k/uL (150-450); RBC 2.95 m/uL (3.80-5.40); RDW 17.6 % (11.5-15.5); WBC 10.8 k/uL (3.8-10.6)
[2017-10-06 07:41] LABS: Anion Gap 1 mmol/L; Blood Urea Nitrogen 12 mg/dL (7-17); Calcium 8.2 mg/dL (8.4-10.2); Carbon Dioxide 33 mmol/L (22-30); Chloride 103 mmol/L (98-107); Glucose 77 mg/dL (74-99); Magnesium 1.7 mg/dL (1.6-2.3); Sodium 137 mmol/L (137-145)
[2017-10-06 07:44] LABS: Potassium 3.1 mmol/L (3.5-5.1)
[2017-10-06] MEDS: IPRATROPIUM-ALBUTEROL 3 ML NEB INHALATION SCH ×4 (08:13→20:57)
[2017-10-06] MEDS ORDERED: POTASSIUM BICARBONATE/CIT AC 20 MEQ TABLET.EFF PO ONE (09:06)
[2017-10-06] MEDS ORDERED: POTASSIUM CHLORIDE 20 MEQ in WATER FOR INJECTION 1 100ML.BAG IVPB STA (09:06)
[2017-10-06] MEDS ORDERED: FUROSEMIDE 10 MG/ML 4 ML VIAL IV STA (09:32)
[2017-10-06] MEDS: LACTOBACILLUS ACIDOPH & BULGAR 1 EACH PACKET PO SCH ×2 (09:34→21:44)
[2017-10-06] MEDS: PANTOPRAZOLE 40 MG TABLET PO SCH (09:34)
[2017-10-06] MEDS: predniSONE 20 MG TAB PO SCH (09:34)
[2017-10-06] MEDS: ASPIRIN 81 MG PO SCH (09:34)
[2017-10-06] MEDS: METOPROLOL TARTRATE 50 MG TAB PO SCH ×2 (09:34→21:44)
[2017-10-06] MEDS: LEVOFLOXACIN 750 MG TAB PO SCH (09:34)
--- NOTE | 2017-10-06 09:55 | P.PN ---
Subjective Progress Note Date: 10/06/17 Principal diagnosis: pneumonia Patient is an 82-year-old female with history of A. fib on Xarelto, rheumatoid arthritis, hypertension, and dyslipidemia who presented to the hospital with complaints of confusion and weakness. On arrival to the ER she underwent an extensive evaluation. On arrival to the ER she was tachycardic with a pulse rate of 118, tachypnea with a respiratory rate of 27, and hypoxic with an O2 sat of 83% on a nonrebreather. Initial laboratory analysis showed an elevated troponin, elevated white blood cell count, and slight anemia with hemoglobin 10.7. CTA of the chest showed respiratory distress syndrome versus pulmonary edema. Initially the concern was for acute hypoxic respiratory failure, acute pulmonary edema versus R, A. fib with RVR, and nondistended. She was started on BiPAP given a dose of Lasix and started on a Cardizem drip. She was subsequently ordered for admission to the selective care unit. She was also ordered for stress dose steroids secondary to being on prednisone at baseline for rheumatoid arthritis. She went to the ICU and stepdown overflow and was requiring 100% on BiPAP. There was concern for possible pneumonia and she was started on Vanco, Zosyn, and Levaquin. Pulmonary was consulted. She developed hypotension and received 1 L of IV fluids. Cardiology was consulted. They initially saw a fib with RVR and then her heart rate had been controlled so they stopped her Cardizem drip. Overnight on 10/01 her heart rate again went up and she was found to have A. fib with RVR and Cardizem was restarted, this was transitioned to oral cardizem on the afternoon of 10/01. They felt that her troponin elevation most likely secondary to a non-STEMI. Echocardiogram showed preserved EF of 55-60%. She was trailed off bipap on 10/01 but was unable to tolerate. She was sucessfully maintained off bipap on 10/02 and her xray was improving. She was given 1 dose of lasix. On the morning of 10/03 her xray was much improved and she was feeling much better. Her levaquin and steroids were transitioned to oral. Her vancomycin was transitioned to oral on 10/04. She had a slight nose bleed on the left on 10/04 and was seen by ENT and it was cauterized. YOAN was preformed on 10/05 and showed a calcific mitral valve but no vegetations. Patient seen and examined at bedside. No chest pain, breathing still feels heavy , no nausea, 2 episodes of loose stools. Unable to obtain insurance approval for SNF, home health, PCP in the area. Objective - Vital Signs Vital signs: Vital Signs Temp 98 F 10/05/17 23:00 Pulse 88 10/06/17 08:26 Resp 16 10/05/17 23:00 BP 126/67 10/05/17 23:00 Pulse Ox 94 L 10/06/17 08:15 Intake & Output 10/05/17 10/06/17 10/06/17 18:59 06:59 18:59 Intake Total 1590 Output Total 0 Balance 1590 Weight 51 kg 46 kg Intake: IV 150 Oral 1440 Output: Urine 0 Other: Voiding Method Bedside Commode Bedside Commode # Voids 7 1 - Exam General: non toxic, no distress, appears at stated age Derm: warm, dry, multiple areas of ecchymosis, skin tear nasal bridge with dressing in place Head: atraumatic, normocephalic, symmetric Eyes: EOMI, no lid lag, anicteric sclera Mouth: no lip lesion, mucus membranes moist, Cardiovascular: S1S2 irreg, no murmur, positive posterior tibial pulse bilateral , Lungs: crackels bilateral, no accessory muscle use Abdominal: soft, nontender to palpation, no guarding, no appreciable organomegaly Ext: no gross muscle atrophy, no edema, no contractures Neuro: CN II-XI grossly intact, no focal neuro deficits Psych: Alert, oriented, appropriate affect - Labs CBC & Chem 7: 10/06/17 06:51 10/06/17 06:51 Labs: Abnormal Lab Results - Last 24 Hours (Table) 10/06/17 10/06/17 Range/Units 06:51 06:51 WBC 10.8 H (3.8-10.6) k/uL RBC 2.95 L (3.80-5.40) m/uL Hgb 8.9 L (11.4-16.0) gm/dL Hct 28.0 L (34.0-46.0) % RDW 17.6 H (11.5-15.5) % Potassium 3.1 L (3.5-5.1) mmol/L Carbon Dioxide 33 H (22-30) mmol/L Calcium 8.2 L (8.4-10.2) mg/dL Microbiology - Last 24 Hours (Table) 09/29/17 22:04 Blood Culture - Final Blood No Growth after 144 hours 09/29/17 20:32 Blood Culture - Final Blood No Growth after 144 hours Assessment and Plan Assessment: Bacterial Pneumonia, possible Gram negative or MRSA with immunocompromised - Zosyn, levaquin PO, stopped vanco 10/04 completed 5 days of therapy - Pulmonary hygeine - sputum culture not acceptable sample - blood cultures negative - Bronchdilators Acute hypoxic respiratory failure, improving - Off bipap 10/02. - Pulmonary recommendations - Pulmonary hygeine - Lasix X 1 today Severe Protein Calorie Malnutrition - Consult dietitian for supplementation Paroxysmal A fib with RVR - cardio recs - xarelto - lopressor - tele NSTEMI, Type II - cardio recs - lopressor - ASA HTN - Lopressor - follow BP GERD -PPI Rheumatoid arthritis, on chronic steroids - Prednisone 20 mg po daily (this is her baseline) started on 10/06/17. - Patient is not on biologic but is on injectable methotrexate Anemia, suspect of chronic disease with RA - follow CBC - Further eval as outpatient if it is stable. Epistasix, resolved Hyperchloremic metabolic acidosis, resolved Hypotension, resolved Hypokalemia, resolved Sepsis, resolved A fib wtih RVR, resolved DVT prophylaxis: [place] Discussed with: Patient, RN Anticipated discharge: 1-[address]: Home vs SNF A total of 35 minutes was spent on the care of this complex patient more than 50 % of the time was spent in counseling and care coordination.
[2017-10-06 10:45] LABS: Anisocytosis Slight; HCT 29.1 % (34.0-46.0); HGB 9.3 gm/dL (11.4-16.0); Hypochromasia Moderate; MCH 31.4 pg (25.0-35.0); MCHC 32.1 g/dL (31.0-37.0); MCV 97.8 fL (80.0-100.0); Macrocytosis Slight; Mean Platelet Volume 7.5; Platelet Count 345 k/uL (150-450); RBC 2.97 m/uL (3.80-5.40); WBC 11.9 k/uL (3.8-10.6)
[2017-10-06] MEDS: SODIUM CHLORIDE 0.9% 1,000 ML IV SCH (12:16)
[2017-10-06] MEDS: MAGNESIUM SULFATE-D5W PMX 1 GM in DEXTROSE/WATER 1 100ML.BAG IVPB SCH ×2 (12:16→13:49)
[2017-10-06] MEDS: PANTOPRAZOLE 40 MG/10 ML VIAL IVP SCH ×2 (12:20→21:44)
--- NOTE | 2017-10-06 13:14 | P.PN ---
Subjective Progress Note Date: 10/06/17 On today's evaluation of 10/01/2017 the patient is being seen for a follow-up. The patient came in with acute hypoxic respiratory failure with beta pulmonary filtrating consolidations and currently the patient is on a BiPAP at a pressure of 16/8 cm of water and FiO2 of 80%. Note that the exact nature of the bilateral pulmonary infiltrate is not established. The patient is suspected to have pneumonia in addition to a component of CHF knowing that on admission her proBNP level was significantly elevated. She also had some limited troponin leak. She has no chest pain. She has no clinical signs of congestion heart failure such as neck veins or lower extremity edema. The patient may have a combination of both CHF and pneumonia. Currently the patient is a combined antibiotics of Zosyn, vancomycin and Levaquin. The patient overnight became hypotensive. The diuretics were stopped and the patient was given a total of 2 L of IV fluids bolus and currently she is normotensive and blood pressure regulated. Urine output is somewhat between 20-30 mL an hour. Blood work from today shows a component of metabolic acidosis with a bicarb level of 16 and she is afebrile. She her white cell count is not elevated. Lactic acid level was nonelevated. Echocardiogram is pending for now. She is on Cardizem drip regarding her atrial fibrillation. She was taken long-term articulation with Xarelto on outpatient basis. On today's evaluation of 10/02/2017 the patient is feeling slightly better. She still BiPAP dependent for her acute hypoxic respiratory failure and bilateral pneumonia. On a BiPAP at a pressure of 16/8 cm of water and I was able to wean down the FiO2 down to 40% maintaining his saturation above 90%. Nevertheless, while off the BiPAP, the patient desaturates and she doesn't tolerate the high flow oxygen yet. The patient was given bicarb drip yesterday. I kept on the IV fluids to KVO yesterday and gave her a dose of Lasix. Her fluid balance is positive knowing that the patient had to be given fluids for hypotension yesterday. Her blood pressure stabilized. She remains in atrial fibrillation. She is currently off the Cardizem drip and she is taking oral Cardizem 60 mg by mouth 3 times a day. The patient is also on metoprolol 25 mg by mouth 3 times a day. She is on bronchodilators and systemic steroids pH is also covered with broad-spectrum antibiotics with a combination of Zosyn Levaquin and vancomycin. She is afebrile. White cell count is not elevated. She is not having any positive cultures. Echocardiogram was noted. The patient is a preserved LV function with an ejection fraction of 55-60%. The right ventricular size and function was within normal limits. There was moderate degree of mitral regurgitation and questionable small mobile vegetation attached to the anterior mitral valve leaflet that needs to be investigated later stage with a YOAN. Nevertheless, my overall suspicion for infective endocarditis is low knowing that the patient's cultures of been negative and the patient does not present with atypical infective endocarditis picture. Upon further investigation we can't understand that the patient is on subcutaneous methotrexate 20 mg every week. No other new suppressive agents and utilized for her rheumatoid arthritis. On 10/03/2017, the patient is improved further compared to yesterday. There has been marked improvement in the oxygenation and the patient is currently on 8 L of oxygen by nasal cannula and she is maintaining a saturation above 90%. Note that she was on BiPAP overnight and this morning it was completely discontinued. She did develop some skin excoriation over the nose limited to the BiPAP mask. Appropriate dressing is then applied. She is afebrile. She is on broad-spectrum antibiotics on a combination of Zosyn and Levaquin and vancomycin. Chest x-ray shows improvement in the interstitial infiltrates seen earlier compared to her admission. This is coupled with improvement in her oxygenation. She is less short of breath. She is able to speak full sentences. No fever. No chills. She is on IV Solu-Medrol which will be transitioned to oral prednisone. A YOAN will be needed also at a later stage regarding the possibility of infective endocarditis. Patient is tolerating oral diet. No change in mental status. No other significant events overnight. On 10/04/2017, I'm seeing this patient for a follow-up. The patient got moved out of the intensive care unit yesterday. She was in the ICU for with acute hypoxic history failure, and she gradually improved. This morning she started on high flow oxygen 8 L/m nasal cannula with a pulse oximetry of 92%. She did have nasal irritation and epistaxis probably related to dryness, oxygen therapy and BiPAP use. She is unable to completely fit and the nasal cannula and her left nostril due to a recurrent epistaxis. I think it's reasonable for this patient to be evaluated by ENT. She is on a combination of aspirin and Xarelto. I think Xarelto can be placed on hold for 24 hours. The patient is also on accommodation of Zosyn and Levaquin regarding her bilateral pneumonia. As mentioned, she is gradually improving and she is less short of breath. No significant cough or sputum production. No hemoptysis. Heart rate is controlled and the renal function is stable for now. There has been some drop in hemoglobin from a baseline of 10.7 down to 8.4. Specifically there is a gram of hemoglobin drop since yesterday without any other source of external bleeding. On 10/05/2017, the patient is feeling well and she is sitting up in a chair and she is calm and comfortable. She remains on oxygen 8 L/m nasal cannula. No BiPAP use. She underwent a YOAN today and the report was noted and there is no evidence of any infective endocarditis or valvular vegetation. The patient has moderate to severe mitral regurgitation, moderate to severe tricuspid regurgitation and overall LV function was within normal limits. The mitral valve shows calcification that was quite extensive. No epistaxis for now. The patient was seen by ENT yesterday for epistaxis of the left nostril which ultimately subsided as the patient had cauterization of the left nasal septum.. The patient is on DuoNeb the last treatment [id number]. The patient on Levaquin and Zosyn. The hemoglobin is at 8.9. Renal function is also stable at creatinine of 0.7. Xarelto has been resumed. The follow-up chest x-ray showed persistent bilateral consolidation pleural effusion essentially unchanged compared to the chest x-ray that was done on 10/03/2017 On 10/06/2017, the patient is looking well. She is recovering from an acute hypoxic respiratory failure. She is down to 6 L about 2 by nasal cannula. Pulse 99%. I'm hoping that we can further drop down the FiO2 as long as his saturation remains above 90%. She received a dose of Lasix yesterday 40 mg IV push. She diuresed adequately following that. No significant cough or sputum production. She is feeling weak. No epistaxis. No fever. No chills. No leukocytosis. She is on IV Zosyn and Levaquin. Vancomycin was discontinued. She is on DuoNeb nebulized treatments around the clock. She is on metoprolol 50 mg twice a day and her rhythm is sinus and the rate is controlled. The patient is on a prednisone burst taper currently on 20 mg as part of a taper. No anticoagulation for now other than oral aspirin. Objective - Vital Signs Vital signs: Vital Signs Temp 98 F 10/05/17 23:00 Pulse 84 10/06/17 11:37 Resp 16 10/05/17 23:00 BP 126/67 10/05/17 23:00 Pulse Ox 94 L 10/06/17 08:15 Intake & Output 10/05/17 10/06/17 10/06/17 18:59 06:59 18:59 Intake Total 1590 Output Total 0 Balance 1590 Weight 51 kg 46 kg Intake: IV 150 Oral 1440 Output: Urine 0 Other: Voiding Method Bedside Commode Bedside Commode # Voids 7 1 - Exam Awake, communicative. Currently on 8 L of oxygen by nasal cannula. No use of accessory muscles of breathing and she is calm and comfortable. HEENT examination is grossly unremarkable. Mucous membranes are moist. The patient is trying to pack her nose with tissue. She has some packing within her left nostril. No active epistaxis although there is some oozing which is a lower rate oozing from her left nostril. Neck supple. Full range of motion. No adenopathy thyromegaly or neck vein distention. Cardiovascular examination reveals some irregularity to her heart rhythm. Heart rates about 100 bpm. There are some premature atrial contractions. There is a grade 2-3 systolic ejection murmur heard over the left apex. The patient also has an irregular S1-S2 consistent with atrial fibrillation. Heart sounds distant. Lungs reveal coarse bilateral breath sounds. Crackles noted bilaterally. No wheezes. Breath sounds equal bilaterally. Abdomen soft bowel sounds are heard. No masses or tenderness. Extremities are intact. No cyanosis or clubbing or edema.Examination of the extremities revealed easily palpable radial, femoral and pedal pulses. There was no cyanosis, clubbing or edema. Skin is without rash or lesion.Examination of the skin revealed no evidence of significant rashes, suspicious appearing nevi or other concerning lesions. Neurologic examination is within normal limits and the patient is moving all 4 extremities without any limitation and the patient is awake and alert 3. - Labs CBC & Chem 7: 10/06/17 10:35 10/06/17 06:51 Labs: Abnormal Lab Results - Last 24 Hours (Table) 10/06/17 10/06/17 10/06/17 Range/Units 06:51 06:51 10:35 WBC 10.8 H 11.9 H (3.8-10.6) k/uL RBC 2.95 L 2.97 L (3.80-5.40) m/uL Hgb 8.9 L 9.3 L (11.4-16.0) gm/dL Hct 28.0 L 29.1 L (34.0-46.0) % RDW 17.6 H 18.0 H (11.5-15.5) % Potassium 3.1 L (3.5-5.1) mmol/L Carbon Dioxide 33 H (22-30) mmol/L Calcium 8.2 L (8.4-10.2) mg/dL Microbiology - Last 24 Hours (Table) 09/29/17 22:04 Blood Culture - Final Blood No Growth after 144 hours 09/29/17 20:32 Blood Culture - Final Blood No Growth after 144 hours Assessment and Plan Plan: Assessment 1 acute hypoxic respiratory failure with development of diffuse bilateral pulmonary infiltrates. Strongly suspect bilateral pneumonia over pulmonary edema or CHF. The chest x-ray today remains unchanged compared to the one that was done on 10/03/2017. Patient is on Levaquin and Zosyn. The patient is a prednisone burst taper. Patient is improving and she is down to 60s of oxygen by nasal cannula. She will be asked to increase the level of activity as tolerated. She responded nicely also to a dose of diuretics was given to her yesterday. 2 epistaxis on a combination of aspirin and Xarelto. The patient's oxygen source is currently humidified. The patient was seen by ENT and cauterization of the nasal septum was done and the bleeding was controlled. 3 sinus mechanism with occasional PACs 4 A. fib with RVR , current rate is controlled. The patient was started on Xarelto for long-term anticoagulation although this has to be placed on hold especially with her ongoing epistaxis. Her current rhythm is sinus. 5 mild troponin leak, secondary to above 6 hypertension, history of 8 hyperlipidemia 9 acid reflux 10 rheumatoid arthritis, maintained on methotrexate on outpatient basis subcu injections every 1 week. 11 chronic anemia 12 valvular heart disease with moderate to severe mitral regurgitation and tricuspid regurgitation. Preserved LV function. No evidence of any vegetation. Plan Wean down the FiO2 as tolerated. Increased level of activity as tolerated. Physical therapy. Antibiotics. Prednisone burst taper. Breathing treatments. We'll continue to follow.
[2017-10-06 16:04] LABS: Anisocytosis Slight; HCT 32.3 % (34.0-46.0); HGB 9.9 gm/dL (11.4-16.0); Hypochromasia Slight; MCH 29.3 pg (25.0-35.0); MCHC 30.7 g/dL (31.0-37.0); MCV 95.4 fL (80.0-100.0); Macrocytosis Slight; Mean Platelet Volume 8.4; Platelet Count 391 k/uL (150-450); RBC 3.39 m/uL (3.80-5.40); RDW 17.5 % (11.5-15.5); WBC 11.5 k/uL (3.8-10.6)
[2017-10-06 22:29] LABS: Anisocytosis Slight; HCT 29.8 % (34.0-46.0); HGB 9.4 gm/dL (11.4-16.0); Hypochromasia Slight; MCH 30.6 pg (25.0-35.0); MCHC 31.6 g/dL (31.0-37.0); MCV 96.7 fL (80.0-100.0); Macrocytosis Slight; Mean Platelet Volume 7.4; Platelet Count 384 k/uL (150-450); RBC 3.08 m/uL (3.80-5.40); RDW 18.3 % (11.5-15.5); WBC 10.9 k/uL (3.8-10.6)
[2017-10-07] MEDS: PIPERACILLIN-TAZOBACTAM 3.375 GM in DEXTROSE/WATER 1 50ML.BAG IVPB SCH ×2 (00:03→08:36)
[2017-10-07] MEDS: LACTOBACILLUS ACIDOPH & BULGAR 1 EACH PACKET PO SCH ×2 (08:36→21:37)
[2017-10-07] MEDS: ASPIRIN 81 MG PO SCH (08:36)
[2017-10-07] MEDS: METOPROLOL TARTRATE 50 MG TAB PO SCH ×2 (08:36→21:37)
[2017-10-07] MEDS: predniSONE 20 MG TAB PO SCH (08:37)
[2017-10-07] MEDS: SODIUM CHLORIDE 0.9% 1,000 ML IV SCH (08:37)
[2017-10-07] MEDS: PANTOPRAZOLE 40 MG/10 ML VIAL IVP SCH ×2 (08:37→21:38)
[2017-10-07] MEDS: IPRATROPIUM-ALBUTEROL 3 ML NEB INHALATION SCH ×4 (09:01→20:41)
[2017-10-07 10:23] LABS: Calcium 8.6 mg/dL (8.4-10.2); Magnesium 2.2 mg/dL (1.6-2.3); Potassium 3.2 mmol/L (3.5-5.1)
[2017-10-07] MEDS ORDERED: POTASSIUM BICARBONATE/CIT AC 20 MEQ TABLET.EFF PO ONE (11:33)
--- NOTE | 2017-10-07 11:52 | P.PN ---
Subjective Progress Note Date: 10/07/17 Principal diagnosis: pneumonia Patient is an 82-year-old female with history of A. fib on Xarelto, rheumatoid arthritis, hypertension, and dyslipidemia who presented to the hospital with complaints of confusion and weakness. On arrival to the ER she underwent an extensive evaluation. On arrival to the ER she was tachycardic with a pulse rate of 118, tachypnea with a respiratory rate of 27, and hypoxic with an O2 sat of 83% on a nonrebreather. Initial laboratory analysis showed an elevated troponin, elevated white blood cell count, and slight anemia with hemoglobin 10.7. CTA of the chest showed respiratory distress syndrome versus pulmonary edema. Initially the concern was for acute hypoxic respiratory failure, acute pulmonary edema versus R, A. fib with RVR, and nondistended. She was started on BiPAP given a dose of Lasix and started on a Cardizem drip. She was subsequently ordered for admission to the selective care unit. She was also ordered for stress dose steroids secondary to being on prednisone at baseline for rheumatoid arthritis. She went to the ICU and stepdown overflow and was requiring 100% on BiPAP. There was concern for possible pneumonia and she was started on Vanco, Zosyn, and Levaquin. Pulmonary was consulted. She developed hypotension and received 1 L of IV fluids. Cardiology was consulted. They initially saw a fib with RVR and then her heart rate had been controlled so they stopped her Cardizem drip. Overnight on 10/01 her heart rate again went up and she was found to have A. fib with RVR and Cardizem was restarted, this was transitioned to oral cardizem on the afternoon of 10/01. They felt that her troponin elevation most likely secondary to a non-STEMI. Echocardiogram showed preserved EF of 55-60%. She was trailed off bipap on 10/01 but was unable to tolerate. She was sucessfully maintained off bipap on 10/02 and her xray was improving. She was given 1 dose of lasix. On the morning of 10/03 her xray was much improved and she was feeling much better. Her levaquin and steroids were transitioned to oral. Her vancomycin was transitioned to oral on 10/04. She had a slight nose bleed on the left on 10/04 and was seen by ENT and it was cauterized. YOAN was preformed on 10/05 and showed a calcific mitral valve but no vegetations. She continued to progress slowly need high flow nasal canula. She was given lasix daily. Her calcitonin drawn at admission came back greater than 2. Patient seen and examined at bedside. Feeling tired and having some back pain after sitting in the chair for 2 hours. Breathing is less heavy today, LE edema is worsened after sitting in the chair. No nausea, had 2 BM yesterday, no vomiting. Feeling like she is getting stronger. Objective - Vital Signs Vital signs: Vital Signs Temp 97.3 F L 10/07/17 05:49 Pulse 84 10/07/17 09:13 Resp 16 10/07/17 05:49 BP 141/64 10/07/17 05:49 Pulse Ox 96 10/07/17 05:49 Intake & Output 10/06/17 10/07/17 10/07/17 18:59 06:59 18:59 Intake Total 960 1660 Output Total 0 Balance 960 1660 Weight 49 kg Intake: Oral 960 1660 Output: Urine 0 Other: Voiding Method Bedside Commode Bedside Commode # Voids 6 1 # Bowel Movements 3 - Exam General: non toxic, no distress, appears at stated age Derm: warm, dry, multiple areas of ecchymosis, skin tear nasal bridge healing Head: atraumatic, normocephalic, symmetric Eyes: EOMI, no lid lag, anicteric sclera Mouth: no lip lesion, mucus membranes moist, + thrush Cardiovascular: S1S2 irreg, no murmur, positive posterior tibial pulse bilateral , Lungs: crackels bilateral, no accessory muscle use Abdominal: soft, nontender to palpation, no guarding, no appreciable organomegaly Ext: no gross muscle atrophy, 1+ edema, no contractures Neuro: CN II-XI grossly intact, no focal neuro deficits Psych: Alert, oriented, appropriate affect - Labs CBC & Chem 7: 10/06/17 21:36 10/07/17 09:42 Labs: Abnormal Lab Results - Last 24 Hours (Table) 10/06/17 10/06/17 10/06/17 Range/Units 12:30 15:51 21:36 WBC 11.5 H 10.9 H (3.8-10.6) k/uL RBC 3.39 L 3.08 L (3.80-5.40) m/uL Hgb 9.9 L 9.4 L (11.4-16.0) gm/dL Hct 32.3 L 29.8 L (34.0-46.0) % MCHC 30.7 L (31.0-37.0) g/dL RDW 17.5 H 18.3 H (11.5-15.5) % Potassium (3.5-5.1) mmol/L Carbon Dioxide (22-30) mmol/L Glucose (74-99) mg/dL Stool Occult Blood Positive H (Negative) 10/07/17 Range/Units 09:42 WBC (3.8-10.6) k/uL RBC (3.80-5.40) m/uL Hgb (11.4-16.0) gm/dL Hct (34.0-46.0) % MCHC (31.0-37.0) g/dL RDW (11.5-15.5) % Potassium 3.2 L (3.5-5.1) mmol/L Carbon Dioxide 31 H (22-30) mmol/L Glucose 61 L (74-99) mg/dL Stool Occult Blood (Negative) Assessment and Plan Assessment: Bacterial Pneumonia, possible Gram negative or MRSA with immunocompromised - Zosyn Discontinue today after completed 7 days, levaquin PO, stopped vanco 10/04 completed 5 days of therapy - Pulmonary hygeine - sputum culture not acceptable sample - blood cultures negative - Bronchdilators thrush - nystatin Acute hypoxic respiratory failure, improving - Off bipap 10/02. - Pulmonary recommendations - Pulmonary hygeine - LasixPO daily Severe Protein Calorie Malnutrition - Consult dietitian for supplementation Paroxysmal A fib with RVR - cardio recs - xarelto - lopressor - tele NSTEMI, Type II - cardio recs - lopressor - ASA HTN - Lopressor - follow BP GERD -PPI Rheumatoid arthritis, on chronic steroids - Prednisone 20 mg po daily (this is her baseline) started on 10/06/17. - Patient is not on biologic but is on injectable methotrexate resume at discharge Anemia, suspect of chronic disease with RA - follow CBC - Further eval as outpatient if it is stable. Epistasix, resolved Hyperchloremic metabolic acidosis, resolved Hypotension, resolved Hypokalemia, resolved Sepsis, resolved A fib wtih RVR, resolved Plan is for home once stable on less than 5L NC. DVT prophylaxis: Xarelto Discussed with: Patient, RN Anticipated discharge: 1-[address]: Home A total of 25 minutes was spent on the care of this complex patient more than 50 % of the time was spent in counseling and care coordination.
[2017-10-07] MEDS: POTASSIUM CHLORIDE 20 MEQ in WATER FOR INJECTION 1 100ML.BAG IVPB SCH ×2 (12:34→17:30)
--- NOTE | 2017-10-07 12:46 | P.PN ---
Subjective Progress Note Date: 10/07/17 On today's evaluation of 10/01/2017 the patient is being seen for a follow-up. The patient came in with acute hypoxic respiratory failure with beta pulmonary filtrating consolidations and currently the patient is on a BiPAP at a pressure of 16/8 cm of water and FiO2 of 80%. Note that the exact nature of the bilateral pulmonary infiltrate is not established. The patient is suspected to have pneumonia in addition to a component of CHF knowing that on admission her proBNP level was significantly elevated. She also had some limited troponin leak. She has no chest pain. She has no clinical signs of congestion heart failure such as neck veins or lower extremity edema. The patient may have a combination of both CHF and pneumonia. Currently the patient is a combined antibiotics of Zosyn, vancomycin and Levaquin. The patient overnight became hypotensive. The diuretics were stopped and the patient was given a total of 2 L of IV fluids bolus and currently she is normotensive and blood pressure regulated. Urine output is somewhat between 20-30 mL an hour. Blood work from today shows a component of metabolic acidosis with a bicarb level of 16 and she is afebrile. She her white cell count is not elevated. Lactic acid level was nonelevated. Echocardiogram is pending for now. She is on Cardizem drip regarding her atrial fibrillation. She was taken long-term articulation with Xarelto on outpatient basis. On today's evaluation of 10/02/2017 the patient is feeling slightly better. She still BiPAP dependent for her acute hypoxic respiratory failure and bilateral pneumonia. On a BiPAP at a pressure of 16/8 cm of water and I was able to wean down the FiO2 down to 40% maintaining his saturation above 90%. Nevertheless, while off the BiPAP, the patient desaturates and she doesn't tolerate the high flow oxygen yet. The patient was given bicarb drip yesterday. I kept on the IV fluids to KVO yesterday and gave her a dose of Lasix. Her fluid balance is positive knowing that the patient had to be given fluids for hypotension yesterday. Her blood pressure stabilized. She remains in atrial fibrillation. She is currently off the Cardizem drip and she is taking oral Cardizem 60 mg by mouth 3 times a day. The patient is also on metoprolol 25 mg by mouth 3 times a day. She is on bronchodilators and systemic steroids pH is also covered with broad-spectrum antibiotics with a combination of Zosyn Levaquin and vancomycin. She is afebrile. White cell count is not elevated. She is not having any positive cultures. Echocardiogram was noted. The patient is a preserved LV function with an ejection fraction of 55-60%. The right ventricular size and function was within normal limits. There was moderate degree of mitral regurgitation and questionable small mobile vegetation attached to the anterior mitral valve leaflet that needs to be investigated later stage with a YOAN. Nevertheless, my overall suspicion for infective endocarditis is low knowing that the patient's cultures of been negative and the patient does not present with atypical infective endocarditis picture. Upon further investigation we can't understand that the patient is on subcutaneous methotrexate 20 mg every week. No other new suppressive agents and utilized for her rheumatoid arthritis. On 10/03/2017, the patient is improved further compared to yesterday. There has been marked improvement in the oxygenation and the patient is currently on 8 L of oxygen by nasal cannula and she is maintaining a saturation above 90%. Note that she was on BiPAP overnight and this morning it was completely discontinued. She did develop some skin excoriation over the nose limited to the BiPAP mask. Appropriate dressing is then applied. She is afebrile. She is on broad-spectrum antibiotics on a combination of Zosyn and Levaquin and vancomycin. Chest x-ray shows improvement in the interstitial infiltrates seen earlier compared to her admission. This is coupled with improvement in her oxygenation. She is less short of breath. She is able to speak full sentences. No fever. No chills. She is on IV Solu-Medrol which will be transitioned to oral prednisone. A YOAN will be needed also at a later stage regarding the possibility of infective endocarditis. Patient is tolerating oral diet. No change in mental status. No other significant events overnight. On 10/04/2017, I'm seeing this patient for a follow-up. The patient got moved out of the intensive care unit yesterday. She was in the ICU for with acute hypoxic history failure, and she gradually improved. This morning she started on high flow oxygen 8 L/m nasal cannula with a pulse oximetry of 92%. She did have nasal irritation and epistaxis probably related to dryness, oxygen therapy and BiPAP use. She is unable to completely fit and the nasal cannula and her left nostril due to a recurrent epistaxis. I think it's reasonable for this patient to be evaluated by ENT. She is on a combination of aspirin and Xarelto. I think Xarelto can be placed on hold for 24 hours. The patient is also on accommodation of Zosyn and Levaquin regarding her bilateral pneumonia. As mentioned, she is gradually improving and she is less short of breath. No significant cough or sputum production. No hemoptysis. Heart rate is controlled and the renal function is stable for now. There has been some drop in hemoglobin from a baseline of 10.7 down to 8.4. Specifically there is a gram of hemoglobin drop since yesterday without any other source of external bleeding. On 10/05/2017, the patient is feeling well and she is sitting up in a chair and she is calm and comfortable. She remains on oxygen 8 L/m nasal cannula. No BiPAP use. She underwent a YOAN today and the report was noted and there is no evidence of any infective endocarditis or valvular vegetation. The patient has moderate to severe mitral regurgitation, moderate to severe tricuspid regurgitation and overall LV function was within normal limits. The mitral valve shows calcification that was quite extensive. No epistaxis for now. The patient was seen by ENT yesterday for epistaxis of the left nostril which ultimately subsided as the patient had cauterization of the left nasal septum.. The patient is on DuoNeb the last treatment [id number]. The patient on Levaquin and Zosyn. The hemoglobin is at 8.9. Renal function is also stable at creatinine of 0.7. Xarelto has been resumed. The follow-up chest x-ray showed persistent bilateral consolidation pleural effusion essentially unchanged compared to the chest x-ray that was done on 10/03/2017 On 10/06/2017, the patient is looking well. She is recovering from an acute hypoxic respiratory failure. She is down to 6 L about 2 by nasal cannula. Pulse 99%. I'm hoping that we can further drop down the FiO2 as long as his saturation remains above 90%. She received a dose of Lasix yesterday 40 mg IV push. She diuresed adequately following that. No significant cough or sputum production. She is feeling weak. No epistaxis. No fever. No chills. No leukocytosis. She is on IV Zosyn and Levaquin. Vancomycin was discontinued. She is on DuoNeb nebulized treatments around the clock. She is on metoprolol 50 mg twice a day and her rhythm is sinus and the rate is controlled. The patient is on a prednisone burst taper currently on 20 mg as part of a taper. No anticoagulation for now other than oral aspirin. On 10/07/2017 the patient has no specific complaints. Her oxygenation gradually continues to improve and she is currently on 4 L of oxygen by nasal cannula. She is on Levaquin 750 mg every 48 hours. She is also on Lasix 40 mg by mouth daily. No nausea. No vomiting. She is completing a prednisone burst taper. IV fluids at KVO. She is tolerating diet. She is afebrile. Hemoglobin is at 9.4. Objective - Vital Signs Vital signs: Vital Signs Temp 97.3 F L 10/07/17 05:49 Pulse 84 10/07/17 09:13 Resp 16 10/07/17 12:13 BP 141/64 10/07/17 05:49 Pulse Ox 96 10/07/17 12:13 Intake & Output 10/06/17 10/07/17 10/07/17 18:59 06:59 18:59 Intake Total 960 1660 Output Total 0 Balance 960 1660 Weight 49 kg Intake: Oral 960 1660 Output: Urine 0 Other: Voiding Method Bedside Commode Bedside Commode Toilet Bedside Commode # Voids 6 1 # Bowel Movements 3 - Exam Awake, communicative. Currently on 8 L of oxygen by nasal cannula. No use of accessory muscles of breathing and she is calm and comfortable. HEENT examination is grossly unremarkable. Mucous membranes are moist. The patient is trying to pack her nose with tissue. She has some packing within her left nostril. No active epistaxis although there is some oozing which is a lower rate oozing from her left nostril. Neck supple. Full range of motion. No adenopathy thyromegaly or neck vein distention. Cardiovascular examination reveals some irregularity to her heart rhythm. Heart rates about 100 bpm. There are some premature atrial contractions. There is a grade 2-3 systolic ejection murmur heard over the left apex. The patient also has an irregular S1-S2 consistent with atrial fibrillation. Heart sounds distant. Lungs reveal coarse bilateral breath sounds. Crackles noted bilaterally. No wheezes. Breath sounds equal bilaterally. Abdomen soft bowel sounds are heard. No masses or tenderness. Extremities are intact. No cyanosis or clubbing or edema.Examination of the extremities revealed easily palpable radial, femoral and pedal pulses. There was no cyanosis, clubbing or edema. Skin is without rash or lesion.Examination of the skin revealed no evidence of significant rashes, suspicious appearing nevi or other concerning lesions. Neurologic examination is within normal limits and the patient is moving all 4 extremities without any limitation and the patient is awake and alert 3. - Labs CBC & Chem 7: 10/06/17 21:36 10/07/17 09:42 Labs: Abnormal Lab Results - Last 24 Hours (Table) 10/06/17 10/06/17 10/06/17 Range/Units 12:30 15:51 21:36 WBC 11.5 H 10.9 H (3.8-10.6) k/uL RBC 3.39 L 3.08 L (3.80-5.40) m/uL Hgb 9.9 L 9.4 L (11.4-16.0) gm/dL Hct 32.3 L 29.8 L (34.0-46.0) % MCHC 30.7 L (31.0-37.0) g/dL RDW 17.5 H 18.3 H (11.5-15.5) % Potassium (3.5-5.1) mmol/L Carbon Dioxide (22-30) mmol/L Glucose (74-99) mg/dL Stool Occult Blood Positive H (Negative) 10/07/17 Range/Units 09:42 WBC (3.8-10.6) k/uL RBC (3.80-5.40) m/uL Hgb (11.4-16.0) gm/dL Hct (34.0-46.0) % MCHC (31.0-37.0) g/dL RDW (11.5-15.5) % Potassium 3.2 L (3.5-5.1) mmol/L Carbon Dioxide 31 H (22-30) mmol/L Glucose 61 L (74-99) mg/dL Stool Occult Blood (Negative) Assessment and Plan Plan: Assessment 1 acute hypoxic respiratory failure with development of diffuse bilateral pulmonary infiltrates. Strongly suspect bilateral pneumonia over pulmonary edema or CHF. The chest x-ray today remains unchanged compared to the one that was done on 10/03/2017. Patient is on Levaquin and Zosyn. The patient is a prednisone burst taper. Patient is improving and she is down to 4 liters of oxygen by nasal cannula. She will be asked to increase the level of activity as tolerated. She responded nicely also to a dose of diuretics was given to her and currently she is on oral Lasix. 2 epistaxis on a combination of aspirin and Xarelto. The patient's oxygen source is currently humidified. The patient was seen by ENT and cauterization of the nasal septum was done and the bleeding was controlled. 3 sinus mechanism with occasional PACs 4 A. fib with RVR , current rate is controlled. The patient was started on Xarelto for long-term anticoagulation although this has to be placed on hold especially with her ongoing epistaxis. Her current rhythm is sinus. 5 mild troponin leak, secondary to above 6 hypertension, history of 8 hyperlipidemia 9 acid reflux 10 rheumatoid arthritis, maintained on methotrexate on outpatient basis subcu injections every 1 week. 11 chronic anemia 12 valvular heart disease with moderate to severe mitral regurgitation and tricuspid regurgitation. Preserved LV function. No evidence of any vegetation. Plan Continue oral Levaquin. Zosyn has been discontinued. Wean down the FiO2 further. Prednisone burst taper. Ambulate in the hallway. Physical therapy. Possible ECF within next 24-48 hours
[2017-10-07] MEDS: NYSTATIN 100,000 UNIT/ML SUSP 500,000 UNIT/5 ML CUP PO SCH ×3 (14:30→21:37)
[2017-10-08] MEDS: IPRATROPIUM-ALBUTEROL 3 ML NEB INHALATION SCH ×2 (07:54→11:31)
[2017-10-08] MEDS: NYSTATIN 100,000 UNIT/ML SUSP 500,000 UNIT/5 ML CUP PO SCH (07:56)
[2017-10-08] MEDS: predniSONE 20 MG TAB PO SCH (07:56)
[2017-10-08] MEDS: PANTOPRAZOLE 40 MG/10 ML VIAL IVP SCH (07:56)
[2017-10-08] MEDS: LACTOBACILLUS ACIDOPH & BULGAR 1 EACH PACKET PO SCH (07:56)
[2017-10-08] MEDS: METOPROLOL TARTRATE 50 MG TAB PO SCH (07:56)
[2017-10-08] MEDS: ASPIRIN 81 MG PO SCH (07:57)
[2017-10-08] MEDS: LEVOFLOXACIN 750 MG TAB PO SCH (07:57)
[2017-10-08 08:11] LABS: Anion Gap 3 mmol/L; Blood Urea Nitrogen 8 mg/dL (7-17); Calcium 8.1 mg/dL (8.4-10.2); Carbon Dioxide 29 mmol/L (22-30); Chloride 107 mmol/L (98-107); Glucose 62 mg/dL (74-99); Magnesium 2.1 mg/dL (1.6-2.3); Sodium 139 mmol/L (137-145)
[2017-10-08] MEDS ORDERED: FUROSEMIDE 40 MG TAB PO SCH (09:00)
[2017-10-08 09:09] VITALS: BP 111/62; RESP 16; TEMP 97.7
[2017-10-08] MEDS: SODIUM CHLORIDE 0.9% 1,000 ML IV SCH (10:52)
--- NOTE | 2017-10-08 11:31 | P.PN ---
Subjective Progress Note Date: 10/08/17 Principal diagnosis: Acute hypoxemic restaurant failure with development of diffuse bilateral pulmonary infiltrates On today's evaluation of 10/01/2017 the patient is being seen for a follow-up. The patient came in with acute hypoxic respiratory failure with beta pulmonary filtrating consolidations and currently the patient is on a BiPAP at a pressure of 16/8 cm of water and FiO2 of 80%. Note that the exact nature of the bilateral pulmonary infiltrate is not established. The patient is suspected to have pneumonia in addition to a component of CHF knowing that on admission her proBNP level was significantly elevated. She also had some limited troponin leak. She has no chest pain. She has no clinical signs of congestion heart failure such as neck veins or lower extremity edema. The patient may have a combination of both CHF and pneumonia. Currently the patient is a combined antibiotics of Zosyn, vancomycin and Levaquin. The patient overnight became hypotensive. The diuretics were stopped and the patient was given a total of 2 L of IV fluids bolus and currently she is normotensive and blood pressure regulated. Urine output is somewhat between 20-30 mL an hour. Blood work from today shows a component of metabolic acidosis with a bicarb level of 16 and she is afebrile. She her white cell count is not elevated. Lactic acid level was nonelevated. Echocardiogram is pending for now. She is on Cardizem drip regarding her atrial fibrillation. She was taken long-term articulation with Xarelto on outpatient basis. On today's evaluation of 10/02/2017 the patient is feeling slightly better. She still BiPAP dependent for her acute hypoxic respiratory failure and bilateral pneumonia. On a BiPAP at a pressure of 16/8 cm of water and I was able to wean down the FiO2 down to 40% maintaining his saturation above 90%. Nevertheless, while off the BiPAP, the patient desaturates and she doesn't tolerate the high flow oxygen yet. The patient was given bicarb drip yesterday. I kept on the IV fluids to KVO yesterday and gave her a dose of Lasix. Her fluid balance is positive knowing that the patient had to be given fluids for hypotension yesterday. Her blood pressure stabilized. She remains in atrial fibrillation. She is currently off the Cardizem drip and she is taking oral Cardizem 60 mg by mouth 3 times a day. The patient is also on metoprolol 25 mg by mouth 3 times a day. She is on bronchodilators and systemic steroids pH is also covered with broad-spectrum antibiotics with a combination of Zosyn Levaquin and vancomycin. She is afebrile. White cell count is not elevated. She is not having any positive cultures. Echocardiogram was noted. The patient is a preserved LV function with an ejection fraction of 55-60%. The right ventricular size and function was within normal limits. There was moderate degree of mitral regurgitation and questionable small mobile vegetation attached to the anterior mitral valve leaflet that needs to be investigated later stage with a YOAN. Nevertheless, my overall suspicion for infective endocarditis is low knowing that the patient's cultures of been negative and the patient does not present with atypical infective endocarditis picture. Upon further investigation we can't understand that the patient is on subcutaneous methotrexate 20 mg every week. No other new suppressive agents and utilized for her rheumatoid arthritis. On 10/03/2017, the patient is improved further compared to yesterday. There has been marked improvement in the oxygenation and the patient is currently on 8 L of oxygen by nasal cannula and she is maintaining a saturation above 90%. Note that she was on BiPAP overnight and this morning it was completely discontinued. She did develop some skin excoriation over the nose limited to the BiPAP mask. Appropriate dressing is then applied. She is afebrile. She is on broad-spectrum antibiotics on a combination of Zosyn and Levaquin and vancomycin. Chest x-ray shows improvement in the interstitial infiltrates seen earlier compared to her admission. This is coupled with improvement in her oxygenation. She is less short of breath. She is able to speak full sentences. No fever. No chills. She is on IV Solu-Medrol which will be transitioned to oral prednisone. A YOAN will be needed also at a later stage regarding the possibility of infective endocarditis. Patient is tolerating oral diet. No change in mental status. No other significant events overnight. On 10/04/2017, I'm seeing this patient for a follow-up. The patient got moved out of the intensive care unit yesterday. She was in the ICU for with acute hypoxic history failure, and she gradually improved. This morning she started on high flow oxygen 8 L/m nasal cannula with a pulse oximetry of 92%. She did have nasal irritation and epistaxis probably related to dryness, oxygen therapy and BiPAP use. She is unable to completely fit and the nasal cannula and her left nostril due to a recurrent epistaxis. I think it's reasonable for this patient to be evaluated by ENT. She is on a combination of aspirin and Xarelto. I think Xarelto can be placed on hold for 24 hours. The patient is also on accommodation of Zosyn and Levaquin regarding her bilateral pneumonia. As mentioned, she is gradually improving and she is less short of breath. No significant cough or sputum production. No hemoptysis. Heart rate is controlled and the renal function is stable for now. There has been some drop in hemoglobin from a baseline of 10.7 down to 8.4. Specifically there is a gram of hemoglobin drop since yesterday without any other source of external bleeding. On 10/05/2017, the patient is feeling well and she is sitting up in a chair and she is calm and comfortable. She remains on oxygen 8 L/m nasal cannula. No BiPAP use. She underwent a YOAN today and the report was noted and there is no evidence of any infective endocarditis or valvular vegetation. The patient has moderate to severe mitral regurgitation, moderate to severe tricuspid regurgitation and overall LV function was within normal limits. The mitral valve shows calcification that was quite extensive. No epistaxis for now. The patient was seen by ENT yesterday for epistaxis of the left nostril which ultimately subsided as the patient had cauterization of the left nasal septum.. The patient is on DuoNeb the last treatment [id number]. The patient on Levaquin and Zosyn. The hemoglobin is at 8.9. Renal function is also stable at creatinine of 0.7. Xarelto has been resumed. The follow-up chest x-ray showed persistent bilateral consolidation pleural effusion essentially unchanged compared to the chest x-ray that was done on 10/03/2017 On 10/06/2017, the patient is looking well. She is recovering from an acute hypoxic respiratory failure. She is down to 6 L about 2 by nasal cannula. Pulse 99%. I'm hoping that we can further drop down the FiO2 as long as his saturation remains above 90%. She received a dose of Lasix yesterday 40 mg IV push. She diuresed adequately following that. No significant cough or sputum production. She is feeling weak. No epistaxis. No fever. No chills. No leukocytosis. She is on IV Zosyn and Levaquin. Vancomycin was discontinued. She is on DuoNeb nebulized treatments around the clock. She is on metoprolol 50 mg twice a day and her rhythm is sinus and the rate is controlled. The patient is on a prednisone burst taper currently on 20 mg as part of a taper. No anticoagulation for now other than oral aspirin. On 10/07/2017 the patient has no specific complaints. Her oxygenation gradually continues to improve and she is currently on 4 L of oxygen by nasal cannula. She is on Levaquin 750 mg every 48 hours. She is also on Lasix 40 mg by mouth daily. No nausea. No vomiting. She is completing a prednisone burst taper. IV fluids at KVO. She is tolerating diet. She is afebrile. Hemoglobin is at 9.4. On 10/08/2017 patient seen in follow-up on medical surgical floor. No acute distress, room air pulse ox is 96%, post exercise is 94%, and room air pulse ox with exercise is 90%, afebrile, hemodynamically stable. Blood urine and sputum cultures are negative. No fever, no chills, today's blood work has been reviewed, no CBC, BMP is within normal limits with the exception of glucose which is at 62. C. diff oxide was negative. Lung sounds are positive for some scattered crackles, no wheezes, no rhonchi. No chest pain, patient has been ambulating, and tolerating it well. Patient has been treated with a combination of Zosyn, vancomycin and Levaquin, she has clinically improved. No recurrence of epistaxis, she remains on oral Lasix, nebulized bronchodilators, and IV steroids have been transitioned to oral prednisone. Antibiotics have been streamlined to Levaquin. Objective - Vital Signs Vital signs: Vital Signs Temp 97.7 F 10/08/17 08:41 Pulse 88 10/08/17 09:40 Resp 16 10/08/17 08:41 BP 111/62 10/08/17 08:41 Pulse Ox 96 10/08/17 09:40 Intake & Output 10/07/17 10/08/17 10/08/17 18:59 06:59 18:59 Intake Total 450 590 Balance 450 590 Weight 49 kg 44.5 kg Intake: IV 50 Piperacillin-Tazobactam 3 50 .375 gm In Dextrose/Water 1 50ml.bag @ 12.5 mls/hr IVPB Q8HR [facility] Rx#: [id number] Oral 400 590 Other: Voiding Method Toilet Toilet Toilet Bedside Commode Bedside Commode Bedside Commode # Voids 1 # Bowel Movements 1 - Exam Awake, communicative. Currently on room air. No use of accessory muscles of breathing and she is calm and comfortable. HEENT examination is grossly unremarkable. Mucous membranes are moist. The patient is trying to pack her nose with tissue. She has some packing within her left nostril. No active epistaxis although there is some oozing which is a lower rate oozing from her left nostril. Neck supple. Full range of motion. No adenopathy thyromegaly or neck vein distention. Cardiovascular examination reveals some irregularity to her heart rhythm. Heart rates about 100 bpm. There are some premature atrial contractions. There is a grade 2-3 systolic ejection murmur heard over the left apex. The patient also has an irregular S1-S2 consistent with atrial fibrillation. Heart sounds distant. Lungs reveal coarse bilateral breath sounds. Crackles noted bilaterally. No wheezes. Breath sounds equal bilaterally. Abdomen soft bowel sounds are heard. No masses or tenderness. Extremities are intact. No cyanosis or clubbing or edema.Examination of the extremities revealed easily palpable radial, femoral and pedal pulses. There was no cyanosis, clubbing or edema. Skin is without rash or lesion.Examination of the skin revealed no evidence of significant rashes, suspicious appearing nevi or other concerning lesions. Neurologic examination is within normal limits and the patient is moving all 4 extremities without any limitation and the patient is awake and alert 3. - Labs CBC & Chem 7: 10/06/17 21:36 10/08/17 06:43 Labs: Abnormal Lab Results - Last 24 Hours (Table) 10/08/17 Range/Units 06:43 Glucose 62 L (74-99) mg/dL Calcium 8.1 L (8.4-10.2) mg/dL Assessment and Plan Plan: Assessment: 1 acute hypoxic respiratory failure with development of diffuse bilateral pulmonary infiltrates. Strongly suspect bilateral pneumonia over pulmonary edema or CHF. The chest x-ray today remains unchanged compared to the one that was done on 10/03/2017. Patient is on Levaquin and Zosyn. The patient is a prednisone burst taper. Patient is improving and she is down to room air, tolerating ambulation, no fever no chills. She responded nicely also to a dose of diuretics was given to her and currently she is on oral Lasix. 2 epistaxis on a combination of aspirin and Xarelto. The patient was seen by ENT and cauterization of the nasal septum was done and the bleeding was controlled. 3 sinus mechanism with occasional PACs 4 A. fib with RVR , current rate is controlled. The patient was started on Xarelto for long-term anticoagulation although this has to be placed on hold especially with her ongoing epistaxis. Her current rhythm is sinus. 5 mild troponin leak, secondary to above 6 hypertension, history of 8 hyperlipidemia 9 acid reflux 10 rheumatoid arthritis, maintained on methotrexate on outpatient basis subcu injections every 1 week. 11 chronic anemia 12 valvular heart disease with moderate to severe mitral regurgitation and tricuspid regurgitation. Preserved LV function. No evidence of any vegetation. Plan Patient is stable, he needs to improve, on room air, does not qualify for home oxygen, tolerating ambulation, no recurrence of epistaxis, Xarelto remains on hold, antibiotics have been streamlined to Levaquin. All cultures remain negative. No fever, no chills, no dyspnea. Patient resident of [place], her current insurance coverage does not cover out of state healthcare expenditures other than hospitalizations. Patient is visiting in the area, and she is staying in a camper with her at a campground. She has concerns about follow-up and home care. She has concerns about leaving for [place] right away on an extended driving trip. She was advised to follow-up with Dr. Watt and in the office in one week if she remains in the area for a follow-up chest x -ray. Otherwise she can follow-up with her PCP in [place]. I performed a history & physical examination of the patient and discussed their management with my nurse practitioner, Jillian Moffett. I reviewed the nurse practitioner's note and agree with the documented findings and plan of care. Lung sounds are positive for scattered crackles. The findings and the impression was discussed with the patient. I attest to the documentation by the nurse practitioner. Time with Patient: Less than 30
[2017-10-08 11:34] VITALS: PULSE 74
--- NOTE | 2017-10-08 11:44 | P.DS ---
Providers Date of admission: 09/29/17 23:15 Expected date of discharge: 10/08/17 Attending physician: Eugene Marshall MD Consults: 09/30/17 01:42 Consult Physician Routine Consulting Provider: Fadi Dennis Consult Reason/Comments: . Atrial fibrillation with rapid ventricular rate. CHF Do you want consulting provider notified?: Yes 09/30/17 07:29 Consult Physician Urgent Consulting Provider: Nikolas Elizondo Consult Reason/Comments: respiratory failure/ARDS? 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 fib on Xarelto, rheumatoid arthritis, hypertension, and dyslipidemia who presented to the hospital with complaints of confusion and weakness. On arrival to the ER she underwent an extensive evaluation. On arrival to the ER she was tachycardic with a pulse rate of 118, tachypnea with a respiratory rate of 27, and hypoxic with an O2 sat of 83% on a nonrebreather. Initial laboratory analysis showed an elevated troponin, elevated white blood cell count, and slight anemia with hemoglobin 10.7. CTA of the chest showed respiratory distress syndrome versus pulmonary edema. Initially the concern was for acute hypoxic respiratory failure, acute pulmonary edema versus R, A. fib with RVR, and pneumonia. She was started on BiPAP given a dose of Lasix and started on a Cardizem drip. She was subsequently ordered for admission to the selective care unit. She was also ordered for stress dose steroids secondary to being on prednisone at baseline for rheumatoid arthritis. She went to the ICU and stepdown overflow and was requiring 100% on BiPAP. There was concern for possible pneumonia and she was started on Vanco, Zosyn, and Levaquin. Pulmonary was consulted. She developed hypotension and received 1 L of IV fluids. Cardiology was consulted. She developed A fib with RVR and was placed on a cardizem gtt, she then converted and the gtt was stopped. Overnight on 10/01 her heart rate again went up and she was found to have A. fib with RVR and Cardizem was restarted, this was transitioned to oral cardizem on the afternoon of 10/01 she was ultimately taken off Cardizem and transitioned to metoprolol. They felt that her troponin elevation was most likely secondary to a non-STEMI. Echocardiogram showed preserved EF of 55-60%. She was trailed off bipap on 10/01 but was unable to tolerate. She was sucessfully maintained off bipap on 10/02 and her xray was improving. She was given 1 dose of lasix. On the morning of 10/03 her xray was much improved and she was feeling much better. Her levaquin and steroids were transitioned to oral. Her vancomycin was stopped on 10/04. She had a slight nose bleed from the left nare on 10/04 and was seen by ENT and it was cauterized. YOAN was preformed on 10/05 due to concern for mitral valve vegitation and showed a calcific mitral valve but no vegetations. She continued to progress slowly need high flow nasal canula. She was given lasix daily. Her calcitonin drawn at admission came back greater than 2. She completed her course of Zosyn and Levaquin. Proximal requirements continued to decrease and she no longer was requiring oxygen. Her steroids had been weaned to her chronic 20 mg of prednisone daily. She was determined stable for discharge home. Unfortunately , we are not able to arrange for half-way facility or home health care due to her insurance not approving anything here in [place]. I had extensive conversations with her and her recommending the return to [place] immediately so they can have adequate follow-up. They will work on winterizing their trailer in returning to [place]. They're aware that should they remain here they need to follow-up with the primary care provider and have been given Dr. Narayanan's number. She will also follow with Dr. Watt one week. I've recommended that they follow up with a crime specialist within 3 weeks whether it be here or in [place]. I also have recommended she follows with her lean manager. I ensured that she is aware she'll need a follow-up chest x- ray to ensure complete resolution of her pneumonia and rule out any type of interstitial lung disease secondary to rheumatoid arthritis. She was discharged with an extra 20 mg of Lasix for the next 2 days to complete treatment with nystatin for her thrush. Patient seen and examined at bedside. No chest pain, shortness of breath, nausea, or vomiting. Still having it would've the bathroom quite frequently secondary to Lasix. Still having some diarrhea secondary to antibiotics, this has been chronic for the last several months when she had an extensive workup in [place] for reasons for her weight loss. She states she had negative EGD and they are considering colonoscopy. Vital signs reviewed and stable. General: non toxic, no distress, appears at stated age, frail Derm: warm, dry, ecchymoses diffuse Head: atraumatic, normocephalic, symmetric Eyes: EOMI, no lid lag, anicteric sclera Mouth: no lip lesion, mucus membranes moist Cardiovascular: S1-S2 irregular, no murmur, positive posterior tibial pulse bilateral, Lungs: Coarse breath sounds bilateral, no rhonchi, no rales , no accessory muscle use Abdominal: soft, nontender to palpation, no guarding, no appreciable organomegaly Ext: no gross muscle atrophy, no edema, no contractures Neuro: CN II-XI grossly intact, no focal neuro deficits Psych: Alert, oriented, appropriate affect A total of 40 minutes of time were spent preparing this complex discharge summary . 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, moderate to severe mitral regurgitation, moderate ear tricuspid regurgitation, mild atherosclerotic change in the descending aorta Bedside cautery of left near bleed Patient Condition at Discharge: Stable Plan - Discharge Summary Discharge Rx Participant: Yes New Discharge Prescriptions: New Metoprolol Tartrate [Lopressor] 50 mg PO BID #60 tab Nystatin 100,000 Unit/ml Susp [Mycostatin Oral Susp] 500,000 unit PO QID 12 Days #1 bottle Continue Cholecalciferol [Vitamin D3] 1,500 unit PO DAILY Calcium Carbonate [Calcium] 1,200 mg PO BID Oxybutynin Chloride 5 mg PO DAILY Cyanocobalamin (Vitamin B-12) [Vitamin B-12] 1,000 mcg PO DAILY Folic Acid 0.8 mg PO DAILY Rivaroxaban [Xarelto] 20 mg PO DAILY Furosemide [Lasix] 20 mg PO DAILY Pantoprazole [Protonix] 40 mg PO DAILY Estradiol [Estrace] 0.5 mg PO DAILY Acetaminophen Tab [Tylenol] 500 mg PO Q6H PRN PRN Reason: Pain Methotrexate/Pf [Rasuvo 25 mg/0.5 ml Autoinj] 25 mg SQ Q7DAYS Turmeric/Turmeric Root Extract [Turmeric 450-50 mg Capsule] 2 each PO DAILY Biotin 5,000 mcg PO DAILY Ascorbic Acid [Vitamin C] 1,000 mg PO DAILY predniSONE 10 mg PO BID Magnesium Oxide [Patterson] 500 mg PO DAILY Discontinued Lisinopril [Prinivil] 10 mg PO DAILY Diltiazem HCl 120 mg PO TID Discharge Medication List Calcium Carbonate [Calcium] 1,200 mg PO BID 10/24/16 [History] Cholecalciferol [Vitamin D3] 1,500 unit PO DAILY 10/24/16 [History] Cyanocobalamin (Vitamin B-12) [Vitamin B-12] 1,000 mcg PO DAILY 10/24/16 [ History] Folic Acid 0.8 mg PO DAILY 10/24/16 [History] Oxybutynin Chloride 5 mg PO DAILY 10/24/16 [History] Furosemide [Lasix] 20 mg PO DAILY 09/30/17 [History] Pantoprazole [Protonix] 40 mg PO DAILY 09/30/17 [History] Rivaroxaban [Xarelto] 20 mg PO DAILY 09/30/17 [History] Acetaminophen Tab [Tylenol] 500 mg PO Q6H PRN 10/01/17 [History] Ascorbic Acid [Vitamin C] 1,000 mg PO DAILY 10/01/17 [History] Biotin 5,000 mcg PO DAILY 10/01/17 [History] Estradiol [Estrace] 0.5 mg PO DAILY 10/01/17 [History] Magnesium Oxide [Patterson] 500 mg PO DAILY 10/01/17 [History] Methotrexate/Pf [Rasuvo 25 mg/0.5 ml Autoinj] 25 mg SQ Q7DAYS 10/01/17 [History] Turmeric/Turmeric Root Extract [Turmeric 450-50 mg Capsule] 2 each PO DAILY [History] predniSONE 10 mg PO BID 10/01/17 [History] Metoprolol Tartrate [Lopressor] 50 mg PO BID #60 tab 10/08/17 [Rx] Nystatin 100,000 Unit/ml Susp [Mycostatin Oral Susp] 500,000 unit PO QID 12 Days #1 bottle 10/08/17 [Rx] Follow up Appointment(s)/Referral(s): Mynor Abraham MD [STAFF PHYSICIAN] - 3 Weeks Rancho Narayanan MD [STAFF PHYSICIAN] - As Needed Jayy Watt MD [STAFF PHYSICIAN] - 1 Week Activity/Diet/Wound Care/Special Instructions: Regular diet, activity as tolerated. Increase your lasix to 2 tablets daily for 2 days, and then resume one tablet daily. Follow up with your primary care provdier in 1 week. Follow-up with your lean manager in 2 weeks. I recommend repeat chest x-ray in 1-2 weeks to ensure resolution of your pneumonia. Our crime specialist recommended follow-up in 3 weeks this can be done with your crime specialist in [facility]. Discharge Disposition: HOME SELF-CARE
[2017-10-09] MEDS ORDERED: LEVOFLOXACIN 750 MG TAB PO SCH (08:00)
== END 2017-10-08 15:04 | DRG 853 ==
LOC: EC 19:51 → 6ICU 23:15 → 5MS5E 10-03 19:22
PROVIDERS: ADMIT Internal Medicine; ATTEND Internal Medicine
PROC: 5A09557 Assistance with Respiratory Ventilation, Greater than 96 Consecutive Hours, Continuous Positive Airway Pressure (ICD-10-PCS; 2017-09-29)
PROC: 0W3Q7ZZ Control Bleeding in Respiratory Tract, Via Natural or Artificial Opening (ICD-10-PCS; principal; 2017-10-04)
PROC: B246ZZ4 Ultrasonography of Right and Left Heart, Transesophageal (ICD-10-PCS; 2017-10-05)
DX: A41.9 Sepsis, unspecified organism (principal); I50.21 Acute systolic (congestive) heart failure; J96.01 Acute respiratory failure with hypoxia; J15.9 Unspecified bacterial pneumonia; I21.A1 Myocardial infarction type 2; E43 Unspecified severe protein-calorie malnutrition; I51.1 Rupture of chordae tendineae, not elsewhere classified; J44.0 Chronic obstructive pulmonary disease with (acute) lower respiratory infection; J44.1 Chronic obstructive pulmonary disease with (acute) exacerbation; E87.2 Acidosis; B37.0 Candidal stomatitis; I95.9 Hypotension, unspecified; I11.0 Hypertensive heart disease with heart failure; E87.8 Other disorders of electrolyte and fluid balance, not elsewhere classified; I48.2 Chronic atrial fibrillation; G62.9 Polyneuropathy, unspecified; I08.1 Rheumatic disorders of both mitral and tricuspid valves; M06.9 Rheumatoid arthritis, unspecified; D64.9 Anemia, unspecified; E78.5 Hyperlipidemia, unspecified; E87.6 Hypokalemia; F41.9 Anxiety disorder, unspecified; K21.9 Gastro-esophageal reflux disease without esophagitis; R04.0 Epistaxis; R29.6 Repeated falls; T38.0X5A Adverse effect of glucocorticoids and synthetic analogues, initial encounter; T39.015A Adverse effect of aspirin, initial encounter; T45.515A Adverse effect of anticoagulants, initial encounter; M54.9 Dorsalgia, unspecified; M19.91 Primary osteoarthritis, unspecified site; Z79.01 Long term (current) use of anticoagulants; Z79.890 Hormone replacement therapy; Z79.52 Long term (current) use of systemic steroids; Z79.1 Long term (current) use of non-steroidal anti-inflammatories (NSAID); Z79.899 Other long term (current) drug therapy; Z96.643 Presence of artificial hip joint, bilateral; Z87.891 Personal history of nicotine dependence; Z98.1 Arthrodesis status; Z90.49 Acquired absence of other specified parts of digestive tract; Z88.5 Allergy status to narcotic agent
CPT/HCPCS: 36415; 36600; 71045; 71046; 71275; 80048; 80053; 80202; 81001; 82272; 82533; 82550; 82553; 82805; 83605; 83735; 83880; 84100; 84132; 84145; 84443; 84484; 85025; 85027; 85379; 85610; 85730; 87040; 87086; 87205; 87324; 93005; 93306; 93312; 93320; 93325; 94640; 94660; 94760; 96365; 96366; 96375; 96376; 99285

== ENCOUNTER → 2017-10-17 | Outpatient (CLI) | payer MEDICARE ==
--- NOTE | 2017-10-17 15:42 | XR ---
EXAMINATION TYPE: XR chest 2V DATE OF EXAM: 10/17/2017 COMPARISON: NONE TECHNIQUE: PA and lateral views submitted. HISTORY: Follow-up pneumonia FINDINGS: The lungs are clear and there is no pneumothorax, pleural effusion, or focal pneumonia. There are m ultiple compression deformities of indeterminate age. Atherosclerotic change aorta. Hyperinflation phillip ggests COPD. Surgical change in the epigastrium. Postsurgical change bilateral shoulder. No pneumotho rax or overt failure. Arthropathy of the shoulders. IMPRESSION: 1. Multiple age-indeterminate compression deformities with no evidence of consolidative pneumonia. Co rrelate for COPD.
== END | disposition home or self-care (01) ==
LOC: RADXRMAIN 15:20
PROVIDERS: ATTEND Nurse Practitioner Adult Health
DX: Z09 Encounter for follow-up examination after completed treatment for conditions other than malignant neoplasm (principal); Z87.01 Personal history of pneumonia (recurrent)
CPT/HCPCS: 71046

== ENCOUNTER 2017-11-01 12:39 | Observation (INO) | payer MEDICARE ==
[2017-11-01 13:53] LABS: Anisocytosis Slight; Basophils % (A) 0 %; Eosinophils % (A) 0 %; HCT 36.6 % (34.0-46.0); HGB 11.1 gm/dL (11.4-16.0); Hypochromasia Moderate; Lymphocytes # (A) 1.3 k/uL (1.0-4.8); Lymphocytes % (A) 8 %; MCH 29.8 pg (25.0-35.0); MCHC 30.2 g/dL (31.0-37.0); MCV 98.8 fL (80.0-100.0); Macrocytosis Slight; Mean Platelet Volume 6.7; Monocytes # (A) 0.5 k/uL (0-1.0); Monocytes % (A) 3 %; Neutrophils # (A) 14.1 k/uL (1.3-7.7); Neutrophils % (A) 87 %; Platelet Count 442 k/uL (150-450); RDW 17.6 % (11.5-15.5); WBC 16.2 k/uL (3.8-10.6)
[2017-11-01 13:57] LABS: Appearance,Urine Clear (Clear); Bilirubin,Urine Negative (Negative); Blood,Urine Negative (Negative); Color,Urine Yellow; Glucose,Urine (UA) Negative (Negative); Ketones,Urine Negative (Negative); Leukocyte Esterase,Urine Negative (Negative); Nitrite,Urine Negative (Negative); PH, Urine 6.5 (5.0-8.0); Protein,Urine Negative (Negative); Specific Gravity,Urine 1.005 (1.001-1.035); Urobilinogen,Urine <2.0 mg/dL (<2.0)
[2017-11-01 14:01] LABS: ALT 29 U/L (9-52); AST 19 U/L (14-36); Alkaline Phosphatase 74 U/L (38-126); Anion Gap 7 mmol/L; Blood Urea Nitrogen 17 mg/dL (7-17); Calcium 8.9 mg/dL (8.4-10.2); Carbon Dioxide 29 mmol/L (22-30); Chloride 105 mmol/L (98-107); Glucose 110 mg/dL (74-99); Potassium 4.2 mmol/L (3.5-5.1); Sodium 141 mmol/L (137-145); Total Bilirubin 0.5 mg/dL (0.2-1.3); Total Protein 5.6 g/dL (6.3-8.2)
[2017-11-01] MEDS ORDERED: SODIUM CHLORIDE 0.9% 1,000 ML IV STA (15:43)
--- NOTE | 2017-11-01 15:43 | ED ---
General Adult HPI - General Chief complaint: Back Pain/Injury Stated complaint: lower back pain Time Seen by Provider: 11/01/17 15:15 Source: patient Mode of arrival: wheelchair Limitations: no limitations - History of Present Illness Initial comments: 82-year-old female with a past medical history of GERD, hyperlipidemia, osteoarthritis, rheumatoid arthritis presents to the emergency department for multiple complaints. Patient states that 2 weeks ago she fell between her bed and the wall. Patient denies hitting her head. Patient states her leg gave out on her which is an ongoing problem that primary care is a dressing due to chronic numbness in the feet. Patient states that since that time she has had right lower back pain. Patient admits to past history of compression fractures as well as bilateral hip replacement in 2012 and L4-L5 fusion in 2006. Patient denies any increased weakness in the legs. Patient denies any changes and numbness in the legs. Patient denies any bladder changes and states she is urinating regularly. Patient does admit to diarrhea but states this has been going on for over 3 months now. Patient states she has tried Imodium which has not helped. Patient has also had stool cultures done while in the hospital. Patient denies any abdominal pain. Patient states she has lost about 30 pounds over the past 4 months. Patient states her primary care provider is aware of this. Patient states she has also had a colonoscopy in the past year which only revealed 1 polyp which was removed. Patient denies any fevers or chills at home. Patient has no other complaints at this time including shortness of breath, chest pain, nausea/vomiting headache, or visual changes. - Related Data Home Medications Medication Instructions Recorded Confirmed Cholecalciferol [Vitamin D3] 1,500 unit PO DAILY 10/24/16 11/01/17 Cyanocobalamin (Vitamin B-12) 1,000 mcg PO DAILY 10/24/16 11/01/17 [Vitamin B-12] Folic Acid 0.8 mg PO DAILY 10/24/16 11/01/17 Oxybutynin Chloride 5 mg PO BID 10/24/16 11/01/17 Furosemide [Lasix] 20 mg PO DAILY 09/30/17 11/01/17 Rivaroxaban [Xarelto] 20 mg PO DAILY 09/30/17 11/01/17 Ascorbic Acid [Vitamin C] 1,000 mg PO DAILY 10/01/17 11/01/17 Biotin 5,000 mcg PO DAILY 10/01/17 11/01/17 Estradiol [Estrace] 0.5 mg PO DAILY 10/01/17 11/01/17 Turmeric/Turmeric Root Extract 2 cap PO DAILY 10/01/17 11/01/17 [Turmeric 450-50 mg Capsule] predniSONE 10 mg PO BID 10/01/17 11/01/17 Diltiazem HCl 120 mg PO TID 11/01/17 11/01/17 Lisinopril [Zestril] 10 mg PO DAILY 11/01/17 11/01/17 Metoprolol Tartrate [Lopressor] 50 mg PO BID 11/01/17 11/01/17 traMADol HCL [Ultram] 50 mg PO BID PRN 11/01/17 11/01/17 Allergies Allergy/AdvReac Type Severity Reaction Status Date / Time morphine AdvReac Nausea & Verified 11/01/17 16:21 Vomiting oxycodone [From OxyContin] AdvReac Nausea & Verified 11/01/17 16:21 Vomiting Review of Systems ROS Statement: Those systems with pertinent positive or pertinent negative responses have been documented in the HPI. ROS Other: All systems not noted in ROS Statement are negative. Past Medical History Past Medical History: GERD/Reflux, Hyperlipidemia, Hypertension, Osteoarthritis (OA), Rheumatoid Arthritis (RA) Additional Past Medical History / Comment(s): neuropathy, back pain History of Any Multi-Drug Resistant Organisms: None Reported Past Surgical History: Appendectomy, Back Surgery, Joint Replacement Additional Past Surgical History / Comment(s): right shoulder, right and left hip replacement, ulcer, L4/L5 fusion Past Anesthesia/Blood Transfusion Reactions: No Reported Reaction Past Psychological History: No Psychological Hx Reported Smoking Status: Former smoker Past Alcohol Use History: None Reported Past Drug Use History: None Reported General Exam Limitations: no limitations General appearance: alert, in no apparent distress Head exam: Present: atraumatic, normocephalic, normal inspection Eye exam: Present: normal appearance, PERRL, EOMI. Absent: scleral icterus, conjunctival injection, periorbital swelling, periorbital tenderness ENT exam: Present: normal exam, normal oropharynx, TM's normal bilaterally Neck exam: Present: normal inspection, full ROM. Absent: tenderness, meningismus, lymphadenopathy Respiratory exam: Present: normal lung sounds bilaterally. Absent: respiratory distress, wheezes, rales, rhonchi, stridor Cardiovascular Exam: Present: regular rate, normal rhythm, normal heart sounds. Absent: systolic murmur, diastolic murmur, rubs, gallop, clicks GI/Abdominal exam: Present: soft, tenderness (tenderness to RLQ and LLQ), normal bowel sounds. Absent: distended, guarding, rebound, rigid Extremities exam: Present: full ROM (patient able to move all lower extremities) Back exam: Present: tenderness (tenderness in thoracic and lumbar spines, tenderness in area of right SI joint.), other (Patient ambulatory in the emergency department. Sensation diminished in distal lower extremities which is chronic and consistent.). Absent: full ROM (Flexion to about 45, patient is able to extend to about 10.) Neurological exam: Present: alert, oriented X3, CN II-XII intact, normal gait, other (CGS 15). Absent: motor sensory deficit Psychiatric exam: Present: normal affect, normal mood Skin exam: Present: warm, dry, intact, normal color. Absent: rash Course Vital Signs 11/01/17 11/01/17 12:57 15:24 Temperature 98.5 F Pulse Rate 60 65 Respiratory 16 18 Rate Blood Pressure 107/53 134/62 O2 Sat by Pulse 98 99 Oximetry Medical Decision Making - Medical Decision Making 82-year-old female with back pain after falling 2 weeks ago as well as diarrhea for the past 4 months with a 30 pound weight loss presents to the ER. Patient recently admitted for bilateral pneumonia about one month ago. Patient's CBC does show a white count of 16.2 which could be related to diarrhea. Urine is negative. Recent chest x-ray from 2 weeks ago is negative for pneumonia as patient was recently treated in this hospital about one month ago for pneumonia. CMP unremarkable. CT shows mild constipation with mild ectasia of the pancreatic duct and mild dilated distal pancreatic duct consistent with old inflammatory process. There is also 10 mm common bile duct consistent with chronic gallbladder dysfunction. Lumbar moderate spondylosis, no fracture seen on computed tomography scan. I did discuss with tech to image with attn to lumbar spine/pelvis. At this time as patient has lost 30 pounds in the past 4 months due to diarrhea with a white count of 16 and is here for vacation without follow-up to a doctor she will be admitted. Blood cultures were drawn prior to antibiotic administration. No Sirs criteria met. - Lab Data Result diagrams: 11/01/17 13:31 11/01/17 13:31 Lab Results 11/01/17 11/01/17 11/01/17 Range/Units 13:31 13:31 13:31 WBC 16.2 H (3.8-10.6) k/uL RBC 3.70 L (3.80-5.40) m/uL Hgb 11.1 L (11.4-16.0) gm/dL Hct 36.6 (34.0-46.0) % MCV 98.8 (80.0-100.0) fL MCH 29.8 (25.0-35.0) pg MCHC 30.2 L (31.0-37.0) g/dL RDW 17.6 H (11.5-15.5) % Plt Count 442 (150-450) k/uL Neutrophils % 87 % Lymphocytes % 8 % Monocytes % 3 % Eosinophils % 0 % Basophils % 0 % Neutrophils # 14.1 H (1.3-7.7) k/uL Lymphocytes # 1.3 (1.0-4.8) k/uL Monocytes # 0.5 (0-1.0) k/uL Eosinophils # 0.0 (0-0.7) k/uL Basophils # 0.0 (0-0.2) k/uL Hypochromasia Moderate Anisocytosis Slight Macrocytosis Slight Sodium 141 (137-145) mmol/L Potassium 4.2 (3.5-5.1) mmol/L Chloride 105 (98-107) mmol/L Carbon Dioxide 29 (22-30) mmol/L Anion Gap 7 mmol/L BUN 17 (7-17) mg/dL Creatinine 0.67 (0.52-1.04) mg/dL Est GFR (CKD-EPI)AfAm >90 (>60 ml/min/1.73 sqM) Est GFR (CKD-EPI)NonAf 82 (>60 ml/min/1.73 sqM) Glucose 110 H (74-99) mg/dL Calcium 8.9 (8.4-10.2) mg/dL Total Bilirubin 0.5 (0.2-1.3) mg/dL AST 19 (14-36) U/L ALT 29 (9-52) U/L Alkaline Phosphatase 74 (38-126) U/L Total Protein 5.6 L (6.3-8.2) g/dL Albumin 3.0 L (3.5-5.0) g/dL Urine Color Yellow Urine Appearance Clear (Clear) Urine pH 6.5 (5.0-8.0) Ur Specific [place] 1.005 (1.001-1.035) Urine Protein Negative (Negative) Urine Glucose (UA) Negative (Negative) Urine Ketones Negative (Negative) Urine Blood Negative (Negative) Urine Nitrite Negative (Negative) Urine Bilirubin Negative (Negative) Urine Urobilinogen <2.0 (<2.0) mg/dL Ur Leukocyte Esterase Negative (Negative) Disposition Clinical Impression: Diarrhea, Leukocytosis, Back pain Disposition: ADMITTED IP TO THIS HOSP Referrals: Nonstaff,Physician [Primary Care Provider] - 1-2 days Time of Disposition: 18:21
--- NOTE | 2017-11-01 17:01 | CT ---
EXAMINATION TYPE: CT abdomen pelvis w con DATE OF EXAM: 11/01/2017 COMPARISON: None HISTORY: Right side lower abdominal, back and pelvic pain after fall x2 weeks ago. CT DLP: 302 mGycm Automated exposure control for dose reduction was used. TECHNIQUE: Helical acquisition of images was performed from the lung bases through the pelvis. CONTRAST: Performed without Oral Contrast and with IV Contrast, patient injected with 100ml mL of Isovue M300. FINDINGS: There is mild subsegmental atelectasis at the lung bases. Heart appears enlarged. There are surgical clips in the gastric region. Liver shows no focal defect. Bile ducts are not dilated. Gallbladder tanvir ears normal. Spleen appears normal. There is no evidence of a pancreatic mass. Pancreatic duct is mil dly ectatic. Abdominal aorta is atheromatous. There is no aneurysm. There is no retroperitoneal adeno thiago. Kidneys show satisfactory contrast opacification. There is no hydronephrosis. There is no adre nal mass. There is no sign of free air. There is no sign of ascites. There is retained fecal material in the right colon. There is no evidence of a pneumoperitoneum. Ther e is metal artifact from bilateral hip prosthesis. There is lumbar levorotoscoliosis with extensive h ypertrophic degenerative spur formation. There is extensive right side hypertrophic osteophyte format ion. Appendix is not seen. IMPRESSION: MILD CONSTIPATION. ATHEROSCLEROTIC VASCULAR DISEASE. MILD CARDIOMEGALY. MILD ECTASIA OF THE PANCREATI C DUCT AND MILD DILATED DISTAL PANCREATIC DUCT CONSISTENT WITH OLD INFLAMMATORY PROCESS. NO PANCREATI C MASS SEEN. LUMBAR MODERATE SPONDYLOSIS AND LEVOROTOSCOLIOSIS. 10 MM COMMON BILE DUCT CONSISTENT WITH CHRONIC GALLBLADDER DYSFUNCTION.
[2017-11-01] MEDS ORDERED: HYDROcodone/APAP 5-325MG 1 EACH TAB PO STA (18:13)
[2017-11-01] MEDS ORDERED: NALOXONE 0.4 MG/ML 1 ML VIAL IV PRN (18:25)
[2017-11-01] MEDS ORDERED: ACETAMINOPHEN TAB 325 MG TAB PO PRN (18:25)
[2017-11-01] MEDS ORDERED: LEVOFLOXACIN 750MG-D5W PMX 750 MG in DEXTROSE/WATER 1 150ML.BAG IVPB SCH (18:30)
[2017-11-01] MEDS: SODIUM CHLORIDE 0.9% 1,000 ML IV SCH (18:44)
[2017-11-01] MEDS: metroNIDAZOLE-NS PMX 500 MG in SALINE 1 100ML.BAG IVPB SCH (22:34)
--- NOTE | 2017-11-02 00:10 | P.HPIM ---
History of Present Illness H&P Date: 11/01/17 Chief Complaint: low back pain 82-year-old female with history of A. fib on xarelto. Patient presented to the hospital due to low back pain. Patient indicated that she had multiple falls on her back most recent fall was 2-1/2 months ago, however for unknown reason her back pain has flared up today she does not have access to primary care physician in [place] as her insurance only covers in [place] but covers emergency treatments here in [place] for which she decided to come to the emergency department. 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 Patient indicates that normally she would feel that her legs are examined and that's how she falls she denies any loss of consciousness but she does admit to hitting her head couple times in the past however she again stresses that there has been no new falls over the past 2 months and a half. She has been using her walker and has been more careful when ambulating Patient also raises concerns for chronic diarrhea has been going on for 4 months she described it as anywhere between soft and loose sometimes nonbloody no mucus, light brown in color usually happens within 30 minutes after a meal every time she eats. She denies any associated abdominal pain nausea or vomiting. She reports taking a course of antibiotic for stomach bug back in May, and she was recently hospitalized less than 3 weeks ago where she was diagnosed with pneumonia and received antibiotics. Patient also reported associated weight loss of over 40 pounds since April or May. She reports upper endoscopy and colonoscopy done around May where showed the stomach bug and one polyp in her colon. Patient reports that there was no diagnosis of cancer. Patient reports good appetite otherwise and she eats a variety of food. She is currently laying comfortable in bed reports some lower back pain but tolerable. Patient denies otherwise any fevers chills, shortness of breath or chest pain, nausea or vomiting, denies any changes in her urinary habits, denies any new focal neurologic deficits Review of Systems Pertinent positives as noted in HPI. All other systems were reviewed and are negative Past Medical History Past Medical History: GERD/Reflux, Hyperlipidemia, Hypertension, Osteoarthritis (OA), Rheumatoid Arthritis (RA) Additional Past Medical History / Comment(s): neuropathy, back pain History of Any Multi-Drug Resistant Organisms: None Reported Past Surgical History: Appendectomy, Back Surgery, Joint Replacement Additional Past Surgical History / Comment(s): right shoulder, right and left hip replacement, ulcer, L4/L5 fusion Past Anesthesia/Blood Transfusion Reactions: No Reported Reaction Past Psychological History: No Psychological Hx Reported Smoking Status: Former smoker Past Alcohol Use History: None Reported Past Drug Use History: None Reported - Past Family History Mother History Unknown: Yes Family Medical History: Diabetes Mellitus Medications and Allergies Home Medications Medication Instructions Recorded Confirmed Type Cholecalciferol [Vitamin D3] 1,500 unit PO DAILY 10/24/16 11/01/17 History Cyanocobalamin (Vitamin B-12) 1,000 mcg PO DAILY 10/24/16 11/01/17 History [Vitamin B-12] Folic Acid 0.8 mg PO DAILY 10/24/16 11/01/17 History Oxybutynin Chloride 5 mg PO BID 10/24/16 11/01/17 History Furosemide [Lasix] 20 mg PO DAILY 09/30/17 11/01/17 History Rivaroxaban [Xarelto] 20 mg PO DAILY 09/30/17 11/01/17 History Ascorbic Acid [Vitamin C] 1,000 mg PO DAILY 10/01/17 11/01/17 History Biotin 5,000 mcg PO DAILY 10/01/17 11/01/17 History Estradiol [Estrace] 0.5 mg PO DAILY 10/01/17 11/01/17 History Turmeric/Turmeric Root Extract 2 cap PO DAILY 10/01/17 11/01/17 History [Turmeric 450-50 mg Capsule] predniSONE 10 mg PO BID 10/01/17 11/01/17 History Diltiazem HCl 120 mg PO TID 11/01/17 11/01/17 History Lisinopril [Zestril] 10 mg PO DAILY 11/01/17 11/01/17 History Metoprolol Tartrate [Lopressor] 50 mg PO BID 11/01/17 11/01/17 History traMADol HCL [Ultram] 50 mg PO BID PRN 11/01/17 11/01/17 History Allergies Allergy/AdvReac Type Severity Reaction Status Date / Time morphine AdvReac Nausea & Verified 11/01/17 16:21 Vomiting oxycodone [From OxyContin] AdvReac Nausea & Verified 11/01/17 16:21 Vomiting Physical Exam Vitals: Vital Signs Temp Pulse Pulse Resp BP BP Pulse Ox 11/01/17 21:21 96.9 F L 77 15 140/66 98 11/01/17 20:47 97.3 F L 74 18 105/52 97 11/01/17 18:49 97.1 F L 77 18 133/72 95 11/01/17 15:24 65 18 134/62 99 11/01/17 12:57 98.5 F 60 16 107/53 98 Intake and Output 11/01/17 11/01/17 11/01/17 06:59 14:59 22:59 Other: # Voids 1 Weight 41.186 kg Constitutional: No acute distress, conversant, pleasant, looks her stated age, looks cachectic Eyes: Anicteric sclerae, moist conjunctiva, no lid-lag Pupils equal round reactive to light ENMT: NC/AT Oropharynx clear, no erythema, or exudates Neck: Supple, FROM, no masses, or JVD No carotid bruits No thyromegaly Lungs: Clear to auscultation Clear to percussion Normal respiratory effort, no accessory muscle use Cardiovascular: Heart irregular, Systolic murmur,no gallops, or rubs No peripheral edema Abdominal: Soft Nontender, no guarding, rebound or rigidity Abdomen moving with respiration Normoactive bowel sounds No hepatomegaly, No splenomegaly No palpable mass No abdominal wall hernia noted Skin: Normal temperature, tone, texture, turgor No induration No subcutaneous nodules No rash, lesions No ulcers Bruising over bilateral forearms and dorsum of bilateral hands Extremities: No digital cyanosis No clubbing Pedal pulses intact and symmetrical Radial pulses intact and symmetrical No calf tenderness Psychiatric: Alert and oriented to person, place and time Appropriate affect fair judgment Neuro Muscles Strength 4/5 in all 4 extremities Sensation to light touch grossly present throughout Cranial nerves II-XII grossly intact No focal sensory deficits Lymphatics: no palpable cervical or supraclavicular , or inguinal lymph nodes Results CBC & Chem 7: 11/01/17 13:31 11/01/17 13:31 Labs: Abnormal Lab Results - Last 24 Hours (Table) 11/01/17 11/01/17 Range/Units 13:31 13:31 WBC 16.2 H (3.8-10.6) k/uL RBC 3.70 L (3.80-5.40) m/uL Hgb 11.1 L (11.4-16.0) gm/dL MCHC 30.2 L (31.0-37.0) g/dL RDW 17.6 H (11.5-15.5) % Neutrophils # 14.1 H (1.3-7.7) k/uL Glucose 110 H (74-99) mg/dL Total Protein 5.6 L (6.3-8.2) g/dL Albumin 3.0 L (3.5-5.0) g/dL Thrombosis Risk Factor Assmnt - Choose All That Apply Any of the Below Risk Factors Present?: Yes Each Factor Represents 1 point: Medical pt on bed rest Each Risk Factor Represents 3 Points: Age 75 years or older Thrombosis Risk Factor Assessment Total Risk Factor Score: 4 Thrombosis Risk Factor Assessment Level: Moderate Risk Assessment and Plan Assessment: 82-year-old female with history of A. fib on Xarelto, patient is admitted under observation with anticipated length of stay of less than 48 hours , to rule out C. diff due to recent hospitalization where she received antibiotics for pneumonia. Patient reports chronic diarrhea for the past 3-4 months with significant weight loss of around 40 pounds over the past 4 months. Patient had upper endoscopy and colonoscopy done in [place] around May this year no cancer was found, but one polyp was reported and possible H. pylori in the stomach for which she received antibiotics. Plan: Chronic diarrhea, with recent hospitalization and is receiving anabiotic spread pneumonia Patient admitted under optimal rule out C. diff Workup for chronic diarrhea check tissue transglutaminase is and anti- endometrial antibodies Check fecal fat over 24 hours Computed tomography scan of the abdomen unremarkable showing some chronic changes in the pancreas and common bile duct Chronic A. fib currently rate controlled on Xarelto Patient with history of falls risks and benefits were discussed with the patient she should discuss further with cardiology Patient indicated no recent falls over the past 2-1/2 months Hypertension currently controlled on lisinopril Peripheral neuropathy History of rheumatoid arthritis on chronic low dose of prednisone DVT prophylaxis patient on Xarelto for A. fib Check morning labs Patient educated regarding diet for gastrocolic reflex, to start with smaller frequent meals, eats protein first and then cards. She drinks liquids half an hour later after meals. She verbalized understanding Preformed a thorough record review from recent hospitalization about 3 weeks ago where she was admitted for pneumonia Surrogate decision-maker: Patient Agustin CODE STATUS: Full code Discussed with: Patient, ER, RN Anticipated discharge: <[address]: Home A total of 60 minutes was spent on the care of this complex patient more than 50 % of the time was spent in counseling and care coordination.
[2017-11-02 00:30] VITALS: RESP 16
[2017-11-02] MEDS: metroNIDAZOLE-NS PMX 500 MG in SALINE 1 100ML.BAG IVPB SCH ×3 (04:39→18:27)
[2017-11-02 08:01] LABS: Anisocytosis Slight; Basophils % (A) 0 %; Eosinophils # (A) 0.1 k/uL (0-0.7); Eosinophils % (A) 1 %; HCT 33.3 % (34.0-46.0); HGB 10.1 gm/dL (11.4-16.0); Hypochromasia Marked; Lymphocytes % (A) 18 %; MCH 30.1 pg (25.0-35.0); MCHC 30.3 g/dL (31.0-37.0); MCV 99.4 fL (80.0-100.0); Macrocytosis Slight; Mean Platelet Volume 7.1; Monocytes # (A) 0.5 k/uL (0-1.0); Monocytes % (A) 5 %; Neutrophils # (A) 8.2 k/uL (1.3-7.7); Neutrophils % (A) 74 %; Platelet Count 376 k/uL (150-450); RBC 3.35 m/uL (3.80-5.40); RDW 16.9 % (11.5-15.5); WBC 11.1 k/uL (3.8-10.6)
[2017-11-02 08:10] LABS: ALT 31 U/L (9-52); AST 16 U/L (14-36); Albumin 2.4 g/dL (3.5-5.0); Alkaline Phosphatase 63 U/L (38-126); Anion Gap 4 mmol/L; Blood Urea Nitrogen 14 mg/dL (7-17); Calcium 8.3 mg/dL (8.4-10.2); Carbon Dioxide 26 mmol/L (22-30); Chloride 112 mmol/L (98-107); Glucose 72 mg/dL (74-99); Magnesium 1.9 mg/dL (1.6-2.3); Potassium 3.4 mmol/L (3.5-5.1); Sodium 142 mmol/L (137-145); Total Bilirubin 0.4 mg/dL (0.2-1.3); Total Protein 4.7 g/dL (6.3-8.2)
[2017-11-02] MEDS: SODIUM CHLORIDE 0.9% 1,000 ML IV SCH ×2 (08:35→14:45)
[2017-11-02] MEDS: HYDROcodone/APAP 5-325MG 1 EACH TAB PO PRN ×2 (09:09→15:36)
[2017-11-02] MEDS: DILTIAZEM ORAL 60 MG TAB PO SCH ×3 (09:15→21:16)
[2017-11-02] MEDS: predniSONE 10 MG TAB PO SCH ×2 (09:15→21:16)
[2017-11-02] MEDS: RIVAROXABAN 20 MG TAB PO SCH (09:15)
[2017-11-02] MEDS: LISINOPRIL 10 MG TAB PO SCH (09:40)
[2017-11-02] MEDS: METOPROLOL TARTRATE 50 MG TAB PO SCH ×2 (09:40→21:17)
[2017-11-02] MEDS: OXYBUTYNIN CHLORIDE 5 MG TAB PO SCH ×2 (09:41→21:17)
[2017-11-02] MEDS ORDERED: POTASSIUM CHLORIDE ER 20 MEQ TAB.ER PO STA (09:57)
[2017-11-02 10:57] VITALS: BMI 17.2
[2017-11-02] MEDS ORDERED: CYCLOBENZAPRINE 5 MG TAB PO PRN (10:57)
--- NOTE | 2017-11-02 11:10 | P.PN ---
Subjective Progress Note Date: 11/02/17 Principal diagnosis: Low back pain Patient was seen and examined. No acute events overnight. Patient reports chronic back pain. Patient states back pain started after having a mechanical fall 2 weeks ago. She woke up yesterday with excruciating back pain. She describes it as a band around her lower back. Pain is constant, 10 out of 10 in severity with movement. Of note, patient reports L7 compression fracture in late 2016 and L4-L5 fusion surgery in 2006. Patient reports over the last 6 months she has been feeling weak in the legs due to her neuropathy. She is receiving methotrexate injections weekly for her rheumatoid arthritis. Of note , patient continues to complain of diarrhea over the past 3-4 months. This is being worked up by her PCP in [place], with no cause found. She was recently admitted for pneumonia 2 weeks ago, received antibiotics. Objective - Vital Signs Vital signs: Vital Signs Temp 96.9 F L 11/02/17 09:06 Pulse 75 11/02/17 09:06 Resp 16 11/02/17 09:06 BP 132/60 11/02/17 09:06 Pulse Ox 95 11/02/17 09:06 Intake & Output 11/01/17 11/02/17 11/02/17 18:59 06:59 18:59 Intake Total 1948 Balance 1948 Weight 41.186 kg Intake: Intake, IV Titration 1948 Amount Levofloxacin 750Mg-D5w 150 Pmx 750 mg In Dextrose/ Water 1 150ml.bag @ 100 mls/hr IVPB Q24H [facility] Rx#: [id number] Sodium Chloride 0.9% 1, 800 000 ml @ 100 mls/hr IV . Q10H [facility] Rx#:[id number] Sodium Chloride 0.9% 1, 999 000 ml @ 999 mls/hr IV . Q1H1M [facility] Rx#:[id number] Other: Voiding Method Bedside Commode # Voids 1 1 # Bowel Movements 1 - Exam General: [non toxic], [no distress], [appears at stated age], underweight Derm: [warm], [dry] Head: [atraumatic], [normocephalic], [symmetric] Eyes: [EOMI], [no lid lag], [anicteric sclera] Mouth: [no lip lesion], [mucus membranes moist] Cardiovascular: [S1S2 reg], [no murmur], [positive posterior tibial pulse bilateral], Lungs: [CTA bilateral], [no rhonchi, no rales] , [no accessory muscle use] Abdominal: [soft], [ nontender to palpation], [no guarding], [no appreciable organomegaly] Ext: [no gross muscle atrophy], [no edema], [no contractures], [decreased sensation to touch bilateral feet]. [Tenderness to palpation bilaterally of the paraspinal muscles. SLR negative.] Neuro: [ CN II-XI grossly intact], [no focal neuro deficits] Psych: [Alert], [oriented], [appropriate affect] - Labs CBC & Chem 7: 11/02/17 07:44 11/02/17 07:44 Labs: Abnormal Lab Results - Last 24 Hours (Table) 11/01/17 11/01/17 11/02/17 Range/Units 13:31 13:31 07:44 WBC 16.2 H 11.1 H (3.8-10.6) k/uL RBC 3.70 L 3.35 L (3.80-5.40) m/uL Hgb 11.1 L 10.1 L (11.4-16.0) gm/dL Hct 33.3 L (34.0-46.0) % MCHC 30.2 L 30.3 L (31.0-37.0) g/dL RDW 17.6 H 16.9 H (11.5-15.5) % Neutrophils # 14.1 H 8.2 H (1.3-7.7) k/uL Potassium (3.5-5.1) mmol/L Chloride (98-107) mmol/L Glucose 110 H (74-99) mg/dL Calcium (8.4-10.2) mg/dL Total Protein 5.6 L (6.3-8.2) g/dL Albumin 3.0 L (3.5-5.0) g/dL 11/02/17 Range/Units 07:44 WBC (3.8-10.6) k/uL RBC (3.80-5.40) m/uL Hgb (11.4-16.0) gm/dL Hct (34.0-46.0) % MCHC (31.0-37.0) g/dL RDW (11.5-15.5) % Neutrophils # (1.3-7.7) k/uL Potassium 3.4 L (3.5-5.1) mmol/L Chloride 112 H (98-107) mmol/L Glucose 72 L (74-99) mg/dL Calcium 8.3 L (8.4-10.2) mg/dL Total Protein 4.7 L (6.3-8.2) g/dL Albumin 2.4 L (3.5-5.0) g/dL Assessment and Plan Assessment: Assessment and Plan 1. Weakness: in the LE causing frequent falls. Likely related to neuropathy, possible 2/2 MTX. Start Gabapentin 300 mg PO TID. FU B12/Folate, TSH, RPR, Vit D , CPK, PT consult 2. Back pain: Lumbar strain as per physical exam. Pain management with Tylenol and [place]. Will add Lidocaine patch QD and Flexeril 5 mg PO TID PRN. FU PT consult 3. Weight loss: Likely due to chronic diarrhea, states was 134 lbs to 90 lbs over the past 4 months. Continue Levaquin and Flagyl IV for gastroenteritis. Add Ensure to diet. FU TSH, HIV, Acute Hep panel, Dietitian consult 4. Leukocytosis: WBC 11.1 with neutrophilia. Likely due to Prednisone use. No signs of infection. Daily CBC 5. Hypokalemia: K 3.4. Replace PO. Daily BMP 6. Chronic diarrhea: Unknown etiology but concern for C.diff given recent Abx use. Possibly also related to MTX use. FU Lipase, C. diff, stool for fecal fat, stool Cx, Endomysial Ab, H. pylori. 7. Anemia: Hg 10.1 Hct 33.3 MCV 99.4. Possibly related to MTX use. At baseline from previous admissions. Transfuse if Hg < 7.0. FU B12/Folate, FOBT 8. RA: Sees [facility] [employer] in [place]. Takes MTX weekly. Continue Prednisone 10 mg PO BID. 9. A-Fib: Rate controlled with Metoprolol 50 mg PO BID, Diltiazem 120 mg PO TID. AC with Xarelto 20 mg PO QD. 10. Urinary incontinence: Oxybutynin 5 mg PO BID. 11. DVT Prophylaxis: Xarelto 20 mg PO QD.
[2017-11-02] MEDS: GABAPENTIN 300 MG CAP PO SCH ×3 (11:25→21:16)
[2017-11-02 11:50] LABS: Creatine Kinase <20 U/L (30-135)
[2017-11-02] MEDS: LIDOCAINE 5% PATCH TOPICAL SCH (14:43)
[2017-11-02] MEDS ORDERED: LEVOFLOXACIN 750 MG TAB PO SCH (18:00)
[2017-11-02 19:28] LABS: Vitamin D 25 Hydroxy 19.3 ng/mL (30.0-100.0)
[2017-11-02 19:36] LABS: Folate, Serum 17.5 ng/mL
[2017-11-02 19:37] LABS: Hepatitis B Core IgM Non-Reactive (Non-Reactive)
[2017-11-02 21:38] LABS: HIV 1 AB Non-Reactive (Non-Reactive); HIV AB P24 Non-Reactive (Non-Reactive); HIV P24 AG Non-Reactive (Non-Reactive)
[2017-11-03] MEDS: HYDROcodone/APAP 5-325MG 1 EACH TAB PO PRN ×2 (02:39→11:30)
[2017-11-03] MEDS: metroNIDAZOLE-NS PMX 500 MG in SALINE 1 100ML.BAG IVPB SCH ×2 (05:56→11:02)
[2017-11-03] MEDS: SODIUM CHLORIDE 0.9% 1,000 ML IV SCH ×2 (05:57→11:09)
[2017-11-03 10:48] VITALS: BP 122/57; PULSE 64; TEMP 97
[2017-11-03] MEDS: LIDOCAINE 5% PATCH TOPICAL SCH (11:02)
[2017-11-03] MEDS: DILTIAZEM ORAL 60 MG TAB PO SCH (11:07)
[2017-11-03] MEDS: predniSONE 10 MG TAB PO SCH (11:07)
[2017-11-03] MEDS: RIVAROXABAN 20 MG TAB PO SCH (11:07)
[2017-11-03] MEDS: METOPROLOL TARTRATE 50 MG TAB PO SCH (11:07)
[2017-11-03] MEDS: OXYBUTYNIN CHLORIDE 5 MG TAB PO SCH (11:07)
[2017-11-03] MEDS: LISINOPRIL 10 MG TAB PO SCH (11:08)
[2017-11-03] MEDS: GABAPENTIN 300 MG CAP PO SCH (11:08)
[2017-11-03 11:17] LABS: Anisocytosis Slight; Basophils % (A) 0 %; Eosinophils % (A) 0 %; HCT 32.8 % (34.0-46.0); HGB 9.8 gm/dL (11.4-16.0); Hypochromasia Marked; Lymphocytes # (A) 0.9 k/uL (1.0-4.8); Lymphocytes % (A) 7 %; MCH 30.3 pg (25.0-35.0); MCHC 30.1 g/dL (31.0-37.0); MCV 100.7 fL (80.0-100.0); Macrocytosis Slight; Mean Platelet Volume 7.2; Monocytes # (A) 0.5 k/uL (0-1.0); Monocytes % (A) 4 %; Neutrophils # (A) 11.5 k/uL (1.3-7.7); Neutrophils % (A) 87 %; Platelet Count 387 k/uL (150-450); RBC 3.25 m/uL (3.80-5.40); RDW 16.8 % (11.5-15.5); WBC 13.2 k/uL (3.8-10.6)
[2017-11-03 11:27] LABS: ALT 31 U/L (9-52); AST 17 U/L (14-36); Albumin 2.5 g/dL (3.5-5.0); Alkaline Phosphatase 64 U/L (38-126); Anion Gap 5 mmol/L; Blood Urea Nitrogen 8 mg/dL (7-17); Calcium 8.2 mg/dL (8.4-10.2); Carbon Dioxide 21 mmol/L (22-30); Chloride 114 mmol/L (98-107); Glucose 127 mg/dL (74-99); Magnesium 1.7 mg/dL (1.6-2.3); Sodium 140 mmol/L (137-145); Total Bilirubin 0.2 mg/dL (0.2-1.3); Total Protein 4.7 g/dL (6.3-8.2)
[2017-11-03] MEDS ORDERED: ERGOCALCIFEROL 50,000 UNIT CAP PO SCH (12:00)
--- NOTE | 2017-11-03 12:38 | P.PN ---
Subjective Progress Note Date: 11/03/17 Principal diagnosis: Frequent falls Patient seen and examined. No acute events overnight. Nurse reports multiple bowel movements overnight, liquid water with food chunks. C. diff sample sent to the lab this morning. Patient reports improvement in her back pain. She rates her pain a 4 out of 10 in severity, from 10 out of 10 yesterday. She denies any bladder or bowel incontinence. No saddle anesthesia. She is able to ambulate from the bathroom to her bed with the aid of a rolling walker comfortably. Objective - Vital Signs Vital signs: Vital Signs Temp 98.1 F 11/03/17 00:00 Pulse 62 11/03/17 00:00 Resp 16 11/03/17 00:25 BP 119/59 11/03/17 00:00 Pulse Ox 90 L 11/02/17 14:15 Intake & Output 11/02/17 11/03/17 11/03/17 18:59 06:59 18:59 Intake Total 1860 2700 Balance 1860 2700 Weight 41.186 kg Intake: IV 800 1600 Sodium Chloride 0.9% 1, 800 1600 000 ml @ 100 mls/hr IV . Q10H [facility] Rx#:[id number] Intake, IV Titration 100 Amount metroNIDAZOLE-NS PMX 500 100 mg In Saline 1 100ml.bag @ 100 mls/hr IVPB Q8H [facility] Rx#:[id number] Oral 1060 1000 Other: Voiding Method Bedside Commode Bedside Commode # Voids 2 2 # Bowel Movements 1 2 - Exam General: [non toxic], [no distress], [appears at stated age], [underweight] Derm: [warm], [dry] Head: [atraumatic], [normocephalic], [symmetric] Eyes: [EOMI], [no lid lag], [anicteric sclera] Mouth: [no lip lesion], [mucus membranes moist] Cardiovascular: [S1S2 reg], [no murmur], [positive posterior tibial pulse bilateral] Lungs: [CTA bilateral], [no rhonchi, no rales] , [no accessory muscle use] Abdominal: [soft], [ nontender to palpation], [no guarding], [no appreciable organomegaly] Ext: [no gross muscle atrophy], [no edema], [no contractures], [decreased sensation to touch bilateral feet]. [Tenderness to palpation bilaterally of the paraspinal muscles. SLR negative.] Neuro: [ CN II-XI grossly intact], [no focal neuro deficits] Psych: [Alert], [oriented], [appropriate affect] - Labs CBC & Chem 7: 11/03/17 10:54 11/03/17 10:54 Labs: Abnormal Lab Results - Last 24 Hours (Table) 11/02/17 11/02/17 11/02/17 Range/Units 07:15 07:44 10:58 Creatine Kinase <20 L (30-135) U/L Vitamin D 25-Hydroxy 26.8 L (30.0-100.0) ng/mL Stool Lactoferrin POSITIVE H (NEGATIVE) 11/02/17 Range/Units 10:58 Creatine Kinase (30-135) U/L Vitamin D 25-Hydroxy 19.3 L (30.0-100.0) ng/mL Stool Lactoferrin (NEGATIVE) Microbiology - Last 24 Hours (Table) 11/01/17 18:14 Blood Culture - Preliminary Blood No Growth after 24 hours 11/02/17 07:15 Stool Culture - Preliminary Stool Assessment and Plan Assessment: Assessment and Plan 1. Weakness: in the LE causing frequent falls. Likely related to neuropathy, possible 2/2 MTX. Start Gabapentin 300 mg PO TID. B12 726, Folate 17.5, TSH 2.98 , CPK < 20 within normal limits. RPR negative. Vit D 19.3, will replace. Add Calcium supplementation. PT consult recommends RW and daily FU. FU PT 2. Back pain: Lumbar strain as per physical exam. Pain management with Tylenol and [place]. Will add Lidocaine patch QD and Flexeril 5 mg PO TID PRN. FU PT 3. C. difficile: C.diff +. Possibly also related to MTX use. Stool lactoferrin + , FOBT negative, Lipase within normal limits, TTG negative, stool Cx prelim negative. Chronic diarrhea (3-4 months), less likely to be infectious. Will DC with PO Vancomycin to complete total of 10 days. Will add Imodium. FU stool for fecal fat, H. pylori. 4. Weight loss: Likely due to chronic diarrhea, states was 134 lbs to 90 lbs over the past 4 months. Add Ensure to diet. TSH, HIV, Acute Hep panel negative. Dietitian consult, recommend nutritional support with Ensure Clear. FU Dietitian 5. Leukocytosis: WBC 13.2 with neutrophilia. Likely due to Prednisone use. No signs of infection. 6. HypoCl Met. Acidosis: Likely related to IVF. 7. Anemia: Hg 9.8 Hct 32.8 MCV 100.7. Likely related to MTX use. At baseline from previous admissions. FOBT negative, B12/Folate within normal limits. Transfuse if Hg < 7.0. 8. RA: Sees [employer] in [place]. Takes MTX weekly. Continue Prednisone 10 mg PO BID. 9. A-Fib: Rate controlled with Metoprolol 50 mg PO BID, Diltiazem 120 mg PO TID. AC with Xarelto 20 mg PO QD. 10. Urinary incontinence: Oxybutynin 5 mg PO BID. 11. Hypokalemia: K 3.4. Replace PO. Resolved. 12. DVT Prophylaxis: Xarelto 20 mg PO QD. Plan: C. diff +. Patient is maintaining PO intake of fluid. She denies dizziness , CP or SOB. Recommend use of RW to ambulate as per PT.
[2017-11-03] MEDS ORDERED: LOPERAMIDE 2 MG CAP PO SCH (13:00)
[2017-11-03] MEDS ORDERED: metroNIDAZOLE 500 MG TAB PO SCH (16:00)
[2017-11-03] MEDS ORDERED: CALCIUM CARB-VIT D 500MG-200UN 1 EACH TAB PO SCH (17:30)
[2017-11-06 14:23] LABS: Anti-Endomysial IgA Antibody <1:10 Titer (<1:10)
[2017-11-07 16:08] LABS: Hepatitis A Antibody IgM Negative
--- NOTE | 2017-11-14 19:27 | P.DS ---
Providers Date of admission: 11/01/17 20:22 Expected date of discharge: 11/03/17 Attending physician: Dom Wahl MD Primary care physician: Physician Nonstaff - Discharge Diagnosis(es) (1) Weakness Status: Acute (2) C. difficile colitis Status: Acute (3) Anemia Status: Acute (4) Rheumatoid arthritis Status: Acute (5) Macrocytic anemia Status: Acute (6) A-fib Status: Acute (7) Urinary incontinence Status: Acute (8) Hypokalemia Status: Acute (9) Back pain Status: Acute (10) Leukocytosis Status: Acute Hospital Course: 82-year-old female with history of A. fib on xarelto. Patient presented to the hospital due to low back pain. Patient indicated that she had multiple falls on her back most recent fall was 2-1/2 months ago, however for unknown reason her back pain has flared up today she does not have access to primary care physician in [place] as her insurance only covers in [place] but covers emergency treatments here in [place] for which she decided to come to the emergency department. 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 Patient indicates that normally she would feel that her legs are examined and that's how she falls she denies any loss of consciousness but she does admit to hitting her head couple times in the past however she again stresses that there has been no new falls over the past 2 months and a half. She has been using her walker and has been more careful when ambulating Patient also raises concerns for chronic diarrhea has been going on for 4 months she described it as anywhere between soft and loose sometimes nonbloody no mucus, light brown in color usually happens within 30 minutes after a meal every time she eats. She denies any associated abdominal pain nausea or vomiting. She reports taking a course of antibiotic for stomach bug back in May, and she was recently hospitalized less than 3 weeks ago where she was diagnosed with pneumonia and received antibiotics. Patient also reported associated weight loss of over 40 pounds since April or May. She reports upper endoscopy and colonoscopy done around May where showed the stomach bug and one polyp in her colon. Patient reports that there was no diagnosis of cancer. Patient reports good appetite otherwise and she eats a variety of food. Her weakness in the lower extremity was thought to be the cause of her frequent falls. This was likely related to her neuropathy, possibly secondary to methotrexate use. Started gabapentin 300 mg by mouth 3 times a day. B12 was 726, folate was 17.5, TSH is 2.98, CPK was less than 20 all within normal limits. RPR was negative. Vitamin D was 19.3, which was replaced. PT was consulted and recommended rolling walker with daily follow-up. Her back pain was thought to be secondary to lumbar strain as per physical exam. Her pain was managed with Tylenol, [place], Flexeril and lidocaine patch. Clostridium difficile test was performed due to her chronic diarrhea and was found to be positive. Stool lactoferrin was positive. FOBT was negative. Lipase and TTG was within normal limits. Patient was discharged on by mouth vancomycin to complete a total of 10 days. Her weight loss was thought to be secondary to her chronic diarrhea. We added ensure to her diet. TSH, HIV, acute hepatitis panel were all negative. Dietitian was consulted and recommended nutritional support with Ensure clear. Patient had a mild leukocytosis with a WBC count of 13.2 with neutrophilia on admission. This was likely due to chronic prednisone use outpatient. Pertinent Studies: CT abdomen pelvis Patient Condition at Discharge: Stable Plan - Discharge Summary Discharge Rx Participant: No New Discharge Prescriptions: New Acetaminophen Tab [Tylenol] 500 mg PO Q6HR PRN #60 tab PRN Reason: Mild Pain Or Fever > 100.5 Calcium Carb-Vit D 500Mg-200Un [Oscal 500+D] 1 each PO BID-W/MEALS #60 tab Cyclobenzaprine [Flexeril] 5 mg PO TID PRN #30 tab PRN Reason: Muscle Spasm Ergocalciferol [Vitamin D2 (DRISDOL)] 50,000 unit PO Q7D #4 cap Gabapentin [Neurontin] 100 mg PO TID #90 cap Hydrocodone/Acetaminophen [Vicodin Es 7.5-300 mg Tablet] 1 tab PO Q4HR PRN 3 Days #18 tab PRN Reason: Severe Pain Lidocaine 5% Patch [Lidoderm 5% Patch] 1 patch TOPICAL DAILY #14 patch Loperamide [Imodium] 2 mg PO QID #120 cap Vancomycin HCl 125 mg PO QID #40 capsule Continue Oxybutynin Chloride 5 mg PO BID Cyanocobalamin (Vitamin B-12) [Vitamin B-12] 1,000 mcg PO DAILY Folic Acid 0.8 mg PO DAILY Rivaroxaban [Xarelto] 20 mg PO DAILY Furosemide [Lasix] 20 mg PO DAILY Biotin 5,000 mcg PO DAILY Ascorbic Acid [Vitamin C] 1,000 mg PO DAILY predniSONE 10 mg PO BID Lisinopril [Zestril] 10 mg PO DAILY Diltiazem HCl 120 mg PO TID Metoprolol Tartrate [Lopressor] 50 mg PO BID Discontinued Cholecalciferol [Vitamin D3] 1,500 unit PO DAILY Estradiol [Estrace] 0.5 mg PO DAILY Turmeric/Turmeric Root Extract [Turmeric 450-50 mg Capsule] 2 cap PO DAILY traMADol HCL [Ultram] 50 mg PO BID PRN PRN Reason: Pain No Action Methotrexate/Pf [Rasuvo 25 mg/0.5 ml Autoinj] 25 mg SQ Q7D Hydrocodone/Acetaminophen [[place] 5-325] 1 tab PO Q6HR PRN #12 tab PRN Reason: Pain Discharge Medication List Cyanocobalamin (Vitamin B-12) [Vitamin B-12] 1,000 mcg PO DAILY 10/24/16 [ History] Folic Acid 0.8 mg PO DAILY 10/24/16 [History] Oxybutynin Chloride 5 mg PO BID 10/24/16 [History] Furosemide [Lasix] 20 mg PO DAILY 09/30/17 [History] Rivaroxaban [Xarelto] 20 mg PO DAILY 09/30/17 [History] Ascorbic Acid [Vitamin C] 1,000 mg PO DAILY 10/01/17 [History] Biotin 5,000 mcg PO DAILY 10/01/17 [History] predniSONE 10 mg PO BID 10/01/17 [History] Diltiazem HCl 120 mg PO TID 11/01/17 [History] Lisinopril [Zestril] 10 mg PO DAILY 11/01/17 [History] Metoprolol Tartrate [Lopressor] 50 mg PO BID 11/01/17 [History] Acetaminophen Tab [Tylenol] 500 mg PO Q6HR PRN #60 tab 11/03/17 [Rx] Calcium Carb-Vit D 500Mg-200Un [Oscal 500+D] 1 each PO BID-W/MEALS #60 tab 11/03 [Rx] Cyclobenzaprine [Flexeril] 5 mg PO TID PRN #30 tab 11/03/17 [Rx] Ergocalciferol [Vitamin D2 (DRISDOL)] 50,000 unit PO Q7D #4 cap 11/03/17 [Rx] Gabapentin [Neurontin] 100 mg PO TID #90 cap 11/03/17 [Rx] Hydrocodone/Acetaminophen [Vicodin Es 7.5-300 mg Tablet] 1 tab PO Q4HR PRN 3 Days #18 tab 11/03/17 [Rx] Lidocaine 5% Patch [Lidoderm 5% Patch] 1 patch TOPICAL DAILY #14 patch 11/03/17 [Rx] Loperamide [Imodium] 2 mg PO QID #120 cap 11/03/17 [Rx] Vancomycin HCl 125 mg PO QID #40 capsule 11/03/17 [Rx] Methotrexate/Pf [Rasuvo 25 mg/0.5 ml Autoinj] 25 mg SQ Q7D 11/09/17 [History] Hydrocodone/Acetaminophen [[place] 5-325] 1 tab PO Q6HR PRN #12 tab 11/10/17 [Rx] Follow up Appointment(s)/Referral(s): Nonstaff,Physician [Primary Care Provider] - 1-2 days (Please give patient information for Dr. Narayanan. CALL OFFICE ON SUNDAY TO SCHEDULE APPOINTMENT, OFFICE CLOSED AT TIME OF DISCHARGE.) Rancho Narayanan MD [STAFF PHYSICIAN] - 1-2 Days (SEE ABOVE ) Ambulatory/Diagnostic Orders: Comprehensive Metabolic Panel [LAB.AMB] Time Frame: 2 Days, Location: None Selected Magnesium [LAB.AMB] Time Frame: 2 Days, Location: None Selected Patient Instructions/Handouts: C Diff (Clostridium Difficile) Infection (DC), Chronic Diarrhea (DC), Chronic Back Pain (GEN) Activity/Diet/Wound Care/Special Instructions: Diet: Regular Please follow-up with your PCP within 1-2 days of discharge. Please take all medications as advised. Please follow-up with your rubbing bed operator once you get to [place]. Please discussed the need for Xarelto given your history of falls. Please obtain CMP and magnesium within 2 days of discharge. The results of this test should be followed up with your PCP. Discharge Disposition: HOME SELF-CARE Pending Studies Pending Results: Stool cultures
== END 2017-11-03 16:50 | disposition home or self-care (01) ==
LOC: EC 12:39 → 3SUR 20:22
PROVIDERS: ADMIT Family Medicine; ATTEND Family Medicine
DX: R53.1 Weakness (principal); S39.012A Strain of muscle, fascia and tendon of lower back, initial encounter; A04.72 Enterocolitis due to Clostridium difficile, not specified as recurrent; D64.9 Anemia, unspecified; M06.9 Rheumatoid arthritis, unspecified; I48.2 Chronic atrial fibrillation; R32 Unspecified urinary incontinence; E87.6 Hypokalemia; G89.29 Other chronic pain; G62.9 Polyneuropathy, unspecified; K21.9 Gastro-esophageal reflux disease without esophagitis; R63.4 Abnormal weight loss; E87.2 Acidosis; I10 Essential (primary) hypertension; E78.5 Hyperlipidemia, unspecified; M19.90 Unspecified osteoarthritis, unspecified site; K63.5 Polyp of colon; R29.6 Repeated falls; Z91.81 History of falling; Z79.01 Long term (current) use of anticoagulants; Z98.1 Arthrodesis status; Z87.891 Personal history of nicotine dependence; Z83.3 Family history of diabetes mellitus; Z79.899 Other long term (current) drug therapy; Z88.5 Allergy status to narcotic agent; Z79.890 Hormone replacement therapy; Z79.52 Long term (current) use of systemic steroids; Z87.01 Personal history of pneumonia (recurrent)
CPT/HCPCS: 99285; 96365; 96361 ×3; 96366 ×2; 96367; 36415; 97162; 97166; 87338; 80053 ×3; 80074; 84443; 82607; 86255; 82550; 82746; 83690; 83735 ×2; 85025 ×3; 82710; 82272; 81003; 87040; 87324; 82306; 86780; 83516 ×2; 87045; 83630; 87046; 87390; 74177; G0378 ×3; J1956; J7512 ×2; Q9967

== ENCOUNTER 2017-11-10 16:10 | Emergency (ER) | payer MEDICARE ==
--- NOTE | 2017-11-10 16:26 | ED ---
Lower Extremity Injury HPI - General Chief Complaint: Extremity Injury, Lower Stated Complaint: Hip Injury Time Seen by Provider: 11/10/17 16:18 Source: patient, RN notes reviewed Mode of arrival: wheelchair Limitations: no limitations - History of Present Illness Initial Comments: This an 82-year-old female presents emergency Department chief plan right hip pain. Patient was in the emergency department yesterday for right hip dislocation. Patient states that shortly after she went to a restaurant and her gave her slight pushed forward and she's had pain ever sent. She is concerned that is dislocated again. Patient states that she can barely move the pain is severe. Patient denies any paresthesias denies any falls. - Related Data Home Medications Medication Instructions Recorded Confirmed Cyanocobalamin (Vitamin B-12) 1,000 mcg PO DAILY 10/24/16 11/09/17 [Vitamin B-12] Folic Acid 0.8 mg PO DAILY 10/24/16 11/09/17 Oxybutynin Chloride 5 mg PO BID 10/24/16 11/09/17 Furosemide [Lasix] 20 mg PO DAILY 09/30/17 11/09/17 Rivaroxaban [Xarelto] 20 mg PO DAILY 09/30/17 11/09/17 Ascorbic Acid [Vitamin C] 1,000 mg PO DAILY 10/01/17 11/09/17 Biotin 5,000 mcg PO DAILY 10/01/17 11/09/17 predniSONE 10 mg PO BID 10/01/17 11/09/17 Diltiazem HCl 120 mg PO TID 11/01/17 11/09/17 Lisinopril [Zestril] 10 mg PO DAILY 11/01/17 11/09/17 Metoprolol Tartrate [Lopressor] 50 mg PO BID 11/01/17 11/09/17 Methotrexate/Pf [Rasuvo 25 mg/0.5 25 mg SQ Q7D 11/09/17 11/09/17 ml Autoinj] Previous Rx's Medication Instructions Recorded Acetaminophen Tab [Tylenol] 500 mg PO Q6HR PRN #60 tab 11/03/17 Calcium Carb-Vit D 500Mg-200Un 1 each PO BID-W/MEALS #60 tab 11/03/17 [Oscal 500+D] Cyclobenzaprine [Flexeril] 5 mg PO TID PRN #30 tab 11/03/17 Ergocalciferol [Vitamin D2 50,000 unit PO Q7D #4 cap 11/03/17 (DRISDOL)] Gabapentin [Neurontin] 100 mg PO TID #90 cap 11/03/17 Hydrocodone/Acetaminophen [Vicodin 1 tab PO Q4HR PRN 3 Days #18 tab 11/03/17 Es 7.5-300 mg Tablet] Lidocaine 5% Patch [Lidoderm 5% 1 patch TOPICAL DAILY #14 patch 11/03/17 Patch] Loperamide [Imodium] 2 mg PO QID #120 cap 11/03/17 Vancomycin HCl 125 mg PO QID #40 capsule 11/03/17 Hydrocodone/Acetaminophen [Skipwith 1 tab PO Q6HR PRN #12 tab 11/10/17 5-325] Allergies Allergy/AdvReac Type Severity Reaction Status Date / Time morphine AdvReac Nausea & Verified 11/10/17 16:17 Vomiting oxycodone [From OxyContin] AdvReac Nausea & Verified 11/10/17 16:17 Vomiting Review of Systems ROS Statement: Those systems with pertinent positive or pertinent negative responses have been documented in the HPI. ROS Other: All systems not noted in ROS Statement are negative. Past Medical History Past Medical History: Atrial Fibrillation, GERD/Reflux, Hyperlipidemia, Hypertension, Osteoarthritis (OA), Rheumatoid Arthritis (RA) Additional Past Medical History / Comment(s): neuropathy, back pain, History of Any Multi-Drug Resistant Organisms: None Reported Past Surgical History: Appendectomy, Back Surgery, Joint Replacement Additional Past Surgical History / Comment(s): right shoulder, right and left hip replacement, ulcer, L4/L5 fusion Past Anesthesia/Blood Transfusion Reactions: No Reported Reaction Past Psychological History: No Psychological Hx Reported Smoking Status: Former smoker Past Alcohol Use History: None Reported Past Drug Use History: None Reported - Past Family History Mother History Unknown: Yes Family Medical History: Diabetes Mellitus General Exam Limitations: no limitations General appearance: alert, in no apparent distress Head exam: Present: atraumatic, normocephalic, normal inspection Eye exam: Present: normal appearance, PERRL, EOMI. Absent: scleral icterus, conjunctival injection, periorbital swelling Respiratory exam: Present: normal lung sounds bilaterally. Absent: respiratory distress, wheezes, rales, rhonchi, stridor Cardiovascular Exam: Present: regular rate, normal rhythm, normal heart sounds. Absent: systolic murmur, diastolic murmur, rubs, gallop, clicks Extremities exam: Present: other (Patient is able to flex at the hip, patient reports pain with any range of motion right leg is neurovascular intact) Skin exam: Present: warm, dry, intact, normal color. Absent: rash Course Vital Signs 11/10/17 16:16 Temperature 98.6 F Pulse Rate 101 H Respiratory 20 Rate Blood Pressure 120/55 O2 Sat by Pulse 98 Oximetry Medical Decision Making - Medical Decision Making 82-year-old female presents emergency department for right hip pain. Patient had x-ray which shows normal alignment of prosthesis. Patient did have hip dislocation yesterday may be having some residual pain and muscle spasms related to. There is equal length patient is able to bear some weight on the right leg. She'll follow-up with orthopedics and be discharged with pain medication. Disposition Clinical Impression: Right hip pain Disposition: HOME SELF-CARE Condition: Stable Instructions: Hip Pain (ED) Additional Instructions: Please return to the Emergency Department if symptoms worsen or any other concerns. Prescriptions: Hydrocodone/Acetaminophen [Skipwith 5-325] 1 tab PO Q6HR PRN #12 tab PRN Reason: Pain Is patient prescribed a controlled substance at d/c from ED?: Yes When asked, does pt state using other controlled substances?: No If prescribed controlled substance>3 days was MAPS reviewed?: Prescribed <3 Days If opioid is for acute pain is fill amount 7 days or less?: Yes If Rx opioid, was Start Talking consent form obtained?: Yes Referrals: Nonstaff,Physician [Primary Care Provider] - 1-2 days Misael Becerra DO [Doctor of Osteopathic Medicine] - 1-2 days Time of Disposition: 17:05
[2017-11-10] MEDS ORDERED: HYDROmorphone 0.5 MG/0.5 ML SYRINGE IM STA (16:37)
--- NOTE | 2017-11-10 16:49 | XR ---
EXAMINATION TYPE: XR Hip Complete RT DATE OF EXAM: 11/10/2017 COMPARISON: 11/09/2017 HISTORY: Pain TECHNIQUE: 2 view right hip FINDINGS: There is a right hip prosthesis. No acute fractures are evident. The prosthesis articulates at the acetabulum. Vascular calcification is present. IMPRESSION: 1. No acute fractures evident.
[2017-11-10 17:33] VITALS: BP 137/60; PULSE 96; RESP 18; TEMP 97.6
== END 2017-11-10 17:33 | disposition home or self-care (01) ==
LOC: EC 16:10
DX: M25.551 Pain in right hip (principal); I48.91 Unspecified atrial fibrillation; I10 Essential (primary) hypertension; M06.9 Rheumatoid arthritis, unspecified; Z79.01 Long term (current) use of anticoagulants; Z79.51 Long term (current) use of inhaled steroids; Z79.899 Other long term (current) drug therapy; Z88.5 Allergy status to narcotic agent; Z87.891 Personal history of nicotine dependence; Z96.643 Presence of artificial hip joint, bilateral; Z96.611 Presence of right artificial shoulder joint; Z98.1 Arthrodesis status
CPT/HCPCS: 73502; 99283; 96372; J1170

== ENCOUNTER 2017-11-12 04:35 | Inpatient (IN) | payer MEDICARE ==
[2017-11-12] MEDS ORDERED: SODIUM CHLORIDE 0.9% 1,000 ML IV STA ×3 (04:38→04:45)
[2017-11-12] MEDS ORDERED: DILTIAZEM DRIP BOLUS FROM BAG 1 MG SOLN IV ONE ×4 (04:39→11:22)
[2017-11-12] MEDS: DILTIAZEM 50 MG in SODIUM CHLORIDE 0.9% 40 ML IV SCH ×4 (05:04→11:33)
[2017-11-12 05:54] LABS: Anisocytosis Slight; Basophils # (A) 0.1 k/uL (0-0.2); Basophils % (A) 0 %; Eosinophils % (A) 0 %; HCT 37.4 % (34.0-46.0); HGB 11.7 gm/dL (11.4-16.0); Hypochromasia Moderate; Lymphocytes # (A) 1.5 k/uL (1.0-4.8); Lymphocytes % (A) 6 %; MCH 29.7 pg (25.0-35.0); MCHC 31.3 g/dL (31.0-37.0); MCV 94.9 fL (80.0-100.0); Mean Platelet Volume 7.3; Monocytes % (A) 4 %; Neutrophils # (A) 21.9 k/uL (1.3-7.7); Neutrophils % (A) 88 %; Platelet Count 362 k/uL (150-450); RBC 3.94 m/uL (3.80-5.40); RDW 16.2 % (11.5-15.5); WBC 25.1 k/uL (3.8-10.6)
[2017-11-12 06:03] LABS: INR 1.7 (<1.2); Partial Thromboplastin Time 34.2 sec (22.0-30.0)
--- NOTE | 2017-11-12 06:03 | XR ---
EXAMINATION TYPE: XR pelvis AP view DATE OF EXAM: 11/12/2017 COMPARISON: 11/09/2017 HISTORY: Hip replacement. Hip pain. TECHNIQUE: Single view FINDINGS: Pelvic ring appears intact. There are bilateral hip prostheses. There is no evidence of a f racture. There is no dislocation. IMPRESSION: No fracture nor dislocation seen.
--- NOTE | 2017-11-12 06:04 | XR ---
EXAMINATION TYPE: XR chest 2V DATE OF EXAM: 11/12/2017 COMPARISON: 10/17/2017 HISTORY: Pneumonia. Heart failure. Short of breath TECHNIQUE: Frontal and lateral views of the chest are obtained. FINDINGS: There is coarse interstitial density in both lungs. There is a mild infiltrate at the late ral left lung base. Thoracic aorta is atheromatous. There is right shoulder prosthesis. There are shreyas st leads. IMPRESSION: New pulmonary interstitial infiltrates compared to last exam. New small pneumonia at the lateral left lung base. No obvious heart failure.
[2017-11-12] MEDS ORDERED: KETOROLAC 30 MG/ML 1 ML VIAL IVP STA (06:05)
[2017-11-12] MEDS ORDERED: ACETAMINOPHEN IV (For NPO) 1,000 MG in EMPTY BAG 1 BAG IVPB STA (06:05)
[2017-11-12 06:10] LABS: Albumin 2.8 g/dL (3.5-5.0); Calcium 8.6 mg/dL (8.4-10.2); Magnesium 1.7 mg/dL (1.6-2.3); Potassium 3.5 mmol/L (3.5-5.1); Total Protein 5.3 g/dL (6.3-8.2)
[2017-11-12] MEDS ORDERED: PNEUMONIA PROTOCOL UTILIZED 1 EACH MISC PO PRN (06:14)
[2017-11-12] MEDS ORDERED: PIPERACILLIN-TAZOBACTAM 3.375 GM in DEXTROSE/WATER 1 50ML.BAG IVPB STA (06:14)
[2017-11-12] MEDS ORDERED: LEVOFLOXACIN 750MG-D5W PMX 750 MG in DEXTROSE/WATER 1 150ML.BAG IVPB STA (06:14)
[2017-11-12] MEDS ORDERED: NITROGLYCERIN SL TABS 0.4 MG TAB SUBLINGUAL PRN (06:14)
--- NOTE | 2017-11-12 06:18 | ED ---
General Adult HPI - General Chief complaint: Chest Pain Stated complaint: AGUSTINA Time Seen by Provider: 11/12/17 04:38 Source: patient, family, EMS, RN notes reviewed, old records reviewed Mode of arrival: EMS Limitations: altered mental status - History of Present Illness Initial comments: This is an 8-year-old female the ER for evaluation. Patient has a for evaluation significant shortness of breath not feeling well and all over generalized body pain. Patient is mildly altered mental status history obtained from EMS and patient's chart - Related Data Home Medications Medication Instructions Recorded Confirmed Cyanocobalamin (Vitamin B-12) 1,000 mcg PO DAILY 10/24/16 11/12/17 [Vitamin B-12] Folic Acid 0.8 mg PO DAILY 10/24/16 11/12/17 Oxybutynin Chloride 5 mg PO BID 10/24/16 11/12/17 Furosemide [Lasix] 20 mg PO DAILY 09/30/17 11/12/17 Rivaroxaban [Xarelto] 20 mg PO DAILY 09/30/17 11/12/17 Ascorbic Acid [Vitamin C] 1,000 mg PO DAILY 10/01/17 11/12/17 Biotin 5,000 mcg PO DAILY 10/01/17 11/12/17 predniSONE 10 mg PO BID 10/01/17 11/12/17 Diltiazem HCl 120 mg PO TID 11/01/17 11/12/17 Lisinopril [Zestril] 10 mg PO DAILY 11/01/17 11/12/17 Metoprolol Tartrate [Lopressor] 50 mg PO BID 11/01/17 11/12/17 Methotrexate/Pf [Rasuvo 25 mg/0.5 25 mg SQ Q7D 11/09/17 11/12/17 ml Autoinj] Previous Rx's Medication Instructions Recorded Acetaminophen Tab [Tylenol] 500 mg PO Q6HR PRN #60 tab 11/03/17 Calcium Carb-Vit D 500Mg-200Un 1 each PO BID-W/MEALS #60 tab 11/03/17 [Oscal 500+D] Cyclobenzaprine [Flexeril] 5 mg PO TID PRN #30 tab 11/03/17 Ergocalciferol [Vitamin D2 50,000 unit PO Q7D #4 cap 11/03/17 (DRISDOL)] Gabapentin [Neurontin] 100 mg PO TID #90 cap 11/03/17 Hydrocodone/Acetaminophen [Vicodin 1 tab PO Q4HR PRN 3 Days #18 tab 11/03/17 Es 7.5-300 mg Tablet] Lidocaine 5% Patch [Lidoderm 5% 1 patch TOPICAL DAILY #14 patch 11/03/17 Patch] Loperamide [Imodium] 2 mg PO QID #120 cap 11/03/17 Vancomycin HCl 125 mg PO QID #40 capsule 11/03/17 Hydrocodone/Acetaminophen [[place] 1 tab PO Q6HR PRN #12 tab 11/10/17 5-325] Allergies Allergy/AdvReac Type Severity Reaction Status Date / Time morphine AdvReac Nausea & Verified 11/12/17 06:43 Vomiting oxycodone [From OxyContin] AdvReac Nausea & Verified 11/12/17 06:43 Vomiting Review of Systems ROS Statement: Those systems with pertinent positive or pertinent negative responses have been documented in the HPI. ROS Other: All systems not noted in ROS Statement are negative. Past Medical History Past Medical History: Atrial Fibrillation, GERD/Reflux, Hyperlipidemia, Hypertension, Osteoarthritis (OA), Rheumatoid Arthritis (RA) Additional Past Medical History / Comment(s): neuropathy, back pain, History of Any Multi-Drug Resistant Organisms: None Reported Past Surgical History: Appendectomy, Back Surgery, Joint Replacement Additional Past Surgical History / Comment(s): right shoulder, right and left hip replacement, ulcer, L4/L5 fusion Past Anesthesia/Blood Transfusion Reactions: No Reported Reaction Past Psychological History: No Psychological Hx Reported Smoking Status: Former smoker Past Alcohol Use History: None Reported Past Drug Use History: None Reported - Past Family History Mother History Unknown: Yes Family Medical History: Diabetes Mellitus General Exam Limitations: altered mental status General appearance: alert, in no apparent distress, anxious, in distress Head exam: Present: atraumatic, normocephalic, normal inspection Eye exam: Present: normal appearance, PERRL, EOMI. Absent: scleral icterus, conjunctival injection, periorbital swelling ENT exam: Present: normal exam, mucous membranes moist Neck exam: Present: normal inspection. Absent: tenderness, meningismus, lymphadenopathy Respiratory exam: Present: normal lung sounds bilaterally. Absent: respiratory distress, wheezes, rales, rhonchi, stridor Cardiovascular Exam: Present: tachycardia, irregular rhythm, normal heart sounds. Absent: systolic murmur, diastolic murmur, rubs, gallop, clicks GI/Abdominal exam: Present: soft, normal bowel sounds. Absent: distended, tenderness, guarding, rebound, rigid Extremities exam: Present: normal inspection, full ROM, normal capillary refill. Absent: tenderness, pedal edema, joint swelling, calf tenderness Back exam: Present: normal inspection Neurological exam: Present: alert, oriented X3, CN II-XII intact Psychiatric exam: Present: normal affect, normal mood Skin exam: Present: warm, dry, intact, normal color. Absent: rash Course Vital Signs 11/12/17 11/12/17 11/12/17 04:40 05:04 05:39 Temperature 102.1 F H Pulse Rate 144 H 118 H Respiratory 22 20 20 Rate Blood Pressure 157/63 125/57 O2 Sat by Pulse 100 98 Oximetry 11/12/17 06:53 Temperature 100.1 F H Pulse Rate 112 H Respiratory 20 Rate Blood Pressure 120/53 O2 Sat by Pulse 96 Oximetry - Reevaluation(s) Reevaluation #1: 11/12/17 06:59 Patient showing improvement with fever control, hydration and heart rate control EKG Findings - EKG Comments: EKG Findings:: EKG shows sinus tachycardia rate of 119, AK 160, QRS 06, QTc 450 Medical Decision Making - Medical Decision Making 82 female the ER with fever, altered mental state, A. fib with RVR and pneumonia. Patient will be admitted for treatment of the above - Lab Data Result diagrams: 11/12/17 05:33 11/12/17 05:33 Lab Results 11/12/17 11/12/17 11/12/17 Range/Units 05:33 05:33 05:33 WBC 25.1 H (3.8-10.6) k/uL RBC 3.94 (3.80-5.40) m/uL Hgb 11.7 (11.4-16.0) gm/dL Hct 37.4 (34.0-46.0) % MCV 94.9 (80.0-100.0) fL MCH 29.7 (25.0-35.0) pg MCHC 31.3 (31.0-37.0) g/dL RDW 16.2 H (11.5-15.5) % Plt Count 362 (150-450) k/uL Neutrophils % 88 % Lymphocytes % 6 % Monocytes % 4 % Eosinophils % 0 % Basophils % 0 % Neutrophils # 21.9 H (1.3-7.7) k/uL Lymphocytes # 1.5 (1.0-4.8) k/uL Monocytes # 1.0 (0-1.0) k/uL Eosinophils # 0.0 (0-0.7) k/uL Basophils # 0.1 (0-0.2) k/uL Hypochromasia Moderate Anisocytosis Slight PT (9.0-12.0) sec INR (<1.2) APTT (22.0-30.0) sec Sodium 140 (137-145) mmol/L Potassium 3.5 (3.5-5.1) mmol/L Chloride 104 (98-107) mmol/L Carbon Dioxide 28 (22-30) mmol/L Anion Gap 8 mmol/L BUN 12 (7-17) mg/dL Creatinine 0.74 (0.52-1.04) mg/dL Est GFR (CKD-EPI)AfAm 88 (>60 ml/min/1.73 sqM) Est GFR (CKD-EPI)NonAf 76 (>60 ml/min/1.73 sqM) Glucose 80 (74-99) mg/dL Plasma Lactic Acid Alex (0.7-2.0) mmol/L Calcium 8.6 (8.4-10.2) mg/dL Magnesium 1.7 (1.6-2.3) mg/dL Total Bilirubin 1.0 (0.2-1.3) mg/dL AST 36 (14-36) U/L ALT 33 (9-52) U/L Alkaline Phosphatase 93 (38-126) U/L Total Creatine Kinase 335 H (30-135) U/L NT-Pro-B Natriuret Pep pg/mL Total Protein 5.3 L (6.3-8.2) g/dL Albumin 2.8 L (3.5-5.0) g/dL Lipase 14 L (23-300) U/L 11/12/17 11/12/17 11/12/17 Range/Units 05:33 05:33 05:33 WBC (3.8-10.6) k/uL RBC (3.80-5.40) m/uL Hgb (11.4-16.0) gm/dL Hct (34.0-46.0) % MCV (80.0-100.0) fL MCH (25.0-35.0) pg MCHC (31.0-37.0) g/dL RDW (11.5-15.5) % Plt Count (150-450) k/uL Neutrophils % % Lymphocytes % % Monocytes % % Eosinophils % % Basophils % % Neutrophils # (1.3-7.7) k/uL Lymphocytes # (1.0-4.8) k/uL Monocytes # (0-1.0) k/uL Eosinophils # (0-0.7) k/uL Basophils # (0-0.2) k/uL Hypochromasia Anisocytosis PT 16.0 H (9.0-12.0) sec INR 1.7 H (<1.2) APTT 34.2 H (22.0-30.0) sec Sodium (137-145) mmol/L Potassium (3.5-5.1) mmol/L Chloride (98-107) mmol/L Carbon Dioxide (22-30) mmol/L Anion Gap mmol/L BUN (7-17) mg/dL Creatinine (0.52-1.04) mg/dL Est GFR (CKD-EPI)AfAm (>60 ml/min/1.73 sqM) Est GFR (CKD-EPI)NonAf (>60 ml/min/1.73 sqM) Glucose (74-99) mg/dL Plasma Lactic Acid Alex 1.2 (0.7-2.0) mmol/L Calcium (8.4-10.2) mg/dL Magnesium (1.6-2.3) mg/dL Total Bilirubin (0.2-1.3) mg/dL AST (14-36) U/L ALT (9-52) U/L Alkaline Phosphatase (38-126) U/L Total Creatine Kinase (30-135) U/L NT-Pro-B Natriuret Pep 672 pg/mL Total Protein (6.3-8.2) g/dL Albumin (3.5-5.0) g/dL Lipase (23-300) U/L - Radiology Data Radiology results: report reviewed (Chest x-ray is positive for pneumonia), image reviewed Critical Care Time Critical Care Time: Yes Total Critical Care Time: 31 Disposition Clinical Impression: Acute hypoxemic respiratory failure, Right hip pain, Atrial fibrillation with rapid ventricular response, Nosocomial pneumonia Disposition: ADMITTED IP TO THIS HOSP Condition: Serious Is patient prescribed a controlled substance at d/c from ED?: No
[2017-11-12 06:36] LABS: Creatine Kinase MB 1.4 ng/mL (0.0-2.4)
[2017-11-12 07:04] LABS: Troponin I 0.074 ng/mL (0.000-0.034)
[2017-11-12 07:31] LABS: Appearance,Urine Clear (Clear); Bilirubin,Urine Negative (Negative); Blood,Urine Negative (Negative); Color,Urine Yellow; Glucose,Urine (UA) Negative (Negative); Hyaline Casts,Urine 3 /lpf (0-2); Ketones,Urine 1+ (Negative); Leukocyte Esterase,Urine Trace (Negative); Mucus,Urine Rare /hpf; Nitrite,Urine Negative (Negative); Protein,Urine Trace (Negative); RBC,Urine 3 /hpf (0-5); Specific Gravity,Urine 1.011 (1.001-1.035); Squamous Epithelial Cell,Urine 3 /hpf (0-4); Urobilinogen,Urine <2.0 mg/dL (<2.0); WBC,Urine 7 /hpf (0-5)
[2017-11-12] MEDS: SODIUM CHLORIDE 0.9% 1,000 ML IV SCH ×2 (07:48→16:08)
[2017-11-12] MEDS ORDERED: PNEUMOCOCCAL VACC-PNEUMOVAX 23 25 MCG/0.5 ML VIAL IM ONE (08:56)
--- NOTE | 2017-11-12 10:03 | P.CRDCN ---
History of Present Illness Consult date: 11/12/17 Requesting physician: Jerel Olmos Consult reason: atrial fibrillation Chief complaint: Mental status changes History of present illness: This is an 82-year-old female with history of COPD and atrial arrhythmia, hypertension, rheumatoid arthritis, hyperlipidemia, history was obtained from the mostly who is at bedside, patient was able to give a mild history. According to the , patient became incoherent at home, he states that she was also noted to be running a fever. She had recently been in the hospital in September of this year with pneumonia. According to the , she takes a Vicodin for chronic back pain, every time she takes one of these pills she becomes confused, has hallucinations. She did get a Vicodin prior to this episode happening as well. The patient had an echocardiogram with Doppler study performed in September of this year which revealed an ejection fraction of 55- 60%, moderate mitral regurg, moderate to severe tricuspid regurg. She also underwent a transesophageal echocardiographic study by Dr. 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 Moderate to severe mitral regurgitation, moderate to severe tricuspid regurgitation. No shunting across the intra-atrial septum. EKG shows what appears to be a multifocal atrial tachycardia. Chest x-ray shows new pulmonary interstitial infiltrates as compared with prior exam. New small pneumonia at the lateral left lung base with no obvious heart failure. Pelvic x-ray does not reveal any acute fracture or dislocation. White blood cell count on admission 25.1, hemoglobin 11.7, platelet count 362. INR 1.7. Sodium 140, potassium 3.5, BUN 12, creatinine 0.7. BNP level 672. Troponin 0.074. At the time of my examination this morning, patient states that she still feels mildly Confused however does answer most questions appropriately. She continues to be in a multifocal atrial tachycardia, with a heart rate in the 140 range, on Cardizem. Past Medical History Past Medical History: Atrial Fibrillation, COPD, GERD/Reflux, Hyperlipidemia, Hypertension, Osteoarthritis (OA), Pneumonia, Rheumatoid Arthritis (RA) Additional Past Medical History / Comment(s): Afib with RVR, pneumonias, sepsis , diarrhea for 3 months but slowed down lately, duodenal ulcer with partial gastrectomy, protein calorie malnutrition, anemia, chronic low back pain, past L7 compression fracture, neuropathy bilateral legs, falls, urinary incontinence. History of Any Multi-Drug Resistant Organisms: None Reported Past Surgical History: Appendectomy, Back Surgery, Joint Replacement, Orthopedic Surgery Additional Past Surgical History / Comment(s): L4-L5 fusion, partial gastrectomy , EGDs/colonoscopies, bilateral shoulder arthroscopies for rotator cuff repairs , total reverse R shoulder, bilateral total hip arthroplasties, YOAN. Past Anesthesia/Blood Transfusion Reactions: No Reported Reaction Smoking Status: Former smoker - Past Family History Mother History Unknown: Yes Family Medical History: Diabetes Mellitus Father Family Medical History: Congestive Heart Failure (CHF) Medications and Allergies Home Medications Medication Instructions Recorded Confirmed Type Cyanocobalamin (Vitamin B-12) 1,000 mcg PO DAILY 10/24/16 11/12/17 History [Vitamin B-12] Folic Acid 0.8 mg PO DAILY 10/24/16 11/12/17 History Oxybutynin Chloride 5 mg PO BID 10/24/16 11/12/17 History Furosemide [Lasix] 20 mg PO DAILY 09/30/17 11/12/17 History Rivaroxaban [Xarelto] 20 mg PO DAILY 09/30/17 11/12/17 History Ascorbic Acid [Vitamin C] 1,000 mg PO DAILY 10/01/17 11/12/17 History Biotin 5,000 mcg PO DAILY 10/01/17 11/12/17 History predniSONE 10 mg PO BID 10/01/17 11/12/17 History Diltiazem HCl 120 mg PO TID 11/01/17 11/12/17 History Lisinopril [Zestril] 10 mg PO DAILY 11/01/17 11/12/17 History Metoprolol Tartrate [Lopressor] 50 mg PO BID 11/01/17 11/12/17 History Acetaminophen Tab [Tylenol] 500 mg PO Q6HR PRN #60 tab 11/03/17 11/12/17 Rx Calcium Carb-Vit D 500Mg-200Un 1 each PO BID-W/MEALS #60 tab 11/03/17 11/12/17 Rx [Oscal 500+D] Cyclobenzaprine [Flexeril] 5 mg PO TID PRN #30 tab 11/03/17 11/12/17 Rx Ergocalciferol [Vitamin D2 50,000 unit PO Q7D #4 cap 11/03/17 11/12/17 Rx (DRISDOL)] Gabapentin [Neurontin] 100 mg PO TID #90 cap 11/03/17 11/12/17 Rx Hydrocodone/Acetaminophen [Vicod[place] 1 tab PO Q4HR PRN 3 Days #18 tab 11/03/1712/20 Rx Es 7.5-300 mg Tablet] Lidocaine 5% Patch [Lidoderm 5% 1 patch TOPICAL DAILY #14 patch 11/03/17 Rx Patch] Loperamide [Imodium] 2 mg PO QID #120 cap 11/03/17 11/12/17 Rx Vancomycin HCl 125 mg PO QID #40 capsule 11/03/17 11/12/17 Rx Methotrexate/Pf [Rasuvo 25 mg/0.5 25 mg SQ Q7D 11/09/17 11/12/17 History ml Autoinj] Hydrocodone/Acetaminophen [[place] 1 tab PO Q6HR PRN #12 tab 11/10/17 11/12/17 Rx 5-325] Allergies Allergy/AdvReac Type Severity Reaction Status Date / Time morphine AdvReac Nausea & Verified 11/12/17 06:43 Vomiting oxycodone [From OxyContin] AdvReac Nausea & Verified 11/12/17 06:43 Vomiting Physical Exam Vitals: Vital Signs Temp Pulse Pulse Resp BP BP Pulse Ox 11/12/17 07:30 98.7 F 90 16 90/51 97 11/12/17 07:25 116 H 18 100/55 96 11/12/17 06:53 100.1 F H 112 H 20 120/53 96 11/12/17 05:39 118 H 20 125/57 98 11/12/17 05:04 20 11/12/17 04:40 102.1 F H 144 H 22 157/63 100 Intake and Output 11/11/17 11/12/17 11/12/17 22:59 06:59 14:59 Intake Total 11 Balance 11 Intake: Intake, IV Titration 11 Amount Diltiazem 50 mg In Sodium 11 Chloride 0.9% 40 ml @ 5 MG/HR 5 mls/hr IV .Q10H [facility] Rx#:[id number] Other: Weight 44.4 kg PHYSICAL EXAMINATION: GENERAL: 82-year-old female, mildly confused, in no acute distress at the time of my examination HEENT: Head is atraumatic, normocephalic. Pupils equal, round. Sclera anicteric. Conjunctiva are clear. Mucous membranes of the mouth are moist. Neck is supple. There is elevated jugular venous pressure. No carotid bruit is heard. HEART EXAMINATION: Heart S1-S2 irregularly irregular systolic murmur is heard CHEST EXAMINATION: Lungs reveal crackles bilaterally. ABDOMEN: [ Soft, nontender. Bowel sounds are heard. No organomegaly noted]. EXTREMITIES:[ 2+ peripheral pulses with no evidence of peripheral edema and no calf tenderness noted]. NEUROLOGIC [patient is awake, alert and oriented X2 Results 11/12/17 05:33 11/12/17 05:33 Cardiac Enzymes 11/12/17 11/12/17 Range/Units 05:33 05:33 AST 36 (14-36) U/L CK-MB (CK-2) 1.4 (0.0-2.4) ng/mL Troponin I 0.074 H* (0.000-0.034) ng/mL Coagulation 11/12/17 Range/Units 05:33 PT 16.0 H (9.0-12.0) sec APTT 34.2 H (22.0-30.0) sec CBC 11/12/17 Range/Units 05:33 WBC 25.1 H (3.8-10.6) k/uL RBC 3.94 (3.80-5.40) m/uL Hgb 11.7 (11.4-16.0) gm/dL Hct 37.4 (34.0-46.0) % Plt Count 362 (150-450) k/uL Comprehensive Metabolic Panel 11/12/17 Range/Units 05:33 Sodium 140 (137-145) mmol/L Potassium 3.5 (3.5-5.1) mmol/L Chloride 104 (98-107) mmol/L Carbon Dioxide 28 (22-30) mmol/L BUN 12 (7-17) mg/dL Creatinine 0.74 (0.52-1.04) mg/dL Glucose 80 (74-99) mg/dL Calcium 8.6 (8.4-10.2) mg/dL AST 36 (14-36) U/L ALT 33 (9-52) U/L Alkaline Phosphatase 93 (38-126) U/L Total Protein 5.3 L (6.3-8.2) g/dL Albumin 2.8 L (3.5-5.0) g/dL Current Medications Generic Name Dose Route Start Last Admin Trade Name Freq PRN Reason Stop Dose Admin Albuterol/Ipratropium 3 ml 11/12/17 08:00 Duoneb 0.5 Mg-3 Mg/3 Ml Soln INHALATION RT-QID [facility] Aspirin 325 mg 11/13/17 09:00 Aspirin PO DAILY [facility] Diltiazem HCl 50 mg/ Sodium 50 mls @ 10 mls/hr 11/12/17 04:45 11/12/17 07:16 Chloride IV 5 mg/hr .Q5H [facility] 5 mls/hr Administration 10 MG/HR Sodium Chloride 1,000 mls @ 100 mls/hr 11/12/17 04:38 11/12/17 05:14 Saline 0.9% IV 11/12/17 14:37 100 mls/hr .Q10H [facility] Administration Piperacillin/Tazobactam/ 50 mls @ 12.5 mls/hr 11/12/17 06:14 11/12/17 07:07 Dextrose 3.375 gm/ IV Solution IVPB 11/12/17 10:13 12.5 mls/hr ONCE STA Administration Piperacillin/Tazobactam/ 50 mls @ 12.5 mls/hr 11/12/17 13:00 Dextrose 3.375 gm/ IV Solution IVPB Q8H [facility] Sodium Chloride 1,000 mls @ 100 mls/hr 11/12/17 06:15 11/12/17 07:48 Saline 0.9% IV Not Given .Q10H [facility] Levofloxacin 750 mg/ IV 150 mls @ 100 mls/hr 11/12/17 11:00 Solution IVPB 11/25/17 11:01 Q24H [facility] Miscellaneous Information 1 each 11/12/17 06:14 Pneumonia Protocol Utilized PO ONCE PRN Per Protocol Nitroglycerin 0.4 mg 11/12/17 06:14 Nitrostat SUBLINGUAL Q5M PRN Chest Pain Intake and Output 11/11/17 11/12/17 11/12/17 22:59 06:59 14:59 Intake Total 11 Balance 11 Intake: Intake, IV Titration 11 Amount Diltiazem 50 mg In Sodium 11 Chloride 0.9% 40 ml @ 5 MG/HR 5 mls/hr IV .Q10H [facility] Rx#:[id number] Other: Weight 44.4 kg 11/12/17 05:33 11/12/17 05:33 EKG Interpretations (text) EKG shows a multifocal atrial tachycardia Assessment and Plan Plan: Assessment plan #1, could also be secondary to the fact the patient had taken a Vicodin just prior #2 pneumonia #3 history of hypertension #4 history of hyperlipidemia #5 moderate to severe mitral regurg and tricuspid regurg, patient had an echocardiogram with Doppler study performed in September which revealed a normal left ventricular systolic function, moderate to severe tricuspid regurgitation noted with moderate MR, YOAN performed in October of this year showed moderate to severe mitral regurgitation and moderate to severe tricuspid regurgitation with moderate mitral annulus calcification with calcification noted consistent with 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 #6 COPD #7 rheumatoid arthritis #8 multifocal atrial tachycardia #9 abnormal troponin, most likely representing a type II events Plan We will give an additional 5 mg bolus of IV Cardizem and increase the drip to 10. Patient does not need a repeat gram with Doppler study is one was just performed in September of this year. Further recommendations to follow. DNP note has been reviewed, I agree with a documented findings and plan of care. Patient was seen and examined.
[2017-11-12] MEDS ORDERED: CYCLOBENZAPRINE 5 MG TAB PO PRN (10:14)
[2017-11-12] MEDS ORDERED: ACETAMINOPHEN TAB 500 MG TAB PO PRN (10:14)
[2017-11-12] MEDS ORDERED: METHOTREXATE 25 MG SQ SCH (10:15)
[2017-11-12] MEDS ORDERED: LEVOFLOXACIN 750MG-D5W PMX 750 MG in DEXTROSE/WATER 1 150ML.BAG IVPB SCH (11:00)
[2017-11-12] MEDS: LOPERAMIDE 2 MG CAP PO SCH ×3 (11:17→21:17)
[2017-11-12] MEDS ORDERED: FUROSEMIDE 10 MG/ML 2 ML VIAL IV ONE (11:25)
[2017-11-12 12:32] LABS: Creatine Kinase MB 2.2 ng/mL (0.0-2.4)
[2017-11-12 12:45] LABS: Troponin I 0.063 ng/mL (0.000-0.034)
[2017-11-12] MEDS ORDERED: DEXTROSE 5% IN WATER 100 ML with AMIODARONE 150 MG IV ONE (13:00)
[2017-11-12] MEDS: AMIODARONE 450 MG in DEXTROSE 5% IN WATER 250 ML IV SCH ×4 (13:26→21:14)
[2017-11-12] MEDS: PIPERACILLIN-TAZOBACTAM 3.375 GM in DEXTROSE/WATER 1 50ML.BAG IVPB SCH ×2 (13:46→21:14)
[2017-11-12] MEDS: VANCOMYCIN ORAL SOLUTION 250 MG/5 ML BOTTLE PO SCH ×3 (13:46→20:12)
[2017-11-12] MEDS: IPRATROPIUM-ALBUTEROL 3 ML NEB INHALATION SCH ×4 (13:50→21:02)
[2017-11-12] MEDS ORDERED: DILTIAZEM HCL 120 MG PO SCH (16:00)
[2017-11-12] MEDS: GABAPENTIN 100 MG CAP PO SCH ×2 (16:11→21:17)
[2017-11-12 18:02] LABS: Creatine Kinase MB 3.9 ng/mL (0.0-2.4)
[2017-11-12 18:10] LABS: Troponin I 0.25 ng/mL (0.000-0.034)
--- NOTE | 2017-11-12 18:44 | HP ---
HISTORY AND PHYSICAL CHIEF COMPLAINT: Possible sepsis with fever and confusion along with weakness and decreased urinary output. HISTORY OF PRESENT ILLNESS: This is another recent admission for this 82-year-old white female. She was here about a month ago and was treated for pneumonia. She developed the above-mentioned symptoms and was brought to the emergency room by her and diagnosed as having atrial fibrillation with rapid ventricular response and pneumonia once again. She has had no chest pain, hemoptysis, etc. REVIEW OF SYSTEMS: She denies any neurologic problems, palpitations, chest pain, orthopnea, abdominal pain. No nausea, vomiting, hematemesis, melena, hematochezia, jaundice, renal disease, dysuria, frequency, urgency, incontinence, etc. PAST MEDICAL HISTORY: She is not allergic to any medication. She has had surgeries in the past, which include procedures on each shoulder and both hips and she has had a subtotal gastrectomy in the past. At home she has been on vitamin C, biotin, calcium, vitamin B12, and vitamin D2, Gomez catheter, Vicodin 7.5 q.4 hours, Tylenol, Flexeril, diltiazem 120 once a day, Lasix 20 mg once a day, Gabapentin 100 mg t.i.d., lidocaine patch, lisinopril 10 mg once a day, Imodium 2 q.i.d. p.r.n., methotrexate once a week, metoprolol 50 mg b.i.d., oxybutynin 5 mg b.i.d., prednisone 10 mg twice a day, rivaroxaban 20 mg daily, and vancomycin 125 orally q.i.d. EKG suggests atrial fibrillation. LABORATORY DATA: Laboratory studies revealed reveal white count 5100. The troponin was elevated and urine demonstrate occasional white blood cells. The chest x-ray suggested a new, small infiltrate at the left base. She does not smoke or drink. PHYSICAL EXAM: Blood pressure is 93/65 with a pulse of 135, irregularly irregular, respirations 16, temperature 97. In general she appeared to be slender, pale and in no acute distress. Head, ears, eyes, nose, mouth, and throat were normal and neck veins not distended. The chest demonstrated occasional rales at bases. Cardiac exam demonstrated tachycardia and sounds as though she had atrial fibrillation. Abdomen is soft, nontender and there are no masses. Extremities are normal. Neurologically she is intact. She is admitted to the hospital with diagnoses: 1. Possible sepsis. 2. Left lower lobe pneumonitis. 3. Atrial fibrillation. PLAN: 1. Bed rest. 2. IV fluids. 3. Updrafts. 4. IV antibiotics. MAYE / REYNOLD: [id number] /
[2017-11-12] MEDS: METOPROLOL TARTRATE 50 MG TAB PO SCH (20:06)
[2017-11-12 20:08] LABS: Anisocytosis Slight; HCT 33.5 % (34.0-46.0); HGB 10.3 gm/dL (11.4-16.0); Hypochromasia Marked; MCH 30.2 pg (25.0-35.0); MCHC 30.6 g/dL (31.0-37.0); MCV 98.7 fL (80.0-100.0); Macrocytosis Slight; Mean Platelet Volume 6.8; Platelet Count 300 k/uL (150-450); RDW 16.2 % (11.5-15.5); WBC 27.1 k/uL (3.8-10.6)
[2017-11-12] MEDS ORDERED: RX INFO: IV CONTRAST WAS GIVEN 1 EACH MISC MISCELLANE PRN (21:06)
[2017-11-12] MEDS: LACTATED RINGERS 1,000 ML IV SCH ×3 (21:15→23:18)
[2017-11-12] MEDS: OXYBUTYNIN CHLORIDE 5 MG TAB PO SCH (21:17)
[2017-11-12] MEDS: predniSONE 10 MG TAB PO SCH (21:17)
[2017-11-12] MEDS: HYDROcodone/APAP 5-325MG 1 EACH TAB PO PRN (21:44)
--- NOTE | 2017-11-12 22:30 | CT ---
EXAMINATION TYPE: CT brain wo/w con DATE OF EXAM: 11/12/2017 COMPARISON: None HISTORY: Confusion CT DLP: mGycm Automated exposure control for dose reduction was used. CONTRAST: Isovue 100 mL FINDINGS: There is cerebral cortical atrophy. There is no mass effect nor midline shift. There is no sign of in tracranial hemorrhage. There is moderate hypodensity in the periventricular white matter. Calvarium i s intact. There is no pathologic enhancement. Sella turcica appears normal. IMPRESSION: Cerebral atrophy and chronic small vessel ischemia. No acute intracranial abnormality.
[2017-11-13] MEDS ORDERED: FUROSEMIDE 10 MG/ML 2 ML VIAL IV STA (00:07)
[2017-11-13] MEDS ORDERED: FUROSEMIDE 10 MG/ML 2 ML VIAL ONE (00:16)
--- NOTE | 2017-11-13 01:53 | XR ---
EXAMINATION TYPE: XR chest 1V portable DATE OF EXAM: 11/13/2017 COMPARISON: Yesterday HISTORY: Hypoxemia TECHNIQUE: Single frontal view of the chest is obtained. FINDINGS: There is pulmonary vascular congestion. There is some blunting of costophrenic angles. The re is right shoulder prosthesis. There are chest leads. IMPRESSION: There is mild congestive heart failure with small pleural effusions. Chest appears worse than yesterday.
[2017-11-13] MEDS: SODIUM CHLORIDE 0.9% 1,000 ML IV SCH ×3 (02:00→21:50)
[2017-11-13] MEDS: PIPERACILLIN-TAZOBACTAM 3.375 GM in DEXTROSE/WATER 1 50ML.BAG IVPB SCH (04:28)
[2017-11-13] MEDS: AMIODARONE 450 MG in DEXTROSE 5% IN WATER 250 ML IV SCH ×4 (04:30→16:45)
[2017-11-13] MEDS: RIVAROXABAN 20 MG TAB PO SCH (06:26)
[2017-11-13] MEDS ORDERED: LEVOFLOXACIN 750MG-D5W PMX 750 MG in DEXTROSE/WATER 1 150ML.BAG IVPB SCH (06:30)
[2017-11-13 06:47] LABS: Cholesterol 94 mg/dL (<200); HDL Cholesterol 26 mg/dL (40-60); LDL Cholesterol,Calculated 53 mg/dL (0-99); Triglycerides 76 mg/dL (<150)
[2017-11-13] MEDS: IPRATROPIUM-ALBUTEROL 3 ML NEB INHALATION SCH ×4 (07:31→20:17)
[2017-11-13] MEDS ORDERED: ASPIRIN 325 MG TAB PO SCH (09:00)
[2017-11-13] MEDS: ASPIRIN 81 MG PO SCH (10:12)
[2017-11-13] MEDS: VANCOMYCIN ORAL SOLUTION 250 MG/5 ML BOTTLE PO SCH ×4 (10:12→21:26)
[2017-11-13] MEDS: LOPERAMIDE 2 MG CAP PO SCH ×4 (10:13→21:27)
[2017-11-13] MEDS: METOPROLOL TARTRATE 50 MG TAB PO SCH ×2 (10:13→21:26)
[2017-11-13] MEDS: predniSONE 10 MG TAB PO SCH ×2 (10:13→21:27)
[2017-11-13] MEDS: OXYBUTYNIN CHLORIDE 5 MG TAB PO SCH ×2 (10:13→21:27)
[2017-11-13] MEDS: FUROSEMIDE 20 MG TAB PO SCH (10:14)
[2017-11-13] MEDS: LISINOPRIL 10 MG TAB PO SCH (10:14)
[2017-11-13] MEDS: GABAPENTIN 100 MG CAP PO SCH ×3 (10:14→21:27)
[2017-11-13] MEDS: LIDOCAINE 5% PATCH TOPICAL SCH (10:15)
--- NOTE | 2017-11-13 10:49 | CDI ---
Last Revision, February 2017 Documentation Clarification Form Date: 11/13/2017 10:30:12 AM From: Radha Murillo RN, CCDS Admit Date: 11/12/2017 6:15:00 AM Patient Name: Carmen Lenz Visit Number: [id number] ATTENTION: The Clinical Documentation Specialists (CDI) and [facility] Coding Staff appreciate your assistance in clarifying documentation. Please respond to the clarification below the line at the bottom and electronically sign. The CDI & [facility] Coding staff will review the response and follow-up if needed. Please note: Queries are made part of the Legal Health Record. If you have any questions, please contact the author of this message via ITS. Dr. KAUFMAN, Jerel Leong MD History/Risk Factors: Confusion with hallucinations and weakness new onset, Atrial Fib, COPD, Pneumonia Tobacco use: former smoker Clinical Indicators: 11/13 H&P: Sepsis left lower lobe pneumonitis, atrial tachycardia this admission Vital signs on admission: Temp 102.1, HR 144, RR 22, B/P 157/63, Spo2 100% 4L NC Pulse oximetry: 93-100% documented by nursing, yet O2 is increased from 4L to 7L High Flow nasal cannula 11/12 H&P: Lung/Breathing assessment: "The chest demonstrated occasional rales at bases." Treatment: Breathing TX: Duoneb QID Continuous Pulse ox: per unit protocol O2: 4l NC weaned to 2l NC increased 7L high flow NC In your professional opinion, can you please clarify if these findings signify one of the following conditions? Acuity: Acute Acute on Chronic Specificity: Respiratory Failure, further specify (if known): With hypercapnia? With hypoxia? Respiratory Distress Other Diagnosis, please specify Unable to determine Please continue to document in your progress notes and discharge summary in order to capture severity of illness and risk of mortality. Include clinical findings that support your diagnosis. MTDD
--- NOTE | 2017-11-13 11:02 | CDI ---
Last Revision, February 2017 Documentation Clarification Form Date: 11/13/2017 10:49:49 AM From: Radha Murillo RN, CCDS Admit Date: 11/12/2017 6:15:00 AM Patient Name: Carmen Lenz Visit Number: [id number] ATTENTION: The Clinical Documentation Specialists (CDI) and [facility] Coding Staff appreciate your assistance in clarifying documentation. Please respond to the clarification below the line at the bottom and electronically sign. The CDI & [facility] Coding staff will review the response and follow-up if needed. Please note: Queries are made part of the Legal Health Record. If you have any questions, please contact the author of this message via ITS. Jerel Mcintosh MD Altered mental status was documented in the EN Notes and requires further specificity based on the patients documented co-morbid conditions. Patient history/risk factors: Atrial Fib, COPD, HTN, Pneumonia, RA, Diarrhea x 3 months, PCM, anemia Clinical Indicators: 11/12 H&P: "Possible sepsis with fever and confusion along with weakness and decreased urinary output." 11/12 ED: "Limitations: altered mental status, Patient is mildly altered mental status history obtained from EMS and patient's chart. General Exam: Limitations : altered mental status Medical Decision Makin female the ER with fever, altered mental state, A. fibs with RVR and pneumonia." Labs: WBC 25.1/27.1, Neutrophils 21.9, Plasma Lactic Acid 1.2/2.5/1.4 w sepsis reflex, Total CK 335/465/480 11/13/17 CXR: "mild congestive heart failure with small pleural effusions. Chest appears worse than yesterday." CT Brain: "Cerebral atrophy and chronic small vessel ischemia. No acute intracranial abnormality. " Treatment: Iv Cardizem and Amio Gtt's Lasix IVP Duoneb Updrafts Iv Levaquin, IV Zosyn, Po Vanco 2L IVF Bolus followed by 100 cc/hr In your professional opinion, please clarify the etiology of the altered mental status, if known. Encephalopathy (specify Type- Metabolic, Toxic, Anoxic, Septic and Underlying Medical Illness) Dementia (if know, specify Type and if with/without Behavioral Disturbance) Other condition (please specify) Unable to determine Please continue to document in your progress notes and discharge summary in order to capture severity of illness and risk of mortality. Include clinical findings that support your diagnosis. MTDD
--- NOTE | 2017-11-13 11:11 | CDI ---
Last Revision, February 2017 Documentation Clarification Form Date: 11/13/2017 11:03:16 AM From: Radha Murillo RN, CCDS Admit Date: 11/12/2017 6:15:00 AM Patient Name: Carmen Lenz Visit Number: [id number] ATTENTION: The Clinical Documentation Specialists (CDI) and [facility] Coding Staff appreciate your assistance in clarifying documentation. Please respond to the clarification below the line at the bottom and electronically sign. The CDI & [facility] Coding staff will review the response and follow-up if needed. Please note: Queries are made part of the Legal Health Record. If you have any questions, please contact the author of this message via ITS. Dr. KAUFMAN, Jerel Leong MD Protein calorie malnutrition is documented in the PMH and requires further specificity. History/Risk Factors: Falls, COPD, Atrial Fib, Diarrhea x 3 weeks, partial gastrectomy Clinical Indicators: Labs: Albumin/ Total Protein: 2.8/5.3 Current BMI: 18.6 Insufficient energy intake: confused, altered mental status, weakness Per dietary consult: Pt appears underweight Loss of subcutaneous fat: pt has multiple skin abrasions and tears from frequent falls at home Loss of muscle mass: pt is weak requires physical assistance for ADLs Fluid accumulation: bilateral lower extremity edema Treatment: Dietary Consult: Completed 11/12/17 1528 Supplements: none ordered Regular diet Lab monitoring daily In your professional opinion, can you please clarify if these findings signify one of the following conditions? Mild Protein-Calorie Malnutrition Moderate Protein-Calorie Malnutrition Severe Protein-Calorie Malnutrition Malnutrition following GI surgery Other condition, please specify Unable to determine Please continue to document in your progress notes and discharge summary in order to capture severity of illness and risk of mortality. Include clinical findings that support your diagnosis. MTDD
--- NOTE | 2017-11-13 11:20 | CDI ---
Last Revision, February 2017 Documentation Clarification Form Date: 11/13/2017 11:12:12 AM From: Radha Murillo RN, CCDS Admit Date: 11/12/2017 6:15:00 AM Patient Name: Carmen Lenz Visit Number: [id number] ATTENTION: The Clinical Documentation Specialists (CDI) and [facility] Coding Staff appreciate your assistance in clarifying documentation. Please respond to the clarification below the line at the bottom and electronically sign. The CDI & [facility] Coding staff will review the response and follow-up if needed. Please note: Queries are made part of the Legal Health Record. If you have any questions, please contact the author of this message via ITS. Jerel Mcintosh MD History/Risk Factors: Pneumonia, COPD, Atrial Fib, HTN, RA, diarrhea x 3 months, PCM, Anemia Clinical Indicators: WBC: 25.1/27.1 Left shift: 21.9 11/13 CXR:"mild congestive heart failure with small pleural effusions. Chest appears worse than yesterday." H&P: Lung/Breathing assessment: "chest demonstrated occasional rales at bases." Treatment: Antibiotics: Vanco 250 mg PO QID, Zosyn 3.375 Gm IVPB Q 8 hrs, Levaquin 750 mg IVPB x 1 dose IVF 2l Bolus followed by 100 cc/hr O2 2-7L NC Breathing Tx: Duoneb QID In order to capture the severity of condition, please clarify if the condition signifies and you are treating for: Aspiration Pneumonia, identify if: Due to solids or liquids Bacterial Pneumonia, specify causal organism (if known) Gram Negative Pneumonia Due to Strep Due to Staph Due to E. Coli Other bacteria (please specify) Viral Pneumonia, specify casual organism (if known) Other, please specify Unable to determine Please continue to document in your progress notes and discharge summary in order to capture severity of illness and risk of mortality. Include clinical findings that support your diagnosis. MTDD
[2017-11-13] MEDS: AMIODARONE 200 MG TAB PO SCH ×3 (12:31→21:47)
--- NOTE | 2017-11-13 12:54 | P.CONS ---
History of Present Illness - Reason for Consult Consult date: 11/13/17 Sepsis, C. difficile colitis, pneumonia - History of Present Illness This is an 82-year-old female patient gives history of recent hospitalization for pneumonia. Upon review of her records, she was admitted September 29 through October 08 and treated for pneumonia and acute respiratory failure , A. fib with RVR and pulmonary edema. She was followed by cardiology and underwent a YOAN on October 05 for concern for mitral valve vegetation that showed a calcified mitral valve but no vegetations she was also followed by pulmonary medicine, Dr. Watt. She was discharged home without antibiotics. Patient had subsequent admission November 01 through November 03 for frequent falls, lumbar strain and C. difficile colitis. Patient was discharged home on a 10 day course of oral vancomycin and also on Imodium. Patient then had an ER visit on 11/09 for right hip dislocation which was reduced by the ER physician and patient was discharged home. Patient returned on November 10 for hip pain and x-ray showed no abnormal alignment patient was discharged on [place]. Patient now presents to [facility] emergency center due to shortness of breath and general body aches. Patient states that she has had a fever at home. She denies having any cough or sputum production she complains of a hoarse voice. She states her appetite is okay. She does state she has some upper chest pain especially with deep breathing. She denies any palpitations. Patient presented with a heart rate in the 140s, temperature 102.1, white count 25.1. Lactic acid initially 1.2 followed by 2.5 and 1.4. Troponins were 0.074 , 0.063 and 0.250 patient was initially started on Levaquin and Zosyn and continued on oral vancomycin. Subsequently Levaquin has been discontinued. She has been followed by cardiology initially on Cardizem drip without any improvement of heart rate and switched over to amiodarone drip. Her heart rate is now running in the 80s. Regarding C. difficile colitis, patient states her last bowel movement was a couple days ago and this was confirmed with her nurse that she has had not had any loose stools since admission. She denies any abdominal pain and abdomen is without any tenderness. She denies any dysuria. Repeat chest x-ray shows mild congestive heart failure with small pleural effusion. Worse from yesterday. CAT scan of the brain shows cerebral atrophy with chronic small vessel ischemic changes no acute intracranial abnormality. Review of Systems All systems: negative Constitutional: Reports fatigue, Reports fever, Reports weakness, Denies anorexia, Denies chills, Denies poor appetite Eyes: denies blurred vision, denies pain Ears, nose, mouth and throat: Reports hoarseness, Denies dental pain, Denies headache, Denies mouth pain, Denies sore throat, Denies vertigo Cardiovascular: Reports chest pain, Denies decreased exercise tolerance, Denies dyspnea on exertion, Denies edema, Denies leg edema, Denies lightheadedness, Denies shortness of breath, Denies syncope Respiratory: Denies cough, Denies cough with sputum, Denies dyspnea, Denies excessive sputum, Denies hemoptysis, Denies home oxygen, Denies wheezing Gastrointestinal: Denies abdominal pain, Denies diarrhea, Denies loss of appetite, Denies nausea, Denies vomiting Genitourinary: Denies dysuria, Denies hematuria Musculoskeletal: Denies myalgias Integumentary: Denies pruritus, Denies rash Neurological: Denies numbness, Denies weakness Psychiatric: Denies anxiety, Denies depression Endocrine: Denies fatigue, Denies weight change Past Medical History Past Medical History: Atrial Fibrillation, COPD, GERD/Reflux, Hyperlipidemia, Hypertension, Osteoarthritis (OA), Pneumonia, Rheumatoid Arthritis (RA) Additional Past Medical History / Comment(s): Afib with RVR, pneumonias, sepsis , diarrhea for 3 months but slowed down lately, duodenal ulcer with partial gastrectomy, protein calorie malnutrition, anemia, chronic low back pain, past L7 compression fracture, neuropathy bilateral legs, falls, urinary incontinence. History of Any Multi-Drug Resistant Organisms: None Reported Past Surgical History: Appendectomy, Back Surgery, Joint Replacement, Orthopedic Surgery Additional Past Surgical History / Comment(s): L4-L5 fusion, partial gastrectomy , EGDs/colonoscopies, bilateral shoulder arthroscopies for rotator cuff repairs , total reverse R shoulder, bilateral total hip arthroplasties, YOAN. Past Anesthesia/Blood Transfusion Reactions: No Reported Reaction Smoking Status: Former smoker Additional Past Alcohol Use History / Comment(s): Patient resides at home with her which home is normally in [place] and currently staying in an in the [facility]. - Past Family History Mother History Unknown: Yes Family Medical History: Diabetes Mellitus Father Family Medical History: Congestive Heart Failure (CHF) Medications and Allergies Home Medications Medication Instructions Recorded Confirmed Type Cyanocobalamin (Vitamin B-12) 1,000 mcg PO DAILY 10/24/16 11/12/17 History [Vitamin B-12] Folic Acid 0.8 mg PO DAILY 10/24/16 11/12/17 History Oxybutynin Chloride 5 mg PO BID 10/24/16 11/12/17 History Furosemide [Lasix] 20 mg PO DAILY 09/30/17 11/12/17 History Rivaroxaban [Xarelto] 20 mg PO DAILY 09/30/17 11/12/17 History Ascorbic Acid [Vitamin C] 1,000 mg PO DAILY 10/01/17 11/12/17 History Biotin 5,000 mcg PO DAILY 10/01/17 11/12/17 History predniSONE 10 mg PO BID 10/01/17 11/12/17 History Diltiazem HCl 120 mg PO TID 11/01/17 11/12/17 History Lisinopril [Zestril] 10 mg PO DAILY 11/01/17 11/12/17 History Metoprolol Tartrate [Lopressor] 50 mg PO BID 11/01/17 11/12/17 History Acetaminophen Tab [Tylenol] 500 mg PO Q6HR PRN #60 tab 11/03/17 11/12/17 Rx Calcium Carb-Vit D 500Mg-200Un 1 each PO BID-W/MEALS #60 tab 11/03/17 11/12/17 Rx [Oscal 500+D] Cyclobenzaprine [Flexeril] 5 mg PO TID PRN #30 tab 11/03/17 11/12/17 Rx Ergocalciferol [Vitamin D2 50,000 unit PO Q7D #4 cap 11/03/17 11/12/17 Rx (DRISDOL)] Gabapentin [Neurontin] 100 mg PO TID #90 cap 11/03/17 11/12/17 Rx Hydrocodone/Acetaminophen [Vicodin 1 tab PO Q4HR PRN 3 Days #18 tab 11/03/1712/20 Rx Es 7.5-300 mg Tablet] Lidocaine 5% Patch [Lidoderm 5% 1 patch TOPICAL DAILY #14 patch 11/03/17 Rx Patch] Loperamide [Imodium] 2 mg PO QID #120 cap 11/03/17 11/12/17 Rx Vancomycin HCl 125 mg PO QID #40 capsule 11/03/17 11/12/17 Rx Methotrexate/Pf [Rasuvo 25 mg/0.5 25 mg SQ Q7D 11/09/17 11/12/17 History ml Autoinj] Hydrocodone/Acetaminophen [[place] 1 tab PO Q6HR PRN #12 tab 11/10/17 11/12/17 Rx 5-325] Allergies Allergy/AdvReac Type Severity Reaction Status Date / Time No Known Drug Allergies Allergy Unknown Verified 11/13/17 00:28 morphine AdvReac Nausea & Verified 11/13/17 00:25 Vomiting oxycodone [From OxyContin] AdvReac Nausea & Verified 11/12/17 06:43 Vomiting Physical Exam Vitals: Vital Signs Temp Pulse Pulse Resp BP Pulse Ox 11/13/17 07:45 88 11/13/17 07:31 90 11/13/17 04:00 97.1 F L 73 18 114/57 93 L 11/13/17 01:58 78 18 118/63 93 L 11/13/17 00:51 98.6 F 74 20 92/54 92 L 11/13/17 00:28 95 11/13/17 00:00 78 24 11/12/17 21:45 98.1 F 95 24 116/56 94 L 11/12/17 20:57 81 11/12/17 20:37 101.5 F H 138 H 26 H 138/65 94 L 11/12/17 20:00 164 H 26 H 11/12/17 16:00 97.0 F L 89 16 100/75 95 11/12/17 14:17 129 H 97/64 11/12/17 14:03 70 11/12/17 14:02 135 H 93/65 11/12/17 13:56 74 11/12/17 13:47 150 H 85/48 11/12/17 13:32 150 H 87/60 11/12/17 12:00 98.0 F 139 H 16 146/105 96 Intake and Output 11/12/17 11/13/17 11/13/17 22:59 06:59 14:59 Intake Total 904.588 6285 Output Total 400 1100 Balance -157.722 350 Intake: Intake, IV Titration 251.246 2034 Amount Amiodarone 450 mg In 242.278 Dextrose 5% in Water 250 ml @ 1 MG/MIN 34.53 mls/ hr IV .Q7H31M [place] Rx#: [id number] Diltiazem 50 mg In Sodium 50 Chloride 0.9% 40 ml @ 10 MG/HR 10 mls/hr IV .Q5H [facility] Rx#:[id number] Lactated Ringers 1,000 ml 1000 @ 999 mls/hr IV .Q1H1M [facility] Rx#:[id number] Oral 400 Output: Urine 400 1100 Other: Voiding Method Bedpan Diaper # Voids 2 Weight 44.4 kg 47.7 kg Gen: This is a thin 82-year-old female. She is sitting up in bed and eating breakfast and appears to be in no acute distress. Patient able to speak in full sentences. No respiratory distress noted. HEENT: Head is atraumatic, normocephalic. Pupils equal, round. Sclerae is anicteric. Conjunctiva pale. Mucous membranes of the mouth are moist. NECK: Supple. No lymphadenopathy. No thyromegaly. LUNGS: Crackles at bilateral bases.. No intercostal retractions. HEART: Regular rate and rhythm. No murmur. ABDOMEN: Soft. Bowel sounds are present. No masses. No tenderness. EXTREMITIES: Trace pedal edema. No calf tenderness. Dorsalis pedis 2+ bilaterally. NEUROLOGICAL: Patient is awake, alert and oriented x3. Cranial nerves 2 through 12 are grossly intact. Results Results: Laboratory Results WBC 27.1 k/uL (3.8-10.6) H 11/12/17 19:50 RBC 3.40 m/uL (3.80-5.40) L 11/12/17 19:50 Hgb 10.3 gm/dL (11.4-16.0) L 11/12/17 19:50 Hct 33.5 % (34.0-46.0) L 11/12/17 19:50 MCV 98.7 fL (80.0-100.0) 11/12/17 19:50 MCH 30.2 pg (25.0-35.0) 11/12/17 19:50 MCHC 30.6 g/dL (31.0-37.0) L 11/12/17 19:50 RDW 16.2 % (11.5-15.5) H 11/12/17 19:50 Plt Count 300 k/uL (150-450) 11/12/17 19:50 Neutrophils % 88 % 11/12/17 05:33 Lymphocytes % 6 % 11/12/17 05:33 Monocytes % 4 % 11/12/17 05:33 Eosinophils % 0 % 11/12/17 05:33 Basophils % 0 % 11/12/17 05:33 Neutrophils # 21.9 k/uL (1.3-7.7) H 11/12/17 05:33 Lymphocytes # 1.5 k/uL (1.0-4.8) 11/12/17 05:33 Monocytes # 1.0 k/uL (0-1.0) 11/12/17 05:33 Eosinophils # 0.0 k/uL (0-0.7) 11/12/17 05:33 Basophils # 0.1 k/uL (0-0.2) 11/12/17 05:33 Hypochromasia Marked 11/12/17 19:50 Anisocytosis Slight 11/12/17 19:50 Macrocytosis Slight 11/12/17 19:50 PT 16.0 sec (9.0-12.0) H 11/12/17 05:33 INR 1.7 (<1.2) H 11/12/17 05:33 APTT 34.2 sec (22.0-30.0) H 11/12/17 05:33 Sodium 140 mmol/L (137-145) 11/12/17 05:33 Potassium 3.5 mmol/L (3.5-5.1) 11/12/17 05:33 Chloride 104 mmol/L (98-107) 11/12/17 05:33 Carbon Dioxide 28 mmol/L (22-30) 11/12/17 05:33 Anion Gap 8 mmol/L 11/12/17 05:33 BUN 12 mg/dL (7-17) 11/12/17 05:33 Creatinine 0.74 mg/dL (0.52-1.04) 11/12/17 05:33 Est GFR (CKD-EPI)AfAm 88 (>60 ml/min/1.73 sqM) 11/12/17 05:33 Est GFR (CKD-EPI)NonAf 76 (>60 ml/min/1.73 sqM) 11/12/17 05:33 Glucose 80 mg/dL (74-99) 11/12/17 05:33 Lactic Ac Sepsis Rflx Y 11/12/17 20:25 Plasma Lactic Acid Alex 1.4 mmol/L (0.7-2.0) 11/12/17 23:36 Calcium 8.6 mg/dL (8.4-10.2) 11/12/17 05:33 Magnesium 1.7 mg/dL (1.6-2.3) 11/12/17 05:33 Total Bilirubin 1.0 mg/dL (0.2-1.3) 11/12/17 05:33 AST 36 U/L (14-36) 11/12/17 05:33 ALT 33 U/L (9-52) 11/12/17 05:33 Alkaline Phosphatase 93 U/L (38-126) 11/12/17 05:33 Total Creatine Kinase 480 U/L (30-135) H 11/12/17 17:13 CK-MB (CK-2) 3.9 ng/mL (0.0-2.4) H 11/12/17 17:13 CK-MB (CK-2) Rel Index 0.8 11/12/17 17:13 Troponin I 0.250 ng/mL (0.000-0.034) H* 11/12/17 17:13 NT-Pro-B Natriuret Pep 672 pg/mL 11/12/17 05:33 Total Protein 5.3 g/dL (6.3-8.2) L 11/12/17 05:33 Albumin 2.8 g/dL (3.5-5.0) L 11/12/17 05:33 Triglycerides 76 mg/dL (<150) 11/13/17 06:09 Cholesterol 94 mg/dL (<200) 11/13/17 06:09 LDL Cholesterol, Calc 53 mg/dL (0-99) 11/13/17 06:09 HDL Cholesterol 26 mg/dL (40-60) L 11/13/17 06:09 Lipase 14 U/L (23-300) L 11/12/17 05:33 TSH 1.090 mIU/L (0.465-4.680) 11/12/17 11:38 Urine Color Yellow 11/12/17 06:45 Urine Appearance Clear (Clear) 11/12/17 06:45 Urine pH 6.0 (5.0-8.0) 11/12/17 06:45 Ur Specific [place] 1.011 (1.001-1.035) 11/12/17 06:45 Urine Protein Trace (Negative) H 11/12/17 06:45 Urine Glucose (UA) Negative (Negative) 11/12/17 06:45 Urine Ketones 1+ (Negative) H 11/12/17 06:45 Urine Blood Negative (Negative) 11/12/17 06:45 Urine Nitrite Negative (Negative) 11/12/17 06:45 Urine Bilirubin Negative (Negative) 11/12/17 06:45 Urine Urobilinogen <2.0 mg/dL (<2.0) 11/12/17 06:45 Ur Leukocyte Esterase Trace (Negative) H 11/12/17 06:45 Urine RBC 3 /hpf (0-5) 11/12/17 06:45 Urine WBC 7 /hpf (0-5) H 11/12/17 06:45 Ur Squamous Epith Cells 3 /hpf (0-4) 11/12/17 06:45 Hyaline Casts 3 /lpf (0-2) H 11/12/17 06:45 Urine Mucus Rare /hpf (None) H 11/12/17 06:45 CBC & Chem 7: 11/12/17 19:50 11/12/17 05:33 Labs: Abnormal Lab Results - Last 24 Hours (Table) 11/12/17 11/12/17 11/12/17 Range/Units 11:38 17:13 19:50 WBC 27.1 H (3.8-10.6) k/uL RBC 3.40 L (3.80-5.40) m/uL Hgb 10.3 L (11.4-16.0) gm/dL Hct 33.5 L (34.0-46.0) % MCHC 30.6 L (31.0-37.0) g/dL RDW 16.2 H (11.5-15.5) % Plasma Lactic Acid Alex (0.7-2.0) mmol/L Total Creatine Kinase 465 H 480 H (30-135) U/L CK-MB (CK-2) 3.9 H (0.0-2.4) ng/mL Troponin I 0.063 H* 0.250 H* (0.000-0.034) ng/mL HDL Cholesterol (40-60) mg/dL 11/12/17 11/13/17 Range/Units 19:50 06:09 WBC (3.8-10.6) k/uL RBC (3.80-5.40) m/uL Hgb (11.4-16.0) gm/dL Hct (34.0-46.0) % MCHC (31.0-37.0) g/dL RDW (11.5-15.5) % Plasma Lactic Acid Alex 2.5 H* (0.7-2.0) mmol/L Total Creatine Kinase (30-135) U/L CK-MB (CK-2) (0.0-2.4) ng/mL Troponin I (0.000-0.034) ng/mL HDL Cholesterol 26 L (40-60) mg/dL Microbiology - Last 24 Hours (Table) 11/12/17 05:33 Blood Culture - Preliminary Blood No Growth after 24 hours Assessment and Plan Plan: This is an 82-year-old female patient who presented to the hospital with signs of sepsis most likely secondary to C. difficile colitis which is currently under treatment with oral vancomycin. We will increase the dose of vancomycin from 125 mg to 250 mg orally 4 times daily. No signs of a pneumonia on repeat chest x-ray and Zosyn will be discontinued. Plan to limit antibiotic therapy as this will complicate C. difficile colitis. Patient appears to be more of a picture of heart failure with fluid overload. Cardiology is following for atrial tachycardia/atrial fibrillation. Patient is on amiodarone drip at this time. Continue supportive care. Further admonitions as patient progresses. The above dictated assessment and findings were discussed with Dr. Parra. The impression and plan of care have been directed as dictated. Pat Hill nurse practitioner acting as scribe for Dr. Parra.
--- NOTE | 2017-11-13 15:20 | XR ---
EXAMINATION TYPE: XR chest 2V DATE OF EXAM: 11/13/2017 COMPARISON: Prior chest 11/13/2017 HISTORY: Pneumonia TECHNIQUE: Frontal and lateral views of the chest are obtained. FINDINGS: Patient is rotated. Heart size is accentuated. Central vascularity and interstitium are in creased. No evident pneumothorax. There is blunting the costophrenic angles. There are overlying card iac leads. Left shoulder is high riding suggesting chronic rotator cuff tear, postop changes noted to the bilateral shoulders. Surgical clips in the upper abdomen. Prominent lung volume may be indicativ e of COPD. IMPRESSION: Correlate for congestive heart failure. Pneumonia not excluded. Suspect associated effus ions.
--- NOTE | 2017-11-13 15:28 | P.PN ---
Subjective Progress Note Date: 11/13/17 This is an 82-year-old female with history of COPD and atrial arrhythmia, hypertension, rheumatoid arthritis, hyperlipidemia, history was obtained from the mostly who is at bedside, patient was able to give a mild history. According to the , patient became incoherent at home, he states that she was also noted to be running a fever. She had recently been in the hospital in September of this year with pneumonia. According to the , she takes a Vicodin for chronic back pain, every time she takes one of these pills she becomes confused, has hallucinations. She did get a Vicodin prior to this episode happening as well. The patient had an echocardiogram with Doppler study performed in September of this year which revealed an ejection fraction of 55- 60%, moderate mitral regurg, moderate to severe tricuspid regurg. She also underwent a transesophageal echocardiographic study by Dr. 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 Moderate to severe mitral regurgitation, moderate to severe tricuspid regurgitation. No shunting across the intra-atrial septum. EKG shows what appears to be a multifocal atrial tachycardia. Chest x-ray shows new pulmonary interstitial infiltrates as compared with prior exam. New small pneumonia at the lateral left lung base with no obvious heart failure. Pelvic x-ray does not reveal any acute fracture or dislocation. White blood cell count on admission 25.1, hemoglobin 11.7, platelet count 362. INR 1.7. Sodium 140, potassium 3.5, BUN 12, creatinine 0.7. BNP level 672. Troponin 0.074. At the time of my examination this morning, patient states that she still feels mildly Confused however does answer most questions appropriately. She continues to be in a multifocal atrial tachycardia, with a heart rate in the 140 range, on Cardizem. 11/13/2017 Patient was seen and examined this morning, IV Cardizem has been discontinued. Heart rate today is in the 80s, blood pressure 127/50, 93% on 7 L of oxygen. Overall doing significantly better today. Objective - Vital Signs Vital signs: Vital Signs Temp 96.7 F L 11/13/17 11:43 Pulse 86 11/13/17 12:43 Resp 18 11/13/17 12:43 BP 127/54 11/13/17 11:43 Pulse Ox 93 L 11/13/17 11:43 Intake & Output 11/12/17 11/13/17 11/13/17 18:59 06:59 18:59 Intake Total 653.267 1674.278 120 Output Total 700 1100 Balance -549.417 592.278 120 Weight 44.4 kg 47.7 kg Intake: Intake, IV Titration 32.583 1292.278 Amount Amiodarone 450 mg In 242.278 Dextrose 5% in Water 250 ml @ 1 MG/MIN 34.53 mls/ hr IV .Q7H31M [facility] Rx#: [id number] Diltiazem 50 mg In Sodium 32.583 50 Chloride 0.9% 40 ml @ 10 MG/HR 10 mls/hr IV .Q5H [facility] Rx#:[id number] Lactated Ringers 1,000 ml 1000 @ 999 mls/hr IV .Q1H1M [facility] Rx#:[id number] Oral 118 400 120 Output: Urine 700 1100 Other: Voiding Method Bedpan Bedpan Diaper Diaper # Voids 2 2 1 # Bowel Movements 3 - Exam PHYSICAL EXAMINATION: GENERAL: 82-year-old female, mildly confused, in no acute distress at the time of my examination HEENT: Head is atraumatic, normocephalic. Pupils equal, round. Sclera anicteric. Conjunctiva are clear. Mucous membranes of the mouth are moist. Neck is supple. There is elevated jugular venous pressure. No carotid bruit is heard. HEART EXAMINATION: Heart S1-S2 irregularly irregular systolic murmur is heard CHEST EXAMINATION: Lungs reveal crackles bilaterally. ABDOMEN: [ Soft, nontender. Bowel sounds are heard. No organomegaly noted]. EXTREMITIES:[ 2+ peripheral pulses with no evidence of peripheral edema and no calf tenderness noted]. NEUROLOGIC [patient is awake, alert and oriented X2 - Labs CBC & Chem 7: 11/12/17 19:50 11/12/17 05:33 Labs: Abnormal Lab Results - Last 24 Hours (Table) 11/12/17 11/12/17 11/12/17 Range/Units 17:13 19:50 19:50 WBC 27.1 H (3.8-10.6) k/uL RBC 3.40 L (3.80-5.40) m/uL Hgb 10.3 L (11.4-16.0) gm/dL Hct 33.5 L (34.0-46.0) % MCHC 30.6 L (31.0-37.0) g/dL RDW 16.2 H (11.5-15.5) % Plasma Lactic Acid Alex 2.5 H* (0.7-2.0) mmol/L Total Creatine Kinase 480 H (30-135) U/L CK-MB (CK-2) 3.9 H (0.0-2.4) ng/mL Troponin I 0.250 H* (0.000-0.034) ng/mL HDL Cholesterol (40-60) mg/dL 11/13/17 Range/Units 06:09 WBC (3.8-10.6) k/uL RBC (3.80-5.40) m/uL Hgb (11.4-16.0) gm/dL Hct (34.0-46.0) % MCHC (31.0-37.0) g/dL RDW (11.5-15.5) % Plasma Lactic Acid Alex (0.7-2.0) mmol/L Total Creatine Kinase (30-135) U/L CK-MB (CK-2) (0.0-2.4) ng/mL Troponin I (0.000-0.034) ng/mL HDL Cholesterol 26 L (40-60) mg/dL Microbiology - Last 24 Hours (Table) 11/12/17 05:33 Blood Culture - Preliminary Blood No Growth after 24 hours Assessment and Plan Plan: Assessment plan #1, could also be secondary to the fact the patient had taken a Vicodin just prior #2 pneumonia #3 history of hypertension #4 history of hyperlipidemia #5 moderate to severe mitral regurg and tricuspid regurg, patient had an echocardiogram with Doppler study performed in September which revealed a normal left ventricular systolic function, moderate to severe tricuspid regurgitation noted with moderate MR, YOAN performed in October of this year showed moderate to severe mitral regurgitation and moderate to severe tricuspid regurgitation with moderate mitral annulus calcification with calcification noted consistent with 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 #6 COPD #7 rheumatoid arthritis #8 multifocal atrial tachycardia #9 abnormal troponin, most likely representing a type II events Plan Patient does have episodes of atrial fibrillation, on Xarelto for anticoagulation. We will continue current medications. DNP note has been reviewed, I agree with a documented findings and plan of care. Patient was seen and examined.
--- NOTE | 2017-11-13 21:12 | P.CON ---
Consult Note - . Consult date: 11/13/17 Assessment/Plan:: This is an 82-year-old female patient gives history of recent hospitalization for pneumonia. Upon review of her records, she was admitted September 29 through October 08 and treated for pneumonia and acute respiratory failure , A. fib with RVR and pulmonary edema. She was followed by cardiology and underwent a YOAN on October 05 for concern for mitral valve vegetation that showed a calcified mitral valve but no vegetations she was also followed by pulmonary medicine, Dr. Watt. She was discharged home without antibiotics. Patient had subsequent admission November 01 through November 03 for frequent falls, lumbar strain and C. difficile colitis. Patient was discharged home on a 10 day course of oral vancomycin and also on Imodium. Patient then had an ER visit on 11/09 for right hip dislocation which was reduced by the ER physician and patient was discharged home. Patient returned on November 10 for hip pain and x-ray showed no abnormal alignment patient was discharged on [place]. Patient now presents to [facility] emergency center due to shortness of breath and general body aches. Patient states that she has had a fever at home. She denies having any cough or sputum production she complains of a hoarse voice. She states her appetite is okay. She does state she has some upper chest pain especially with deep breathing. She denies any palpitations. Patient presented with a heart rate in the 140s, temperature 102.1, white count 25.1. Lactic acid initially 1.2 followed by 2.5 and 1.4. Troponins were 0.074, 0.063 and 0.250 patient was initially started on Levaquin and Zosyn and continued on oral vancomycin. Subsequently Levaquin has been discontinued. She has been followed by cardiology initially on Cardizem drip without any improvement of heart rate and switched over to amiodarone drip. Her heart rate is now running in the 80s. Regarding C. difficile colitis, patient states her last bowel movement was a couple days ago and this was confirmed with her nurse that she has had not had any loose stools since admission. She denies any abdominal pain and abdomen is without any tenderness. She denies any dysuria. Repeat chest x-ray shows mild congestive heart failure with small pleural effusion. Worse from yesterday. CAT scan of the brain shows cerebral atrophy with chronic small vessel ischemic changes no acute intracranial abnormality. Please see the consult note is dictated by nurse practitioner Mrs. Pat Hill. 82-year-old woman who was in the family home with her was recently hospitalized with difficulty with frequent falls and weakness. She was having difficulty with atrial fibrillation as well as pneumonia, YOAN failed to reveal evidence of endocarditis. She was treated for pneumonia. At the beginning of this month she again was having difficulties and she was seen there is evidence of some diarrhea and she was diagnosed with Clostridium difficile colitis. She apparently was treated and had some improvement. However home she became more confused felt much worse developed a fever she is a history of cough and sputum production and again at presentation had a heart rate of 140 as well as leukocytosis and had transient elevation of her lactic acid that was thought to be due to her atrial fibrillation with a rapid ventricular response and poor perfusion. With correction this is now improved. The patient's C. diff will be treated with vancomycin orally 250 mg every 6 hours and she will monitor for her stool output. She does have some mild bowel distention and minimal tenderness. No evidence of any shan pneumonia but does have some congestive heart failure. She was seen by cardiology and will expect improvement of her heart failure as her A. fib and RVR become better controlled. We'll avoid other antimicrobial therapy at this point in time except for the treatment of her C. diff. Cultures are being monitored. We'll follow her leukocytosis that is likely multifactorial including a C. diff in the strain of the recurrent A. fib and pulmonary edema. I agree with evaluation, assessment and plan as dictated by nurse practitioner Mrs. Pat Hill.
[2017-11-14] MEDS: RIVAROXABAN 20 MG TAB PO SCH (07:05)
[2017-11-14] MEDS: IPRATROPIUM-ALBUTEROL 3 ML NEB INHALATION SCH ×4 (08:31→19:53)
[2017-11-14] MEDS ORDERED: LEVOFLOXACIN 750 MG TAB PO SCH (09:00)
[2017-11-14] MEDS: ASPIRIN 81 MG PO SCH (09:09)
[2017-11-14] MEDS: SODIUM CHLORIDE 0.9% 1,000 ML IV SCH ×2 (09:09→18:47)
[2017-11-14] MEDS: AMIODARONE 200 MG TAB PO SCH ×3 (09:10→22:01)
[2017-11-14] MEDS: METOPROLOL TARTRATE 50 MG TAB PO SCH ×2 (09:10→22:01)
[2017-11-14] MEDS: GABAPENTIN 100 MG CAP PO SCH ×3 (09:10→22:01)
[2017-11-14] MEDS: FUROSEMIDE 20 MG TAB PO SCH (09:10)
[2017-11-14] MEDS: OXYBUTYNIN CHLORIDE 5 MG TAB PO SCH ×2 (09:11→22:01)
[2017-11-14] MEDS: LIDOCAINE 5% PATCH TOPICAL SCH (09:11)
[2017-11-14] MEDS: LISINOPRIL 10 MG TAB PO SCH (09:11)
[2017-11-14] MEDS: predniSONE 10 MG TAB PO SCH ×2 (09:12→22:00)
[2017-11-14] MEDS: LOPERAMIDE 2 MG CAP PO SCH ×4 (09:12→22:01)
[2017-11-14] MEDS: VANCOMYCIN ORAL SOLUTION 250 MG/5 ML BOTTLE PO SCH ×4 (09:14→22:06)
--- NOTE | 2017-11-14 11:21 | CDI ---
Last Revision, February 2017 Documentation Clarification Form 2nd request Date: 11/13/2017 11:12:12 AM From: Radha Murillo RN, CCDS Admit Date: 11/12/2017 6:15:00 AM Patient Name: Carmen Lenz Visit Number: [id number] ATTENTION: The Clinical Documentation Specialists (CDI) and [facility] Coding Staff appreciate your assistance in clarifying documentation. Please respond to the clarification below the line at the bottom and electronically sign. The CDI & [facility] Coding staff will review the response and follow-up if needed. Please note: Queries are made part of the Legal Health Record. If you have any questions, please contact the author of this message via ITS. Jerel Mcintosh MD History/Risk Factors: Pneumonia, COPD, Atrial Fib, HTN, RA, diarrhea x 3 months, PCM, Anemia Clinical Indicators: WBC: 25.1/27.1 Left shift: 21.9 11/13 CXR:"mild congestive heart failure with small pleural effusions. Chest appears worse than yesterday." H&P: Lung/Breathing assessment: "chest demonstrated occasional rales at bases." Treatment: Antibiotics: Vanco 250 mg PO QID, Zosyn 3.375 Gm IVPB Q 8 hrs, Levaquin 750 mg IVPB x 1 dose IVF 2l Bolus followed by 100 cc/hr O2 2-7L NC Breathing Tx: Duoneb QID In order to capture the severity of condition, please clarify if the condition signifies and you are treating for: Aspiration Pneumonia, identify if: Due to solids or liquids Bacterial Pneumonia, specify causal organism (if known) Gram Negative Pneumonia Due to Strep Due to Staph Due to E. Coli Other bacteria (please specify) Viral Pneumonia, specify casual organism (if known) Other, please specify Unable to determine Please continue to document in your progress notes and discharge summary in order to capture severity of illness and risk of mortality. Include clinical findings that support your diagnosis. MTDD
--- NOTE | 2017-11-14 11:24 | CDI ---
Last Revision, February 2017 Documentation Clarification Form 2nd request Date: 11/13/2017 10:30:00 AM From: Radha Murillo RN, CCDS Admit Date: 11/12/2017 6:15:00 AM Patient Name: Carmen Lenz Visit Number: [id number] ATTENTION: The Clinical Documentation Specialists (CDI) and [facility] Coding Staff appreciate your assistance in clarifying documentation. Please respond to the clarification below the line at the bottom and electronically sign. The CDI & [facility] Coding staff will review the response and follow-up if needed. Please note: Queries are made part of the Legal Health Record. If you have any questions, please contact the author of this message via ITS. Jerel Mcintosh MD History/Risk Factors: Confusion with hallucinations and weakness new onset, Atrial Fib, COPD, Pneumonia Tobacco use: former smoker Clinical Indicators: 11/13 H&P: Sepsis left lower lobe pneumonitis, atrial tachycardia this admission Vital signs on admission: Temp 102.1, HR 144, RR 22, B/P 157/63, Spo2 100% 4L NC Pulse oximetry: 93-100% documented by nursing, yet O2 is increased from 4L to 7L High Flow nasal cannula 11/12 H&P: Lung/Breathing assessment: "The chest demonstrated occasional rales at bases." Treatment: Breathing TX: Duoneb QID Continuous Pulse ox: per unit protocol O2: 4l NC weaned to 2l NC increased 7L high flow NC In your professional opinion, can you please clarify if these findings signify one of the following conditions? Acuity: Acute Acute on Chronic Specificity: Respiratory Failure, further specify (if known): With hypercapnia? With hypoxia? Respiratory Distress Other Diagnosis, please specify Unable to determine Please continue to document in your progress notes and discharge summary in order to capture severity of illness and risk of mortality. Include clinical findings that support your diagnosis. MTDD
--- NOTE | 2017-11-14 11:27 | CDI ---
Last Revision, February 2017 Documentation Clarification Form 2nd request Date: 11/13/2017 10:49:00 AM From: Radha Murillo RN, CCDS Admit Date: 11/12/2017 6:15:00 AM Patient Name: Carmen Lenz Visit Number: [id number] ATTENTION: The Clinical Documentation Specialists (CDI) and [facility] Coding Staff appreciate your assistance in clarifying documentation. Please respond to the clarification below the line at the bottom and electronically sign. The CDI & [facility] Coding staff will review the response and follow-up if needed. Please note: Queries are made part of the Legal Health Record. If you have any questions, please contact the author of this message via ITS. Jerel Mcintosh MD Altered mental status was documented in the EN Notes and requires further specificity based on the patients documented co-morbid conditions. Patient history/risk factors: Atrial Fib, COPD, HTN, Pneumonia, RA, Diarrhea x 3 months, PCM, anemia Clinical Indicators: 11/12 H&P: "Possible sepsis with fever and confusion along with weakness and decreased urinary output." 11/12 ED: "Limitations: altered mental status, Patient is mildly altered mental status history obtained from EMS and patient's chart. General Exam: Limitations : altered mental status Medical Decision Makin female the ER with fever, altered mental state, A. fibs with RVR and pneumonia." Labs: WBC 25.1/27.1, Neutrophils 21.9, Plasma Lactic Acid 1.2/2.5/1.4 w sepsis reflex, Total CK 335/465/480 11/13/17 CXR: "mild congestive heart failure with small pleural effusions. Chest appears worse than yesterday." CT Brain: "Cerebral atrophy and chronic small vessel ischemia. No acute intracranial abnormality. " Treatment: Iv Cardizem and Amio Gtt's Lasix IVP Duoneb Updrafts Iv Levaquin, IV Zosyn, Po Vanco 2L IVF Bolus followed by 100 cc/hr In your professional opinion, please clarify the etiology of the altered mental status, if known. Encephalopathy (specify Type- Metabolic, Toxic, Anoxic, Septic and Underlying Medical Illness) Dementia (if know, specify Type and if with/without Behavioral Disturbance) Other condition (please specify) Unable to determine Please continue to document in your progress notes and discharge summary in order to capture severity of illness and risk of mortality. Include clinical findings that support your diagnosis. MTDD
--- NOTE | 2017-11-14 11:33 | CDI ---
Last Revision, February 2017 Documentation Clarification Form 2nd Request Date: 11/13/2017 11:03:00 AM From: Radha Murillo RN, CCDS Admit Date: 11/12/2017 6:15:00 AM Patient Name: Carmen Lenz Visit Number: [id number] ATTENTION: The Clinical Documentation Specialists (CDI) and [facility] Coding Staff appreciate your assistance in clarifying documentation. Please respond to the clarification below the line at the bottom and electronically sign. The CDI & [facility] Coding staff will review the response and follow-up if needed. Please note: Queries are made part of the Legal Health Record. If you have any questions, please contact the author of this message via ITS. Jerel Mcintosh MD Protein calorie malnutrition is documented in the PMH and requires further specificity. History/Risk Factors: Falls, COPD, Atrial Fib, Diarrhea x 3 weeks, partial gastrectomy Clinical Indicators: Labs: Albumin/ Total Protein: 2.8/5.3 Current BMI: 18.6 Insufficient energy intake: confused, altered mental status, weakness Per dietary consult: Pt appears underweight Loss of subcutaneous fat: pt has multiple skin abrasions and tears from frequent falls at home Loss of muscle mass: pt is weak requires physical assistance for ADLs Fluid accumulation: bilateral lower extremity edema Treatment: Dietary Consult: Completed 11/12/17 1528 Supplements: none ordered Regular diet Lab monitoring daily In your professional opinion, can you please clarify if these findings signify one of the following conditions? Mild Protein-Calorie Malnutrition Moderate Protein-Calorie Malnutrition Severe Protein-Calorie Malnutrition Malnutrition following GI surgery Other condition, please specify Unable to determine Please continue to document in your progress notes and discharge summary in order to capture severity of illness and risk of mortality. Include clinical findings that support your diagnosis. MTDD
[2017-11-14] MEDS: CHERRY FLAVOR 60 ML BOTTLE PO PRN ×3 (13:54→22:06)
--- NOTE | 2017-11-14 14:37 | P.PN ---
Subjective Progress Note Date: 11/14/17 This is an 82-year-old female with history of COPD and atrial arrhythmia, hypertension, rheumatoid arthritis, hyperlipidemia, history was obtained from the mostly who is at bedside, patient was able to give a mild history. According to the , patient became incoherent at home, he states that she was also noted to be running a fever. She had recently been in the hospital in September of this year with pneumonia. According to the , she takes a Vicodin for chronic back pain, every time she takes one of these pills she becomes confused, has hallucinations. She did get a Vicodin prior to this episode happening as well. The patient had an echocardiogram with Doppler study performed in September of this year which revealed an ejection fraction of 55- 60%, moderate mitral regurg, moderate to severe tricuspid regurg. She also underwent a transesophageal echocardiographic study by Dr. 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 Moderate to severe mitral regurgitation, moderate to severe tricuspid regurgitation. No shunting across the intra-atrial septum. EKG shows what appears to be a multifocal atrial tachycardia. Chest x-ray shows new pulmonary interstitial infiltrates as compared with prior exam. New small pneumonia at the lateral left lung base with no obvious heart failure. Pelvic x-ray does not reveal any acute fracture or dislocation. White blood cell count on admission 25.1, hemoglobin 11.7, platelet count 362. INR 1.7. Sodium 140, potassium 3.5, BUN 12, creatinine 0.7. BNP level 672. Troponin 0.074. At the time of my examination this morning, patient states that she still feels mildly Confused however does answer most questions appropriately. She continues to be in a multifocal atrial tachycardia, with a heart rate in the 140 range, on Cardizem. 11/13/2017 Patient was seen and examined this morning, IV Cardizem has been discontinued. Heart rate today is in the 80s, blood pressure 127/50, 93% on 7 L of oxygen. Overall doing significantly better today. 11/14/2017 She was seen and examined this morning, heart rate remaining in the 70s to 80s. Hemodynamically stable. Objective - Vital Signs Vital signs: Vital Signs Temp 98.5 F 11/14/17 11:45 Pulse 88 11/14/17 12:08 Resp 16 11/14/17 11:45 BP 114/56 11/14/17 11:45 Pulse Ox 94 L 11/14/17 11:45 Intake & Output 11/13/17 11/14/17 11/14/17 18:59 06:59 18:59 Intake Total 120 200 240 Balance 120 200 240 Weight 48.9 kg Intake: IV 200 Sodium Chloride 0.9% 1, 200 000 ml @ 100 mls/hr IV . Q10H [facility] Rx#:[id number] Oral 120 240 Other: Voiding Method Bedpan Bedpan Bedpan Diaper Diaper Diaper # Voids 1 1 - Exam PHYSICAL EXAMINATION: GENERAL: 82-year-old female, mildly confused, in no acute distress at the time of my examination HEENT: Head is atraumatic, normocephalic. Pupils equal, round. Sclera anicteric. Conjunctiva are clear. Mucous membranes of the mouth are moist. Neck is supple. There is elevated jugular venous pressure. No carotid bruit is heard. HEART EXAMINATION: Heart S1-S2 irregularly irregular systolic murmur is heard CHEST EXAMINATION: Lungs reveal crackles bilaterally. ABDOMEN: [ Soft, nontender. Bowel sounds are heard. No organomegaly noted]. EXTREMITIES:[ 2+ peripheral pulses with no evidence of peripheral edema and no calf tenderness noted]. NEUROLOGIC [patient is awake, alert and oriented X2 - Labs CBC & Chem 7: 11/12/17 19:50 11/12/17 05:33 Labs: Microbiology - Last 24 Hours (Table) 11/12/17 05:33 Blood Culture - Preliminary Blood No Growth after 48 hours 11/12/17 22:40 Blood Culture - Preliminary Blood No Growth after 24 hours 11/12/17 21:46 Blood Culture - Preliminary Blood No Growth after 24 hours Assessment and Plan Plan: Assessment plan #1, could also be secondary to the fact the patient had taken a Vicodin just prior #2 pneumonia #3 history of hypertension #4 history of hyperlipidemia #5 moderate to severe mitral regurg and tricuspid regurg, patient had an echocardiogram with Doppler study performed in September which revealed a normal left ventricular systolic function, moderate to severe tricuspid regurgitation noted with moderate MR, YOAN performed in October of this year showed moderate to severe mitral regurgitation and moderate to severe tricuspid regurgitation with moderate mitral annulus calcification with calcification noted consistent with 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 #6 COPD #7 rheumatoid arthritis #8 multifocal atrial tachycardia #9 abnormal troponin, most likely representing a type II events Plan Patient does have episodes of atrial fibrillation, on Xarelto for anticoagulation. We will continue current medications. We will follow along with you now on an as-needed basis only. Please don't hesitate to call with any questions. DNP note has been reviewed, I agree with a documented findings and plan of care. Patient was seen and examined.
--- NOTE | 2017-11-14 18:07 | PN ---
PROGRESS NOTE CHIEF COMPLAINT: Pneumonitis. HISTORY OF PRESENT ILLNESS: This lady is doing a bit better. Temperature has been improved. She has had no chest pain and very little shortness of breath. PHYSICAL EXAM: Chest was fairly clear. There were only occasional rales. Cardiac exam is normal. Abdomen is soft, nontender. IMPRESSION: 1. Pneumonitis. 2. Atrial fibrillation. 3. Rheumatoid arthritis. PLAN: Move to step-down unit and continue antibiotics as well as updrafts. MMODL / IJN: [id number] /
--- NOTE | 2017-11-14 18:43 | PN ---
PROGRESS NOTE CHIEF COMPLAINT: Pneumonitis and rheumatoid arthritis. HISTORY OF PRESENT ILLNESS: This lady is doing a little bit better, but she is still very short of breath and she is still running a low-grade fever. PHYSICAL EXAMINATION: Breath sounds are diminished throughout and particularly in both bases. Cardiac exam is normal. The abdomen is soft and nontender. IMPRESSION: 1. Bilateral bronchial pneumonia. 2. Atrial fibrillation. 3. Rheumatoid arthritis. PLAN: Continue with updrafts and antibiotics and try to increase activity. MMODL / IJN: [id number] /
[2017-11-14] MEDS: HYDROcodone/APAP 5-325MG 1 EACH TAB PO PRN (22:35)
[2017-11-15] MEDS: SODIUM CHLORIDE 0.9% 1,000 ML IV SCH ×2 (06:33→13:44)
[2017-11-15] MEDS: IPRATROPIUM-ALBUTEROL 3 ML NEB INHALATION SCH ×4 (07:05→19:41)
[2017-11-15] MEDS: ASPIRIN 81 MG PO SCH (07:28)
[2017-11-15] MEDS: FUROSEMIDE 20 MG TAB PO SCH (07:28)
[2017-11-15] MEDS: METOPROLOL TARTRATE 50 MG TAB PO SCH ×2 (07:28→20:34)
[2017-11-15] MEDS: predniSONE 10 MG TAB PO SCH ×2 (07:28→20:34)
[2017-11-15] MEDS: LOPERAMIDE 2 MG CAP PO SCH ×4 (07:28→21:46)
[2017-11-15] MEDS: LISINOPRIL 10 MG TAB PO SCH (07:29)
[2017-11-15] MEDS: AMIODARONE 200 MG TAB PO SCH ×3 (07:29→21:46)
[2017-11-15] MEDS: RIVAROXABAN 20 MG TAB PO SCH (07:29)
[2017-11-15] MEDS: GABAPENTIN 100 MG CAP PO SCH ×3 (07:29→21:46)
[2017-11-15] MEDS: VANCOMYCIN ORAL SOLUTION 250 MG/5 ML BOTTLE PO SCH ×4 (07:29→21:47)
[2017-11-15] MEDS: LIDOCAINE 5% PATCH TOPICAL SCH (07:29)
[2017-11-15] MEDS: OXYBUTYNIN CHLORIDE 5 MG TAB PO SCH ×2 (07:29→20:34)
[2017-11-15] MEDS: CHERRY FLAVOR 60 ML BOTTLE PO PRN ×3 (07:30→17:21)
--- NOTE | 2017-11-15 13:52 | CDI ---
Last Revision, February 2017 Documentation Clarification 3rd Request Date: 11/13/2017 10:30:00 AM From: Radha Murillo RN, CCDS Admit Date: 11/12/2017 6:15:00 AM Patient Name: Carmen Lenz Visit Number: [id number] ATTENTION: The Clinical Documentation Specialists (CDI) and [facility] Coding Staff appreciate your assistance in clarifying documentation. Please respond to the clarification below the line at the bottom and electronically sign. The CDI & [facility] Coding staff will review the response and follow-up if needed. Please note: Queries are made part of the Legal Health Record. If you have any questions, please contact the author of this message via ITS. Jerel Mcintosh MD History/Risk Factors: Confusion with hallucinations and weakness new onset, Atrial Fib, COPD, Pneumonia Tobacco use: former smoker Clinical Indicators: 11/13 H&P: Sepsis left lower lobe pneumonitis, atrial tachycardia this admission Vital signs on admission: Temp 102.1, HR 144, RR 22, B/P 157/63, Spo2 100% 4L NC Pulse oximetry: 93-100% documented by nursing, yet O2 is increased from 4L to 7L High Flow nasal cannula 11/12 H&P: Lung/Breathing assessment: "The chest demonstrated occasional rales at bases." Treatment: Breathing TX: Duoneb QID Continuous Pulse ox: per unit protocol O2: 4l NC weaned to 2l NC increased 7L high flow NC In your professional opinion, can you please clarify if these findings signify one of the following conditions? Acuity: Acute Acute on Chronic Specificity: Respiratory Failure, further specify (if known): With hypercapnia? With hypoxia? Respiratory Distress Other Diagnosis, please specify Unable to determine Please continue to document in your progress notes and discharge summary in order to capture severity of illness and risk of mortality. Include clinical findings that support your diagnosis. MTDD
--- NOTE | 2017-11-15 13:54 | CDI ---
Last Revision, February 2017 Documentation Clarification Form 3rd Request Date: 11/13/2017 10:49:00 AM From: Radha Murillo RN, CCDS Admit Date: 11/12/2017 6:15:00 AM Patient Name: Carmen Lenz Visit Number: [id number] ATTENTION: The Clinical Documentation Specialists (CDI) and [facility] Coding Staff appreciate your assistance in clarifying documentation. Please respond to the clarification below the line at the bottom and electronically sign. The CDI & [facility] Coding staff will review the response and follow-up if needed. Please note: Queries are made part of the Legal Health Record. If you have any questions, please contact the author of this message via ITS. Jerel Mcintosh MD Altered mental status was documented in the EC Notes and requires further specificity based on the patients documented co-morbid conditions. Patient history/risk factors: Atrial Fib, COPD, HTN, Pneumonia, RA, Diarrhea x 3 months, PCM, anemia Clinical Indicators: 11/12 H&P: "Possible sepsis with fever and confusion along with weakness and decreased urinary output." 11/12 ED: "Limitations: altered mental status, Patient is mildly altered mental status history obtained from EMS and patient's chart. General Exam: Limitations : altered mental status Medical Decision Makin female the ER with fever, altered mental state, A. fibs with RVR and pneumonia." Labs: WBC 25.1/27.1, Neutrophils 21.9, Plasma Lactic Acid 1.2/2.5/1.4 w sepsis reflex, Total CK 335/465/480 11/13/17 CXR: "mild congestive heart failure with small pleural effusions. Chest appears worse than yesterday." CT Brain: "Cerebral atrophy and chronic small vessel ischemia. No acute intracranial abnormality. " Treatment: Iv Cardizem and Amio Gtt's Lasix IVP Duoneb Updrafts Iv Levaquin, IV Zosyn, Po Vanco 2L IVF Bolus followed by 100 cc/hr In your professional opinion, please clarify the etiology of the altered mental status, if known. Encephalopathy (specify Type- Metabolic, Toxic, Anoxic, Septic and Underlying Medical Illness) Dementia (if know, specify Type and if with/without Behavioral Disturbance) Other condition (please specify) Unable to determine Please continue to document in your progress notes and discharge summary in order to capture severity of illness and risk of mortality. Include clinical findings that support your diagnosis. MTDD
--- NOTE | 2017-11-15 13:56 | CDI ---
Last Revision, February 2017 Documentation Clarification Form 3rd Request Date: 11/13/2017 10:49:00 AM From: Radha Murillo RN, CCDS Admit Date: 11/12/2017 6:15:00 AM Patient Name: Carmen Lenz Visit Number: [id number] ATTENTION: The Clinical Documentation Specialists (CDI) and [facility] Coding Staff appreciate your assistance in clarifying documentation. Please respond to the clarification below the line at the bottom and electronically sign. The CDI & [facility] Coding staff will review the response and follow-up if needed. Please note: Queries are made part of the Legal Health Record. If you have any questions, please contact the author of this message via ITS. Jerel Mcintosh MD Altered mental status was documented in the EC Notes and requires further specificity based on the patients documented co-morbid conditions. Patient history/risk factors: Atrial Fib, COPD, HTN, Pneumonia, RA, Diarrhea x 3 months, PCM, anemia Clinical Indicators: 11/12 H&P: "Possible sepsis with fever and confusion along with weakness and decreased urinary output." 11/12 ED: "Limitations: altered mental status, Patient is mildly altered mental status history obtained from EMS and patient's chart. General Exam: Limitations : altered mental status Medical Decision Makin female the ER with fever, altered mental state, A. fibs with RVR and pneumonia." Labs: WBC 25.1/27.1, Neutrophils 21.9, Plasma Lactic Acid 1.2/2.5/1.4 w sepsis reflex, Total CK 335/465/480 11/13/17 CXR: "mild congestive heart failure with small pleural effusions. Chest appears worse than yesterday." CT Brain: "Cerebral atrophy and chronic small vessel ischemia. No acute intracranial abnormality. " Treatment: Iv Cardizem and Amio Gtt's Lasix IVP Duoneb Updrafts Iv Levaquin, IV Zosyn, Po Vanco 2L IVF Bolus followed by 100 cc/hr In your professional opinion, please clarify the etiology of the altered mental status, if known. Encephalopathy (specify Type- Metabolic, Toxic, Anoxic, Septic and Underlying Medical Illness) Dementia (if know, specify Type and if with/without Behavioral Disturbance) Other condition (please specify) Unable to determine Please continue to document in your progress notes and discharge summary in order to capture severity of illness and risk of mortality. Include clinical findings that support your diagnosis. MTDD
--- NOTE | 2017-11-15 13:58 | CDI ---
Last Revision, February 2017 Documentation Clarification Form 3rd Request Date: 11/13/2017 11:12:00 AM From: Radha Murillo RN, CCDS Admit Date: 11/12/2017 6:15:00 AM Patient Name: Carmen Lenz Visit Number: [id number] ATTENTION: The Clinical Documentation Specialists (CDI) and [facility] Coding Staff appreciate your assistance in clarifying documentation. Please respond to the clarification below the line at the bottom and electronically sign. The CDI & [facility] Coding staff will review the response and follow-up if needed. Please note: Queries are made part of the Legal Health Record. If you have any questions, please contact the author of this message via ITS. Jerel Hodge MD History/Risk Factors: Pneumonia, COPD, Atrial Fib, HTN, RA, diarrhea x 3 months, PCM, Anemia Clinical Indicators: WBC: 25.1/27.1 Left shift: 21.9 11/13 CXR:"mild congestive heart failure with small pleural effusions. Chest appears worse than yesterday." H&P: Lung/Breathing assessment: "chest demonstrated occasional rales at bases." Treatment: Antibiotics: Vanco 250 mg PO QID, Zosyn 3.375 Gm IVPB Q 8 hrs, Levaquin 750 mg IVPB x 1 dose IVF 2l Bolus followed by 100 cc/hr O2 2-7L NC Breathing Tx: Duoneb QID In order to capture the severity of condition, please clarify if the condition signifies and you are treating for: Aspiration Pneumonia, identify if: Due to solids or liquids Bacterial Pneumonia, specify causal organism (if known) Gram Negative Pneumonia Due to Strep Due to Staph Due to E. Coli Other bacteria (please specify) Viral Pneumonia, specify casual organism (if known) Other, please specify Unable to determine Please continue to document in your progress notes and discharge summary in order to capture severity of illness and risk of mortality. Include clinical findings that support your diagnosis. MTDD
[2017-11-15] MEDS: HYDROcodone/APAP 5-325MG 1 EACH TAB PO PRN (17:21)
--- NOTE | 2017-11-15 23:42 | P.PN ---
Subjective Progress Note Date: 11/15/17 treated for pneumonia and acute respiratory failure, A. fib with RVR and pulmonary edema. She was followed by cardiology and underwent a YOAN on October 05 for concern for mitral valve vegetation that showed a calcified mitral valve but no vegetations she was also followed by pulmonary medicine, Dr. Watt. She was discharged home without antibiotics. Patient had subsequent admission November 01 through November 03 for frequent falls, lumbar strain and C. difficile colitis. Patient was discharged home on a 10 day course of oral vancomycin and also on Imodium. Patient then had an ER visit on 11/09 for right hip dislocation which was reduced by the ER physician and patient was discharged home. Patient returned on November 10 for hip pain and x-ray showed no abnormal alignment patient was discharged on Martha. Patient now presents to [facility] due to shortness of breath and general body aches. Patient states that she has had a fever at home. She denies having any cough or sputum production she complains of a hoarse voice. She states her appetite is okay. She does state she has some upper chest pain especially with deep breathing. She denies any palpitations. Patient presented with a heart rate in the 140s, temperature 102.1, white count 25.1. Lactic acid initially 1.2 followed by 2.5 and 1.4. Troponins were 0.074, 0.063 and 0.250 patient was initially started on Levaquin and Zosyn and continued on oral vancomycin. Subsequently Levaquin has been discontinued. She has been followed by cardiology initially on Cardizem drip without any improvement of heart rate and switched over to amiodarone drip. Her heart rate is now running in the 80s. Regarding C. difficile colitis, patient states her last bowel movement was a couple days ago and this was confirmed with her nurse that she has had not had any loose stools since admission. She denies any abdominal pain and abdomen is without any tenderness. She denies any dysuria. Repeat chest x-ray shows mild congestive heart failure with small pleural effusion. Worse from yesterday. CAT scan of the brain shows cerebral atrophy with chronic small vessel ischemic changes no acute intracranial abnormality. 11/15/2017 patient is certainly more comfortable. Diarrhea is improved. Denies fever chills rigors or sweats. The patient's atrial fibrillation is better with the Cardizem. She's had only 2 stools in the last day and she is remarkably improved. is present in the trying to determine how to get her back to [place]. Objective - Vital Signs Vital signs: Vital Signs Temp 97.2 F L 11/15/17 23:03 Pulse 92 11/15/17 23:03 Resp 18 11/15/17 23:03 BP 165/78 11/15/17 23:03 Pulse Ox 93 L 11/15/17 23:03 Intake & Output 11/15/17 11/15/17 11/16/17 06:59 18:59 06:59 Intake Total 650 520 Balance 650 520 Intake: Oral 650 520 Other: Voiding Method Bedpan Toilet Diaper # Voids 1 2 1 - Exam Gen: This is a thin 82-year-old female. She is sitting up in bed and eating breakfast and appears to be in no acute distress. Patient able to speak in full sentences. No respiratory distress noted. HEENT: Head is atraumatic, normocephalic. Pupils equal, round. Sclerae is anicteric. Conjunctiva pale. Mucous membranes of the mouth are moist. NECK: Supple. No lymphadenopathy. No thyromegaly. LUNGS: Crackles at bilateral bases.. No intercostal retractions. HEART: Regular rate and rhythm. No murmur. ABDOMEN: Soft. Bowel sounds are present. No masses. No tenderness. EXTREMITIES: Trace pedal edema. No calf tenderness. Dorsalis pedis 2+ bilaterally. NEUROLOGICAL: Patient is awake, alert and oriented x3. Cranial nerves 2 through 12 are grossly intact. - Labs CBC & Chem 7: 11/12/17 19:50 11/12/17 05:33 Labs: Microbiology - Last 24 Hours (Table) 11/12/17 05:33 Blood Culture - Preliminary Blood No Growth after 72 hours 11/12/17 22:40 Blood Culture - Preliminary Blood No Growth after 48 hours 11/12/17 21:46 Blood Culture - Preliminary Blood No Growth after 48 hours Laboratory Results WBC 27.1 k/uL (3.8-10.6) H 11/12/17 19:50 RBC 3.40 m/uL (3.80-5.40) L 11/12/17 19:50 Hgb 10.3 gm/dL (11.4-16.0) L 11/12/17 19:50 Hct 33.5 % (34.0-46.0) L 11/12/17 19:50 MCV 98.7 fL (80.0-100.0) 11/12/17 19:50 MCH 30.2 pg (25.0-35.0) 11/12/17 19:50 MCHC 30.6 g/dL (31.0-37.0) L 11/12/17 19:50 RDW 16.2 % (11.5-15.5) H 11/12/17 19:50 Plt Count 300 k/uL (150-450) 11/12/17 19:50 Neutrophils % 88 % 11/12/17 05:33 Lymphocytes % 6 % 11/12/17 05:33 Monocytes % 4 % 11/12/17 05:33 Eosinophils % 0 % 11/12/17 05:33 Basophils % 0 % 11/12/17 05:33 Neutrophils # 21.9 k/uL (1.3-7.7) H 11/12/17 05:33 Lymphocytes # 1.5 k/uL (1.0-4.8) 11/12/17 05:33 Monocytes # 1.0 k/uL (0-1.0) 11/12/17 05:33 Eosinophils # 0.0 k/uL (0-0.7) 11/12/17 05:33 Basophils # 0.1 k/uL (0-0.2) 11/12/17 05:33 Hypochromasia Marked 11/12/17 19:50 Anisocytosis Slight 11/12/17 19:50 Macrocytosis Slight 11/12/17 19:50 PT 16.0 sec (9.0-12.0) H 11/12/17 05:33 INR 1.7 (<1.2) H 11/12/17 05:33 APTT 34.2 sec (22.0-30.0) H 11/12/17 05:33 Sodium 140 mmol/L (137-145) 11/12/17 05:33 Potassium 3.5 mmol/L (3.5-5.1) 11/12/17 05:33 Chloride 104 mmol/L (98-107) 11/12/17 05:33 Carbon Dioxide 28 mmol/L (22-30) 11/12/17 05:33 Anion Gap 8 mmol/L 11/12/17 05:33 BUN 12 mg/dL (7-17) 11/12/17 05:33 Creatinine 0.74 mg/dL (0.52-1.04) 11/12/17 05:33 Est GFR (CKD-EPI)AfAm 88 (>60 ml/min/1.73 sqM) 11/12/17 05:33 Est GFR (CKD-EPI)NonAf 76 (>60 ml/min/1.73 sqM) 11/12/17 05:33 Glucose 80 mg/dL (74-99) 11/12/17 05:33 Lactic Ac Sepsis Rflx Y 11/12/17 20:25 Plasma Lactic Acid Alex 1.4 mmol/L (0.7-2.0) 11/12/17 23:36 Calcium 8.6 mg/dL (8.4-10.2) 11/12/17 05:33 Magnesium 1.7 mg/dL (1.6-2.3) 11/12/17 05:33 Total Bilirubin 1.0 mg/dL (0.2-1.3) 11/12/17 05:33 AST 36 U/L (14-36) 11/12/17 05:33 ALT 33 U/L (9-52) 11/12/17 05:33 Alkaline Phosphatase 93 U/L (38-126) 11/12/17 05:33 Total Creatine Kinase 480 U/L (30-135) H 11/12/17 17:13 CK-MB (CK-2) 3.9 ng/mL (0.0-2.4) H 11/12/17 17:13 CK-MB (CK-2) Rel Index 0.8 11/12/17 17:13 Troponin I 0.250 ng/mL (0.000-0.034) H* 11/12/17 17:13 NT-Pro-B Natriuret Pep 672 pg/mL 11/12/17 05:33 Total Protein 5.3 g/dL (6.3-8.2) L 11/12/17 05:33 Albumin 2.8 g/dL (3.5-5.0) L 11/12/17 05:33 Triglycerides 76 mg/dL (<150) 11/13/17 06:09 Cholesterol 94 mg/dL (<200) 11/13/17 06:09 LDL Cholesterol, Calc 53 mg/dL (0-99) 11/13/17 06:09 HDL Cholesterol 26 mg/dL (40-60) L 11/13/17 06:09 Lipase 14 U/L (23-300) L 11/12/17 05:33 TSH 1.090 mIU/L (0.465-4.680) 11/12/17 11:38 Urine Color Yellow 11/12/17 06:45 Urine Appearance Clear (Clear) 11/12/17 06:45 Urine pH 6.0 (5.0-8.0) 11/12/17 06:45 Ur Specific [place] 1.011 (1.001-1.035) 11/12/17 06:45 Urine Protein Trace (Negative) H 11/12/17 06:45 Urine Glucose (UA) Negative (Negative) 11/12/17 06:45 Urine Ketones 1+ (Negative) H 11/12/17 06:45 Urine Blood Negative (Negative) 11/12/17 06:45 Urine Nitrite Negative (Negative) 11/12/17 06:45 Urine Bilirubin Negative (Negative) 11/12/17 06:45 Urine Urobilinogen <2.0 mg/dL (<2.0) 11/12/17 06:45 Ur Leukocyte Esterase Trace (Negative) H 11/12/17 06:45 Urine RBC 3 /hpf (0-5) 11/12/17 06:45 Urine WBC 7 /hpf (0-5) H 11/12/17 06:45 Ur Squamous Epith Cells 3 /hpf (0-4) 11/12/17 06:45 Hyaline Casts 3 /lpf (0-2) H 11/12/17 06:45 Urine Mucus Rare /hpf (None) H 11/12/17 06:45 Microbiology 11/12/17 05:33 Blood Blood Culture - Preliminary No Growth after 72 hours 11/12/17 22:40 Blood Blood Culture - Preliminary No Growth after 48 hours 11/12/17 21:46 Blood Blood Culture - Preliminary No Growth after 48 hours Assessment and Plan (1) C. difficile colitis Narrative/Plan: 82-year-old woman who was in the family home with her was recently hospitalized with difficulty with frequent falls and weakness. She was having difficulty with atrial fibrillation as well as pneumonia, YOAN failed to reveal evidence of endocarditis. She was treated for pneumonia. At the beginning of this month she again was having difficulties and she was seen there is evidence of some diarrhea and she was diagnosed with Clostridium difficile colitis. She apparently was treated and had some improvement. However home she became more confused felt much worse developed a fever she is a history of cough and sputum production and again at presentation had a heart rate of 140 as well as leukocytosis and had transient elevation of her lactic acid that was thought to be due to her atrial fibrillation with a rapid ventricular response and poor perfusion. With correction this is now improved. The patient's C. diff will be treated with vancomycin orally 250 mg every 6 hours and she will monitor for her stool output. She does have some mild bowel distention and minimal tenderness. No evidence of any shan pneumonia but does have some congestive heart failure. She was seen by cardiology and will expect improvement of her heart failure as her A. fib and RVR become better controlled. We'll avoid other antimicrobial therapy at this point in time except for the treatment of her C. diff. Cultures are being monitored. We'll follow her leukocytosis that is likely multifactorial including a C. diff in the strain of the recurrent A. fib and pulmonary edema. 11/15/2017 patient is now improving. Doing well with current treatment interventions. Diarrhea is improved. Shortness of breath is improved. Family is working on ways to get her well enough to travel to [place] to continue her care in their current home state. Current Visit: No Status: Acute Code(s): A04.72 - ENTEROCOLITIS D/T CLOSTRIDIUM DIFFICILE, NOT SPCF RECUR SNOMED Code(s): 088707583
[2017-11-16] MEDS: SODIUM CHLORIDE 0.9% 1,000 ML IV SCH ×2 (05:37→08:32)
[2017-11-16] MEDS: ASPIRIN 81 MG PO SCH (08:29)
[2017-11-16] MEDS: FUROSEMIDE 20 MG TAB PO SCH (08:29)
[2017-11-16] MEDS: RIVAROXABAN 20 MG TAB PO SCH (08:29)
[2017-11-16] MEDS: AMIODARONE 200 MG TAB PO SCH ×3 (08:29→21:09)
[2017-11-16] MEDS: LIDOCAINE 5% PATCH TOPICAL SCH (08:30)
[2017-11-16] MEDS: GABAPENTIN 100 MG CAP PO SCH ×3 (08:30→21:09)
[2017-11-16] MEDS: LOPERAMIDE 2 MG CAP PO SCH ×4 (08:31→21:09)
[2017-11-16] MEDS: METOPROLOL TARTRATE 50 MG TAB PO SCH ×2 (08:31→20:13)
[2017-11-16] MEDS: OXYBUTYNIN CHLORIDE 5 MG TAB PO SCH ×2 (08:31→20:13)
[2017-11-16] MEDS: predniSONE 10 MG TAB PO SCH ×2 (08:31→20:13)
[2017-11-16] MEDS: LISINOPRIL 10 MG TAB PO SCH (08:31)
[2017-11-16] MEDS: IPRATROPIUM-ALBUTEROL 3 ML NEB INHALATION SCH ×4 (08:34→19:56)
--- NOTE | 2017-11-16 09:08 | XR ---
EXAMINATION TYPE: XR chest 1V portable DATE OF EXAM: 11/16/2017 COMPARISON: 11/13/2017 HISTORY: Shortness of breath TECHNIQUE: Single frontal view of the chest is obtained. FINDINGS: Postsurgical change involving the shoulders. Diffuse interstitial pattern with bilateral i nfiltrate and pleural effusion. Surgical clips in the epigastrium. There appear to be recent rib frac tures involving the right lower rib cage. IMPRESSION: 1. Bilateral infiltrate and pleural effusion correlate for pneumonia versus CHF. 2. There appear to be recent right-sided rib fractures involving the lower right rib cage correlate c linically.
[2017-11-16] MEDS: VANCOMYCIN ORAL SOLUTION 250 MG/5 ML BOTTLE PO SCH ×4 (09:19→21:09)
[2017-11-16 11:57] LABS: Anisocytosis Slight; Basophils % (A) 0 %; Eosinophils % (A) 0 %; HCT 34.7 % (34.0-46.0); HGB 10.2 gm/dL (11.4-16.0); Hypochromasia Marked; Lymphocytes # (A) 0.7 k/uL (1.0-4.8); Lymphocytes % (A) 4 %; MCH 29.1 pg (25.0-35.0); MCHC 29.5 g/dL (31.0-37.0); MCV 98.5 fL (80.0-100.0); Macrocytosis Slight; Mean Platelet Volume 7.9; Monocytes # (A) 0.6 k/uL (0-1.0); Monocytes % (A) 4 %; Neutrophils # (A) 13.9 k/uL (1.3-7.7); Neutrophils % (A) 90 %; Platelet Count 430 k/uL (150-450); RBC 3.52 m/uL (3.80-5.40); RDW 16.2 % (11.5-15.5); WBC 15.5 k/uL (3.8-10.6)
[2017-11-16 12:02] LABS: Anion Gap 8 mmol/L; Blood Urea Nitrogen 11 mg/dL (7-17); Calcium 8.9 mg/dL (8.4-10.2); Carbon Dioxide 25 mmol/L (22-30); Chloride 110 mmol/L (98-107); Glucose 113 mg/dL (74-99); Potassium 3.6 mmol/L (3.5-5.1); Sodium 143 mmol/L (137-145)
[2017-11-16] MEDS: CHERRY FLAVOR 60 ML BOTTLE PO PRN (13:49)
[2017-11-16] MEDS: FUROSEMIDE 10 MG/ML 4 ML VIAL IV SCH (15:18)
--- NOTE | 2017-11-16 15:36 | P.CNPUL ---
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 Patient was recently hospitalized from 09/21/2017 through 10/10/2017 for acute hypoxic respiratory failure related to bilateral pneumonia, onset A. fib RVR and acute congestive heart failure with diastolic dysfunction, and a non-ST elevated CT. Patient was treated with a combination of Zosyn, vancomycin and Levaquin, she was diuresed, echocardiogram showed a preserved LV function with an ejection fraction of 55-60%, moderate degree of mitral regurgitation and questionable small mobile vegetation attest to the anterior mitral valve leaflet and the patient underwent a YOAN. The YOAN did not show any evidence of any infective endocarditis or valvular vegetation. Moderate to severe mitral regurgitation, moderate to severe tricuspid regurgitation and overall LV function was within normal limits. He was placed on anticoagulation in the form of some Xarelto. Clinically patient improved, and was discharged home. Patient was hospitalized again for recurrent falls, back pain, weakness from 11/01/2017 through 11/03/2017. Patient has been having trouble with ongoing diarrhea for last 4 months, weight loss of 30-40 pounds, patient apparently had upper and lower endoscopy studies in [place], with removal of polyps. Patient had a couple other emergency rooms visits for [place] related to dislocated right hip and pain. On 11/12/2017 patient was evaluated in the emergency department again for significant shortness of breath , generalized body pain, confusion, fever. Patient was in A. fib RVR, febrile, and the chest x-ray showed a new pulmonary interstitial infiltrates, and a new small pneumonia at the left lateral lung base. Patient has significant leukocytosis, the PVC was 27.1, hemoglobin is 10.3, lactic acid was elevated at 2.5. Patient had positive troponins of 0.074, 0.063 and 0.250, patient was started on Levaquin and Zosyn, and oral vancomycin for evidence of C. diff in her stool. Patient was given IV fluid resuscitation. She was seen in consultation by ID service as well as cardiology, her A. fib RVR was treated with Cardizem and patient is on Xarelto for anticoagulation. We were asked to see the patient in consultation for worsening shortness of breath, this morning patient stated she had a severe bout of respiratory distress, was hardly able to get air in, her oxygenation worsened, and her FiO2 increased to 4 L per nasal cannula and her pulse ox is around 92%, patient was noted to have increased bilateral lower extremity edema, and positive JVD. Stat chest x-ray has been taken and showed bilateral infiltrates, and pleural effusions. ProBNP was elevated at 9950. Patient was given a dose of IV Lasix. Her diuresing, and she felt improvement with her breathing. Review of Systems All systems: negative Constitutional: Reports weakness, Reports weight loss, Denies chills, Denies fever Eyes: denies blurred vision, denies pain Ears, nose, mouth and throat: Denies headache, Denies sore throat Cardiovascular: Denies chest pain, Denies shortness of breath Respiratory: Reports dyspnea, Reports respiratory infections, Denies cough Gastrointestinal: Reports change in bowel habits, Reports diarrhea, Denies abdominal pain, Denies nausea, Denies vomiting Genitourinary: Denies dysuria, Denies hematuria Musculoskeletal: Reports frequent falls, Reports gait dysfunction, Denies myalgias Integumentary: Denies pruritus, Denies rash Neurological: Denies numbness, Denies weakness Psychiatric: Denies anxiety, Denies depression Endocrine: Denies fatigue, Denies weight change Past Medical History Past Medical History: Atrial Fibrillation, COPD, GERD/Reflux, Hyperlipidemia, Hypertension, Osteoarthritis (OA), Pneumonia, Rheumatoid Arthritis (RA) Additional Past Medical History / Comment(s): Afib with RVR, pneumonias, sepsis , diarrhea for 3 months but slowed down lately, duodenal ulcer with partial gastrectomy, protein calorie malnutrition, anemia, chronic low back pain, past L7 compression fracture, neuropathy bilateral legs, falls, urinary incontinence. History of Any Multi-Drug Resistant Organisms: None Reported Past Surgical History: Appendectomy, Back Surgery, Joint Replacement, Orthopedic Surgery Additional Past Surgical History / Comment(s): L4-L5 fusion, partial gastrectomy , EGDs/colonoscopies, bilateral shoulder arthroscopies for rotator cuff repairs , total reverse R shoulder, bilateral total hip arthroplasties, YOAN. Past Anesthesia/Blood Transfusion Reactions: No Reported Reaction Smoking Status: Former smoker Additional Past Alcohol Use History / Comment(s): Patient resides at home with her which home is normally in [place] and currently staying in an in the [facility]. - Past Family History Mother History Unknown: Yes Family Medical History: Diabetes Mellitus Father Family Medical History: Congestive Heart Failure (CHF) Medications and Allergies Home Medications Medication Instructions Recorded Confirmed Type Cyanocobalamin (Vitamin B-12) 1,000 mcg PO DAILY 10/24/16 11/12/17 History [Vitamin B-12] Folic Acid 0.8 mg PO DAILY 10/24/16 11/12/17 History Oxybutynin Chloride 5 mg PO BID 10/24/16 11/12/17 History Furosemide [Lasix] 20 mg PO DAILY 09/30/17 11/12/17 History Rivaroxaban [Xarelto] 20 mg PO DAILY 09/30/17 11/12/17 History Ascorbic Acid [Vitamin C] 1,000 mg PO DAILY 10/01/17 11/12/17 History Biotin 5,000 mcg PO DAILY 10/01/17 11/12/17 History predniSONE 10 mg PO BID 10/01/17 11/12/17 History Diltiazem HCl 120 mg PO TID 11/01/17 11/12/17 History Lisinopril [Zestril] 10 mg PO DAILY 11/01/17 11/12/17 History Metoprolol Tartrate [Lopressor] 50 mg PO BID 11/01/17 11/12/17 History Acetaminophen Tab [Tylenol] 500 mg PO Q6HR PRN #60 tab 11/03/17 11/12/17 Rx Calcium Carb-Vit D 500Mg-200Un 1 each PO BID-W/MEALS #60 tab 11/03/17 11/12/17 Rx [Oscal 500+D] Cyclobenzaprine [Flexeril] 5 mg PO TID PRN #30 tab 11/03/17 11/12/17 Rx Ergocalciferol [Vitamin D2 50,000 unit PO Q7D #4 cap 11/03/17 11/12/17 Rx (DRISDOL)] Gabapentin [Neurontin] 100 mg PO TID #90 cap 11/03/17 11/12/17 Rx Hydrocodone/Acetaminophen [Vicodin 1 tab PO Q4HR PRN 3 Days #18 tab 11/03/1712/20 Rx Es 7.5-300 mg Tablet] Lidocaine 5% Patch [Lidoderm 5% 1 patch TOPICAL DAILY #14 patch 11/03/17 Rx Patch] Loperamide [Imodium] 2 mg PO QID #120 cap 11/03/17 11/12/17 Rx Vancomycin HCl 125 mg PO QID #40 capsule 11/03/17 11/12/17 Rx Methotrexate/Pf [Rasuvo 25 mg/0.5 25 mg SQ Q7D 11/09/17 11/12/17 History ml Autoinj] Hydrocodone/Acetaminophen [[place] 1 tab PO Q6HR PRN #12 tab 11/10/17 11/12/17 Rx 5-325] Allergies Allergy/AdvReac Type Severity Reaction Status Date / Time No Known Drug Allergies Allergy Unknown Verified 11/13/17 00:28 morphine AdvReac Nausea & Verified 11/13/17 00:25 Vomiting oxycodone [From OxyContin] AdvReac Nausea & Verified 11/12/17 06:43 Vomiting Physical Exam Vitals: Vital Signs Temp Pulse Pulse Resp BP Pulse Ox 11/16/17 12:17 92 11/16/17 12:07 92 11/16/17 08:50 113 H 24 150/96 92 L 11/16/17 08:49 108 H 11/16/17 08:35 100 11/16/17 05:41 97.8 F 83 16 149/83 95 11/15/17 23:03 97.2 F L 92 18 165/78 93 L 11/15/17 21:39 107 H 16 11/15/17 19:52 86 11/15/17 19:43 86 11/15/17 16:00 16 Intake and Output 11/15/17 11/16/17 11/16/17 22:59 06:59 14:59 Intake Total 100 Balance 100 Intake: Oral 100 Other: Voiding Method Toilet Bedside Commode # Voids 1 1 # Bowel Movements 1 Weight 48.9 kg GENERAL EXAM: Alert, pleasant, frail, cachectic 82-year-old white female mildly short of breath currently on 4 L per nasal cannula up on the edge of the bed HEAD: Normocephalic/atraumatic. EYES: Normal reaction of pupils, equal size. Conjunctiva pink, sclera white. NOSE: Clear with pink turbinates. THROAT: No erythema or exudates. NECK: No masses, no JVD, no thyroid enlargement, no adenopathy. CHEST: No chest wall deformity. Symmetrical expansion. LUNGS: Equal air entry with bilateral crackles CVS: Irregular rate and rhythm, normal S1 and S2, no gallops, no murmurs, no rubs ABDOMEN: Soft, nontender. No hepatosplenomegaly, normal bowel sounds, no guarding or rigidity. EXTREMITIES: No clubbing, 2+ pitting edema in bilateral lower extremities, cyanosis, 2+ pulses and upper and lower extremities. MUSCULOSKELETAL: Muscle strength and tone normal. SPINE: No scoliosis or deformity SKIN: No rashes CENTRAL NERVOUS SYSTEM: Alert and oriented -3. No focal deficits, tone is normal in all 4 extremities. PSYCHIATRIC: Alert and oriented -3. Appropriate affect. Intact judgment and insight. Results - Laboratory Findings CBC and BMP: 11/16/17 10:12 11/16/17 10:12 PT/INR, D-dimer PT 16.0 sec (9.0-12.0) H 11/12/17 05:33 INR 1.7 (<1.2) H 11/12/17 05:33 D-Dimer 2.04 mg/L FEU (<0.60) H 11/16/17 10:12 Abnormal lab findings: Abnormal Labs 11/12/17 11/12/17 11/12/17 05:33 05:33 05:33 WBC 25.1 H RBC Hgb Hct MCHC RDW 16.2 H Neutrophils # 21.9 H Lymphocytes # PT INR APTT D-Dimer Chloride Glucose Plasma Lactic Acid Alex Total Creatine Kinase 335 H CK-MB (CK-2) Troponin I 0.074 H* Total Protein 5.3 L Albumin 2.8 L HDL Cholesterol Lipase 14 L Urine Protein Urine Ketones Ur Leukocyte Esterase Urine WBC Hyaline Casts Urine Mucus 11/12/17 11/12/17 11/12/17 05:33 06:45 11:38 WBC RBC Hgb Hct MCHC RDW Neutrophils # Lymphocytes # PT 16.0 H INR 1.7 H APTT 34.2 H D-Dimer Chloride Glucose Plasma Lactic Acid Alex Total Creatine Kinase 465 H CK-MB (CK-2) Troponin I 0.063 H* Total Protein Albumin HDL Cholesterol Lipase Urine Protein Trace H Urine Ketones 1+ H Ur Leukocyte Esterase Trace H Urine WBC 7 H Hyaline Casts 3 H Urine Mucus Rare H 11/12/17 11/12/17 11/12/17 17:13 19:50 19:50 WBC 27.1 H RBC 3.40 L Hgb 10.3 L Hct 33.5 L MCHC 30.6 L RDW 16.2 H Neutrophils # Lymphocytes # PT INR APTT D-Dimer Chloride Glucose Plasma Lactic Acid Alex 2.5 H* Total Creatine Kinase 480 H CK-MB (CK-2) 3.9 H Troponin I 0.250 H* Total Protein Albumin HDL Cholesterol Lipase Urine Protein Urine Ketones Ur Leukocyte Esterase Urine WBC Hyaline Casts Urine Mucus 11/13/17 11/16/17 11/16/17 06:09 10:12 10:12 WBC 15.5 H RBC 3.52 L Hgb 10.2 L Hct MCHC 29.5 L RDW 16.2 H Neutrophils # 13.9 H Lymphocytes # 0.7 L PT INR APTT D-Dimer 2.04 H Chloride Glucose Plasma Lactic Acid Alex Total Creatine Kinase CK-MB (CK-2) Troponin I Total Protein Albumin HDL Cholesterol 26 L Lipase Urine Protein Urine Ketones Ur Leukocyte Esterase Urine WBC Hyaline Casts Urine Mucus 11/16/17 10:12 WBC RBC Hgb Hct MCHC RDW Neutrophils # Lymphocytes # PT INR APTT D-Dimer Chloride 110 H Glucose 113 H Plasma Lactic Acid Alex Total Creatine Kinase CK-MB (CK-2) Troponin I Total Protein Albumin HDL Cholesterol Lipase Urine Protein Urine Ketones Ur Leukocyte Esterase Urine WBC Hyaline Casts Urine Mucus - Diagnostic Findings Chest x-ray: report reviewed, image reviewed Assessment and Plan Plan: Assessment: #1. Acute hypoxemic respiratory failure secondary to acute congestive heart failure, with preserved left ventricular systolic function. Today's chest x- ray shows bilateral pleural effusions, bilateral infiltrates. #2. Recent hospitalization in October for bilateral pneumonia, A. fib RVR, congestive heart failure, congestive heart failure and patient was treated with a combination of Zosyn, Levaquin and vancomycin. Patient required BiPAP support and ICU admission during that hospital stay #3. A. fib with RVR, currently patient is on oral Amiodarone and Xarelto, her heart rate is better controlled #4. Valvular heart disease with evidence of moderate to severe mitral regurgitation and tricuspid regurgitation and preserved LV function #5. Leukocytosis, fever present on admission likely due to C. diff colitis and sepsis, improved #6. C. diff colitis currently on oral vancomycin #7. D-dimer, nonspecific, and patient has been on anticoagulation in the form of Xarelto #8. Lactic acidosis, and patient has been fluid resuscitated with subsequent resolution of lactic acidemia #9. Frequent falls at home, gait dysfunction, generalized weakness #10. History of ongoing diarrhea her last 3-4 months and weight loss, and patient has undergone endoscopic evaluation in [place] would removal of polyps. Most recent abdomen/pelvis CT showed mild constipation, and 10 mm common bile duct consistent with chronic gallbladder dysfunction. #11. Rheumatoid arthritis, previously on methotrexate #12. Chronic back pain, with evidence of moderate lumbar spondylosis seen on the CT of abdomen and pelvis #13. Nicotine dependence, currently in remission, patient quit in 1990, but prior to that smoked a pack a day for 40 years. Not on home oxygen or any inhalers or nebulized treatments at home #14. History of hypertension, hyperlipidemia Plan: We'll start the patient on IV Lasix of 40 mg every 8 hours, oral prednisone at 10 mg twice daily, continue with nebulized bronchodilators, no clear evidence of pneumonia on the chest x-ray, in the patient's at times are attributed to acute exacerbation of congestive heart failure, of diastolic nature. Continue Oral amiodarone and Xarelto. She already reports improvement with her breathing after the first doses of IV Lasix. After discussion with the patient and her he was explained to them that view of worsening of patient's health status, a few almost back to back hospital admissions, with one of them requiring intensive care admission and subsequent multiple emergency room visits for frequent falls, weakness, diarrhea, and worsening respiratory issues , it was recommended that once the patient is stabilized and is able to travel, that she returns home to [place] and establishes relationship with a primary care physician for regular follow-up. Continue monitoring patient's heart rate and rhythm, vital signs, oxygenation status, urine output, daily weights, renal profile and electrolytes. We'll continue to closely follow. I performed a history & physical examination of the patient and discussed their management with my nurse practitioner, Jillian Moffett. I reviewed the nurse practitioner's note and agree with the documented findings and plan of care. Lung sounds are positive for coarse bibasilar crackles. The findings and the impression was discussed with the patient. I attest to the documentation by the nurse practitioner. Time with Patient: Greater than 30
[2017-11-17] MEDS: FUROSEMIDE 10 MG/ML 4 ML VIAL IV SCH ×4 (00:49→23:17)
[2017-11-17] MEDS: IPRATROPIUM-ALBUTEROL 3 ML NEB INHALATION SCH ×4 (07:23→21:03)
[2017-11-17] MEDS: METOPROLOL TARTRATE 50 MG TAB PO SCH ×2 (08:01→19:59)
[2017-11-17] MEDS: PANTOPRAZOLE 40 MG/10 ML VIAL IVP SCH (08:01)
[2017-11-17] MEDS: ASPIRIN 81 MG PO SCH (08:01)
[2017-11-17] MEDS: OXYBUTYNIN CHLORIDE 5 MG TAB PO SCH ×2 (08:01→20:00)
[2017-11-17] MEDS: AMIODARONE 200 MG TAB PO SCH ×3 (08:01→20:00)
[2017-11-17] MEDS: GABAPENTIN 100 MG CAP PO SCH ×3 (08:01→20:00)
[2017-11-17] MEDS: LISINOPRIL 10 MG TAB PO SCH (08:01)
[2017-11-17] MEDS: LIDOCAINE 5% PATCH TOPICAL SCH (08:01)
[2017-11-17] MEDS: predniSONE 10 MG TAB PO SCH ×2 (08:01→20:00)
[2017-11-17] MEDS: RIVAROXABAN 20 MG TAB PO SCH (08:01)
[2017-11-17] MEDS: LOPERAMIDE 2 MG CAP PO SCH ×4 (08:02→22:48)
[2017-11-17] MEDS: VANCOMYCIN ORAL SOLUTION 250 MG/5 ML BOTTLE PO SCH ×4 (08:06→23:16)
[2017-11-17] MEDS ORDERED: FUROSEMIDE 10 MG/ML 4 ML VIAL IV SCH (09:00)
[2017-11-17 09:19] LABS: Anion Gap 9 mmol/L; Blood Urea Nitrogen 10 mg/dL (7-17); Calcium 8.8 mg/dL (8.4-10.2); Carbon Dioxide 28 mmol/L (22-30); Chloride 108 mmol/L (98-107); Glucose 131 mg/dL (74-99); Potassium 2.9 mmol/L (3.5-5.1); Sodium 145 mmol/L (137-145)
[2017-11-17 09:35] LABS: Anisocytosis Slight; Basophils % (A) 0 %; Eosinophils % (A) 0 %; HCT 34.1 % (34.0-46.0); HGB 10.4 gm/dL (11.4-16.0); Hypochromasia Marked; Lymphocytes # (A) 1.1 k/uL (1.0-4.8); Lymphocytes % (A) 10 %; MCH 29.1 pg (25.0-35.0); MCHC 30.4 g/dL (31.0-37.0); MCV 95.8 fL (80.0-100.0); Mean Platelet Volume 7.5; Monocytes # (A) 0.7 k/uL (0-1.0); Monocytes % (A) 6 %; Neutrophils # (A) 8.9 k/uL (1.3-7.7); Neutrophils % (A) 82 %; Platelet Count 400 k/uL (150-450); RBC 3.56 m/uL (3.80-5.40); RDW 16.7 % (11.5-15.5); WBC 10.9 k/uL (3.8-10.6)
[2017-11-17] MEDS ORDERED: Potassium Replacement Protocol 1 EACH MISC MISCELLANE PRN (10:59)
[2017-11-17] MEDS: POTASSIUM CHLORIDE ER 20 MEQ TAB.ER PO SCH ×3 (11:23→13:35)
--- NOTE | 2017-11-17 11:36 | P.PN ---
Subjective Progress Note Date: 11/17/17 Principal diagnosis: Acute hypoxic respiratory failure secondary to diastolic congestive heart failure with moderate mitral and tricuspid regurgitation. 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 Patient was recently hospitalized from 09/21/2017 through 10/10/2017 for acute hypoxic respiratory failure related to bilateral pneumonia, onset A. fib RVR and acute congestive heart failure with diastolic dysfunction, and a non-ST elevated [place]. Patient was treated with a combination of Zosyn, vancomycin and Levaquin, she was diuresed, echocardiogram showed a preserved LV function with an ejection fraction of 55-60%, moderate degree of mitral regurgitation and questionable small mobile vegetation attest to the anterior mitral valve leaflet and the patient underwent a YOAN. The YOAN did not show any evidence of any infective endocarditis or valvular vegetation. Moderate to severe mitral regurgitation, moderate to severe tricuspid regurgitation and overall LV function was within normal limits. He was placed on anticoagulation in the form of some Xarelto. Clinically patient improved, and was discharged home. Patient was hospitalized again for recurrent falls, back pain, weakness from 11/01/2017 through 11/03/2017. Patient has been having trouble with ongoing diarrhea for last 4 months, weight loss of 30-40 pounds, patient apparently had upper and lower endoscopy studies in [place], with removal of polyps. Patient had a couple other emergency rooms visits for [place] related to dislocated right hip and pain. On 11/12/2017 patient was evaluated in the emergency department again for significant shortness of breath , generalized body pain, confusion, fever. Patient was in A. fib RVR, febrile, and the chest x-ray showed a new pulmonary interstitial infiltrates, and a new small pneumonia at the left lateral lung base. Patient has significant leukocytosis, the PVC was 27.1, hemoglobin is 10.3, lactic acid was elevated at 2.5. Patient had positive troponins of 0.074, 0.063 and 0.250, patient was started on Levaquin and Zosyn, and oral vancomycin for evidence of C. diff in her stool. Patient was given IV fluid resuscitation. She was seen in consultation by ID service as well as cardiology, her A. fib RVR was treated with Cardizem and patient is on Xarelto for anticoagulation. We were asked to see the patient in consultation for worsening shortness of breath, this morning patient stated she had a severe bout of respiratory distress, was hardly able to get air in, her oxygenation worsened, and her FiO2 increased to 4 L per nasal cannula and her pulse ox is around 92%, patient was noted to have increased bilateral lower extremity edema, and positive JVD. Stat chest x-ray has been taken and showed bilateral infiltrates, and pleural effusions. ProBNP was elevated at 9950. Patient was given a dose of IV Lasix. Her diuresing, and she felt improvement with her breathing. The patient is seen again today 11/17/2017 in follow-up on the regular medical floor. She is awake and alert in no acute distress. She is breathing quite a bit easier today as compared to yesterday. She diuresed well. Currently in a - 1200 ML balance. She is down to 4 L high flow nasal cannula and maintaining good O2 saturation in the 90s. She's been afebrile. Blood cultures reveal no growth. White count improved 10.9. Hemoglobin 10.4. Creatinine 0.69. Replacing potassium. She remains on Lasix 40 mg IV push every 8 hours. Objective - Vital Signs Vital signs: Vital Signs Temp 98.2 F 11/17/17 07:45 Pulse 104 H 11/17/17 07:45 Resp 20 11/17/17 07:45 BP 126/72 11/17/17 07:45 Pulse Ox 92 L 11/17/17 07:45 Intake & Output 11/16/17 11/17/17 11/17/17 18:59 06:59 18:59 Output Total 500 700 Balance -500 -700 Weight 48.9 kg 48.9 kg Output: Urine 500 700 Other: Voiding Method Bedside Commode Bedside Commode # Voids 5 5 # Bowel Movements 1 - Constitutional General appearance: Present: thin - EENT Eyes: Present: EOMI, PERRLA ENT: Present: hard of hearing Ears: bilateral: normal - Neck Neck: Present: normal ROM Carotids: bilateral: upstroke normal Thyroid: bilateral: normal size - Respiratory Respiratory: bilateral: rales - Cardiovascular Rhythm: irregularly irregular Heart sounds: normal: S1, S2 Abnormal Heart Sounds: Present: diastolic murmur - Gastrointestinal General gastrointestinal: Present: normal bowel sounds - Integumentary Integumentary: Present: decreased turgor - Neurologic Neurologic: Present: CNII-XII intact - Musculoskeletal Musculoskeletal: Present: generalized weakness - Psychiatric Psychiatric: Present: A&O x's 3, appropriate affect, intact judgment & insight - Labs CBC & Chem 7: 11/17/17 08:26 11/17/17 08:26 Labs: Abnormal Lab Results - Last 24 Hours (Table) 11/16/17 11/16/17 11/17/17 Range/Units 10:12 10:12 08:26 WBC 15.5 H 10.9 H (3.8-10.6) k/uL RBC 3.52 L 3.56 L (3.80-5.40) m/uL Hgb 10.2 L 10.4 L (11.4-16.0) gm/dL MCHC 29.5 L 30.4 L (31.0-37.0) g/dL RDW 16.2 H 16.7 H (11.5-15.5) % Neutrophils # 13.9 H 8.9 H (1.3-7.7) k/uL Lymphocytes # 0.7 L (1.0-4.8) k/uL Potassium (3.5-5.1) mmol/L Chloride 110 H (98-107) mmol/L Glucose 113 H (74-99) mg/dL 11/17/17 Range/Units 08:26 WBC (3.8-10.6) k/uL RBC (3.80-5.40) m/uL Hgb (11.4-16.0) gm/dL MCHC (31.0-37.0) g/dL RDW (11.5-15.5) % Neutrophils # (1.3-7.7) k/uL Lymphocytes # (1.0-4.8) k/uL Potassium 2.9 L (3.5-5.1) mmol/L Chloride 108 H (98-107) mmol/L Glucose 131 H (74-99) mg/dL Microbiology - Last 24 Hours (Table) 11/12/17 05:33 Blood Culture - Preliminary Blood No Growth after 120 hours 11/12/17 22:40 Blood Culture - Preliminary Blood No Growth after 96 hours 11/12/17 21:46 Blood Culture - Preliminary Blood No Growth after 96 hours Assessment and Plan Assessment: Assessment: #1. Acute hypoxemic respiratory failure secondary to acute congestive heart failure, with preserved left ventricular systolic function. Today's chest x- ray shows bilateral pleural effusions, bilateral infiltrates. #2. Recent hospitalization in October for bilateral pneumonia, A. fib RVR, congestive heart failure, congestive heart failure and patient was treated with a combination of Zosyn, Levaquin and vancomycin. Patient required BiPAP support and ICU admission during that hospital stay #3. A. fib with RVR, currently patient is on oral Amiodarone and Xarelto, her heart rate is better controlled #4. Valvular heart disease with evidence of moderate to severe mitral regurgitation and tricuspid regurgitation and preserved LV function #5. Leukocytosis, fever present on admission likely due to C. diff colitis and sepsis, improved #6. C. diff colitis currently on oral vancomycin #7. D-dimer, nonspecific, and patient has been on anticoagulation in the form of Xarelto #8. Lactic acidosis, and patient has been fluid resuscitated with subsequent resolution of lactic acidemia #9. Frequent falls at home, gait dysfunction, generalized weakness #10. History of ongoing diarrhea her last 3-4 months and weight loss, and patient has undergone endoscopic evaluation in [place] would removal of polyps. Most recent abdomen/pelvis CT showed mild constipation, and 10 mm common bile duct consistent with chronic gallbladder dysfunction. #11. Rheumatoid arthritis, previously on methotrexate #12. Chronic back pain, with evidence of moderate lumbar spondylosis seen on the CT of abdomen and pelvis #13. Nicotine dependence, currently in remission, patient quit in 1990, but prior to that smoked a pack a day for 40 years. Not on home oxygen or any inhalers or nebulized treatments at home #14. History of hypertension, hyperlipidemia Plan: The patient was seen and evaluated by Dr. Watt. She continues to diurese well. She is much improved today compared to yesterday. Less respiratory distress. We'll repeat a chest x-ray in the a.m. We'll continue to follow. I, the cosigning physician, performed a history & physical examination of the patient. Lungs sounds have faint crackles in the bilateral posterior bases. Maintaining good O2 saturations in the 90s on 4 L high flow nasal cannula. I discussed the assessment and plan of care with my nurse practitioner, Luisa Lancaster. I attest to the above note as dictated by her.
[2017-11-17] MEDS: HYDROcodone/APAP 5-325MG 1 EACH TAB PO PRN ×2 (14:40→19:09)
[2017-11-17] MEDS ORDERED: POTASSIUM CHLORIDE 20 MEQ in WATER FOR INJECTION 1 100ML.BAG IVPB STA (18:33)
[2017-11-18] MEDS: IPRATROPIUM-ALBUTEROL 3 ML NEB INHALATION SCH ×4 (07:37→19:07)
[2017-11-18] MEDS: FUROSEMIDE 10 MG/ML 4 ML VIAL IV SCH ×2 (09:22→16:27)
[2017-11-18] MEDS: AMIODARONE 200 MG TAB PO SCH ×3 (09:22→20:49)
[2017-11-18] MEDS: RIVAROXABAN 20 MG TAB PO SCH (09:22)
[2017-11-18] MEDS: GABAPENTIN 100 MG CAP PO SCH ×3 (09:23→20:49)
[2017-11-18] MEDS: ASPIRIN 81 MG PO SCH (09:23)
[2017-11-18] MEDS: LIDOCAINE 5% PATCH TOPICAL SCH (09:23)
[2017-11-18] MEDS: OXYBUTYNIN CHLORIDE 5 MG TAB PO SCH ×2 (09:24→20:49)
[2017-11-18] MEDS: LISINOPRIL 10 MG TAB PO SCH (09:24)
[2017-11-18] MEDS: METOPROLOL TARTRATE 50 MG TAB PO SCH ×2 (09:24→20:49)
[2017-11-18] MEDS: PANTOPRAZOLE 40 MG/10 ML VIAL IVP SCH (09:24)
[2017-11-18] MEDS: LOPERAMIDE 2 MG CAP PO SCH ×4 (09:24→20:49)
[2017-11-18] MEDS: predniSONE 10 MG TAB PO SCH ×2 (09:25→20:49)
--- NOTE | 2017-11-18 10:05 | XR ---
EXAMINATION TYPE: XR chest 1V portable DATE OF EXAM: 11/18/2017 HISTORY: follow up CHF, SOB. REFERENCE: Previous study dated 11/16/2017. FINDINGS: The right shoulder arthroplasty has been performed. The heart remains enlarged. There is worsening changes of pulmonary edema. There are bilateral effusi ons, greater on the left than the right. There is platelike atelectasis in the left midlung. IMPRESSION: WORSENING CHANGES OF CONGESTIVE HEART FAILURE.
[2017-11-18] MEDS: VANCOMYCIN ORAL SOLUTION 250 MG/5 ML BOTTLE PO SCH ×4 (10:14→20:49)
--- NOTE | 2017-11-18 11:45 | P.PN ---
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 Patient was recently hospitalized from 09/21/2017 through 10/10/2017 for acute hypoxic respiratory failure related to bilateral pneumonia, onset A. fib RVR and acute congestive heart failure with diastolic dysfunction, and a non-ST elevated VA. Patient was treated with a combination of Zosyn, vancomycin and Levaquin, she was diuresed, echocardiogram showed a preserved LV function with an ejection fraction of 55-60%, moderate degree of mitral regurgitation and questionable small mobile vegetation attest to the anterior mitral valve leaflet and the patient underwent a YOAN. The YOAN did not show any evidence of any infective endocarditis or valvular vegetation. Moderate to severe mitral regurgitation, moderate to severe tricuspid regurgitation and overall LV function was within normal limits. He was placed on anticoagulation in the form of some Xarelto. Clinically patient improved, and was discharged home. Patient was hospitalized again for recurrent falls, back pain, weakness from 11/01/2017 through 11/03/2017. Patient has been having trouble with ongoing diarrhea for last 4 months, weight loss of 30-40 pounds, patient apparently had upper and lower endoscopy studies in [place], with removal of polyps. Patient had a couple other emergency rooms visits for [place] related to dislocated right hip and pain. On 11/12/2017 patient was evaluated in the emergency department again for significant shortness of breath , generalized body pain, confusion, fever. Patient was in A. fib RVR, febrile, and the chest x-ray showed a new pulmonary interstitial infiltrates, and a new small pneumonia at the left lateral lung base. Patient has significant leukocytosis, the PVC was 27.1, hemoglobin is 10.3, lactic acid was elevated at 2.5. Patient had positive troponins of 0.074, 0.063 and 0.250, patient was started on Levaquin and Zosyn, and oral vancomycin for evidence of C. diff in her stool. Patient was given IV fluid resuscitation. She was seen in consultation by ID service as well as cardiology, her A. fib RVR was treated with Cardizem and patient is on Xarelto for anticoagulation. We were asked to see the patient in consultation for worsening shortness of breath, this morning patient stated she had a severe bout of respiratory distress, was hardly able to get air in, her oxygenation worsened, and her FiO2 increased to 4 L per nasal cannula and her pulse ox is around 92%, patient was noted to have increased bilateral lower extremity edema, and positive JVD. Stat chest x-ray has been taken and showed bilateral infiltrates, and pleural effusions. ProBNP was elevated at 9950. Patient was given a dose of IV Lasix. Her diuresing, and she felt improvement with her breathing. The patient is seen again today 11/17/2017 in follow-up on the regular medical floor. She is awake and alert in no acute distress. She is breathing quite a bit easier today as compared to yesterday. She diuresed well. Currently in a - 1200 ML balance. She is down to 4 L high flow nasal cannula and maintaining good O2 saturation in the 90s. She's been afebrile. Blood cultures reveal no growth. White count improved 10.9. Hemoglobin 10.4. Creatinine 0.69. Replacing potassium. She remains on Lasix 40 mg IV push every 8 hours. On 11/18/2017, I'm seeing this patient for a follow-up. Clinically she is improving and she is less short of breath compared to yesterday. No fever. No chills. No night sweats. She is being dialyzed IV Lasix. The patient's renal function is still stable with a BUN of 10 and creatinine 0.6. A follow-up chest x-ray was done today and there is still findings consistent with CHF. The patient would benefit from ongoing diuresis. She is currently receiving Lasix 40 mg every 8 hours. Overall she is feeling better. She is also anticoagulated with Xarelto. Objective - Vital Signs Vital signs: Vital Signs Temp 97.7 F 11/18/17 07:00 Pulse 84 11/18/17 11:30 Resp 20 11/18/17 07:00 BP 118/66 11/18/17 07:00 Pulse Ox 96 11/18/17 07:00 Intake & Output 11/17/17 11/18/17 11/18/17 18:59 06:59 18:59 Intake Total 800 200 120 Balance 800 200 120 Weight 48.9 kg 47.627 kg Intake: Oral 800 200 120 Other: Voiding Method Bedside Commode Bedside Commode Bedside Commode # Voids 6 1 # Bowel Movements 1 - Exam - Constitutional General appearance: Present: thin - EENT Eyes: Present: EOMI, PERRLA ENT: Present: hard of hearing Ears: bilateral: normal - Neck Neck: Present: normal ROM Carotids: bilateral: upstroke normal Thyroid: bilateral: normal size - Respiratory Respiratory: bilateral: rales, crackles in lung bases bilaterally and diminished breath sound lung bases. - Cardiovascular Rhythm: irregularly irregular Heart sounds: normal: S1, S2 Abnormal Heart Sounds: Present: diastolic murmur - Gastrointestinal General gastrointestinal: Present: normal bowel sounds - Integumentary Integumentary: Present: decreased turgor - Neurologic Neurologic: Present: CNII-XII intact - Musculoskeletal Musculoskeletal: Present: generalized weakness - Psychiatric Psychiatric: Present: A&O x's 3, appropriate affect, intact judgment & insight - Labs CBC & Chem 7: 11/17/17 08:26 11/18/17 08:31 Labs: Abnormal Lab Results - Last 24 Hours (Table) 11/17/17 Range/Units 18:01 Potassium 3.0 L (3.5-5.1) mmol/L Microbiology - Last 24 Hours (Table) 11/12/17 05:33 Blood Culture - Final Blood No Growth after 144 hours 11/12/17 22:40 Blood Culture - Preliminary Blood No Growth after 120 hours 11/12/17 21:46 Blood Culture - Preliminary Blood No Growth after 120 hours Assessment and Plan Plan: #1. Acute hypoxemic respiratory failure secondary to acute congestive heart failure, with preserved left ventricular systolic function. Today's chest x- ray shows bilateral pleural effusions, bilateral infiltrates. Clinically the patient is improving as the patient CHF is being optimized with diuretics. Chest x-ray still showing CHF on today's evaluation. Renal function continues to be stable. Currently on Lasix IV 40 mg every 8 hours. #2. Recent hospitalization in October for bilateral pneumonia, A. fib RVR, congestive heart failure, congestive heart failure and patient was treated with a combination of Zosyn, Levaquin and vancomycin. Patient required BiPAP support and ICU admission during that hospital stay #3. A. fib with RVR, currently patient is on oral Amiodarone and Xarelto, her heart rate is better controlled #4. Valvular heart disease with evidence of moderate to severe mitral regurgitation and tricuspid regurgitation and preserved LV function #5. Leukocytosis, fever present on admission likely due to C. diff colitis and sepsis, improved #6. C. diff colitis currently on oral vancomycin #7. D-dimer, nonspecific, and patient has been on anticoagulation in the form of Xarelto #8. Lactic acidosis, and patient has been fluid resuscitated with subsequent resolution of lactic acidemia #9. Frequent falls at home, gait dysfunction, generalized weakness #10. History of ongoing diarrhea her last 3-4 months and weight loss, and patient has undergone endoscopic evaluation in [place] would removal of polyps. Most recent abdomen/pelvis CT showed mild constipation, and 10 mm common bile duct consistent with chronic gallbladder dysfunction. #11. Rheumatoid arthritis, previously on methotrexate #12. Chronic back pain, with evidence of moderate lumbar spondylosis seen on the CT of abdomen and pelvis #13. Nicotine dependence, currently in remission, patient quit in 1990, but prior to that smoked a pack a day for 40 years. Not on home oxygen or any inhalers or nebulized treatments at home #14. History of hypertension, hyperlipidemia LALIT Clinically improved. Follow-up chest x-ray was noted from today and there is still CHF. We'll continue diuretics. Monitor renal function. Monitor urine output. The patient is a negative fluid balance. She has lost approximately 1 kg and will continue monitoring the urine output and electrolytes. The patient has some chronic infiltrates in lung bases probably related to her previous history of rheumatoid arthritis. Nevertheless there is a decompensated heart failure in addition that needs to be further optimized. We'll continue to follow. Continue with oral vancomycin regarding C. diff colitis.
[2017-11-18] MEDS: SPIRONOLACTONE 25 MG TAB PO SCH (13:34)
--- NOTE | 2017-11-18 23:47 | PN ---
PROGRESS NOTE CHIEF COMPLAINT: Pneumonitis, atrial fib with RVR. HISTORY OF PRESENT ILLNESS: This lady remains extremely weak. Picture on x-ray suggests her CHF is worse. Family is planning on taking her to [place] as soon as she is discharged, but she is extremely weak. PHYSICAL EXAM: She has rales at the bases. Cardiac exam is unchanged. The abdomen is soft and nontender. IMPRESSION: Pneumonitis, atrial fibrillation, generalized weakness and debility. PLAN: Add Aldactone for her congestive heart failure and consider stopping and switching over to Entresto. MMODL / IJN: [id number] /
[2017-11-19] MEDS: FUROSEMIDE 10 MG/ML 4 ML VIAL IV SCH ×3 (00:11→22:55)
[2017-11-19 07:29] LABS: Glucose,Whole Blood 108 mg/dL (75-99)
[2017-11-19] MEDS: IPRATROPIUM-ALBUTEROL 3 ML NEB INHALATION SCH ×4 (07:41→20:12)
[2017-11-19] MEDS: LIDOCAINE 5% PATCH TOPICAL SCH (08:45)
[2017-11-19] MEDS: METOPROLOL TARTRATE 50 MG TAB PO SCH ×2 (08:46→21:51)
[2017-11-19] MEDS: RIVAROXABAN 20 MG TAB PO SCH (08:46)
[2017-11-19] MEDS: SPIRONOLACTONE 25 MG TAB PO SCH (08:46)
[2017-11-19] MEDS: PANTOPRAZOLE 40 MG/10 ML VIAL IVP SCH (08:47)
[2017-11-19] MEDS: LISINOPRIL 10 MG TAB PO SCH (08:47)
[2017-11-19] MEDS: OXYBUTYNIN CHLORIDE 5 MG TAB PO SCH ×2 (08:47→21:51)
[2017-11-19] MEDS: AMIODARONE 200 MG TAB PO SCH ×3 (08:47→21:50)
[2017-11-19] MEDS: GABAPENTIN 100 MG CAP PO SCH ×3 (08:47→21:50)
[2017-11-19] MEDS: predniSONE 10 MG TAB PO SCH ×2 (08:47→21:50)
[2017-11-19] MEDS: ASPIRIN 81 MG PO SCH (08:47)
[2017-11-19] MEDS: LOPERAMIDE 2 MG CAP PO SCH ×4 (08:47→22:56)
[2017-11-19] MEDS: VANCOMYCIN ORAL SOLUTION 250 MG/5 ML BOTTLE PO SCH ×4 (08:47→21:49)
[2017-11-19 09:43] LABS: Calcium 8.4 mg/dL (8.4-10.2); Magnesium 1.4 mg/dL (1.6-2.3); Potassium 3.7 mmol/L (3.5-5.1)
--- NOTE | 2017-11-19 09:59 | XR ---
EXAMINATION TYPE: XR chest 1V portable DATE OF EXAM: 11/19/2017 COMPARISON: NONE HISTORY: CHF FINDINGS: There are bilateral pleural effusions with cardiomegaly and bibasilar infiltrate. There is a diffuse interstitial pattern. Postsurgical change involving the shoulders. Postsurgical change in the epigas trium. Diffuse arthropathy shoulders and osteopenia. Atherosclerotic change of the aorta. IMPRESSION: 1. Bilateral consolidation and pleural effusion. Interstitium is improved correlate for improving CHF .
--- NOTE | 2017-11-19 12:04 | ECHOF ---
Referral Reason:echocardiogram. CHF MEASUREMENTS -------- HEIGHT: 160.0 cm WEIGHT: 47.6 kg BP: 102/56 RVIDd: 1.9 cm (< 3.3) IVSd: 1.3 cm (0.6 - 1.1) LVIDd: 3.5 cm (3.9 - 5.3) LVPWd: 4.4 cm (0.6 - 1.1) IVSs: 1.3 cm LVIDs: 5.3 cm LVPWs: 3.5 cm LA Diam: 2.9 cm (2.7 - 3.8) LAESV Index (A-L): 27.14 ml/m Ao Diam: 2.8 cm (2.0 - 3.7) AV Cusp: 0.9 cm (1.5 - 2.6) MV EXCURSION: 9.631 mm (> 18.000) MV EF SLOPE: 45 mm/s (70 - 150) EPSS: 1.6 cm MV E John: 1.01 m/s MV DecT: 358 ms MV A John: 1.39 m/s MV E/A Ratio: 0.73 AV maxP.81 mmHg AV meanP.22 mmHg RAP: 5.00 mmHg RVSP: 27.09 mmHg FINDINGS -------- Atrial fibrillation. This was a technically adequate study. The left ventricular size is normal. There is mild concentric left ventricular hypertrophy. Overa ll left ventricular systolic function is moderately impaired with, an EF between 35 - 40 %. Apical anterior LV wall motion is hypokinetic. Apical lateral LV wall motion is hypokinetic. Apical in ferior LV wall motion is hypokinetic. Apical septum LV wall motion is hypokinetic. The right ventricle is normal in size. Normal LA size by volume 22+/-6 ml/m2. The right atrium is normal in size. There is moderate to severe aortic valve sclerosis. There is moderate aortic stenosis present. Pe ak/mean gradient across the Aortic Valve is 13.81mmHg / 7.22mmHg. The mitral valve leaflets are mildly thickened. Moderate mitral annular calcification present. Mo derate mitral regurgitation is present. Mild tricuspid regurgitation present. Right ventricular systolic pressure is normal at < 35 mmHg. Trace/mild (physiologic) pulmonic regurgitation. The aortic root size is normal. Normal inferior vena cava with normal inspiratory collapse consistent with estimated right atrial pre ssure of 5 mmHg. There is no pericardial effusion. CONCLUSIONS -------- 1. Atrial fibrillation. 2. This was a technically adequate study. 3. The left ventricular size is normal. 4. There is mild concentric left ventricular hypertrophy. 5. Overall left ventricular systolic function is moderately impaired with, an EF between 35 - 40 %. 6. Apical anterior LV wall motion is hypokinetic. 7. Apical lateral LV wall motion is hypokinetic. 8. Apical inferior LV wall motion is hypokinetic. 9. Apical septum LV wall motion is hypokinetic. 10. The right ventricle is normal in size. 11. Normal LA size by volume 22+/-6 ml/m2. 12. The right atrium is normal in size. 13. There is moderate to severe aortic valve sclerosis. 14. There is moderate aortic stenosis present. 15. Peak/mean gradient across the Aortic Valve is 13.81mmHg / 7.22mmHg. 16. The mitral valve leaflets are mildly thickened. 17. Moderate mitral annular calcification present. 18. Moderate mitral regurgitation is present. 19. Mild tricuspid regurgitation present. 20. Right ventricular systolic pressure is normal at < 35 mmHg. 21. Trace/mild (physiologic) pulmonic regurgitation. 22. The aortic root size is normal. 23. Normal inferior vena cava with normal inspiratory collapse consistent with estimated right atrial pressure of 5 mmHg. 24. There is no pericardial effusion. RESIDENTIAL REAL ESTATE ASSISTANT: Savannah Yang RDCS
[2017-11-19] MEDS ORDERED: Magnesium Replacement Protocol 1 EACH MISC MISCELLANE PRN (12:31)
--- NOTE | 2017-11-19 13:59 | P.PN ---
Subjective Mrs Lenz is a pleasant 82-azar-old [place] female past medical history significant for paroxysmal atrial fibrillation on correction anticoagulation with xarelto, COPD, hypertension, dyslipidemia and mitral regurgitation. She is currently admitted to this hospital with atrial fibrillation with rapid ventricular response which has improved, pneumonia and fever. We initially saw her for a-fib and she has since converted to sinus and is maintained on amiodarone, aldactone, xarelto, lasix and lisinopril. We have been asked to see her again for symptoms of heart failure. She states she has been feeling increasingly short of breath with exertion and at rest. Xray obtained yesterday revealed worsening heart failure compared to 2 days prior. She was started on IV lasix 11/16 per pulmonary. She states the swelling in her legs has improved and she denies chest pain, dizziness or palpitations. She also denies PND or orthopnea. Blood pressure 128/50 heart rate 81 afebrile and maintaining oxygen saturation on nasal cannula. O2 sat went down 86% on room air this morning. Echo obtained this morning reveals worsening LV systolic function with EF 35-40% , apical anterior, lateral, inferior and septal LV wall is hypokinetic, moderate aortic stenosis with a mean gradient of 7.22 mmHg across the valve, moderate MR and mild TR noted. Laboratory data reviewed, sodium 141, potassium 3.7, creatinine 0.74, magnesium 1.4, NT proBNP 12,400. No output has been documented. Weight has increase since admission. Objective - Vital Signs Vital signs: Vital Signs Temp 97.8 F 11/19/17 07:25 Pulse 80 11/19/17 11:38 Resp 16 11/19/17 08:00 BP 128/50 11/19/17 07:25 Pulse Ox 86 L 11/19/17 07:25 Intake & Output 11/18/17 11/19/17 11/19/17 18:59 06:59 18:59 Intake Total 120 Balance 120 Intake: Oral 120 Other: Voiding Method Bedside Commode Bedside Commode Toilet - Exam GENERAL: Well-appearing, well-nourished and in no acute distress. NECK: Supple without JVD or thyromegaly. LUNGS: Bibasilar rales noted. Respiration equal and unlabored. No wheezes or rhonchi. HEART: Regular rate and rhythm with systolic ejection murmur at the base, no rubs or gallops. S1 and S2 heard. EXTREMITIES: Normal range of motion, no edema. No clubbing or cyanosis. Peripheral pulses intact. - Labs CBC & Chem 7: 11/17/17 08:26 11/19/17 09:02 Labs: Abnormal Lab Results - Last 24 Hours (Table) 11/19/17 11/19/17 Range/Units 07:28 09:02 Carbon Dioxide 35 H (22-30) mmol/L Glucose 122 H (74-99) mg/dL POC Glucose (mg/dL) 108 H (75-99) mg/dL Magnesium 1.4 L (1.6-2.3) mg/dL Microbiology - Last 24 Hours (Table) 11/12/17 22:40 Blood Culture - Final Blood No Growth after 144 hours 11/12/17 21:46 Blood Culture - Final Blood No Growth after 144 hours Assessment and Plan Assessment: ASSESSMENT Acute systolic heart failure, EF 35-40% Cardiomyopathy, unknown if ischemic or non-ischemic. Moderate mitral regurgitation Aortic stenosis Paroxysmal atrial fibrillation on correction anticoagulation, currently maintaining sinus Hypomagnesemia Hypertension Dyslipidemia PLAN Discontinue lisinorpil and start entresto 24/26 mg BID on 11/21 at 0900. technical project manager, Katlin, is checking on coverage. Change from xarelto to eliquis for less risk of GI bleeding in this elderly patient. Amiodarone can be titrated to BID starting tomorrow. Continue with IV lasix. Check daily weights and get strict intake and output to accurately measure diuresis. Replace magnesium per protocol. Check BMP and magnesium tomorrow. Further recommendations to follow based on clinical course. Nurse Practitioner note has been reviewed, I agree with a documented findings and plan of care. Patient was seen and examined.
[2017-11-19] MEDS: MAGNESIUM SULFATE-D5W PMX 1 GM in DEXTROSE/WATER 1 100ML.BAG IVPB SCH ×3 (14:25→16:41)
--- NOTE | 2017-11-19 16:30 | P.PN ---
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 Patient was recently hospitalized from 09/21/2017 through 10/10/2017 for acute hypoxic respiratory failure related to bilateral pneumonia, onset A. fib RVR and acute congestive heart failure with diastolic dysfunction, and a non-ST elevated ID. Patient was treated with a combination of Zosyn, vancomycin and Levaquin, she was diuresed, echocardiogram showed a preserved LV function with an ejection fraction of 55-60%, moderate degree of mitral regurgitation and questionable small mobile vegetation attest to the anterior mitral valve leaflet and the patient underwent a YOAN. The YOAN did not show any evidence of any infective endocarditis or valvular vegetation. Moderate to severe mitral regurgitation, moderate to severe tricuspid regurgitation and overall LV function was within normal limits. He was placed on anticoagulation in the form of some Xarelto. Clinically patient improved, and was discharged home. Patient was hospitalized again for recurrent falls, back pain, weakness from 11/01/2017 through 11/03/2017. Patient has been having trouble with ongoing diarrhea for last 4 months, weight loss of 30-40 pounds, patient apparently had upper and lower endoscopy studies in [place], with removal of polyps. Patient had a couple other emergency rooms visits for [place] related to dislocated right hip and pain. On 11/12/2017 patient was evaluated in the emergency department again for significant shortness of breath , generalized body pain, confusion, fever. Patient was in A. fib RVR, febrile, and the chest x-ray showed a new pulmonary interstitial infiltrates, and a new small pneumonia at the left lateral lung base. Patient has significant leukocytosis, the PVC was 27.1, hemoglobin is 10.3, lactic acid was elevated at 2.5. Patient had positive troponins of 0.074, 0.063 and 0.250, patient was started on Levaquin and Zosyn, and oral vancomycin for evidence of C. diff in her stool. Patient was given IV fluid resuscitation. She was seen in consultation by ID service as well as cardiology, her A. fib RVR was treated with Cardizem and patient is on Xarelto for anticoagulation. We were asked to see the patient in consultation for worsening shortness of breath, this morning patient stated she had a severe bout of respiratory distress, was hardly able to get air in, her oxygenation worsened, and her FiO2 increased to 4 L per nasal cannula and her pulse ox is around 92%, patient was noted to have increased bilateral lower extremity edema, and positive JVD. Stat chest x-ray has been taken and showed bilateral infiltrates, and pleural effusions. ProBNP was elevated at 9950. Patient was given a dose of IV Lasix. Her diuresing, and she felt improvement with her breathing. The patient is seen again today 11/17/2017 in follow-up on the regular medical floor. She is awake and alert in no acute distress. She is breathing quite a bit easier today as compared to yesterday. She diuresed well. Currently in a - 1200 ML balance. She is down to 4 L high flow nasal cannula and maintaining good O2 saturation in the 90s. She's been afebrile. Blood cultures reveal no growth. White count improved 10.9. Hemoglobin 10.4. Creatinine 0.69. Replacing potassium. She remains on Lasix 40 mg IV push every 8 hours. On 11/18/2017, I'm seeing this patient for a follow-up. Clinically she is improving and she is less short of breath compared to yesterday. No fever. No chills. No night sweats. She is being dialyzed IV Lasix. The patient's renal function is still stable with a BUN of 10 and creatinine 0.6. A follow-up chest x-ray was done today and there is still findings consistent with CHF. The patient would benefit from ongoing diuresis. She is currently receiving Lasix 40 mg every 8 hours. Overall she is feeling better. She is also anticoagulated with Xarelto. On 11/19/2017 patient is seen again on the fifth floor, she is resting comfortably in bed, reports breathing better, lung sounds reveal some residual crackles at the right posterior base, and left anterior base. Good air entry noted bilaterally, no wheezing. Currently on 2 L per nasal cannula, this morning room air pulse ox was done, and patient was noted to be approximately make with a pulse ox of 86% on the room air. The appearance of bilateral lower extremity edema has significantly improved, and it has nearly resolved. Patient is afebrile, hemodynamically stable, no chest pain, no worsening shortness of breath, today's labs were reviewed, BNP was done, sodium was 141, potassium is 3.7, chloride was 99, CO2 was 35, BUN was 14, creatinine 0.74. Repeat proBNP remains elevated at 12,400, magnesium is 1.4. Repeat chest x-ray today showed improvement of the diffuse interstitial pattern, improving CHF. Echocardiogram was completed, and showed left ventricular systolic function moderately impaired with an EF between 35-40%, anterior and lateral LV wall, apical inferior LV wall and septal LV wall hypokinesis. There was presence of moderate mitral regurgitation and mild tricuspid regurgitation, right ventricular systolic pressure is normal at less than 35 mmHg. Her is diarrhea has resolved, and she reports having one small formed stool this morning. Objective - Vital Signs Vital signs: Vital Signs Temp 97.8 F 11/19/17 07:25 Pulse 80 11/19/17 11:38 Resp 16 11/19/17 08:00 BP 128/50 11/19/17 07:25 Pulse Ox 86 L 11/19/17 07:25 Intake & Output 11/18/17 11/19/17 11/19/17 18:59 06:59 18:59 Intake Total 120 Balance 120 Intake: Oral 120 Other: Voiding Method Bedside Commode Bedside Commode Toilet - Exam - Constitutional General appearance: Present: thin - EENT Eyes: Present: EOMI, PERRLA ENT: Present: hard of hearing Ears: bilateral: normal - Neck Neck: Present: normal ROM Carotids: bilateral: upstroke normal Thyroid: bilateral: normal size - Respiratory Respiratory: bilateral: rales, crackles in lung bases bilaterally and diminished breath sound lung bases. - Cardiovascular Rhythm: irregularly irregular Heart sounds: normal: S1, S2 Abnormal Heart Sounds: Present: diastolic murmur - Gastrointestinal General gastrointestinal: Present: normal bowel sounds - Integumentary Integumentary: Present: decreased turgor - Neurologic Neurologic: Present: CNII-XII intact - Musculoskeletal Musculoskeletal: Present: generalized weakness - Psychiatric Psychiatric: Present: A&O x's 3, appropriate affect, intact judgment & insight - Labs CBC & Chem 7: 11/17/17 08:26 11/19/17 09:02 Labs: Abnormal Lab Results - Last 24 Hours (Table) 11/19/17 11/19/17 Range/Units 07:28 09:02 Carbon Dioxide 35 H (22-30) mmol/L Glucose 122 H (74-99) mg/dL POC Glucose (mg/dL) 108 H (75-99) mg/dL Magnesium 1.4 L (1.6-2.3) mg/dL Microbiology - Last 24 Hours (Table) 11/12/17 22:40 Blood Culture - Final Blood No Growth after 144 hours 11/12/17 21:46 Blood Culture - Final Blood No Growth after 144 hours Assessment and Plan Plan: Assessment: #1. Acute hypoxemic respiratory failure secondary to acute congestive heart failure, with now impaired left ventricular systolic function, which was previously normal. Today's chest x-ray shows bilateral pleural effusions, bilateral infiltrates. #2. Recent hospitalization in October for bilateral pneumonia, A. fib RVR, congestive heart failure, congestive heart failure and patient was treated with a combination of Zosyn, Levaquin and vancomycin. Patient required BiPAP support and ICU admission during that hospital stay #3. A. fib with RVR, currently patient is on oral Amiodarone and Xarelto, her heart rate is better controlled #4. Valvular heart disease with evidence of moderate to severe mitral regurgitation and tricuspid regurgitation and preserved LV function #5. Leukocytosis, fever present on admission likely due to C. diff colitis and sepsis, improved #6. C. diff colitis currently on oral vancomycin #7. D-dimer, nonspecific, and patient has been on anticoagulation in the form of Xarelto #8. Lactic acidosis, and patient has been fluid resuscitated with subsequent resolution of lactic acidemia #9. Frequent falls at home, gait dysfunction, generalized weakness #10. History of ongoing diarrhea her last 3-4 months and weight loss, and patient has undergone endoscopic evaluation in [place] would removal of polyps. Most recent abdomen/pelvis CT showed mild constipation, and 10 mm common bile duct consistent with chronic gallbladder dysfunction. #11. Rheumatoid arthritis, previously on methotrexate #12. Chronic back pain, with evidence of moderate lumbar spondylosis seen on the CT of abdomen and pelvis #13. Nicotine dependence, currently in remission, patient quit in 1990, but prior to that smoked a pack a day for 40 years. Not on home oxygen or any inhalers or nebulized treatments at home #14. History of hypertension, hyperlipidemia Plan: Chest x-ray does improvement of interstitial edema, patient reports significant improvement dyspnea, and there is complete resolution of bilateral lower extremity edema. We will switch the IV diuretics to oral Lasix 40 mg once daily. Renal profile remains stable, the echocardiogram results have been noted , and there has been worsening of patient's left ventricular systolic function on her last echocardiogram. Cardiology is following. Patient is being initiated on Entresto. Continue to follow. I performed a history & physical examination of the patient and discussed their management with my nurse practitioner, Jillian Moffett. I reviewed the nurse practitioner's note and agree with the documented findings and plan of care. Lung sounds are positive for coarse bibasilar crackles. The findings and the impression was discussed with the patient. I attest to the documentation by the nurse practitioner. Time with Patient: Less than 30
--- NOTE | 2017-11-19 21:32 | MISC ---
MISCELLANOUS REPORT QUERY: In your professional opinion, can you please clarify these findings significant on the following: I do not know how to answer that. I guess: Acute on chronic. Specify state: Respiratory distress. MMODL / IJN: [id number] /
--- NOTE | 2017-11-19 21:39 | MISC ---
MISCELLANOUS REPORT QUERY: Bacterial pneumonia unknown organism. MMODL / IJN: [id number] /
--- NOTE | 2017-11-19 21:39 | MISC ---
MISCELLANOUS REPORT QUERY: Encephalopathy, underlying medical illness. MMODL / IJN: [id number] /
--- NOTE | 2017-11-19 21:45 | P.PN ---
Subjective Progress Note Date: 11/19/17 treated for pneumonia and acute respiratory failure, A. fib with RVR and pulmonary edema. She was followed by cardiology and underwent a YOAN on October 05 for concern for mitral valve vegetation that showed a calcified mitral valve but no vegetations she was also followed by pulmonary medicine, Dr. Watt. She was discharged home without antibiotics. Patient had subsequent admission November 01 through November 03 for frequent falls, lumbar strain and C. difficile colitis. Patient was discharged home on a 10 day course of oral vancomycin and also on Imodium. Patient then had an ER visit on 11/09 for right hip dislocation which was reduced by the ER physician and patient was discharged home. Patient returned on November 10 for hip pain and x-ray showed no abnormal alignment patient was discharged on Mcintosh. Patient now presents to [facility] emergency center due to shortness of breath and general body aches. Patient states that she has had a fever at home. She denies having any cough or sputum production she complains of a hoarse voice. She states her appetite is okay. She does state she has some upper chest pain especially with deep breathing. She denies any palpitations. Patient presented with a heart rate in the 140s, temperature 102.1, white count 25.1. Lactic acid initially 1.2 followed by 2.5 and 1.4. Troponins were 0.074, 0.063 and 0.250 patient was initially started on Levaquin and Zosyn and continued on oral vancomycin. Subsequently Levaquin has been discontinued. She has been followed by cardiology initially on Cardizem drip without any improvement of heart rate and switched over to amiodarone drip. Her heart rate is now running in the 80s. Regarding C. difficile colitis, patient states her last bowel movement was a couple days ago and this was confirmed with her nurse that she has had not had any loose stools since admission. She denies any abdominal pain and abdomen is without any tenderness. She denies any dysuria. Repeat chest x-ray shows mild congestive heart failure with small pleural effusion. Worse from yesterday. CAT scan of the brain shows cerebral atrophy with chronic small vessel ischemic changes no acute intracranial abnormality. 11/15/2017 patient is certainly more comfortable. Diarrhea is improved. Denies fever chills rigors or sweats. The patient's atrial fibrillation is better with the Cardizem. She's had only 2 stools in the last day and she is remarkably improved. is present in the trying to determine how to get her back to [place]. 11/19/2017 patient is further improved. One semi-formed stool this occurred in the last day. She's feeling considerably better not having any crampy abdominal pain. Denies fevers or chills. Energy level is improving. Looks forward to getting home so they can travel back to [place]. Objective - Vital Signs Vital signs: Vital Signs Temp 97.8 F 11/19/17 15:41 Pulse 80 11/19/17 20:32 Resp 16 11/19/17 15:41 BP 110/55 11/19/17 15:41 Pulse Ox 98 11/19/17 15:41 Intake & Output 11/19/17 11/19/17 11/20/17 06:59 18:59 06:59 Other: Voiding Method Bedside Commode Toilet - Exam Gen: This is a thin 82-year-old female. She is sitting up in bed and eating breakfast and appears to be in no acute distress. Patient able to speak in full sentences. No respiratory distress noted. HEENT: Head is atraumatic, normocephalic. Pupils equal, round. Sclerae is anicteric. Conjunctiva pale. Mucous membranes of the mouth are moist. NECK: Supple. No lymphadenopathy. No thyromegaly. LUNGS: Crackles at bilateral bases.. No intercostal retractions. HEART: Regular rate and rhythm. No murmur. ABDOMEN: Soft. Bowel sounds are present. No masses. No tenderness. EXTREMITIES: Trace pedal edema. No calf tenderness. Dorsalis pedis 2+ bilaterally. NEUROLOGICAL: Patient is awake, alert and oriented x3. Cranial nerves 2 through 12 are grossly intact. - Labs CBC & Chem 7: 11/17/17 08:26 11/19/17 09:02 Labs: Abnormal Lab Results - Last 24 Hours (Table) 11/19/17 11/19/17 Range/Units 07:28 09:02 Carbon Dioxide 35 H (22-30) mmol/L Glucose 122 H (74-99) mg/dL POC Glucose (mg/dL) 108 H (75-99) mg/dL Magnesium 1.4 L (1.6-2.3) mg/dL Microbiology - Last 24 Hours (Table) 11/12/17 22:40 Blood Culture - Final Blood No Growth after 144 hours 11/12/17 21:46 Blood Culture - Final Blood No Growth after 144 hours Laboratory Results WBC 10.9 k/uL (3.8-10.6) H 11/17/17 08:26 RBC 3.56 m/uL (3.80-5.40) L 11/17/17 08:26 Hgb 10.4 gm/dL (11.4-16.0) L 11/17/17 08:26 Hct 34.1 % (34.0-46.0) 11/17/17 08:26 MCV 95.8 fL (80.0-100.0) 11/17/17 08: MCH 29.1 pg (25.0-35.0) 11/17/17 08:26 MCHC 30.4 g/dL (31.0-37.0) L 11/17/17 08:26 RDW 16.7 % (11.5-15.5) H 11/17/17 08:26 Plt Count 400 k/uL (150-450) 11/17/17 08:26 Neutrophils % 82 % 11/17/17 08: Lymphocytes % 10 % 11/17/17 08: Monocytes % 6 % 11/17/17 08:26 Eosinophils % 0 % 11/17/17 08:26 Basophils % 0 % 11/17/17 08:26 Neutrophils # 8.9 k/uL (1.3-7.7) H 11/17/17 08:26 Lymphocytes # 1.1 k/uL (1.0-4.8) 11/17/17 08:26 Monocytes # 0.7 k/uL (0-1.0) 11/17/17 08:26 Eosinophils # 0.0 k/uL (0-0.7) 11/17/17 08: Basophils # 0.0 k/uL (0-0.2) 11/17/17 08:26 Hypochromasia Marked 11/17/17 08:26 Anisocytosis Slight 11/17/17 08:26 Macrocytosis Slight 11/16/17 10:12 PT 16.0 sec (9.0-12.0) H 11/12/17 05:33 INR 1.7 (<1.2) H 11/12/17 05:33 APTT 34.2 sec (22.0-30.0) H 11/12/17 05:33 D-Dimer 2.04 mg/L FEU (<0.60) H 11/16/17 10:12 Sodium 141 mmol/L (137-145) 11/19/17 09:02 Potassium 3.7 mmol/L (3.5-5.1) 11/19/17 09:02 Chloride 99 mmol/L (98-107) 11/19/17 09:02 Carbon Dioxide 35 mmol/L (22-30) H 11/19/17 09:02 Anion Gap 7 mmol/L 11/19/17 09:02 BUN 14 mg/dL (7-17) 11/19/17 09:02 Creatinine 0.74 mg/dL (0.52-1.04) 11/19/17 09:02 Est GFR (CKD-EPI)AfAm 88 (>60 ml/min/1.73 sqM) 11/19/17 09:02 Est GFR (CKD-EPI)NonAf 76 (>60 ml/min/1.73 sqM) 11/19/17 09:02 Glucose 122 mg/dL (74-99) H 11/19/17 09:02 POC Glucose (mg/dL) 108 mg/dL (75-99) H 11/19/17 07:28 POC Glu Leg Man Elle Moise 11/19/17 07:28 Lactic Ac Sepsis Rflx Y 11/12/17 20:25 Plasma Lactic Acid Alex 1.4 mmol/L (0.7-2.0) 11/12/17 23:36 Calcium 8.4 mg/dL (8.4-10.2) 11/19/17 09:02 Magnesium 1.4 mg/dL (1.6-2.3) L 11/19/17 09:02 Total Bilirubin 1.0 mg/dL (0.2-1.3) 11/12/17 05:33 AST 36 U/L (14-36) 11/12/17 05:33 ALT 33 U/L (9-52) 11/12/17 05:33 Alkaline Phosphatase 93 U/L (38-126) 11/12/17 05:33 Total Creatine Kinase 480 U/L (30-135) H 11/12/17 17:13 CK-MB (CK-2) 3.9 ng/mL (0.0-2.4) H 11/12/17 17:13 CK-MB (CK-2) Rel Index 0.8 11/12/17 17:13 Troponin I 0.250 ng/mL (0.000-0.034) H* 11/12/17 17:13 NT-Pro-B Natriuret Pep 72150 pg/mL 11/19/17 09:02 Total Protein 5.3 g/dL (6.3-8.2) L 11/12/17 05:33 Albumin 2.8 g/dL (3.5-5.0) L 11/12/17 05:33 Triglycerides 76 mg/dL (<150) 11/13/17 06:09 Cholesterol 94 mg/dL (<200) 11/13/17 06:09 LDL Cholesterol, Calc 53 mg/dL (0-99) 11/13/17 06:09 HDL Cholesterol 26 mg/dL (40-60) L 11/13/17 06:09 Lipase 14 U/L (23-300) L 11/12/17 05:33 TSH 1.090 mIU/L (0.465-4.680) 11/12/17 11:38 Urine Color Yellow 11/12/17 06:45 Urine Appearance Clear (Clear) 11/12/17 06:45 Urine pH 6.0 (5.0-8.0) 11/12/17 06:45 Ur Specific [place] 1.011 (1.001-1.035) 11/12/17 06:45 Urine Protein Trace (Negative) H 11/12/17 06:45 Urine Glucose (UA) Negative (Negative) 11/12/17 06:45 Urine Ketones 1+ (Negative) H 11/12/17 06:45 Urine Blood Negative (Negative) 11/12/17 06:45 Urine Nitrite Negative (Negative) 11/12/17 06:45 Urine Bilirubin Negative (Negative) 11/12/17 06:45 Urine Urobilinogen <2.0 mg/dL (<2.0) 11/12/17 06:45 Ur Leukocyte Esterase Trace (Negative) H 11/12/17 06:45 Urine RBC 3 /hpf (0-5) 11/12/17 06:45 Urine WBC 7 /hpf (0-5) H 11/12/17 06:45 Ur Squamous Epith Cells 3 /hpf (0-4) 11/12/17 06:45 Hyaline Casts 3 /lpf (0-2) H 11/12/17 06:45 Urine Mucus Rare /hpf (None) H 11/12/17 06:45 Microbiology 11/12/17 22:40 Blood Blood Culture - Final No Growth after 144 hours 11/12/17 21:46 Blood Blood Culture - Final No Growth after 144 hours 11/12/17 05:33 Blood Blood Culture - Final No Growth after 144 hours Assessment and Plan (1) C. difficile colitis Narrative/Plan: 82-year-old woman who was in the family home with her was recently hospitalized with difficulty with frequent falls and weakness. She was having difficulty with atrial fibrillation as well as pneumonia, YOAN failed to reveal evidence of endocarditis. She was treated for pneumonia. At the beginning of this month she again was having difficulties and she was seen there is evidence of some diarrhea and she was diagnosed with Clostridium difficile colitis. She apparently was treated and had some improvement. However home she became more confused felt much worse developed a fever she is a history of cough and sputum production and again at presentation had a heart rate of 140 as well as leukocytosis and had transient elevation of her lactic acid that was thought to be due to her atrial fibrillation with a rapid ventricular response and poor perfusion. With correction this is now improved. The patient's C. diff will be treated with vancomycin orally 250 mg every 6 hours and she will monitor for her stool output. She does have some mild bowel distention and minimal tenderness. No evidence of any shan pneumonia but does have some congestive heart failure. She was seen by cardiology and will expect improvement of her heart failure as her A. fib and RVR become better controlled. We'll avoid other antimicrobial therapy at this point in time except for the treatment of her C. diff. Cultures are being monitored. We'll follow her leukocytosis that is likely multifactorial including a C. diff in the strain of the recurrent A. fib and pulmonary edema. 11/15/2017 patient is now improving. Doing well with current treatment interventions. Diarrhea is improved. Shortness of breath is improved. Family is working on ways to get her well enough to travel to [place] to continue her care in their current home state. 11/19/2017 shows improvement of her diarrhea with the oral vancomycin therapy. She is evidence of worsening acute on chronic systolic congestive heart failure with diuretic therapy has improved seems to have improvement of basal infiltrates and effusions. Unclear if she'll be going home on home oxygen therapy. Her atrial fibrillation is being treated by cardiology and her attempts to improve her heart rate and will lower her risk of anticoagulation. Patient's goal continues to be to get home to [place]. Current Visit: No Status: Acute Code(s): A04.72 - ENTEROCOLITIS D/T CLOSTRIDIUM DIFFICILE, NOT SPCF RECUR SNOMED Code(s): 307167015
[2017-11-20] MEDS: IPRATROPIUM-ALBUTEROL 3 ML NEB INHALATION SCH ×4 (07:29→20:11)
[2017-11-20] MEDS: FUROSEMIDE 40 MG TAB PO SCH ×2 (08:03→09:35)
[2017-11-20] MEDS: predniSONE 10 MG TAB PO SCH ×2 (08:03→22:42)
[2017-11-20] MEDS: GABAPENTIN 100 MG CAP PO SCH ×3 (08:03→22:42)
[2017-11-20] MEDS: LOPERAMIDE 2 MG CAP PO SCH ×4 (08:03→22:47)
[2017-11-20] MEDS: METOPROLOL TARTRATE 50 MG TAB PO SCH ×2 (08:03→22:41)
[2017-11-20] MEDS: AMIODARONE 200 MG TAB PO SCH ×2 (08:04→22:41)
[2017-11-20] MEDS: PANTOPRAZOLE 40 MG/10 ML VIAL IVP SCH (08:04)
[2017-11-20] MEDS: SPIRONOLACTONE 25 MG TAB PO SCH (08:04)
[2017-11-20] MEDS: VANCOMYCIN ORAL SOLUTION 250 MG/5 ML BOTTLE PO SCH ×4 (08:04→22:44)
[2017-11-20] MEDS: ASPIRIN 81 MG PO SCH (08:04)
[2017-11-20] MEDS: APIXABAN 5 MG TAB PO SCH ×2 (08:04→22:41)
[2017-11-20] MEDS: LIDOCAINE 5% PATCH TOPICAL SCH (08:04)
[2017-11-20] MEDS: OXYBUTYNIN CHLORIDE 5 MG TAB PO SCH ×2 (08:04→22:42)
[2017-11-20 08:26] LABS: Anion Gap 6 mmol/L; Blood Urea Nitrogen 12 mg/dL (7-17); Calcium 8.5 mg/dL (8.4-10.2); Carbon Dioxide 35 mmol/L (22-30); Chloride 100 mmol/L (98-107); Glucose 96 mg/dL (74-99); Magnesium 2.4 mg/dL (1.6-2.3); Potassium 4.6 mmol/L (3.5-5.1); Sodium 141 mmol/L (137-145)
--- NOTE | 2017-11-20 10:02 | CDI ---
Last Revision, February 2017 Documentation Clarification Form 3rd Request Date: 11/13/2017 11:03:00 AM From: Radha Murillo RN, CCDS Admit Date: 11/12/2017 6:15:00 AM Patient Name: Carmen Lenz Visit Number: [id number] ATTENTION: The Clinical Documentation Specialists (CDI) and [facility] Coding Staff appreciate your assistance in clarifying documentation. Please respond to the clarification below the line at the bottom and electronically sign. The CDI & [facility] Coding staff will review the response and follow-up if needed. Please note: Queries are made part of the Legal Health Record. If you have any questions, please contact the author of this message via ITS. Jerel Mcintosh MD Protein calorie malnutrition is documented in the PMH and requires further specificity. History/Risk Factors: Falls, COPD, Atrial Fib, Diarrhea x 3 weeks, partial gastrectomy Clinical Indicators: Labs: Albumin/ Total Protein: 2.8/5.3 Current BMI: 18.6 Insufficient energy intake: confused, altered mental status, weakness Per dietary consult: Pt appears underweight Loss of subcutaneous fat: pt has multiple skin abrasions and tears from frequent falls at home Loss of muscle mass: pt is weak requires physical assistance for ADLs Fluid accumulation: bilateral lower extremity edema Treatment: Dietary Consult: Completed 11/12/17 1528 Supplements: none ordered Regular diet Lab monitoring daily In your professional opinion, can you please clarify if these findings signify one of the following conditions? Mild Protein-Calorie Malnutrition Moderate Protein-Calorie Malnutrition Severe Protein-Calorie Malnutrition Malnutrition following GI surgery Other condition, please specify Unable to determine Please continue to document in your progress notes and discharge summary in order to capture severity of illness and risk of mortality. Include clinical findings that support your diagnosis. MTDD
--- NOTE | 2017-11-20 10:25 | CDI ---
Last Revision, February 2017 Documentation Clarification Form Date: 11/20/17 1023 From: Radha Murillo RN, CCDS Admit Date: 11/12/2017 6:15:00 AM Patient Name: Carmen Lenz Visit Number: [id number] ATTENTION: The Clinical Documentation Specialists (CDI) and [facility] Coding Staff appreciate your assistance in clarifying documentation. Please respond to the clarification below the line at the bottom and electronically sign. The CDI & [facility] Coding staff will review the response and follow-up if needed. Please note: Queries are made part of the Legal Health Record. If you have any questions, please contact the author of this message via ITS. Jerel Mcintosh MD A diagnosis of anemia lacks specificity to accurately reflect your patients severity of condition and clarification is needed. History/Risk Factors: Confusion with hallucinations and weakness new onset Atrial Fib, COPD, Diarrhea x 3 months, PCM, anemia Clinical indicators: Hemoglobin: 10.3/10.2/10.4 Hematocrit: 33.5/34.7/34.1 Treatment: 2L IVF Bolus 0.9% NS @ 100 cc/hr Xarelto 20 mg PO w breakfast In order to capture the severity of condition, please clarify the type of anemia and etiology if known: Chronic blood loss anemia Iron deficiency anemia Drug induced anemia Nutritional anemia Anemia of chronic disease Unable to determine Other, please specify Please continue to document in your progress notes and discharge summary in order to capture severity of illness and risk of mortality. Include clinical findings that support your diagnosis. MTDD
--- NOTE | 2017-11-20 10:56 | P.PN ---
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 She is currently admitted to this hospital with atrial fibrillation with rapid ventricular response which has improved, pneumonia and fever. We initially saw her for a-fib and she has since converted to sinus and is maintained on amiodarone, aldactone, xarelto, lasix and lisinopril. We have been asked to see her again for symptoms of heart failure. She states she has been feeling increasingly short of breath with exertion and at rest. Xray obtained yesterday revealed worsening heart failure compared to 2 days prior. She was started on IV lasix 11/16 per pulmonary. She states the swelling in her legs has improved and she denies chest pain, dizziness or palpitations. She also denies PND or orthopnea. Blood pressure 128/50 heart rate 81 afebrile and maintaining oxygen saturation on nasal cannula. O2 sat went down 86% on room air this morning. Echo obtained this morning reveals worsening LV systolic function with EF 35-40% , apical anterior, lateral, inferior and septal LV wall is hypokinetic, moderate aortic stenosis with a mean gradient of 7.22 mmHg across the valve, moderate MR and mild TR noted. Laboratory data reviewed, sodium 141, potassium 3.7, creatinine 0.74, magnesium 1.4, NT proBNP 12,400. No output has been documented. Weight has increase since admission. 11/20/2017 Patient is seen and examined sitting up in bed in no acute distress on room air. She complains of mild discomfort in the left precordial region that doesn' t radiate to the arm, back, neck or jaw. She feels like it is worse with deep inspiration but not reproducible on palpitation. Telemetry tracings indicate sinus rhythm. Laboratory data reviewed, sodium 141, potassium 4.6, creatinine 0.62, magnesium 2.4. Blood pressure 129/67 heart rate 69 afebrile and maintaining oxygen saturation. She states her breathing seems to be getting slightly better but no drastic improvement. Weight is down 3 kg from yesterday. No urine output totals documented. She was changed to oral diuretics per pulmonary. manager lan is working on coverage for [employer]. Objective - Vital Signs Vital signs: Vital Signs Temp 97 F L 11/20/17 07:42 Pulse 69 09/18/18 07:42 Resp 15 11/20/17 07:42 BP 129/67 11/20/17 07:42 Pulse Ox 97 11/20/17 07:42 Intake & Output 11/19/17 11/20/17 11/20/17 18:59 06:59 18:59 Intake Total 220 Balance 220 Weight 44.6 kg Intake: Oral 220 Other: Voiding Method Toilet Toilet Toilet - Exam GENERAL: Well-appearing, well-nourished and in no acute distress. NECK: Supple without JVD or thyromegaly. LUNGS: Bibasilar rales noted. Respiration equal and unlabored. No wheezes or rhonchi. HEART: Regular rate and rhythm with systolic ejection murmur at the base, no rubs or gallops. S1 and S2 heard. EXTREMITIES: Normal range of motion, no edema. No clubbing or cyanosis. Peripheral pulses intact. - Labs CBC & Chem 7: 11/17/17 08:26 11/20/17 07:32 Labs: Abnormal Lab Results - Last 24 Hours (Table) 11/20/17 Range/Units 07:32 Carbon Dioxide 35 H (22-30) mmol/L Magnesium 2.4 H (1.6-2.3) mg/dL Assessment and Plan Assessment: ASSESSMENT Acute systolic heart failure, EF 35-40%. Possibly takatsubo. Cardiomyopathy, unknown if ischemic or non-ischemic. 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 Hypertension Dyslipidemia PLAN Obtain stat troponin. Repeat EKG. With elevated NTproBNP, ongoing rales and recently noted change in LV function we recommend continuing with IV lasix. Follow kidney function and electrolytes daily. Check daily weights and get strict intake and output to accurately measure diuresis. Awaiting coverage on entresto, plans to start tomorrow if covered. Nurse Practitioner note has been reviewed, I agree with a documented findings and plan of care. Patient was seen and examined.
[2017-11-20] MEDS: FUROSEMIDE 10 MG/ML 4 ML VIAL IV SCH ×2 (11:26→22:38)
--- NOTE | 2017-11-20 11:28 | P.PN ---
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 Patient was recently hospitalized from 09/21/2017 through 10/10/2017 for acute hypoxic respiratory failure related to bilateral pneumonia, onset A. fib RVR and acute congestive heart failure with diastolic dysfunction, and a non-ST elevated ID. Patient was treated with a combination of Zosyn, vancomycin and Levaquin, she was diuresed, echocardiogram showed a preserved LV function with an ejection fraction of 55-60%, moderate degree of mitral regurgitation and questionable small mobile vegetation attest to the anterior mitral valve leaflet and the patient underwent a YOAN. The YOAN did not show any evidence of any infective endocarditis or valvular vegetation. Moderate to severe mitral regurgitation, moderate to severe tricuspid regurgitation and overall LV function was within normal limits. He was placed on anticoagulation in the form of some Xarelto. Clinically patient improved, and was discharged home. Patient was hospitalized again for recurrent falls, back pain, weakness from 11/01/2017 through 11/03/2017. Patient has been having trouble with ongoing diarrhea for last 4 months, weight loss of 30-40 pounds, patient apparently had upper and lower endoscopy studies in [place], with removal of polyps. Patient had a couple other emergency rooms visits for [place] related to dislocated right hip and pain. On 11/12/2017 patient was evaluated in the emergency department again for significant shortness of breath , generalized body pain, confusion, fever. Patient was in A. fib RVR, febrile, and the chest x-ray showed a new pulmonary interstitial infiltrates, and a new small pneumonia at the left lateral lung base. Patient has significant leukocytosis, the PVC was 27.1, hemoglobin is 10.3, lactic acid was elevated at 2.5. Patient had positive troponins of 0.074, 0.063 and 0.250, patient was started on Levaquin and Zosyn, and oral vancomycin for evidence of C. diff in her stool. Patient was given IV fluid resuscitation. She was seen in consultation by ID service as well as cardiology, her A. fib RVR was treated with Cardizem and patient is on Xarelto for anticoagulation. We were asked to see the patient in consultation for worsening shortness of breath, this morning patient stated she had a severe bout of respiratory distress, was hardly able to get air in, her oxygenation worsened, and her FiO2 increased to 4 L per nasal cannula and her pulse ox is around 92%, patient was noted to have increased bilateral lower extremity edema, and positive JVD. Stat chest x-ray has been taken and showed bilateral infiltrates, and pleural effusions. ProBNP was elevated at 9950. Patient was given a dose of IV Lasix. Her diuresing, and she felt improvement with her breathing. The patient is seen again today 11/17/2017 in follow-up on the regular medical floor. She is awake and alert in no acute distress. She is breathing quite a bit easier today as compared to yesterday. She diuresed well. Currently in a - 1200 ML balance. She is down to 4 L high flow nasal cannula and maintaining good O2 saturation in the 90s. She's been afebrile. Blood cultures reveal no growth. White count improved 10.9. Hemoglobin 10.4. Creatinine 0.69. Replacing potassium. She remains on Lasix 40 mg IV push every 8 hours. On 11/18/2017, I'm seeing this patient for a follow-up. Clinically she is improving and she is less short of breath compared to yesterday. No fever. No chills. No night sweats. She is being dialyzed IV Lasix. The patient's renal function is still stable with a BUN of 10 and creatinine 0.6. A follow-up chest x-ray was done today and there is still findings consistent with CHF. The patient would benefit from ongoing diuresis. She is currently receiving Lasix 40 mg every 8 hours. Overall she is feeling better. She is also anticoagulated with Xarelto. On 11/19/2017 patient is seen again on the fifth floor, she is resting comfortably in bed, reports breathing better, lung sounds reveal some residual crackles at the right posterior base, and left anterior base. Good air entry noted bilaterally, no wheezing. Currently on 2 L per nasal cannula, this morning room air pulse ox was done, and patient was noted to be approximately make with a pulse ox of 86% on the room air. The appearance of bilateral lower extremity edema has significantly improved, and it has nearly resolved. Patient is afebrile, hemodynamically stable, no chest pain, no worsening shortness of breath, today's labs were reviewed, BNP was done, sodium was 141, potassium is 3.7, chloride was 99, CO2 was 35, BUN was 14, creatinine 0.74. Repeat proBNP remains elevated at 12,400, magnesium is 1.4. Repeat chest x-ray today showed improvement of the diffuse interstitial pattern, improving CHF. Echocardiogram was completed, and showed left ventricular systolic function moderately impaired with an EF between 35-40%, anterior and lateral LV wall, apical inferior LV wall and septal LV wall hypokinesis. There was presence of moderate mitral regurgitation and mild tricuspid regurgitation, right ventricular systolic pressure is normal at less than 35 mmHg. Her is diarrhea has resolved, and she reports having one small formed stool this morning. On 11/20/2017 patient seen in follow-up on medical surgical floor. Doing well, no recent shortness of breath, no chest pain, currently on 2 L per nasal cannula , with a pulse ox of 97%, afebrile, sounds reveal fine rales at bilateral bases , good air entry noted bilaterally, no wheezing no rhonchi. Patient has SAE hose on bilateral lower extremities, patient states she develops dependent edema if she is sitting up with her legs dependent, but overall there has been resolution of peripheral edema since the initiation of diuretics. Today's chest x-ray showed improvement in the appearance of interstitial edema and pleural effusions, patient has been switched to oral diuretics. No diarrhea. Labs have been reviewed, and showed sodium of 141, potassium is 4.6, CO2 35, BUN is 12, creatinine 0.62. Cultures remain negative. No acute events overnight, overall patient is feeling and breathing much better. Objective - Vital Signs Vital signs: Vital Signs Temp 97 F L 11/20/17 07:42 Pulse 69 11/20/17 07:42 Resp 15 11/20/17 07:42 BP 129/67 11/20/17 07:42 Pulse Ox 97 11/20/17 07:42 Intake & Output 11/19/17 11/20/17 11/20/17 18:59 06:59 18:59 Intake Total 220 Balance 220 Weight 44.6 kg Intake: Oral 220 Other: Voiding Method Toilet Toilet Toilet - Exam - Constitutional General appearance: Present: thin - EENT Eyes: Present: EOMI, PERRLA ENT: Present: hard of hearing Ears: bilateral: normal - Neck Neck: Present: normal ROM Carotids: bilateral: upstroke normal Thyroid: bilateral: normal size - Respiratory Respiratory: bilateral: rales, crackles in lung bases bilaterally and diminished breath sound lung bases. - Cardiovascular Rhythm: irregularly irregular Heart sounds: normal: S1, S2 Abnormal Heart Sounds: Present: diastolic murmur - Gastrointestinal General gastrointestinal: Present: normal bowel sounds - Integumentary Integumentary: Present: decreased turgor - Neurologic Neurologic: Present: CNII-XII intact - Musculoskeletal Musculoskeletal: Present: generalized weakness - Psychiatric Psychiatric: Present: A&O x's 3, appropriate affect, intact judgment & insight - Labs CBC & Chem 7: 11/17/17 08:26 11/20/17 07:32 Labs: Abnormal Lab Results - Last 24 Hours (Table) 11/20/17 Range/Units 07:32 Carbon Dioxide 35 H (22-30) mmol/L Magnesium 2.4 H (1.6-2.3) mg/dL Assessment and Plan Plan: Assessment: #1. Acute hypoxemic respiratory failure secondary to acute congestive heart failure, with now impaired left ventricular systolic function, which was previously normal. Follow-up chest x-rays showed improvement in the appearance of interstitial edema, and pleural effusions, improving changes of CHF #2. Recent hospitalization in October for bilateral pneumonia, A. fib RVR, congestive heart failure, congestive heart failure and patient was treated with a combination of Zosyn, Levaquin and vancomycin. Patient required BiPAP support and ICU admission during that hospital stay #3. A. fib with RVR, currently patient is on oral Amiodarone and Xarelto, her heart rate is better controlled #4. Valvular heart disease with evidence of moderate to severe mitral regurgitation and tricuspid regurgitation and preserved LV function #5. Leukocytosis, fever present on admission likely due to C. diff colitis and sepsis, improved #6. C. diff colitis currently on oral vancomycin #7. D-dimer, nonspecific, and patient has been on anticoagulation in the form of Xarelto #8. Lactic acidosis, and patient has been fluid resuscitated with subsequent resolution of lactic acidemia #9. Frequent falls at home, gait dysfunction, generalized weakness #10. History of ongoing diarrhea her last 3-4 months and weight loss, and patient has undergone endoscopic evaluation in [place] would removal of polyps. Most recent abdomen/pelvis CT showed mild constipation, and 10 mm common bile duct consistent with chronic gallbladder dysfunction. #11. Rheumatoid arthritis, previously on methotrexate #12. Chronic back pain, with evidence of moderate lumbar spondylosis seen on the CT of abdomen and pelvis #13. Nicotine dependence, currently in remission, patient quit in 1990, but prior to that smoked a pack a day for 40 years. Not on home oxygen or any inhalers or nebulized treatments at home #14. History of hypertension, hyperlipidemia Plan: Patient is doing well, breathing and feeling much easier. Oxygenation is stable on 2 L per nasal cannula, we will do a home oxygen assessment test. Patient has been transitioned to oral diuretics at 40 mg once daily. No ongoing diarrhea, no fever or chills. Increase activity as tolerated, from pulmonary standpoint patient could be considered for discharge home today. I performed a history & physical examination of the patient and discussed their management with my nurse practitioner, Jillian Moffett. I reviewed the nurse practitioner's note and agree with the documented findings and plan of care. Lung sounds are positive for fine bibasilar crackles. The findings and the impression was discussed with the patient. I attest to the documentation by the nurse practitioner. Time with Patient: Less than 30
[2017-11-20 11:50] LABS: ALT 28 U/L (9-52); AST 19 U/L (14-36); Albumin 2.7 g/dL (3.5-5.0); Alkaline Phosphatase 74 U/L (38-126); Total Bilirubin 0.4 mg/dL (0.2-1.3); Total Protein 5.2 g/dL (6.3-8.2)
--- NOTE | 2017-11-20 12:07 | PN ---
PROGRESS NOTE DATE OF SERVICE: 11/20/2017 CHIEF COMPLAINT: Pneumonitis, atrial fibrillation, congestive heart failure, and weakness. HISTORY OF PRESENT ILLNESS: This lady is feeling a little bit better. She does get occasional sharp pains in the right chest when she takes deep breath, but she has had no fever, chills, cough, hemoptysis, etc. She is breathing better. PHYSICAL EXAM: Her chest is fairly clear and definitely better than several days ago. The cardiac exam is unchanged. The abdomen is soft. EXTREMITIES: Normal. IMPRESSION: 1. Pneumonitis. 2. Atrial fibrillation with rapid and ventricular response. 3. Congestive heart failure-improved. 4. Right pleuritic anterior chest pain. PLAN: 1. Repeat chest x-ray. 2. if she continues to improve, will try to get her out and back to [place] soon. MMODL / IJN: [id number] /
[2017-11-20 12:11] LABS: Anisocytosis Slight; Basophils % (A) 0 %; Eosinophils % (A) 0 %; HCT 33.7 % (34.0-46.0); HGB 10.2 gm/dL (11.4-16.0); Hypochromasia Marked; Lymphocytes # (A) 0.7 k/uL (1.0-4.8); Lymphocytes % (A) 7 %; MCH 29.1 pg (25.0-35.0); MCHC 30.4 g/dL (31.0-37.0); MCV 95.8 fL (80.0-100.0); Mean Platelet Volume 8.6; Monocytes # (A) 0.6 k/uL (0-1.0); Monocytes % (A) 5 %; Neutrophils # (A) 9.1 k/uL (1.3-7.7); Neutrophils % (A) 87 %; Platelet Count 422 k/uL (150-450); RBC 3.52 m/uL (3.80-5.40); RDW 16.5 % (11.5-15.5); WBC 10.5 k/uL (3.8-10.6)
--- NOTE | 2017-11-20 15:58 | XR ---
EXAMINATION TYPE: XR chest 2V DATE OF EXAM: 11/20/2017 COMPARISON: 11/19/2017 TECHNIQUE: PA and lateral views submitted. HISTORY: Shortness of breath FINDINGS: Hyperinflation suggestive COPD and there is postoperative change involving the shoulders. Atheroscler otic change of the aorta with bilateral consolidation and pleural effusion. No overt failure. Surgica l clips in the epigastrium. IMPRESSION: 1. Bilateral infiltrate and pleural effusion with underlying COPD but no overt heart failure.
--- NOTE | 2017-11-20 16:46 | PN ---
PROGRESS NOTE CHIEF COMPLAINT: Pneumonitis, atrial fibrillation, general weakness and debility. HISTORY OF PRESENT ILLNESS: This lady is slowly doing a little bit better. Breathing has improved with the addition of diuretics. PHYSICAL EXAM: She still has somewhat decreased breath sounds at the bases with bilateral rales. Cardiac exam is normal. Abdomen is soft. IMPRESSION: 1. Pneumonitis. 2. Atrial fibrillation. 3. Congestive heart failure. PLAN: Continue to try to increase activity and try to get her out of the hospital and strong enough to make the trip back to the [place], which is their plan. MMODL / IJN: [id number] /
--- NOTE | 2017-11-20 17:55 | PN ---
PROGRESS NOTE DATE OF SERVICE: 11/17/2017 CHIEF COMPLAINT: Pneumonitis, atrial fibrillation and chest pain. HISTORY OF PRESENT ILLNESS: This lady's laboratory studies have indicated an elevated D-dimer as well as a BNP, which is consistent with her likely being in congestive heart failure. REVIEW OF SYSTEMS: She has been having less chest discomfort, but she is still quite short of breath. She is very weak and she has had no nausea or vomiting. PHYSICAL EXAM: Breath sounds are diminished at the bases with rales throughout. Cardiac demonstrates atrial fibrillation and the abdomen is soft. IMPRESSION: 1. Pneumonitis. 2. Congestive heart failure. 3. Atrial fibrillation. PLAN: Continue efforts to control her pneumonia and congestive heart failure. MMODL / IJN: [id number] /
--- NOTE | 2017-11-20 18:04 | PN ---
PROGRESS NOTE DATE OF SERVICE: 11/16/2017 CHIEF COMPLAINT: Fever, pneumonitis, chest pain and atrial fibrillation. HISTORY OF PRESENT ILLNESS: This lady is a little bit more short of breath and she is doing some wheezing. She had no fever or chills and she has had no chest pain. PHYSICAL EXAMINATION: She does have scattered rales and expiratory wheezing. Her cardiac exam demonstrates tachycardia. Abdomen is soft, nontender. IMPRESSION: 1. Pneumonitis. 2. Atrial fibrillation. 3. Congestive heart failure. PLAN: Management of what is probably fluid overload or congestive heart failure. MMODL / IJN: [id number] /
[2017-11-21] MEDS ORDERED: FUROSEMIDE 10 MG/ML 4 ML VIAL IV SCH (06:00)
[2017-11-21] MEDS: IPRATROPIUM-ALBUTEROL 3 ML NEB INHALATION SCH ×4 (08:52→20:26)
[2017-11-21] MEDS: GABAPENTIN 100 MG CAP PO SCH ×3 (08:56→21:16)
[2017-11-21] MEDS: METOPROLOL TARTRATE 50 MG TAB PO SCH ×2 (08:56→21:02)
[2017-11-21] MEDS: APIXABAN 5 MG TAB PO SCH ×2 (08:56→21:02)
[2017-11-21] MEDS: AMIODARONE 200 MG TAB PO SCH ×2 (08:57→21:02)
[2017-11-21] MEDS: OXYBUTYNIN CHLORIDE 5 MG TAB PO SCH ×2 (08:57→21:03)
[2017-11-21] MEDS: predniSONE 10 MG TAB PO SCH ×2 (08:58→21:03)
[2017-11-21] MEDS: PANTOPRAZOLE 40 MG TABLET PO SCH (08:58)
[2017-11-21] MEDS: LOPERAMIDE 2 MG CAP PO SCH ×4 (08:58→21:16)
[2017-11-21] MEDS: SPIRONOLACTONE 25 MG TAB PO SCH (08:58)
[2017-11-21] MEDS: VANCOMYCIN ORAL SOLUTION 250 MG/5 ML BOTTLE PO SCH ×4 (08:59→21:16)
[2017-11-21] MEDS: ASPIRIN 81 MG PO SCH (08:59)
[2017-11-21] MEDS: LIDOCAINE 5% PATCH TOPICAL SCH (09:00)
[2017-11-21] MEDS ORDERED: SACUBITRIL/VALSARTAN 24 MG-26 MG TABLET PO SCH (09:00)
--- NOTE | 2017-11-21 10:26 | PN ---
PROGRESS NOTE CHIEF COMPLAINT: Pneumonitis and CHF. HISTORY OF PRESENT ILLNESS: This lady is doing much better. She is stronger and is moving about better and thinks she might be able to leave tomorrow and make the car ride to [place]. PHYSICAL EXAM: Her chest is quite clear and cardiac exam is unchanged with atrial fibrillation. Color is improved and she is stronger. IMPRESSION: 1. Congestive heart failure. 2. Pneumonitis. 3. Atrial fibrillation. PLAN: Possibly discharge tomorrow. MMODL / IJN: [id number] /
[2017-11-21 10:28] LABS: Calcium 9.1 mg/dL (8.4-10.2); Magnesium 2.2 mg/dL (1.6-2.3); Potassium 4.9 mmol/L (3.5-5.1)
--- NOTE | 2017-11-21 11:23 | P.PN ---
Subjective Mrs. Lenz is seen and examined sitting up eating breakfast. She states her breathing is improving. She still feels a mild discomfort in her chest in the left precordial region with deep inspiration. Troponin yesterday was elevated at 0.085. EKG obtained yesterday revealed she is maintaining sinus mechanism with T-wave inversions inferior, anterior and laterally. Laboratory data pending at this time. Blood pressure 118/66 heart rate 65 afebrile maintaining oxygen saturation on room air. Entresto will cost $175/month. She will be changed back to lisinopril today. Objective - Vital Signs Vital signs: Vital Signs Temp 97.3 F L 11/21/17 05:00 Pulse 65 11/21/17 05:00 Resp 16 11/21/17 05:00 BP 118/66 11/21/17 05:00 Pulse Ox 100 11/21/17 05:00 Intake & Output 11/20/17 11/21/17 11/21/17 18:59 06:59 18:59 Intake Total 220 Balance 220 Weight 44.5 kg Intake: Oral 220 Other: Voiding Method Toilet Toilet # Voids 1 # Bowel Movements 1 - Exam GENERAL: Well-appearing, well-nourished and in no acute distress. NECK: Supple without JVD or thyromegaly. LUNGS: Rales noted on the left at the base and very faint in the right base, improving from previous exam. Respiration equal and unlabored. No wheezes or rhonchi. HEART: Regular rate and rhythm with systolic ejection murmur at the base, no rubs or gallops. S1 and S2 heard. EXTREMITIES: Normal range of motion, no edema. No clubbing or cyanosis. Peripheral pulses intact. - Labs CBC & Chem 7: 11/20/17 07:32 11/21/17 09:56 Labs: Abnormal Lab Results - Last 24 Hours (Table) 11/20/17 11/20/17 11/20/17 Range/Units 07:32 07:32 07:34 RBC 3.52 L (3.80-5.40) m/uL Hgb 10.2 L (11.4-16.0) gm/dL Hct 33.7 L (34.0-46.0) % MCHC 30.4 L (31.0-37.0) g/dL RDW 16.5 H (11.5-15.5) % Neutrophils # 9.1 H (1.3-7.7) k/uL Lymphocytes # 0.7 L (1.0-4.8) k/uL Carbon Dioxide 35 H (22-30) mmol/L Magnesium 2.4 H (1.6-2.3) mg/dL Troponin I 0.085 H* (0.000-0.034) ng/mL Total Protein 5.2 L (6.3-8.2) g/dL Albumin 2.7 L (3.5-5.0) g/dL Assessment and Plan Assessment: ASSESSMENT Acute systolic heart failure, EF 35-40% related takotsubo syndrome Cardiomyopathy, unknown if ischemic or non-ischemic. 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 Hypertension Dyslipidemia PLAN Takotsubo syndrome confirmed with EKG and echo. Discontinue entresto secondary to monthly cost, will resume lisinopril. Transition to oral diuretics. Stable from a cardiac standpoint. Advised the patient the importance of following up with a emergency medical technician once she gets back to [place]. This has been discussed as well with Dr. Olmos. Nurse Practitioner note has been reviewed, I agree with a documented findings and plan of care. Patient was seen and examined.
[2017-11-21 12:17] VITALS: RESP 16
[2017-11-21] MEDS: LISINOPRIL 10 MG TAB PO SCH (12:21)
--- NOTE | 2017-11-21 12:25 | P.PN ---
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 Patient was recently hospitalized from 09/21/2017 through 10/10/2017 for acute hypoxic respiratory failure related to bilateral pneumonia, onset A. fib RVR and acute congestive heart failure with diastolic dysfunction, and a non-ST elevated TN. Patient was treated with a combination of Zosyn, vancomycin and Levaquin, she was diuresed, echocardiogram showed a preserved LV function with an ejection fraction of 55-60%, moderate degree of mitral regurgitation and questionable small mobile vegetation attest to the anterior mitral valve leaflet and the patient underwent a YOAN. The YOAN did not show any evidence of any infective endocarditis or valvular vegetation. Moderate to severe mitral regurgitation, moderate to severe tricuspid regurgitation and overall LV function was within normal limits. He was placed on anticoagulation in the form of some Xarelto. Clinically patient improved, and was discharged home. Patient was hospitalized again for recurrent falls, back pain, weakness from 11/01/2017 through 11/03/2017. Patient has been having trouble with ongoing diarrhea for last 4 months, weight loss of 30-40 pounds, patient apparently had upper and lower endoscopy studies in [place], with removal of polyps. Patient had a couple other emergency rooms visits for [place] related to dislocated right hip and pain. On 11/12/2017 patient was evaluated in the emergency department again for significant shortness of breath , generalized body pain, confusion, fever. Patient was in A. fib RVR, febrile, and the chest x-ray showed a new pulmonary interstitial infiltrates, and a new small pneumonia at the left lateral lung base. Patient has significant leukocytosis, the PVC was 27.1, hemoglobin is 10.3, lactic acid was elevated at 2.5. Patient had positive troponins of 0.074, 0.063 and 0.250, patient was started on Levaquin and Zosyn, and oral vancomycin for evidence of C. diff in her stool. Patient was given IV fluid resuscitation. She was seen in consultation by ID service as well as cardiology, her A. fib RVR was treated with Cardizem and patient is on Xarelto for anticoagulation. We were asked to see the patient in consultation for worsening shortness of breath, this morning patient stated she had a severe bout of respiratory distress, was hardly able to get air in, her oxygenation worsened, and her FiO2 increased to 4 L per nasal cannula and her pulse ox is around 92%, patient was noted to have increased bilateral lower extremity edema, and positive JVD. Stat chest x-ray has been taken and showed bilateral infiltrates, and pleural effusions. ProBNP was elevated at 9950. Patient was given a dose of IV Lasix. Her diuresing, and she felt improvement with her breathing. The patient is seen again today 11/17/2017 in follow-up on the regular medical floor. She is awake and alert in no acute distress. She is breathing quite a bit easier today as compared to yesterday. She diuresed well. Currently in a - 1200 ML balance. She is down to 4 L high flow nasal cannula and maintaining good O2 saturation in the 90s. She's been afebrile. Blood cultures reveal no growth. White count improved 10.9. Hemoglobin 10.4. Creatinine 0.69. Replacing potassium. She remains on Lasix 40 mg IV push every 8 hours. On 11/18/2017, I'm seeing this patient for a follow-up. Clinically she is improving and she is less short of breath compared to yesterday. No fever. No chills. No night sweats. She is being dialyzed IV Lasix. The patient's renal function is still stable with a BUN of 10 and creatinine 0.6. A follow-up chest x-ray was done today and there is still findings consistent with CHF. The patient would benefit from ongoing diuresis. She is currently receiving Lasix 40 mg every 8 hours. Overall she is feeling better. She is also anticoagulated with Xarelto. On 11/19/2017 patient is seen again on the fifth floor, she is resting comfortably in bed, reports breathing better, lung sounds reveal some residual crackles at the right posterior base, and left anterior base. Good air entry noted bilaterally, no wheezing. Currently on 2 L per nasal cannula, this morning room air pulse ox was done, and patient was noted to be approximately make with a pulse ox of 86% on the room air. The appearance of bilateral lower extremity edema has significantly improved, and it has nearly resolved. Patient is afebrile, hemodynamically stable, no chest pain, no worsening shortness of breath, today's labs were reviewed, BNP was done, sodium was 141, potassium is 3.7, chloride was 99, CO2 was 35, BUN was 14, creatinine 0.74. Repeat proBNP remains elevated at 12,400, magnesium is 1.4. Repeat chest x-ray today showed improvement of the diffuse interstitial pattern, improving CHF. Echocardiogram was completed, and showed left ventricular systolic function moderately impaired with an EF between 35-40%, anterior and lateral LV wall, apical inferior LV wall and septal LV wall hypokinesis. There was presence of moderate mitral regurgitation and mild tricuspid regurgitation, right ventricular systolic pressure is normal at less than 35 mmHg. Her is diarrhea has resolved, and she reports having one small formed stool this morning. On 11/20/2017 patient seen in follow-up on medical surgical floor. Doing well, no recent shortness of breath, no chest pain, currently on 2 L per nasal cannula , with a pulse ox of 97%, afebrile, sounds reveal fine rales at bilateral bases , good air entry noted bilaterally, no wheezing no rhonchi. Patient has SAE hose on bilateral lower extremities, patient states she develops dependent edema if she is sitting up with her legs dependent, but overall there has been resolution of peripheral edema since the initiation of diuretics. Today's chest x-ray showed improvement in the appearance of interstitial edema and pleural effusions, patient has been switched to oral diuretics. No diarrhea. Labs have been reviewed, and showed sodium of 141, potassium is 4.6, CO2 35, BUN is 12, creatinine 0.62. Cultures remain negative. No acute events overnight, overall patient is feeling and breathing much better. On 11/21/2017 patient seen again in follow-up on medical surgical floor. Continues to be doing well, no worsening dyspnea, remains on oral Lasix, oral prednisone, Eliquis, patient was initially started on Entresto per cardiology, but due to cost it was switched to lisinopril. Patient had episode of precordial discomfort, and EKG was obtained, and showed sinus rhythm with T- wave inversions in the inferior, anterior and lateral leads. Troponin continues to trend down, down to 0.085. Follow-up proBNP on 11/19/2017 had actually gone up to 12,400. Lung sounds reveal bibasilar crackles, no wheezing. No swelling in bilateral lower extremities, no fever, no chills, no ongoing diarrhea and patient continues on oral vancomycin Objective - Vital Signs Vital signs: Vital Signs Temp 97.3 F L 11/21/17 05:00 Pulse 74 11/21/17 11:46 Resp 15 11/21/17 11:18 BP 118/66 11/21/17 05:00 Pulse Ox 100 11/21/17 05:00 Intake & Output 11/20/17 11/21/17 11/21/17 18:59 06:59 18:59 Intake Total 220 Balance 220 Weight 44.5 kg Intake: Oral 220 Other: Voiding Method Toilet Toilet Toilet # Voids 3 # Bowel Movements 1 - Exam - Constitutional General appearance: Present: thin - EENT Eyes: Present: EOMI, PERRLA ENT: Present: hard of hearing Ears: bilateral: normal - Neck Neck: Present: normal ROM Carotids: bilateral: upstroke normal Thyroid: bilateral: normal size - Respiratory Respiratory: bilateral: rales, crackles in lung bases bilaterally and diminished breath sound lung bases. - Cardiovascular Rhythm: irregularly irregular Heart sounds: normal: S1, S2 Abnormal Heart Sounds: Present: diastolic murmur - Gastrointestinal General gastrointestinal: Present: normal bowel sounds - Integumentary Integumentary: Present: decreased turgor - Neurologic Neurologic: Present: CNII-XII intact - Musculoskeletal Musculoskeletal: Present: generalized weakness - Psychiatric Psychiatric: Present: A&O x's 3, appropriate affect, intact judgment & insight - Labs CBC & Chem 7: 11/20/17 07:32 11/21/17 09:56 Labs: Abnormal Lab Results - Last 24 Hours (Table) 11/20/17 11/21/17 Range/Units 07:32 09:56 RBC 3.52 L (3.80-5.40) m/uL Hgb 10.2 L (11.4-16.0) gm/dL Hct 33.7 L (34.0-46.0) % MCHC 30.4 L (31.0-37.0) g/dL RDW 16.5 H (11.5-15.5) % Neutrophils # 9.1 H (1.3-7.7) k/uL Lymphocytes # 0.7 L (1.0-4.8) k/uL Chloride 95 L (98-107) mmol/L Carbon Dioxide 38 H (22-30) mmol/L Assessment and Plan Plan: Assessment: #1. Acute hypoxemic respiratory failure secondary to acute congestive heart failure, with now impaired left ventricular systolic function, which was previously normal. Follow-up chest x-rays showed improvement in the appearance of interstitial edema, and pleural effusions, improving changes of CHF #2. Recent hospitalization in October for bilateral pneumonia, A. fib RVR, congestive heart failure, congestive heart failure and patient was treated with a combination of Zosyn, Levaquin and vancomycin. Patient required BiPAP support and ICU admission during that hospital stay #3. A. fib with RVR, currently patient is on oral Amiodarone and Xarelto, her heart rate is better controlled. Currently in sinus rhythm #4. Valvular heart disease with evidence of moderate to severe mitral regurgitation and tricuspid regurgitation and preserved LV function #5. Leukocytosis, fever present on admission likely due to C. diff colitis and sepsis, improved #6. C. diff colitis currently on oral vancomycin #7. D-dimer, nonspecific, and patient has been on anticoagulation in the form of Xarelto #8. Lactic acidosis, and patient has been fluid resuscitated with subsequent resolution of lactic acidemia #9. Frequent falls at home, gait dysfunction, generalized weakness #10. History of ongoing diarrhea her last 3-4 months and weight loss, and patient has undergone endoscopic evaluation in [place] would removal of polyps. Most recent abdomen/pelvis CT showed mild constipation, and 10 mm common bile duct consistent with chronic gallbladder dysfunction. #11. Rheumatoid arthritis, previously on methotrexate #12. Chronic back pain, with evidence of moderate lumbar spondylosis seen on the CT of abdomen and pelvis #13. Nicotine dependence, currently in remission, patient quit in 1990, but prior to that smoked a pack a day for 40 years. Not on home oxygen or any inhalers or nebulized treatments at home #14. History of hypertension, hyperlipidemia Plan: Continue weaning FiO2, patient continues on oral diuretics, yesterday's chest x- ray has been reviewed, and showed continued improvement in the appearance of bilateral pleural effusions. Cardiology is adjusting patient's medications, the patient was switched from Entresto to Lisinopril. No chest discomfort today. Breathing easier, only a few crackles at the bilateral bases, increase activity, ambulation. Will continue to follow I performed a history & physical examination of the patient and discussed their management with my nurse practitioner, Jillian Moffett. I reviewed the nurse practitioner's note and agree with the documented findings and plan of care. Lung sounds are positive for fine bibasilar crackles. The findings and the impression was discussed with the patient. I attest to the documentation by the nurse practitioner. Time with Patient: Less than 30
--- NOTE | 2017-11-21 15:53 | PN ---
PROGRESS NOTE DATE OF SERVICE: 11/15/2017 CHIEF COMPLAINT: Fever, pneumonitis, chest pain, and atrial fibrillation. HISTORY OF PRESENT ILLNESS: This lady continues to be short of breath, although she is improving. She is not having as much chest discomfort. Echocardiogram demonstrates mitral insufficiency, mitral regurgitation and tricuspid regurgitation. PHYSICAL EXAM: She is in atrial fibrillation. Chest demonstrates crackling, rales at the bases posteriorly. Abdomen is soft, nontender. IMPRESSION: 1. Pneumonitis. 2. Atrial fibrillation. 3. Congestive heart failure. PLAN: Continue with current treatment plan. MMODL / IJN: [id number] /
[2017-11-21] MEDS: FUROSEMIDE 40 MG TAB PO SCH (17:51)
[2017-11-22] MEDS: IPRATROPIUM-ALBUTEROL 3 ML NEB INHALATION SCH ×2 (07:20→11:12)
[2017-11-22] MEDS: OXYBUTYNIN CHLORIDE 5 MG TAB PO SCH (07:49)
[2017-11-22] MEDS: APIXABAN 5 MG TAB PO SCH (07:49)
[2017-11-22] MEDS: PANTOPRAZOLE 40 MG TABLET PO SCH (07:49)
[2017-11-22] MEDS: ASPIRIN 81 MG PO SCH (07:49)
[2017-11-22] MEDS: AMIODARONE 200 MG TAB PO SCH (07:49)
[2017-11-22] MEDS: LIDOCAINE 5% PATCH TOPICAL SCH (07:50)
[2017-11-22] MEDS: predniSONE 10 MG TAB PO SCH (07:50)
[2017-11-22] MEDS: LISINOPRIL 10 MG TAB PO SCH (07:50)
[2017-11-22] MEDS: GABAPENTIN 100 MG CAP PO SCH (07:50)
[2017-11-22] MEDS: FUROSEMIDE 40 MG TAB PO SCH (07:50)
[2017-11-22] MEDS: METOPROLOL TARTRATE 50 MG TAB PO SCH (07:50)
[2017-11-22] MEDS: SPIRONOLACTONE 25 MG TAB PO SCH (07:58)
[2017-11-22] MEDS: LOPERAMIDE 2 MG CAP PO SCH ×2 (07:59→14:37)
[2017-11-22] MEDS: VANCOMYCIN ORAL SOLUTION 250 MG/5 ML BOTTLE PO SCH ×2 (08:00→14:37)
[2017-11-22] MEDS ORDERED: ISOSORBIDE MONONITRATE ER 15 MG TAB PO SCH (09:15)
[2017-11-22 13:32] VITALS: BMI 19.8
--- NOTE | 2017-11-22 13:35 | P.PN ---
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 Patient was recently hospitalized from 09/21/2017 through 10/10/2017 for acute hypoxic respiratory failure related to bilateral pneumonia, onset A. fib RVR and acute congestive heart failure with diastolic dysfunction, and a non-ST elevated CO. Patient was treated with a combination of Zosyn, vancomycin and Levaquin, she was diuresed, echocardiogram showed a preserved LV function with an ejection fraction of 55-60%, moderate degree of mitral regurgitation and questionable small mobile vegetation attest to the anterior mitral valve leaflet and the patient underwent a YOAN. The YOAN did not show any evidence of any infective endocarditis or valvular vegetation. Moderate to severe mitral regurgitation, moderate to severe tricuspid regurgitation and overall LV function was within normal limits. He was placed on anticoagulation in the form of some Xarelto. Clinically patient improved, and was discharged home. Patient was hospitalized again for recurrent falls, back pain, weakness from 11/01/2017 through 11/03/2017. Patient has been having trouble with ongoing diarrhea for last 4 months, weight loss of 30-40 pounds, patient apparently had upper and lower endoscopy studies in [place], with removal of polyps. Patient had a couple other emergency rooms visits for [place] related to dislocated right hip and pain. On 11/12/2017 patient was evaluated in the emergency department again for significant shortness of breath , generalized body pain, confusion, fever. Patient was in A. fib RVR, febrile, and the chest x-ray showed a new pulmonary interstitial infiltrates, and a new small pneumonia at the left lateral lung base. Patient has significant leukocytosis, the PVC was 27.1, hemoglobin is 10.3, lactic acid was elevated at 2.5. Patient had positive troponins of 0.074, 0.063 and 0.250, patient was started on Levaquin and Zosyn, and oral vancomycin for evidence of C. diff in her stool. Patient was given IV fluid resuscitation. She was seen in consultation by ID service as well as cardiology, her A. fib RVR was treated with Cardizem and patient is on Xarelto for anticoagulation. We were asked to see the patient in consultation for worsening shortness of breath, this morning patient stated she had a severe bout of respiratory distress, was hardly able to get air in, her oxygenation worsened, and her FiO2 increased to 4 L per nasal cannula and her pulse ox is around 92%, patient was noted to have increased bilateral lower extremity edema, and positive JVD. Stat chest x-ray has been taken and showed bilateral infiltrates, and pleural effusions. ProBNP was elevated at 9950. Patient was given a dose of IV Lasix. Her diuresing, and she felt improvement with her breathing. The patient is seen again today 11/17/2017 in follow-up on the regular medical floor. She is awake and alert in no acute distress. She is breathing quite a bit easier today as compared to yesterday. She diuresed well. Currently in a - 1200 ML balance. She is down to 4 L high flow nasal cannula and maintaining good O2 saturation in the 90s. She's been afebrile. Blood cultures reveal no growth. White count improved 10.9. Hemoglobin 10.4. Creatinine 0.69. Replacing potassium. She remains on Lasix 40 mg IV push every 8 hours. On 11/18/2017, I'm seeing this patient for a follow-up. Clinically she is improving and she is less short of breath compared to yesterday. No fever. No chills. No night sweats. She is being dialyzed IV Lasix. The patient's renal function is still stable with a BUN of 10 and creatinine 0.6. A follow-up chest x-ray was done today and there is still findings consistent with CHF. The patient would benefit from ongoing diuresis. She is currently receiving Lasix 40 mg every 8 hours. Overall she is feeling better. She is also anticoagulated with Xarelto. On 11/19/2017 patient is seen again on the fifth floor, she is resting comfortably in bed, reports breathing better, lung sounds reveal some residual crackles at the right posterior base, and left anterior base. Good air entry noted bilaterally, no wheezing. Currently on 2 L per nasal cannula, this morning room air pulse ox was done, and patient was noted to be approximately make with a pulse ox of 86% on the room air. The appearance of bilateral lower extremity edema has significantly improved, and it has nearly resolved. Patient is afebrile, hemodynamically stable, no chest pain, no worsening shortness of breath, today's labs were reviewed, BNP was done, sodium was 141, potassium is 3.7, chloride was 99, CO2 was 35, BUN was 14, creatinine 0.74. Repeat proBNP remains elevated at 12,400, magnesium is 1.4. Repeat chest x-ray today showed improvement of the diffuse interstitial pattern, improving CHF. Echocardiogram was completed, and showed left ventricular systolic function moderately impaired with an EF between 35-40%, anterior and lateral LV wall, apical inferior LV wall and septal LV wall hypokinesis. There was presence of moderate mitral regurgitation and mild tricuspid regurgitation, right ventricular systolic pressure is normal at less than 35 mmHg. Her is diarrhea has resolved, and she reports having one small formed stool this morning. On 11/20/2017 patient seen in follow-up on medical surgical floor. Doing well, no recent shortness of breath, no chest pain, currently on 2 L per nasal cannula , with a pulse ox of 97%, afebrile, sounds reveal fine rales at bilateral bases , good air entry noted bilaterally, no wheezing no rhonchi. Patient has SAE hose on bilateral lower extremities, patient states she develops dependent edema if she is sitting up with her legs dependent, but overall there has been resolution of peripheral edema since the initiation of diuretics. Today's chest x-ray showed improvement in the appearance of interstitial edema and pleural effusions, patient has been switched to oral diuretics. No diarrhea. Labs have been reviewed, and showed sodium of 141, potassium is 4.6, CO2 35, BUN is 12, creatinine 0.62. Cultures remain negative. No acute events overnight, overall patient is feeling and breathing much better. On 11/21/2017 patient seen again in follow-up on medical surgical floor. Continues to be doing well, no worsening dyspnea, remains on oral Lasix, oral prednisone, Eliquis, patient was initially started on Entresto per cardiology, but due to cost it was switched to lisinopril. Patient had episode of precordial discomfort, and EKG was obtained, and showed sinus rhythm with T- wave inversions in the inferior, anterior and lateral leads. Troponin continues to trend down, down to 0.085. Follow-up proBNP on 11/19/2017 had actually gone up to 12,400. Lung sounds reveal bibasilar crackles, no wheezing. No swelling in bilateral lower extremities, no fever, no chills, no ongoing diarrhea and patient continues on oral vancomycin On 11/22/2017 patient seen in follow-up on the fifth floor. Doing well, currently on room air, pulse ox is 93%, vital signs are stable, no fever, no chills. Lung sounds reveal only a few bibasilar crackles, no wheezing, no rhonchi. Denies chest pain, worsening shortness of breath. Currently on oral diuretics, started on Doug inhibitors per cardiology. No ongoing diarrhea. Patient is cleared for discharge from our standpoint. Objective - Vital Signs Vital signs: Vital Signs Temp 97.6 F 11/22/17 07:05 Pulse 72 11/22/17 11:26 Resp 16 11/22/17 08:00 BP 123/67 11/22/17 07:05 Pulse Ox 93 L 11/22/17 07:20 Intake & Output 11/21/17 11/22/17 11/22/17 18:59 06:59 18:59 Intake Total 720 Balance 720 Weight 52.617 kg 50.9 kg 50.9 kg Intake: Oral 720 Other: Voiding Method Toilet Toilet Toilet # Voids 4 2 # Bowel Movements 1 - Exam - Constitutional General appearance: Present: thin - EENT Eyes: Present: EOMI, PERRLA ENT: Present: hard of hearing Ears: bilateral: normal - Neck Neck: Present: normal ROM Carotids: bilateral: upstroke normal Thyroid: bilateral: normal size - Respiratory Respiratory: bilateral: few rales, lung bases bilaterally and diminished breath sound lung bases. - Cardiovascular Rhythm: irregularly irregular Heart sounds: normal: S1, S2 Abnormal Heart Sounds: Present: diastolic murmur - Gastrointestinal General gastrointestinal: Present: normal bowel sounds - Integumentary Integumentary: Present: decreased turgor - Neurologic Neurologic: Present: CNII-XII intact - Musculoskeletal Musculoskeletal: Present: generalized weakness - Psychiatric Psychiatric: Present: A&O x's 3, appropriate affect, intact judgment & insight - Labs CBC & Chem 7: 11/20/17 07:32 11/21/17 09:56 Assessment and Plan Plan: Assessment: #1. Acute hypoxemic respiratory failure secondary to acute congestive heart failure, with now impaired left ventricular systolic function, which was previously normal. Follow-up chest x-rays showed improvement in the appearance of interstitial edema, and pleural effusions, improving changes of CHF #2. Recent hospitalization in October for bilateral pneumonia, A. fib RVR, congestive heart failure, congestive heart failure and patient was treated with a combination of Zosyn, Levaquin and vancomycin. Patient required BiPAP support and ICU admission during that hospital stay #3. A. fib with RVR, currently patient is on oral Amiodarone and Xarelto, her heart rate is better controlled. Currently in sinus rhythm #4. Valvular heart disease with evidence of moderate to severe mitral regurgitation and tricuspid regurgitation and preserved LV function #5. Leukocytosis, fever present on admission likely due to C. diff colitis and sepsis, improved #6. C. diff colitis currently on oral vancomycin #7. D-dimer, nonspecific, and patient has been on anticoagulation in the form of Xarelto #8. Lactic acidosis, and patient has been fluid resuscitated with subsequent resolution of lactic acidemia #9. Frequent falls at home, gait dysfunction, generalized weakness #10. History of ongoing diarrhea her last 3-4 months and weight loss, and patient has undergone endoscopic evaluation in [place] would removal of polyps. Most recent abdomen/pelvis CT showed mild constipation, and 10 mm common bile duct consistent with chronic gallbladder dysfunction. #11. Rheumatoid arthritis, previously on methotrexate #12. Chronic back pain, with evidence of moderate lumbar spondylosis seen on the CT of abdomen and pelvis #13. Nicotine dependence, currently in remission, patient quit in 1990, but prior to that smoked a pack a day for 40 years. Not on home oxygen or any inhalers or nebulized treatments at home #14. History of hypertension, hyperlipidemia Plan: Patient is doing well, no significant events overnight, she is now on room air, afebrile, vital signs are stable, denies any chest pain and worsening shortness of breath. No new chest x-rays today. Patient has been ambulating, tolerating it well. Her standpoint she stable for discharge home today. Was advised to get established with a primary care doctor, diffuser operator and the rear load truck driver when she returns to [place] I performed a history & physical examination of the patient and discussed their management with my nurse practitioner, Jillian Moffett. I reviewed the nurse practitioner's note and agree with the documented findings and plan of care. Lung sounds are positive for fine bibasilar crackles. The findings and the impression was discussed with the patient. I attest to the documentation by the nurse practitioner.
--- NOTE | 2017-11-22 13:40 | P.PN ---
Subjective Mrs. Lenz is seen and examined sitting up sleeping in the chair. She is in no acute distress and saturating on room air. She denies symptoms of chest pain , shortness of breath, dizziness or palpitations. She continues to maintain sinus mechanism. Blood pressure 123/67 heart rate 72. Plan is for discharge home today to travel back to [place]. I have advised her of the importance of following up with a shake table operator upon return to [place] and she states she has already made an appointment. She is hemodynamically stable. Objective - Vital Signs Vital signs: Vital Signs Temp 97.6 F 11/22/17 07:05 Pulse 72 11/22/17 11:26 Resp 16 11/22/17 08:00 BP 123/67 11/22/17 07:05 Pulse Ox 93 L 11/22/17 07:20 Intake & Output 11/21/17 11/22/17 11/22/17 18:59 06:59 18:59 Intake Total 240 Balance 240 Weight 52.617 kg 50.9 kg Intake: Oral 240 Other: Voiding Method Toilet Toilet Toilet # Voids 4 2 # Bowel Movements 1 - Exam GENERAL: Well-appearing, well-nourished and in no acute distress. NECK: Supple without JVD or thyromegaly. LUNGS: Clear to auscultation b/l. No rales, wheezes or rhonchi. Respiration equal and unlabored. HEART: Regular rate and rhythm with systolic ejection murmur at the base, no rubs or gallops. S1 and S2 heard. EXTREMITIES: Normal range of motion, no edema. No clubbing or cyanosis. Peripheral pulses intact. - Labs CBC & Chem 7: 11/20/17 07:32 11/21/17 09:56 Assessment and Plan Assessment: ASSESSMENT Acute systolic heart failure, EF 35-40% related takotsubo syndrome Cardiomyopathy, unknown if ischemic or non-ischemic. 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 Hypertension Dyslipidemia PLAN Start her on imdur 15 mg daily. Stable from a cardiac standpoint. Advised the patient the importance of following up with a shake table operator once she gets back to [place]. This has been discussed as well with Dr. Olmos. Nurse Practitioner note has been reviewed, I agree with a documented findings and plan of care. Patient was seen and examined.
[2017-11-22 13:58] VITALS: BP 97/48; PULSE 70; TEMP 97.8
--- NOTE | 2017-11-22 15:06 | DS ---
DISCHARGE SUMMARY CHIEF COMPLAINT: Chest pain, shortness of breath, pneumonitis, and atrial fibrillation with RVR. HISTORY OF PRESENT ILLNESS AND PHYSICAL EXAM: Details of this lady's history and physical can be found in the initial workup. LABORATORY STUDIES: While she was in the hospital, she had laboratory studies, details of which can be found in the laboratory section of her chart. COURSE IN HOSPITAL: After admission he was placed in bedrest and started on nasal O2, updrafts, antibiotics and she was seen and followed by pulmonology. Pneumonitis did respond. She seemed to be improving, but then she got into difficulty with her atrial fibrillation and congestive heart failure. She was gradually improved and finally was felt to be strong enough to be able to make the trip to [place]. The plan was for her to be discharged and will leave the next day by car to arrive home in the [place]. FINAL DIAGNOSES: 1. Bilateral bronchopneumonia. 2. Atrial fibrillation with rapid ventricular response. 3. Congestive heart failure. OPERATIONS: None. CONSULTATIONS: Pulmonology. She is improved. MMOPAL / KALIN: [id number] /
--- NOTE | 2017-11-23 11:40 | MISC ---
MISCELLANOUS REPORT QUERY I think that she would be moderate protein-calorie malnutrition. Type of anemia: Anemia of chronic disease. MMODL / IJN: [id number] /
== END 2017-11-22 14:45 | disposition home health service (06) | DRG 871 ==
LOC: EC 04:35 → 6SEL 06:15 → 4MS4W 11-14 11:30 → 5MS5E 11-19 07:10
PROVIDERS: ADMIT Family Medicine; ATTEND Family Medicine
DX: A41.9 Sepsis, unspecified organism (principal); I50.43 Acute on chronic combined systolic (congestive) and diastolic (congestive) heart failure; I51.1 Rupture of chordae tendineae, not elsewhere classified; J96.01 Acute respiratory failure with hypoxia; J15.9 Unspecified bacterial pneumonia; G93.40 Encephalopathy, unspecified; A04.72 Enterocolitis due to Clostridium difficile, not specified as recurrent; E87.2 Acidosis; I47.1 Supraventricular tachycardia; I51.81 Takotsubo syndrome; J44.0 Chronic obstructive pulmonary disease with (acute) lower respiratory infection; E44.0 Moderate protein-calorie malnutrition; E78.5 Hyperlipidemia, unspecified; E83.42 Hypomagnesemia; F17.201 Nicotine dependence, unspecified, in remission; G89.29 Other chronic pain; I25.2 Old myocardial infarction; I48.0 Paroxysmal atrial fibrillation; I49.3 Ventricular premature depolarization; K21.9 Gastro-esophageal reflux disease without esophagitis; M06.9 Rheumatoid arthritis, unspecified; M47.816 Spondylosis without myelopathy or radiculopathy, lumbar region; R29.6 Repeated falls; R79.1 Abnormal coagulation profile; Y95 Nosocomial condition; Z79.01 Long term (current) use of anticoagulants; Z82.49 Family history of ischemic heart disease and other diseases of the circulatory system; Z83.3 Family history of diabetes mellitus; Z87.11 Personal history of peptic ulcer disease; Z90.3 Acquired absence of stomach [part of]; Z96.643 Presence of artificial hip joint, bilateral; Z79.891 Long term (current) use of opiate analgesic; Z79.899 Other long term (current) drug therapy; D63.8 Anemia in other chronic diseases classified elsewhere
CPT/HCPCS: 36415; 70470; 71045; 71046; 72170; 73501; 73502; 80048; 80053; 80061; 81001; 82550; 82553; 83605; 83690; 83735; 83880; 84132; 84443; 84484; 85025; 85027; 85379; 85610; 85730; 86140; 87040; 93005; 93306; 94640; 94760; 96361; 96365; 96366; 96367; 96372; 96374; 96375; 96376; 99283; 99284; 99291